=== PATIENT | male | born 1945 | race Caucasian/White ===

== ENCOUNTER 2017-04-05 09:00 | Day surgery (SDC) | payer MEDICARE ==
[2017-04-02 13:04] VITALS: BMI 36.2
[~2017-04-05 09:00] MED LIST: ALPRAZolam 0.25 MG TAB PO PRN; ALPRAZolam 0.5 MG TAB PO PRN; ASPIRIN 325 MG TAB PO STA; ATORVASTATIN 80 MG TAB PO STA; NITROGLYCERIN SL TABS 0.4 MG TAB SUBLINGUAL PRN; SODIUM CHLORIDE 0.9% 1,000 ML in EMPTY BAG 1 BAG IV ONE
[2017-04-05 09:38] VITALS: RESP 18; TEMP 98
[2017-04-05 09:54] LABS: Basophils % (A) 1 %; CH 31.2; CHCM 35.3; Eosinophils # (A) 0.2 k/uL (0-0.7); Eosinophils % (A) 3 %; HCT 36.7 % (39.0-53.0); HDW 2.87; HGB 12.9 gm/dL (13.0-17.5); Luc # (Auto) 0.16; Luc % (Auto) 2; Lymphocytes # (A) 1.6 k/uL (1.0-4.8); Lymphocytes % (A) 22 %; MCH 31.2 pg (25.0-35.0); MCHC 35.1 g/dL (31.0-37.0); MCV 88.7 fL (80.0-100.0); Mean Platelet Volume 7.5; Monocytes # (A) 0.4 k/uL (0-1.0); Monocytes % (A) 5 %; Neutrophils # (A) 4.8 k/uL (1.3-7.7); Neutrophils % (A) 66 %; RBC 4.13 m/uL (4.30-5.90); RDW 13.3 % (11.5-15.5); WBC 7.3 k/uL (3.8-10.6); WBC (Perox) 7.79
[2017-04-05 10:04] LABS: Anion Gap 10 mmol/L; Blood Urea Nitrogen 18 mg/dL (9-20); Calcium 8.8 mg/dL (8.4-10.2); Carbon Dioxide 23 mmol/L (22-30); Chloride 108 mmol/L (98-107); Glucose 89 mg/dL (74-99); Non-African American GFR(MDRD) 59 (>60 ml/min/1.73 sqM); Potassium 4.2 mmol/L (3.5-5.1); Sodium 141 mmol/L (137-145)
[2017-04-05] MEDS ORDERED: LIDOCAINE 2% INJ 20 MG/ML (20 ML MDV) ONE (12:32)
[2017-04-05] MEDS ORDERED: VERAPAMIL 2.5 MG/ML 2 ML AMP ONE (12:33)
[2017-04-05] MEDS ORDERED: MIDAZOLAM 2 MG/2 ML VIAL ONE (12:33)
[2017-04-05] MEDS ORDERED: MIDAZOLAM 2 MG/2 ML VIAL IV ONE (12:39)
[2017-04-05] MEDS ORDERED: LIDOCAINE 2% INJ 20 MG/ML SQ ONE (12:41)
[2017-04-05] MEDS ORDERED: HEPARIN SODIUM 1,000 UN/ML (10ML VL) ONE (12:41)
[2017-04-05] MEDS: VERAPAMIL SYRINGE (5 MG/10 ML) INTRAARTER ONE ×2 (12:43→12:53)
[2017-04-05] MEDS ORDERED: IOHEXOL 350 MG/ML 125ML BOTTLE INJ ONE (12:52)
[2017-04-05] MEDS ORDERED: RX INFO: IV CONTRAST WAS GIVEN 1 EACH MISC MISCELLANE PRN (12:58)
[2017-04-05] MEDS ORDERED: SODIUM CHLORIDE 0.9% 1,000 ML IV SCH (13:00)
--- NOTE | 2017-04-05 13:07 | P.PCN ---
Date of Procedure: 04/05/17 Preoperative Diagnosis: Postoperative Diagnosis: Procedure(s) Performed: Implants: Indications for Procedure: Operative Findings: CARDIAC CATHETERIZATION PERFORMING PHYSICIAN: Ramin Zhang MD, VI PREPROCEDURE DIAGNOSES: Intermittent episodes of chest discomfort Abnormal myocardial perfusion imaging with evidence of anterior ischemia POSTPROCEDURE DIAGNOSES: Mild nonobstructive CAD Normal left ventricular systolic function PROCEDURE PERFORMED: 1. Selective right and left coronary angiogram 2. Left heart catheterization 3. Left ventriculography APPROACH: Right radial artery PROCEDURE DESCRIPTION: After obtaining an informed consent and explaining the procedure benefits, risks , and complications, the patient was brought to cardiac cathead operator. Local anesthesia was performed using lidocaine subcutaneously. The right radial artery was cannulated using Seldinger technique, the guidewire passed easily, following that we advanced a 6[place] sheath dilator assembly, the wire and dilator were removed and sheath was flushed. Following that, 2 mg of verapamil along with 3000 unit heparin were given. Selective right and left coronary angiogram using a 6-[place] JR4 and JL 3.5 catheters. Following that we did left heart catheterization followed by left ventriculography using 6-[place] pigtail catheter. The procedure was completed there was no complication. SELECTIVE CORONARY ANGIOGRAM: The right coronary artery: Is a large caliber vessel and its a dominant vessel. Its angiographically normal. Left main: Is angiographically normal and bifurcates into left circumflex and left anterior descending artery The left circumflex: Is a large caliber vessel and nondominant vessel. Its angiographically normal. The left anterior descending artery: The proximal LAD appeared to have mild disease only and gives rises into a large diagonal branch which seems to be normal. The mid LAD and distal LAD are angiographically normal. HEMODYNAMICS: The left ventricular end-diastolic pressure was 16 mmHg and no gradient was identified across aortic valve VENTRICULOGRAPHY: Was performed in the [place] projection and using a power injection. The left ventricle systolic function is normal. POSTPROCEDURE MANAGEMENT: Medical treatment. Description of Procedure:
[2017-04-05 16:54] VITALS: BP 153/67
[2017-04-05 16:55] VITALS: PULSE 55
== END 2017-04-05 19:12 | disposition home or self-care (01) ==
LOC: CATHCVL 09:00 → 3OBS 12:54 → CATHCVL 19:12
PROVIDERS: ATTEND Internal Medicine Interventional Cardiology
DX: R94.39 Abnormal result of other cardiovascular function study (principal); R07.89 Other chest pain; I10 Essential (primary) hypertension; E78.5 Hyperlipidemia, unspecified; Z87.891 Personal history of nicotine dependence; Z79.82 Long term (current) use of aspirin; Z79.1 Long term (current) use of non-steroidal anti-inflammatories (NSAID); Z79.899 Other long term (current) drug therapy
CPT/HCPCS: 93458; 80048; 85025; C1894; J2001; J2250; J1644; Q9967

== ENCOUNTER → 2019-01-24 | Outpatient (CLI) | payer MEDICARE ==
--- NOTE | 2019-01-24 12:25 | XR ---
Bilateral hips HISTORY: Bilateral hip pain 2 views of each hip are submitted. No comparisons Bone mineralization, joint spaces and alignment are maintained. There are dense vascular calcificatio ns present. There is no fracture or dislocation. IMPRESSION: No significant arthropathy.
== END ==
LOC: RADXRMAIN 11:42
PROVIDERS: ATTEND Orthopaedic Surgery
DX: M25.551 Pain in right hip (principal); M25.552 Pain in left hip
CPT/HCPCS: 73521

== ENCOUNTER → 2019-02-02 | Outpatient (CLI) | payer MEDICARE ==
--- NOTE | 2019-02-02 12:43 | MR ---
EXAMINATION TYPE: MR lumbar spine wo con DATE OF EXAM: 02/02/2019 COMPARISON: NONE HISTORY: Low back pain TECHNIQUE: T1 and T2 axial and sagittal images of the lumbar spine are submitted. FINDINGS: There is no abnormal signal seen within the visualized spinal cord or paraspinal soft tissu es. At L1-2 there is degenerative disc disease but no disc herniation or canal stenosis. No foraminal enc roachment. At L2-3 there is severe degenerative disc disease with 2 mm retrolisthesis of L2 relative to L3. Vacu um disc noted. Ligamentum flavum hypertrophy and facet arthropathy noted. Broad-based disc protrusion seen with bilateral moderate to severe foraminal encroachment and moderate canal stenosis. At L3-4 there is severe degenerative disc disease with broad-based disc herniation and hypertrophy of the facet joints and ligamentum flavum. Moderate severe bilateral foraminal encroachment and moderat e central stenosis. At L4-5 there is severe degenerative disc disease with diffuse disc bulging, hypertrophic change of t he facets and ligamentum flavum result in moderate canal stenosis and moderate bilateral foraminal en croachment. At L5-S1 there is severe degenerative disc disease with central disc protrusion slightly greater para centrally to the right. There is moderate bilateral foraminal encroachment. Mild canal stenosis. There is increased signal involving the arachnoid nerve roots which appear thickened. 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 Postcontrast imaging recommended. Evidence of epidural lipomatosis inciden tally noted. IMPRESSION: 1. Severe degenerative disc disease with vacuum disc at levels L2-S1 with disc protrusions, hypertrop hic change of the facets and ligamentum flavum and diminutive spinal canal resulting in multilevel si gnificant canal stenosis and foraminal encroachment extending from level L2-S1. 2. There is increased intermediate signal involving the structures within the thecal sac which most l ikely related to thickened or clumped nerve roots within the cauda equina correlate for arachnoiditis . Postcontrast T1 sagittal and axial imaging is recommended to exclude other etiologies. 3. Epidural lipomatosis.
== END ==
LOC: RADMRIMAIN 11:45
PROVIDERS: ATTEND Orthopaedic Surgery
DX: M51.37 Other intervertebral disc degeneration, lumbosacral region (principal); M51.27 Other intervertebral disc displacement, lumbosacral region; M48.07 Spinal stenosis, lumbosacral region; E88.2 Lipomatosis, not elsewhere classified
CPT/HCPCS: 72148

== ENCOUNTER → 2019-02-16 | Outpatient (CLI) | payer MEDICARE ==
[2019-02-16 14:18] VITALS: BP 135/74; PULSE 80; RESP 16
--- NOTE | 2019-02-16 14:39 | P.PAINCN ---
History of Present Illness - Reason for Consult Consult date: 02/16/19 - History of Present Illness This is an initial consultation visit for this 73 years old male with a chronic history of severe low back pain started 3 years ago he denies any initiating event, the pain is constant throughout detorsed the hip area bilaterally, he denies any motor or sensory deficit he denies any initiating event, the pain is constant and increases with any activity especially walking or moving, he denies any fever or night sweats, he never tried interventional pain management. Past Medical History Past Medical History: Asthma, GERD/Reflux, Hyperlipidemia, Hypertension, Osteoarthritis (OA), Prostate Disorder, Thyroid Disorder Additional Past Medical History / Comment(s): HX STRESS TEST ABN. ASTHMA CHILD. BPH. PROB W/ BIAT HIPS R/T BACK PROBLEMS. OCC EDEMA ANKLES. History of Any Multi-Drug Resistant Organisms: None Reported Past Surgical History: Appendectomy, Heart Catheterization, Orthopedic Surgery Additional Past Surgical History / Comment(s): PARTIAL THYROIDECTOMY. LT ROTATOR CUFF., COLONOSCOPY Past Anesthesia/Blood Transfusion Reactions: No Reported Reaction Smoking Status: Former smoker - Past Family History Mother Brother(s) Family Medical History: Cancer Sister(s) Family Medical History: Cancer Medications and Allergies Home Medications Medication Instructions Recorded Confirmed Type Allopurinol [Zyloprim] 300 mg PO HS 04/02/17 02/14/19 History Atorvastatin [Lipitor] 20 mg PO HS 04/02/17 02/14/19 History Benazepril HCl [Lotensin] 20 mg PO HS 04/02/17 02/14/19 History Levothyroxine Sodium [Synthroid] 100 mcg PO HS 04/02/17 02/14/19 History Multivit-Min/FA/Lycopen/Lutein 1 each PO HS 04/02/17 02/14/19 History [Centrum Silver Tablet] Naproxen [Naprosyn] 500 mg PO Q12HR PRN 04/02/17 02/14/19 History Primidone [Mysoline] 150 mg PO HS 04/02/17 02/14/19 History Ranitidine HCl 300 mg PO HS 04/02/17 02/14/19 History Terazosin HCl 10 mg PO HS 04/02/17 02/14/19 History amLODIPine [Norvasc] 10 mg PO HS 04/02/17 02/14/19 History Allergies Allergy/AdvReac Type Severity Reaction Status Date / Time No Known Allergies Allergy Verified 02/14/19 15:07 Physical Exam Vitals: Vital Signs Pulse Resp BP Pulse Ox 02/16/19 14:14 80 16 135/74 94 L Social history : not smoker , NO ETOH , NO Illegal drugs use . Review of Systems : - Constitutional : no chills , no fever , no night sweats , - Ears : no ear discharge , no change in hearing -Nose, Mouth ,Throat ; no bleeding gums, no sore throat , no epistaxis , -Cardiovascular : Denies chest pain, , no orthopnea , no palpitation -Respiratory : Denies cough , no dyspnea , no hemoptysis -Gastrointestinal : no change in bowel habits , no coffee-ground emesis . -Genitourinary : No hematuria , no discharge , no incontinence, -Musculoskeletal : No gait dysfunction , report low back pain , - Neurological : no ataxia , no tremor , no sezure , -Psychatric : no suicidal ideation no hallucination - Endocrine : no cold intolerence , no polyuria , no polydypsia , -Hematologic : no easy bleeding , no easy brusing , -Allergic / immm : no angioedema , no wheezing ,no allergic rhinitis -Integumentary : no brttle nails , no change hair / nails , no foot/leg ulcers . Physical Examinations : -Constitutional : Cooperative , not in acute distress . -HEENT : nech ; supple , no Lymphadenopathy , no Thyromegaly , :eyes : no icterus, no photopho poncho . : ENT normal oropharynx , no Thrush - Respiratory : Chest clear to auscultations Bilaterally , no wheezing . - Cardiovascular : regular rate and rhythem , S1 , S2 , no S3 , no S4. - Gastrointestina l: abdomen soft no tenderness , no organomegally . - Genitourinary : Defferred . -Integumentary : No cellulitis , no ulcers , normal skin turgor , no cyanotic . - neurologic : Cranial nerve II to XII intact , no focal neurological deffecit -psychatric : alert , oriented X 3 , appropriate affect , intact judgment and insight . -Lymphatic : no Lymphadenopathy. - musculoskeltal: normal gait . Lumber spine moter stegnth lower extremities ,thigh and legs 5/5 Right side , 5/5 Left side deep tendon reflexes : normal Knee Jerk , normal ankle Jerk positive lumber facet Loading Test Range of motion of the lumbar spine Flexion 60 degrees, extension 30 degrees strait leg raising test negative bilaterally Fabere test negative bilaterally Severe tenderness over the sacroiliac joint on the right side, and on the left side [place] test= positive bilaterally Seated flexion test= positive bilaterally Results Comments: MRI of the lumbar spine done at [facility] in 02/02/2019= L3-4 severe degenerative disc disease and disc herniation at L3 4 and facet joint hypertrophy and L4 5 severe degenerative disc disease and facet joint hypertrophy L5-S1 severe degenerative disc disease and facet joint hypertrophy Assessment and Plan Plan: Assessment and plan=1- lumbar degenerative disc disease 2-epidural lipomatosis 3-lumbar spondylosis with lumbar facet arthropathy 4-bilateral sacroiliitis Epidural steroid injection is relatively contraindicated . Patient will be good candidate to have diagnostic medial branch block lumbar area at L3 4, L4 5, L5-S1 Time with Patient: Greater than 30 PQRS Measure Charge Sheet Measure #130: Documentation of Current Meds in Medical Chart: Patient's medications documented in chart Measure #226: Tobacco Use: Screen & Cessation Intervention: Pt not a tobacco user Measure #111: Pneumonia Vaccination: Pneumococcal vaccine administered or previously received Measure #47: Advance Care Plan: Advance care planning discussed & documented, pt chose/unable to give Measure #412: Opioid Treatment Agreement: No documentation of signed opioid treatment agreement Measure #408: Opioid Therapy Follow-up Evaluation: Patient had NO f/u eval minimum every 3 months during opioid therapy Measure #317: Preventitive Care & Scrn High Bld Press & F/U: Normal blood pressure, f/u not required Measure #128: Body Mass Index (BMI) Screening & Follow-up: BMI documented ABOVE normal parameters - f/u documented Measure #131: Pain Assessment & Follow-up: Pain positive & plan documented, Follow-up scheduled Measure #431: Unhealthy Alcohol Use Preventative Care & Scrn: Patient not identified as an unhealthy alcohol user PQRS Narrative: Smoking Status Former smoker Blood Pressure 135/74 Pain Intensity [Lower Back] 2 Hx Alcohol Use (MH) No Home Medications: Ambulatory Orders Allopurinol [Zyloprim] 300 mg PO HS 04/02/17 Atorvastatin [Lipitor] 20 mg PO HS 04/02/17 Benazepril HCl [Lotensin] 20 mg PO HS 04/02/17 Levothyroxine Sodium [Synthroid] 100 mcg PO HS 04/02/17 Multivit-Min/FA/Lycopen/Lutein [Centrum Silver Tablet] 1 each PO HS 04/02/17 Naproxen [Naprosyn] 500 mg PO Q12HR PRN 04/02/17 Primidone [Mysoline] 150 mg PO HS 04/02/17 Ranitidine HCl 300 mg PO HS 04/02/17 Terazosin HCl 10 mg PO HS 04/02/17 amLODIPine [Norvasc] 10 mg PO HS 04/02/17
== END | disposition home or self-care (01) ==
LOC: PNWHC3 13:43
PROVIDERS: ATTEND Specialist
DX: G89.29 Other chronic pain (principal); M51.36 Other intervertebral disc degeneration, lumbar region; E88.2 Lipomatosis, not elsewhere classified; M47.816 Spondylosis without myelopathy or radiculopathy, lumbar region; M46.96 Unspecified inflammatory spondylopathy, lumbar region; M46.1 Sacroiliitis, not elsewhere classified; K21.9 Gastro-esophageal reflux disease without esophagitis; E78.5 Hyperlipidemia, unspecified; I10 Essential (primary) hypertension; Z87.891 Personal history of nicotine dependence; Z79.899 Other long term (current) drug therapy
CPT/HCPCS: 99211

== ENCOUNTER 2019-03-01 06:10 | Day surgery (SDC) | payer MEDICARE ==
[2019-02-21 15:38] VITALS: BMI 37.3
[2019-03-01] MEDS ORDERED: LACTATED RINGERS 1,000 ML IV ONE (06:35)
[2019-03-01] MEDS ORDERED: LIDOCAINE 1% 20 ML VIAL (10MG/ML) FOR IV START INTRADERMA ONE (06:35)
[2019-03-01 06:43] VITALS: TEMP 97.2
[2019-03-01] MEDS ORDERED: LACTATED RINGERS 1,000 ML IV SCH (07:00)
[2019-03-01] MEDS ORDERED: IV FLUID CONTINUATION 1,000 ML IV ONE ×2 (07:28)
[2019-03-01 07:33] VITALS: RESP 18
--- NOTE | 2019-03-01 07:33 | P.PCN ---
Date of Procedure: 03/01/19 Procedure(s) Performed: PREOPERATIVE DIAGNOSIS : Lumbar spondylosis with Facet Arthropathy without myelopathy POSTOPERATIVE DIAGNOSIS: same PROCEDURE: Diagnostic lumbar medial branch block with fluoroscopy at L3-L4, L4- L5, L5-S1 bilateral ANESTHESIA: Local anesthetic; Versed 2 mg Surgeon: Milana Mcdonough MD PROCEDURE INDICATION: Lumbar spondylosis with Facet Arthropathy without myelopathy PROCEDURE DESCRIPTION: the patient was seen and identified in the preop holding area , risks and benefits and possible complications of the procedure and alternative were discussed with the patient, and the patient agreed to proceed with the procedure and signed the consent IV was started and vital signs monitored during the procedure and fluoroscopy was used to maximize the benefit and accuracy of the needle placement, and sedation was given to decrease patient anxiety, patient was taken to the procedure room and placed in prone position vital signs monitored in the back prepped. Under strict sterile technique using a AP and ipsilateral oblique fluoroscopy ,the junction of the transverse process and the superior articulating process of the L3- 4 , L4- 5, and L5-S1 vertebra which corresponding to the fluoroscopy image of the eye of the Neel dog on the block side for the medial branches as well as the sacral ala was identified and subsequently , after local infiltration of skin and subcutaneous tissues with lidocaine 1% 0.2 mL at each level ,then a 22-gauge 5 inch Quincke-type needles was placed at the junction of the base of the transverse process and the superior articular process at the appropriate level, and the needle was advanced until the periosteum contacted, needle placement confirmed with AP and oblique view and after negative aspiration, Isovue 200 0.2 mL was injected with no evidence of vascular uptake. Then, 0.5 mL of Marcaine 0.5% in divided doses was injected at each level and the needle subsequently removed. No steroid was used for this procedure. At the end of the procedure and the needles removed and a bandage applied after the skin was cleaned the cleaning solution patient taken to recovery room in stable condition and monitors in the recovery room for 20-30 minutes and discharged home in stable condition after discharge criteria met and patient will follow up for repeat procedure in 1-2 weeks. EBL: Minimal COMPLICATION: None.
[2019-03-01 07:49] VITALS: BP 136/77; PULSE 68
--- NOTE | 2019-03-01 08:05 | FL ---
EXAMINATION TYPE: FL guided pain mgmt statistic DATE OF EXAM: 03/01/2019 HISTORY: Flouroscopy time 13 seconds of fluoroscopy provided. IMPRESSION: 1. Fluoroscopy time.
== END 2019-03-01 07:28 | disposition home or self-care (01) ==
LOC: ORPAIN 06:10
PROVIDERS: ATTEND Anesthesiology
DX: M47.816 Spondylosis without myelopathy or radiculopathy, lumbar region (principal); M51.36 Other intervertebral disc degeneration, lumbar region; E88.2 Lipomatosis, not elsewhere classified; M46.1 Sacroiliitis, not elsewhere classified; J45.909 Unspecified asthma, uncomplicated; K21.9 Gastro-esophageal reflux disease without esophagitis; M19.90 Unspecified osteoarthritis, unspecified site; E89.0 Postprocedural hypothyroidism; Z87.891 Personal history of nicotine dependence; Z79.890 Hormone replacement therapy; Z79.899 Other long term (current) drug therapy
CPT/HCPCS: 64493; 64494; 64495; J2250; Q9966; 99152

== ENCOUNTER 2019-03-15 06:10 | Day surgery (SDC) | payer MEDICARE ==
[2019-03-13 09:36] VITALS: BMI 37.5
[~2019-03-15 06:10] MED LIST changes: -ALPRAZolam 0.25 MG TAB PO PRN; -ALPRAZolam 0.5 MG TAB PO PRN; -ASPIRIN 325 MG TAB PO STA; -ATORVASTATIN 80 MG TAB PO STA; +LACTATED RINGERS 1,000 ML IV SCH; -NITROGLYCERIN SL TABS 0.4 MG TAB SUBLINGUAL PRN; -SODIUM CHLORIDE 0.9% 1,000 ML in EMPTY BAG 1 BAG IV ONE
[2019-03-15 06:25] VITALS: TEMP 97.2
[2019-03-15] MEDS ORDERED: LIDOCAINE 1% 20 ML VIAL (10MG/ML) FOR IV START SQ ONE (06:37)
--- NOTE | 2019-03-15 07:39 | P.PCN ---
Date of Procedure: 03/15/19 Surgeon: Rocky Franklin Pathology: none sent Condition: stable Disposition: PACU Description of Procedure: PREOPERATIVE DIAGNOSIS : 1- Lumbar spondylosis with Facet Arthropathy wit hout myelopathy . 2- Lumber degenerative disc disease POSTOPERATIVE DIAGNOSIS: 1- Lumbar spondylosis with Facet Arthropathy without myelopathy . 2- Lumber degenerative disc disease PROCEDURE: Diagnostic bilateral L3 -4 , L4 -5 , and L5-S1 medial branch block under fluoroscopy ANESTHESIA: Local with 1% lidocaine; IV moderate conscious sedation with Versed 2 mg . EBL: Negligible COMPLICATION: None. PROCEDURE INDICATION: Chronic low back pain secondary to Facet arthropathy unresponsive to conservative treatment. PROCEDURE DESCRIPTION: the patient was seen and identified in the preop holding area , risks and benefits and possible complications of the procedure and a lternatives were discussed with the patient, and the patient agreed to proceed with the procedure and signed the consent. IV was started and vital signs monitored during the procedure and fluoroscopy was used to maximize the benefit and accuracy of the needle placement, sedation was given to decrease patient anxiety, patient was taken to the procedure room and placed in prone position vital signs monitored. The patient was brought into the procedure room and placed in prone position. Skin was prepped with Chloraprep and draped in a sterile manner. Lidocaine 1% was used to numb the skin up at the target points that were chosen as follows: at the L5-S1 level which corresponds to the dorsal ramus of L5 the target points were at the superior medial aspect of the sacral ala on each side of the spine on the AP view of fluoroscopy, and for the L3 and L4 medial branches the target points were the connection between the transverse process and the superior to go process of L4 and L5 respectively on the oblique views of fluoroscopy. I used 22-gauge 5 inch Quincke spinal needles for this procedure and after contacting bone at the target points mentioned above I injected 1 mL of a mixture of Kenalog 40 mg +5 MLS of Ropivacaine 0.5% PF . Patient tolerated procedure well. At the end of the procedure the needles removed and a bandage applied after the skin was cleaned the cleaning solution. patient was then taken to the recovery room in stable condition and monitored in the recovery room for 20-30 minutes and discharged home in stable condition after discharge criteria met .
[2019-03-15 07:44] VITALS: RESP 17
[2019-03-15] MEDS ORDERED: IV FLUID CONTINUATION 1,000 ML IV ONE ×2 (07:51)
[2019-03-15 07:58] VITALS: BP 133/65; PULSE 57
--- NOTE | 2019-03-15 10:08 | FL ---
Fluoroscopy HISTORY: Pain 8 seconds fluoroscopy time supplied to the referring clinician. 3 intraoperative C-arm images docume nt the procedure. See dictated report from anesthesia.
== END 2019-03-15 08:06 | disposition home or self-care (01) ==
LOC: ORPAIN 06:10
PROVIDERS: ATTEND Anesthesiology
DX: M47.816 Spondylosis without myelopathy or radiculopathy, lumbar region (principal); G89.29 Other chronic pain; M51.36 Other intervertebral disc degeneration, lumbar region; K21.9 Gastro-esophageal reflux disease without esophagitis; E78.5 Hyperlipidemia, unspecified; I10 Essential (primary) hypertension; Z79.890 Hormone replacement therapy; Z79.899 Other long term (current) drug therapy; E89.0 Postprocedural hypothyroidism
CPT/HCPCS: 99152

== ENCOUNTER → 2019-03-29 | Outpatient (CLI) | payer MEDICARE ==
--- NOTE | 2019-03-29 13:50 | P.PAINPG ---
Subjective Progress Note Date: 03/29/19 Patient is a 73-year-old male with lumbar spondylosis who presents for follow-up after 2 medial branch blocks. He reports great relief of pain although transiently with diagnostic block. He is interested in proceeding to radiofrequency ablation. He states that his pain is slightly worse on the right side than the left side. Otherwise he denies any new symptoms. He does state that his hip pain was improved with the lumbar diagnostic blocks Objective - Vital Signs Vital signs: Intake & Output 03/28/19 03/29/19 03/29/19 18:59 06:59 18:59 Weight 122.47 kg - Exam Gen: WDWN, AAOx3, NAD HEENT: NCAT, EOMI, hearing grossly normal Pulm: resp unlabored Abd: soft, NT, ND Neck: supple, trachea midline ROM in flexion lumbar spine: Appropriate ROM in extension lumbar spine: Appropriate but did cause some soreness Lumbar paravertebral tenderness: No immediate paravertebral tenderness however he did have some tenderness in the left latissimus dorsi Facet loading: Positive Neuro: muscle strength lower extremities 5 out of 5 Assessment and Plan Assessment: Assessment and plan: 1. Lumbar spondolysis without radiculopathy 2. DDD 1. Interventions right-sided lumbar RFA medial branch L3, l4, and dorsal ramus of L5. All of his questions were answered about the procedure. He will be seen in follow-up for the procedure. , PQRS Measure Charge Sheet Measure #47: Advance Care Plan: Advance care planning discussed & documented, pt chose/unable to give Measure #131: Pain Assessment & Follow-up: Pain positive & plan documented, Follow-up scheduled PQRS Narrative: Smoking Status Former smoker Hx Alcohol Use (MH) No Home Medications: Ambulatory Orders Allopurinol [Zyloprim] 300 mg PO HS 04/02/17 Atorvastatin [Lipitor] 20 mg PO HS 04/02/17 Benazepril HCl [Lotensin] 20 mg PO HS 04/02/17 Levothyroxine Sodium [Synthroid] 100 mcg PO HS 04/02/17 Multivit-Min/FA/Lycopen/Lutein [Centrum Silver Tablet] 1 each PO HS 04/02/17 Naproxen [Naprosyn] 500 mg PO Q12HR PRN 04/02/17 Primidone [Mysoline] 150 mg PO HS 04/02/17 Ranitidine HCl 300 mg PO HS 04/02/17 Terazosin HCl 10 mg PO HS 04/02/17 amLODIPine [Norvasc] 10 mg PO HS 04/02/17 Controlled Substance Measures - Controlled Substance Measures Is patient prescribed a controlled substance at discharge?: No
[2019-03-29 13:53] VITALS: BP 147/67; PULSE 68; RESP 16
== END | disposition home or self-care (01) ==
LOC: PNWHC3 12:17
PROVIDERS: ATTEND Student in an Organized Health Care Education/Training Program
DX: M51.36 Other intervertebral disc degeneration, lumbar region (principal); M47.816 Spondylosis without myelopathy or radiculopathy, lumbar region; Z87.891 Personal history of nicotine dependence; Z79.899 Other long term (current) drug therapy
CPT/HCPCS: 99211

== ENCOUNTER → 2019-04-12 | Day surgery (SDC) | payer MEDICARE ==
[2019-04-06 14:40] VITALS: BMI 37.7
[~2019-04-12] MED LIST changes: +IV FLUID CONTINUATION 1,000 ML IV ONE; +LIDOCAINE 1% 20 ML VIAL (10MG/ML) FOR IV START INTRADERMA ONE
[2019-04-12 07:41] VITALS: RESP 18; TEMP 96.4
[2019-04-12 09:31] VITALS: BP 98/57; PULSE 60
--- NOTE | 2019-04-12 09:55 | P.PCN ---
Date of Procedure: 04/12/19 Procedure(s) Performed: PREOPERATIVE DIAGNOSIS: Lumbar Spondylosis POSTOPERATIVE DIAGNOSIS: Same PROCEDURES: Radiofrequency ablation of the L2, L3, L4, L5 medial branches with fluoroscopic guidance on the right side (for facets L3-4, L4-5, L5-S1). 4 medial branches were blocked which covers 3 facet joints. SURGEON: Milana Mcdonough MD. ANESTHESIA: Lidocaine 1% 5 mL, Moderate sedation with intravenous Versed and fentanyl EBL: Minimal Fluoroscopy was used for the procedure and images were saved in the radiology portion of the chart. PROCEDURE INDICATION: The patient with low back pain secondary to lumbar facet arthropathy who had more than 50% relief of pain with previous diagnostic lumbar medial branch block X2. PROCEDURE DESCRIPTION / TECHNIQUE: The patient was seen and identified in the preoperative area. Risks, benefits, complications, including but not limited to risk of infection ,bleeding , allergic reactions to the medications and incomplete pain relief , and alternatives were discussed with the patient, the patient agreed to proceed with the procedure and signed the consent. IV was started. The operative site was marked. Patient was taken to the OR and time out was completed. The patient was placed in the prone position on the procedure table. The lumbar area was prepped and draped in the usual sterile fashion. . Vital signs were closely monitored during the procedure .IV sedation was used during the procedure to decrease patients anxiety. Using AP and then oblique fluoroscopy, the "eye of the Neel dog" corresponding to the connection between the superior and transverse articular processes of the L3, L4 and L5 as well as the sacral ala were identified, marked, and localized with 1% lidocaine. Subsequently, an 18 guage 150 mm radiofrequency cannula with a 10-mm active tip was advanced guided by fluoroscopy to the identified target at each site. Needle positioning was confirmed on AP, oblique and lateral fluoroscopy. Motor testing at 2.5 Hz was done with paraspinal muscle stimulation only, and no radicular symptoms down the legs. Then 1 mL of 4% lidocaine was injected in each site. Radiofrequency thermocoagulation at 80 degrees celsius for 90 seconds was then performed. [place] were removed. Sterile dressings were applied. COMPLICATIONS: No acute complications. DISPOSITION / PLANS: The patient was placed in a supine position and transferred to the recovery area in a stable condition for observation and was discharged from the recovery room after meeting discharge criteria. Home discharge instructions given to the patient by the staff. The patient will follow-up for left-sided lumbar radiofrequency ablation in 2-4 weeks.
--- NOTE | 2019-04-12 11:01 | FL ---
Fluoroscopy HISTORY: Pain 19 seconds fluoroscopy time supplied to the referring clinician. 8 intraoperative C-arm images docum ent the procedure. See dictated report from anesthesia.
== END ==
LOC: ORPAIN 07:27
PROVIDERS: ATTEND Anesthesiology
DX: M47.816 Spondylosis without myelopathy or radiculopathy, lumbar region (principal); M51.36 Other intervertebral disc degeneration, lumbar region; Z79.890 Hormone replacement therapy; Z79.899 Other long term (current) drug therapy; Z87.891 Personal history of nicotine dependence
CPT/HCPCS: 64635; 64636; J2250; J2001; J3010; 99152; 99153

== ENCOUNTER 2019-04-26 08:28 | Day surgery (SDC) | payer MEDICARE ==
[2019-04-19 11:48] VITALS: BMI 37.3
[~2019-04-26 08:28] MED LIST changes: -IV FLUID CONTINUATION 1,000 ML IV ONE; -LIDOCAINE 1% 20 ML VIAL (10MG/ML) FOR IV START INTRADERMA ONE
[2019-04-26] MEDS ORDERED: LIDOCAINE 1% 20 ML VIAL (10MG/ML) FOR IV START INTRADERMA ONE (09:00)
[2019-04-26 09:16] VITALS: TEMP 97
--- NOTE | 2019-04-26 10:00 | P.PCN ---
Date of Procedure: 04/26/19 Procedure(s) Performed: PREOPERATIVE DIAGNOSIS: Lumbar Spondylosis with lumbar facet arthropathy without myelopathy POSTOPERATIVE DIAGNOSIS: Same as preop diagnosis. PROCEDURES: Radiofrequency ablation of the L2, L3, L4, L5 medial branches with fluoroscopic guidance on the left side (for facets L3-4, L4-5, L5-S1). 4 medial branches were blocked which covers 3 facet joints. (Fluoroscopy images available at the radiology department ) ANESTHESIA: Lidocaine 1% 5 mL, Moderate sedation with intravenous Versed 2 mg and fentanyl 100 g EBL: Minimal Fluoroscopy was used for the procedure and images were saved in the radiology portion of the chart. PROCEDURE INDICATION: The patient with low back pain secondary to lumbar facet arthropathy who had more than 50% relief of pain with previous diagnostic lumbar medial branch block X2. PROCEDURE DESCRIPTION / TECHNIQUE: The patient was seen and identified in the preoperative area. Risks, benefits, complications, including but not limited to risk of infection ,bleeding , allergic reactions to the medications and incompl ete pain relief , and alternatives were discussed with the patient, the patient agreed to proceed with the procedure and signed the consent. IV was started. The operative site was marked. Patient was taken to the OR and time out was completed. The patient was placed in the prone position on the procedure table. The lumbar area was prepped and draped in the usual sterile fashion. . Vital signs were closely monitored during the procedure .IV sedation was used during the procedure to decrease patients anxiety. Using AP and then oblique fluoroscopy, the "eye of the Neel dog" corresponding to the connection between the superior and transverse articular processes of the L3, L4 and L5 as well as the sacral ala were identified, marked, and localized with 1% lidocaine. Subsequently, an 18 guage 100 mm radiofrequency cannula with a 10-mm active tip was advanced guided by fluoroscopy to the identified target at each site. Needle positioning was confirmed on AP, oblique and lateral fluoroscopy. Motor testing at 2.5 Hz was done with paraspinal muscle stimulation only, and no radicular symptoms down the legs. Then 1 mL of 4% lidocaine was injected in each site. Radiofrequency thermocoagulation at 80 degrees celsius for 90 seconds was then performed. Then after the mixture of ropivacaine 0.5% for a male mixed with 40 mg of Depo-Medrol mixed with 1 mL injected at each level after negative aspiration ,then Pompey were removed. Sterile dressings were applied. COMPLICATIONS: No acute complications. DISPOSITION / PLANS: The patient was placed in a supine position and transfe rred to the recovery area in a stable condition for observation and was discharged from the recovery room after meeting discharge criteria. Home discharge instructions given to the patient by the staff. The patient will follow-up for left-sided lumbar radiofrequency ablation in 2-4 weeks.
[2019-04-26] MEDS ORDERED: IV FLUID CONTINUATION 1,000 ML IV ONE ×2 (10:06)
[2019-04-26 10:10] VITALS: RESP 18
[2019-04-26 10:25] VITALS: BP 106/65; PULSE 67
--- NOTE | 2019-04-26 10:41 | FL ---
EXAMINATION TYPE: FL guided pain mgmt statistic DATE OF EXAM: 04/26/2019 HISTORY: Flouroscopy time 31 seconds of fluoroscopy provided. IMPRESSION: 1. Fluoroscopy time.
== END 2019-04-26 10:40 | disposition home or self-care (01) ==
LOC: ORPAIN 08:28
PROVIDERS: ATTEND Specialist
DX: M47.816 Spondylosis without myelopathy or radiculopathy, lumbar region (principal)
CPT/HCPCS: 64635; 64636; 99152; 99153

== ENCOUNTER → 2019-05-18 | Outpatient (CLI) | payer MEDICARE ==
[2019-05-18 12:59] VITALS: PULSE 75
[2019-05-18 13:06] VITALS: BP 126/79
--- NOTE | 2019-05-18 15:16 | P.PAINPG ---
Subjective Progress Note Date: 05/18/19 Mr. Mayer returns for follow-up after his bilateral lumbar RFA. He reports excellent relief of his pain after the lumbar RFA essentially completely resolved. However and he now has pain in his buttock area at the belt line. He has several medical consultations and visit scheduled in the near future., He does have some knee pain and he is seeing a vascular specialist for this. At this time he would like to get the pain at and below the belt line better taken care of, he has been very happy with her previous radiofrequency ablation. At rest she has no pain, however with mobility he has increased pain. Objective - Vital Signs Vital signs: Vital Signs Temp Pulse 75 05/18/19 12:45 Resp BP 126/79 05/18/19 12:45 Pulse Ox - Exam Vital Signs: Reviewed in EMR GENERAL: Well appearing, in no acute distress, PSYCH: Mood and affect is appropriate. Awake, alert, and oriented SKIN: Skin color, texture, turgor normal, no rashes or lesions HEENT: Normocephalic, atraumatic. EOM intact CV: No pedal edema RESP: Respirations are unlabored, no audible wheezing GI: Abdomen non-distended, obese MUSCULOSKELETAL: Bilateral upper and lower extremity strength is normal and symmetric. No atrophy or tone abnormalities are noted Buttocks: Positive to pain over the PSIS, Ernie's test was positive, however limited given his lack of flexibility, Nick is positive, SI joint compression did come cause some discomfort Extremities: Peripheral joint ROM is full and pain free without obvious instability or laxity in all four extremities. No edema or skin discolorations noted. Gait: Gait is anantalgic NEUR: No loss of sensation is noted. Cranial nerves are grossly intact. Assessment and Plan Assessment: Assessment: 1. Lumbar spondylosis, pain improved after lumbar RFA 2. SI joint dysfunction, bilateral 3. Obesity 4. Possible knee arthritis Plan: 1. Explanation: Spoke to him about the SI joint and pain and below the belt line 2. Opioid agreement: None 3. Counseling: The patient was counseled extensively on BODY MASS INDEX, EXERCISE. Specifically, the patient was instructed regarding the importance of weight control, and exercise in the context of both chronic pain and overall health. 4. Procedures: Lateral SI joint injections 5. Consultations: None 6. Investigations: Reviewed 7. Medications: Encouraged patient to have discussions with primary care physician 8. Disposition: Bilateral SI joint injections , PQRS Measure Charge Sheet Measure #226: Tobacco Use: Screen & Cessation Intervention: Pt not a tobacco user Measure #111: Pneumonia Vaccination: Pneumococcal vaccine administered or previously received Measure #47: Advance Care Plan: Advance care planning discussed & documented, pt chose/unable to give Measure #131: Pain Assessment & Follow-up: Pain positive & plan documented, Follow-up scheduled Measure #431: Unhealthy Alcohol Use Preventative Care & Scrn: Patient not identified as an unhealthy alcohol user PQRS Narrative: Smoking Status Former smoker Blood Pressure 126/79 Pain Intensity [Left Knee] 8 Pain Intensity [Back] 4 Scale Used Numeric (1 - 10) Hx Alcohol Use (MH) No Home Medications: Ambulatory Orders Allopurinol [Zyloprim] 300 mg PO HS 04/02/17 Atorvastatin [Lipitor] 20 mg PO HS 04/02/17 Benazepril HCl [Lotensin] 20 mg PO HS 04/02/17 Levothyroxine Sodium [Synthroid] 100 mcg PO HS 04/02/17 Multivit-Min/FA/Lycopen/Lutein [Centrum Silver Tablet] 1 each PO HS 04/02/17 Naproxen [Naprosyn] 500 mg PO Q12HR PRN 04/02/17 Primidone [Mysoline] 150 mg PO HS 04/02/17 Ranitidine HCl 300 mg PO BID 04/02/17 Terazosin HCl 10 mg PO HS 04/02/17 amLODIPine [Norvasc] 10 mg PO HS 04/02/17 rOPINIRole HCL [Requip] 0.5 mg PO HS 04/19/19 Controlled Substance Measures - Controlled Substance Measures Is patient prescribed a controlled substance at discharge?: No
== END | disposition home or self-care (01) ==
LOC: PNWHC3 12:10
PROVIDERS: ATTEND Student in an Organized Health Care Education/Training Program
DX: M47.816 Spondylosis without myelopathy or radiculopathy, lumbar region (principal); M53.3 Sacrococcygeal disorders, not elsewhere classified; E66.9 Obesity, unspecified; Z87.891 Personal history of nicotine dependence; Z98.890 Other specified postprocedural states; Z79.890 Hormone replacement therapy; Z79.899 Other long term (current) drug therapy; Z68.37 Body mass index [BMI] 37.0-37.9, adult
CPT/HCPCS: 99211

== ENCOUNTER 2019-05-25 06:09 | Day surgery (SDC) | payer MEDICARE ==
[2019-05-23 14:17] VITALS: BMI 37.3
[2019-05-25] MEDS ORDERED: LIDOCAINE 1% 20 ML VIAL (10MG/ML) FOR IV START INTRADERMA ONE (06:47)
[2019-05-25 06:51] VITALS: TEMP 97.3
[2019-05-25] MEDS ORDERED: IV FLUID CONTINUATION 1,000 ML IV ONE (07:30)
--- NOTE | 2019-05-25 07:35 | P.PCN ---
Date of Procedure: 05/25/19 Surgeon: Rocky Franklin Pathology: none sent Condition: stable Disposition: PACU Description of Procedure: Preoperative diagnoses= B/Lsacroiliac joint dysfunction and sacroiliitis Postoperative diagnoses= same as preoperative diagnosis. Procedure= sacroiliac joint steroid injection under fluoroscopic guidance. Anesthesia= local anesthesia with lidocaine 1% and IV moderate conscious sedation with Versed Estimated blood loss=minimal. Procedure indication= the patient had a history of severe chronic low back pain, diagnosed with sacroiliitis and lumbar sacral facet arthropathy unresponsive to conservative treatment. Procedure description= the patient was seen and identified in the preoperative holding area, risks and benefits and alternative of the procedure and possible complications discussed with the patient, patient signed the consent. an IV was started, and vital signs were monitored and were stable throughout the procedure, patient was placed in the prone position or table and the lumbosacral area was prepped and draped with a sterile fashion, vital signs were closely monitored during the procedure.The sacroiliac joint was identified on the AP view of fluoroscopy then the C-arm was tilted to the contralateral oblique position to superimpose the anterior and posterior joint lines on each other and to have a unified joint line with the target point at the inferior one third of this line. I used 22-gauge 3-1/2 inch Quincke spinal needle for this procedure I started by doing the right side first and after getting into the sacroiliac joint I injected 20 mg of Kenalog +2 MLS of Ropivacaine 0.5%. The same procedure was repeated on the left side. Patient tolerated the procedure well without any complication, a total dose of 40 mg of Kenalog was given for this procedure. The patient returned to supine position after the back was cleaned and a Band- Aid applied, the patient transported to recovery room in stable condition and he was monitored for 30 minutes before he was discharged home and then patient was reexamined before going home and patient was discharged in stable condition and patient will follow up with the pain clinic in a few weeks
[2019-05-25 07:37] VITALS: RESP 18
[2019-05-25 07:45] VITALS: BP 112/63; PULSE 79
--- NOTE | 2019-05-25 10:25 | FL ---
EXAMINATION TYPE: FL guided pain mgmt statistic DATE OF EXAM: 05/25/2019 HISTORY: Flouroscopy time 34 seconds of fluoroscopy provided. IMPRESSION: 1. Fluoroscopy time.
== END 2019-05-25 07:53 | disposition home or self-care (01) ==
LOC: ORPAIN 06:09
PROVIDERS: ATTEND Anesthesiology
DX: G89.29 Other chronic pain (principal); M46.1 Sacroiliitis, not elsewhere classified; M53.3 Sacrococcygeal disorders, not elsewhere classified; M47.817 Spondylosis without myelopathy or radiculopathy, lumbosacral region; E66.9 Obesity, unspecified; Z87.891 Personal history of nicotine dependence; Z79.890 Hormone replacement therapy; Z79.899 Other long term (current) drug therapy; Z68.37 Body mass index [BMI] 37.0-37.9, adult
CPT/HCPCS: J2250; J3301; J3010; G0260; 99152

== ENCOUNTER → 2019-06-14 | Outpatient (CLI) | payer MEDICARE ==
--- NOTE | 2019-06-14 15:49 | MR ---
EXAMINATION TYPE: MR knee LT wo con DATE OF EXAM: 06/14/2019 COMPARISON: Outside left knee x-ray May 31, 2019 HISTORY: left knee pain TECHNIQUE: Multiplanar, multisequence images of the knee is performed without IV contrast. FINDINGS: MEDIAL MENISCUS: Anterior horn is intact without tear. Some oblique signal posterior horn medial meni scus extends to the inferior articular surface sagittal image 27. LATERAL MENISCUS: Anterior and posterior horns are intact without tear. CRUCIATE LIGAMENTS: The anterior and posterior cruciate ligaments are intact and unremarkable. COLLATERAL LIGAMENTS: The medial collateral ligament and lateral collateral ligament complex are inta ct and unremarkable. EXTENSOR MECHANISM: Visualized quadriceps and patellar tendons are intact. 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 EFFUSION: No significant suprapatellar joint effusion. POPLITEAL CYST: No popliteal/hale cyst. TRICOMPARTMENT SPACES: Mild to moderate narrowing patellofemoral compartment. Mild to moderate narrow ing medial and lateral tibiofemoral compartments with mild tricompartment joint space spurring. CARTILAGE: Tricompartment articular cartilage is fairly well maintained. BONE MARROW SIGNAL: No focal abnormal marrow signal is appreciated. OTHER: No additional significant abnormality is appreciated. IMPRESSION: 1. 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 2. Mild to moderate tricompartment degenerative changes as detailed above. 3. Subtle oblique full-thickness tear posterior horn medial meniscus is thought present.
== END | disposition home or self-care (01) ==
LOC: RADMRIMAIN 13:54
PROVIDERS: ATTEND Orthopaedic Surgery
DX: M25.862 Other specified joint disorders, left knee (principal); M25.562 Pain in left knee

== ENCOUNTER → 2019-06-22 | Outpatient (CLI) | payer MEDICARE ==
[2019-06-22 13:32] VITALS: BP 131/68; PULSE 82; RESP 16
--- NOTE | 2019-06-22 14:53 | P.PAINPG ---
Subjective Progress Note Date: 06/22/19 This is a follow-up visit for this 73 years old male with a chronic history of severe low back pain he's diagnosed with lumbar spondylosis and bilateral sacroiliitis, previously we have done RFA of the medial branch lumbar area , and he gets excellent relief of his low back pain, recently we have done bilateral sacroiliac joint steroid injection he reported that his buttock pain improved significantly, but only for short term currently is complaining of buttock pain, he denies any motor or sensory deficit, denies any fever or night sweats Objective - Vital Signs Vital signs: Vital Signs Temp Pulse 82 06/22/19 13:27 Resp 16 06/22/19 13:27 BP 131/68 06/22/19 13:27 Pulse Ox 94 L 06/22/19 13:27 - Exam Physical Examinations : -Constitutiona : Cooperative , not in acute distress . -HEENT : nech : supple , no Lymphadenopathy , normal thyroid size . : eyes : no ptosis , no icterus, no photophobia . - neurologic : Cranial nerve II to XII intact , no focal neurological deffecit . -psychatric : alert , oriented X 3 , appropriate affect , intact judgment and insight . -Lymphatic : no Lymphadenopathy . - musculoskeltal : Lumber spine moter stegnth lower extremities ,thigh and legs 5/5 Right side , 5/5 Left side deep tendon reflexes : normal Knee Jerk , normal ankle Jerk lumber facet Loading Test = negative bilaterally Range of motion of the lumbar spine Flexion 60 degrees, extension 30 degrees strait leg raising test = negative bilaterally Fabere test= negative bilaterally Sever tenderness over the Sacroiliac joint on the Right , and Left sides Gaenslen test= positive right ,and positive left . Seated flexion test= positive right ,and positive Left . Assessment and Plan Plan: Assessment and plan=1 lumbar spondylosis and lumbar facet arthropathy status post RFA of the medial branch lumbar area Low back pain improved after RFA. 2-bilateral sacroiliitis pain improved in the buttock area after bilateral sacroiliac joint steroid injection, he will be good candidate for repeat bilateral sacroiliac joint steroid injection under fluoroscopy guidance Time with Patient: Less than 30 PQRS Measure Charge Sheet Measure #130: Documentation of Current Meds in Medical Chart: Patient's medications documented in chart Measure #226: Tobacco Use: Screen & Cessation Intervention: Pt not a tobacco user Measure #111: Pneumonia Vaccination: Pneumococcal vaccine administered or previously received Measure #47: Advance Care Plan: Advance care planning discussed & documented, pt chose/unable to give Measure #412: Opioid Treatment Agreement: No documentation of signed opioid treatment agreement Measure #408: Opioid Therapy Follow-up Evaluation: Patient had NO f/u eval minimum every 3 months during opioid therapy Measure #317: Preventitive Care & Scrn High Bld Press & F/U: Normal blood pressure, f/u not required Measure #128: Body Mass Index (BMI) Screening & Follow-up: BMI documented ABOVE normal parameters - f/u documented Measure #131: Pain Assessment & Follow-up: Pain positive & plan documented, Follow-up scheduled Measure #431: Unhealthy Alcohol Use Preventative Care & Scrn: Patient not identified as an unhealthy alcohol user PQRS Narrative: Smoking Status Former smoker Blood Pressure 131/68 Pain Intensity [Lower Back] 7 Scale Used Numeric (1 - 10) Hx Alcohol Use (MH) No Home Medications: Ambulatory Orders Allopurinol [Zyloprim] 300 mg PO HS 04/02/17 Atorvastatin [Lipitor] 20 mg PO HS 04/02/17 Benazepril HCl [Lotensin] 20 mg PO HS 04/02/17 Levothyroxine Sodium [Synthroid] 100 mcg PO HS 04/02/17 Multivit-Min/FA/Lycopen/Lutein [Centrum Silver Tablet] 1 each PO HS 04/02/17 Naproxen [Naprosyn] 500 mg PO Q12HR PRN 04/02/17 Primidone [Mysoline] 150 mg PO HS 04/02/17 Ranitidine HCl 300 mg PO BID 04/02/17 Terazosin HCl 10 mg PO HS 04/02/17 amLODIPine [Norvasc] 10 mg PO HS 04/02/17 rOPINIRole HCL [Requip] 0.5 mg PO HS 04/19/19 Amitriptyline HCl 10 mg PO HS 06/19/19 Controlled Substance Measures - Controlled Substance Measures Is patient prescribed a controlled substance at discharge?: No
== END | disposition home or self-care (01) ==
LOC: PNWHC3 12:57
PROVIDERS: ATTEND Specialist
DX: G89.29 Other chronic pain (principal); M47.816 Spondylosis without myelopathy or radiculopathy, lumbar region; M46.96 Unspecified inflammatory spondylopathy, lumbar region; Z98.890 Other specified postprocedural states; M46.1 Sacroiliitis, not elsewhere classified; Z87.891 Personal history of nicotine dependence; Z79.890 Hormone replacement therapy; Z79.1 Long term (current) use of non-steroidal anti-inflammatories (NSAID); Z79.899 Other long term (current) drug therapy
CPT/HCPCS: 99211

== ENCOUNTER 2019-07-05 07:54 | Day surgery (SDC) | payer MEDICARE ==
[2019-07-03 13:29] VITALS: BMI 38.0
[~2019-07-05 07:54] MED LIST changes: +ALPRAZolam 0.25 MG TAB PO PRN; +ASPIRIN 325 MG TAB PO ONE; -LACTATED RINGERS 1,000 ML IV SCH; +SODIUM CHLORIDE 0.9% 1,000 ML in EMPTY BAG 1 BAG IV ONE
[2019-07-05] MEDS ORDERED: SODIUM CHLORIDE 0.9% 1,000 ML IV ONE (08:31)
[2019-07-05 08:39] LABS: Basophils % (A) 1 %; Eosinophils # (A) 0.2 k/uL (0-0.7); Eosinophils % (A) 3 %; HCT 35.5 % (39.0-53.0); HGB 12.3 gm/dL (13.0-17.5); Lymphocytes # (A) 1.8 k/uL (1.0-4.8); Lymphocytes % (A) 27 %; MCH 31.7 pg (25.0-35.0); MCHC 34.8 g/dL (31.0-37.0); Mean Platelet Volume 6.7; Monocytes # (A) 0.3 k/uL (0-1.0); Monocytes % (A) 5 %; Neutrophils # (A) 4.1 k/uL (1.3-7.7); Neutrophils % (A) 62 %; Platelet Count 197 k/uL (150-450); RDW 13.3 % (11.5-15.5); WBC 6.7 k/uL (3.8-10.6)
[2019-07-05 08:56] LABS: Calcium 8.9 mg/dL (8.4-10.2); Potassium 3.9 mmol/L (3.5-5.1)
[2019-07-05] MEDS ORDERED: LIDOCAINE 1% INJ 10MG/ML (20 ML MDV) SQ ONE (10:45)
[2019-07-05] MEDS ORDERED: MIDAZOLAM 2 MG/2 ML VIAL IV ONE (10:48)
[2019-07-05] MEDS ORDERED: HYDROmorphone 1 MG/ML 1 ML SYRINGE IVP ONE (10:53)
[2019-07-05] MEDS ORDERED: HEPARIN SODIUM 1,000 UN/ML (10ML VL) IV ONE (10:57)
[2019-07-05] MEDS ORDERED: IOPAMIDOL-250 100ML BTL INTRAARTER ONE (11:58)
[2019-07-05] MEDS ORDERED: CLOPIDOGREL 75 MG TAB PO ONE (12:05)
[2019-07-05] MEDS ORDERED: SODIUM CHLORIDE 0.9% 1,000 ML IV SCH (12:15)
[2019-07-05] MEDS ORDERED: ASPIRIN 81 MG PO ONE (12:15)
--- NOTE | 2019-07-05 12:42 | IR ---
EXAMINATION TYPE: IR stent intravas non coronary DATE OF EXAM: 07/05/2019 COMPARISON: NONE HISTORY: Fluoroscopy time. Fluoroscopy was provided to the referring clinician.
--- NOTE | 2019-07-05 12:51 | AS ---
ARTERIAL STUDY PERIPHERAL PROCEDURE: DATE OF SERVICE: 07/05/2019 PERFORMING PHYSICIAN: Ramin Zhang MD. PROCEDURE PERFORMED: 1. Selective bilateral common iliac arteries and external iliac arteries angiogram. 2. Intravascular ultrasound IVUS of bilateral common iliac and external iliac arteries. 3. Successful stenting of the right common iliac artery using 8 x 39 mm Omnilink stent with an excellent angiographic results and reduction of stenosis from 90% to 0%. 4. Successful stenting of the left common iliac artery using 8 x 39 mm Omnilink stent with an excellent angiographic results and reduction of stenosis from 80% -90% to 0%. 5. Successful stenting of the left external iliac artery using Zilver PTX drug-coated stent which was 8 x 18 mm with an excellent angiographic result and reduction of stenosis from 70% to 0%. INDICATION: This is a pleasant 73-year-old gentleman with history of hypertension and dyslipidemia who was referred by Dr. Rey for further evaluation of peripheral arterial disease. He was experiencing bilateral lower extremities intermittent claudication. Subsequently, he was seen by Dr. Schreiber who ordered an arterial duplex study which came into be abnormal. Subsequently, the patient underwent a peripheral angiogram which revealed severe bilateral iliac disease. He is here for intervention. APPROACH: Left common femoral artery. COMPLICATION: None. LEVEL OF SEDATION: Moderate with sedation length of 77 minutes. PROCEDURE DESCRIPTION: After obtaining an informed consent, the patient was brought to the cardiac matlab developer. The left common femoral artery was cannulated using micropuncture technique under ultrasound guidance, the micropuncture wire passed easily. then I placed an 11 cm 6- Palestinian sheath in the left common femoral artery. Anticoagulation was initiated using heparin. The patient was given 10,000 units of heparin IV at the beginning of the procedure with continuous ACT monitoring throughout the procedure. Subsequently, I did selective left external and left common iliac artery angiogram which revealed tight lesion involving the left common iliac artery. I did balloon angioplasty using 7 mm balloon. Subsequently, I did go up and over using 0.035 [place] Advantage wire with the backup support of 5-Palestinian Rim catheter. The wire was advanced all the way to the right SFA. Subsequently, I did exchange my 11 cm sheath into 7 cm 6- Palestinian sheath, which was positioned in the proximal right common iliac artery. Subsequently, I did selective right common and right external iliac artery angiogram which showed severe disease involving the right common iliac artery and intermediate disease involving the right external iliac artery. Subsequently, I did balloon angioplasty of the right common iliac artery using 7 mm balloon before I deployed 8 x 39 mm Omnilink stent where the stent was positioned under fluoroscopy guidance and deployed under fluoroscopy guidance as well. After that, I did change my 0.035 wire into 0.014 wire which was hydro ST wire. I did not . After that, I did intravascular ultrasound, IVUS, of the external iliac artery, which revealed mild disease only. I did IVUS of the right common iliac artery before I deployed the stent which revealed diameter of 8 mm. After that., I did pull the sheath all the way up to the external left common iliac artery. I did that over 0.035 wire. After that, I did intravascular ultrasound, IVUS, of both common iliac and external iliac on the left side, which revealed the diameter of common iliac of 8 mm and severe disease involving the left external iliac artery, which was underestimated angiographically. I decided to at that point for the left common iliac artery, I deployed 8 x 29 mm Omnilink stent which was positioned under fluoroscopy guidance and deployed under fluoroscopy guidance. For the left external iliac artery. I did balloon angioplasty initially using 6 mm balloon before I deployed 8 x 80 mm Zilver PTX, where the stent was positioned under fluoroscopy guidance and deployed under fluoroscopy guidance. I postdilated using 7 mm balloon. The final angiogram showed excellent angiographic results and the procedure was completed without any complication. Subsequently, I did exchange my long sheath into short sheath using 0.035 [place] Advantage wire. The procedure was completed at that point without any complication. POSTPROCEDURE MANAGEMENT: 1. Dual anti-platelet therapy. 2. Risk factors modifications. 3. Follow up with the patient. MMODL / IJN: [id number] /
[2019-07-05] MEDS ORDERED: PRIMIDONE 50 MG TAB PO SCH (21:00)
[2019-07-05] MEDS ORDERED: DOXAZOSIN 4 MG TAB PO SCH (21:00)
[2019-07-05] MEDS ORDERED: LISINOPRIL 20 MG TAB PO SCH (21:00)
[2019-07-05] MEDS ORDERED: LEVOTHYROXINE 100 MCG TAB PO SCH (21:00)
[2019-07-05] MEDS ORDERED: ATORVASTATIN 20 MG TAB PO SCH (21:00)
[2019-07-05] MEDS ORDERED: MULTIVITAMINS, THERA 1 EACH TAB PO SCH (21:00)
[2019-07-05] MEDS ORDERED: AMITRIPTYLINE HCL 10 MG TAB PO SCH (21:00)
[2019-07-05] MEDS ORDERED: ALLOPURINOL 300 MG TAB PO SCH (21:00)
[2019-07-05] MEDS ORDERED: amLODIPine 10 MG TAB PO SCH (21:00)
[2019-07-05] MEDS: FAMOTIDINE 20 MG TAB PO SCH (21:33)
[2019-07-05] MEDS: NAPROXEN 250 MG TAB PO SCH (21:50)
[2019-07-05 23:32] VITALS: RESP 18
[2019-07-06 06:28] LABS: Basophils # (A) 0.1 k/uL (0-0.2); Basophils % (A) 1 %; Eosinophils # (A) 0.2 k/uL (0-0.7); Eosinophils % (A) 2 %; HCT 34.3 % (39.0-53.0); HGB 11.4 gm/dL (13.0-17.5); Lymphocytes # (A) 1.5 k/uL (1.0-4.8); Lymphocytes % (A) 22 %; MCHC 33.1 g/dL (31.0-37.0); MCV 93.7 fL (80.0-100.0); Monocytes # (A) 0.4 k/uL (0-1.0); Monocytes % (A) 6 %; Neutrophils # (A) 4.5 k/uL (1.3-7.7); Neutrophils % (A) 68 %; Platelet Count 187 k/uL (150-450); RBC 3.66 m/uL (4.30-5.90); RDW 13.2 % (11.5-15.5); WBC 6.6 k/uL (3.8-10.6)
[2019-07-06 06:40] LABS: Calcium 8.7 mg/dL (8.4-10.2); Potassium 4.5 mmol/L (3.5-5.1)
[2019-07-06 07:47] VITALS: BP 144/66; PULSE 83; TEMP 98.7
--- NOTE | 2019-07-06 08:59 | P.PN ---
Subjective Progress Note Date: 07/06/19 Discharge note This is a pleasant 73-year-old gentleman who has a history of hypertension, hyperlipidemia, he was referred for evaluation of peripheral arterial disease, patient was experiencing bilateral lower extremity intermittent claudication, subsequently the patient underwent a peripheral a ngiogram which revealed severe bilateral iliac disease, he was brought to the hospital on this occasion for intervention. Patient underwent selective bilateral common iliac and external iliac artery angiogram, intravascular ultrasound of bilateral common iliac and external iliac arteries. Successful stenting of the right common iliac artery and left common iliac artery as well as left external iliac artery. He was seen and examined this morning, doing well, no complaints. No pain or discomfort, breathing is stable. Blood pressure 144/60 with a heart rate of 80, 97% on room air. White blood cell count 6.6, hemoglobin 11.4, platelet count 187. Sodium 140, potassium 4.5, BUN 14 and creatinine 1.2. Objective - Vital Signs Vital signs: Vital Signs Temp 98.7 F 07/06/19 07:45 Pulse 83 07/06/19 07:45 Resp 18 07/06/19 07:45 BP 144/66 07/06/19 07:45 Pulse Ox 97 07/06/19 07:45 Intake & Output 07/05/19 07/06/19 07/06/19 18:59 06:59 18:59 Intake Total 340 100 360 Output Total 600 700 Balance -260 -600 360 Weight 127.3 kg 126.1 kg Intake: IV 100 Oral 240 100 360 Output: Urine 600 700 Other: Voiding Method Urinal Urinal # Voids 1 - Exam PHYSICAL EXAMINATION: GENERAL: 73-year-old gentleman in no acute distress at the time of my examination HEENT: Head is atraumatic, normocephalic. Pupils equal, round. Sclera anicteric. Conjunctiva are clear. Mucous membranes of the mouth are moist. Ne ck is supple. There is no elevated jugular venous pressure. No carotid bruit is heard. HEART EXAMINATION: Heart S1, S2 normal. No murmur or gallop heard. CHEST EXAMINATION: Lungs are clear to auscultation and precussion. No chest wall tenderness is noted on palpation or with deep breathing. ABDOMEN: Soft, nontender. Bowel sounds are heard. No organomegaly noted. EXTREMITIES: 2+ peripheral pulses with no evidence of peripheral edema and no calf tenderness noted. Left groin soft, no evidence of any hematoma. NEUROLOGIC patient is awake, alert and oriented 3 . . - Labs CBC & Chem 7: 07/06/19 05:34 07/06/19 05:34 Labs: Abnormal Lab Results - Last 24 Hours (Table) 07/05/19 07/06/19 07/06/19 Range/Units 08:30 05:34 05:34 RBC 3.66 L (4.30-5.90) m/uL Hgb 11.4 L (13.0-17.5) gm/dL Hct 34.3 L (39.0-53.0) % Chloride 108 H (98-107) mmol/L Creatinine 1.26 H 1.26 H (0.66-1.25) mg/dL Assessment and Plan Plan: Assessment and plan #1 status post successful stenting of the right and left common iliac artery and successful stenting of the left external iliac artery #2 hypertension #3 hyperlipidemia Plan Patient will be discharged home today. Follow-up appointment with Dr. Zhang in the office in one week post discharge. Discharge medications include allopurinol 300 mg daily, Elavil 10 mg daily, Norvasc 10 mg daily, aspirin 81 mg daily, Lipitor 20 mg daily, Plavix 75 mg daily, Cardura 8 mg daily, Pepcid 40 mg twice a day, Synthroid 100 g daily, lisinopril 20 mg daily, primidone 150 mg at at bedtime. DNP note has been reviewed, I agree with a documented findings and plan of care. Patient was seen and examined.
[2019-07-06] MEDS ORDERED: ASPIRIN 81 MG PO SCH (09:00)
[2019-07-06] MEDS ORDERED: CLOPIDOGREL 75 MG TAB PO SCH (09:00)
[2019-07-06] MEDS: FAMOTIDINE 20 MG TAB PO SCH (09:36)
[2019-07-06] MEDS: NAPROXEN 250 MG TAB PO SCH (09:38)
== END 2019-07-06 10:21 | disposition home or self-care (01) ==
LOC: CATHCVL 07:54 → 3SCARD 12:04 → CATHCVL 07-06 10:21
PROVIDERS: ATTEND Internal Medicine Interventional Cardiology
DX: I70.213 Atherosclerosis of native arteries of extremities with intermittent claudication, bilateral legs (principal); I10 Essential (primary) hypertension; E78.5 Hyperlipidemia, unspecified; Z72.0 Tobacco use; Z79.890 Hormone replacement therapy; Z79.899 Other long term (current) drug therapy
CPT/HCPCS: 37221; 37223; 85347; 37252; 37253; 80048 ×2; 85025 ×2; C1894 ×2; C1725; C1876; C1769 ×4; C1753; C1874; J2250; J2001; J1644; J1170; Q9966

== ENCOUNTER 2019-09-06 07:00 | Day surgery (SDC) | payer MEDICARE ==
[2019-09-04 09:21] VITALS: BMI 37.3
[~2019-09-06 07:00] MED LIST changes: -ALPRAZolam 0.25 MG TAB PO PRN; -ASPIRIN 325 MG TAB PO ONE; +BUPIVACAINE (PF) 0.5% 30 ML VIAL ONE; +IOPAMIDOL M200 10 ML VIAL ONE; +LACTATED RINGERS 1,000 ML IV SCH; +MIDAZOLAM 2 MG/2 ML VIAL ONE; -SODIUM CHLORIDE 0.9% 1,000 ML in EMPTY BAG 1 BAG IV ONE; +TRIAMCINOLONE ACETONIDE 40 MG/ML 1 ML VIAL ONE; +fentaNYL (PF) 50 MCG/ML 2 ML AMP ONE
[2019-09-06 07:07] VITALS: RESP 16; TEMP 96.4
[2019-09-06] MEDS ORDERED: LIDOCAINE 1% 20 ML VIAL (10MG/ML) FOR IV START INTRADERMA ONE (07:15)
[2019-09-06] MEDS ORDERED: IV FLUID CONTINUATION 550 ML IV ONE (08:33)
[2019-09-06 08:50] VITALS: BP 119/57; PULSE 67
--- NOTE | 2019-09-06 08:50 | FL ---
Fluoroscopy HISTORY: Pain 11 seconds fluoroscopy time supplied to the referring clinician. 2 intraoperative C-arm images docum ent the procedure. See dictated report from anesthesia.
--- NOTE | 2019-09-06 09:09 | P.PCN ---
Date of Procedure: 09/06/19 Description of Procedure: Description of Procedure: Preoperative diagnoses= B/Lsacroiliac joint dysfunction and sacroiliitis Postoperative diagnoses= same as preoperative diagnosis. Procedure= sacroiliac joint steroid injection under fluoroscopic guidance. Anesthesia= local anesthesia with lidocaine 1% and IV moderate conscious sedation with Versed Procedure indication= the patient had a history of severe chronic low back pain, diagnosed with sacroiliitis and lumbar sacral facet arthropathy unresponsive to conservative treatment. Procedure description= the patient was seen and identified in the preoperative holding area, risks and benefits and alternative of the procedure and possible complications discussed with the patient, patient signed the consent. an IV was started, and vital signs were monitored and were stable throughout the procedure, patient was placed in the prone position or table and the lumbosacral area was prepped and draped with a sterile fashion, vital signs were closely monitored during the procedure.The sacroiliac joint was identified on the AP view of fluoroscopy then the C-arm was tilted to the contralateral oblique position to superimpose the anterior and posterior joint lines on each other and to have a unified joint line with the target point at the inferior one third of this line. I used 22-gauge 3-1/2 inch Quincke spinal needle for this procedure I started by doing the right side first and after getting into the sacroiliac joint I injected 20 mg of Kenalog +2 MLS of Ropivacaine 0.5% into each joint. The same procedure was repeated on the left side. Patient tolerated the procedure well without any complication, a total dose of 40 mg of Kenalog was given for this procedure. The patient returned to supine position after the back was cleaned and a Band- Aid applied, the patient transported to recovery room in stable condition and he was monitored for 30 minutes before he was discharged home and then patient was reexamined before going home and patient was discharged in stable condition and patient will follow up with the pain clinic in a few weeks
== END 2019-09-06 09:12 | disposition home or self-care (01) ==
LOC: ORPAIN 07:00
PROVIDERS: ATTEND Anesthesiology
DX: G89.29 Other chronic pain (principal); M53.3 Sacrococcygeal disorders, not elsewhere classified; M46.1 Sacroiliitis, not elsewhere classified; Z79.02 Long term (current) use of antithrombotics/antiplatelets
CPT/HCPCS: J2250; J3301; J3010; Q9966; G0260; 99152

== ENCOUNTER → 2019-10-03 | Outpatient (CLI) | payer MEDICARE ==
[2019-10-03 12:56] VITALS: BP 138/72; PULSE 84; RESP 16
--- NOTE | 2019-10-03 13:24 | P.PN ---
Subjective Progress Note Date: 10/03/19 This is a 73-year-old gentleman with history of chronic lower back pain. The patient had bilateral sacroiliac joint steroid injection recently which gave him 100% of pain relief until now. The patient denies any bowel or bladder dysfunction or any weakness in the lower extremities. He did have stents placed and the L4 artery bilaterally and he is on Plavix at this point. Patient denies new-onset weakness, bowel/bladder incontinence, or any other signs or symptoms of cauda equina syndrome. There are no signs of acute intoxication, and no indications of medication diversion or overuse. In addition to above, 13-point review of systems is also negative for chest pain, shortness of breath, changes in vision, changes in hearing, new onset weakness, abdominal pain, diarrhea, extreme fatigue, malaise, fever, skin changes, homicidal or suicidal ideation, or bowel or bladder incontinence. Vital Signs: Reviewed in EMR Gen: AAOx3, NAD HEENT: PERRLA,hearing grossly normal Pulm: resp unlabored Heart: Regular Neck: supple, trachea midline Neuro exam of the lower extremities: No changes from baseline Neuro: CN II-XII grossly intact, Imaging: Reviewed in EMR/chart Assessment: Peripheral vascular disease with recent stent placement in the vertebral arteries and treatment with Plavix Bilateral sacroiliac joint dysfunction and sacroiliitis with good response to SI joint steroid injection Obesity Plan: 1. Explanation: Opioid and psychological risk scores were reviewed. Diagnoses, prognoses, and multiple treatment options including but not limited to physical therapy, interventional therapies, adjuvant medical therapies, narcotic medicat ion therapies, and surgery were discussed with the patient and all questions were answered to the patient's satisfaction. 2. Opioid agreement: Signed with the patient and the patient is warned not to use opioids while driving or before driving and not to combine opioids with benzodiazepines or alcohol. 3. Counseling: The patient was counseled extensively on SMOKING CESSATION, BODY MASS INDEX, EXERCISE. Specifically, the patient was instructed regarding the importance of smoking cessation, obesity, and exercise in the context of both chronic pain and overall health. 4. Procedures: The patient's pain is well controlled for a prolonged period of time we will plan on repeating the sacroiliac joint injection however with the pain comes back sooner than 6 months then we'll plan on doing radiofrequency frequency ablation of the sacroiliac joints bilaterally at the same time so we don't have to hold the Plavix for a long time. 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 5. Consultations: None 6. Investigations: None 7. Medications: None 8. Disposition: Return to clinic as needed 9. Maps were reviewed and were appropriate. Objective - Vital Signs Vital signs: Vital Signs Temp Pulse 84 10/03/19 12:51 Resp 16 10/03/19 12:51 BP 138/72 10/03/19 12:51 Pulse Ox 98 10/03/19 12:51
== END | disposition home or self-care (01) ==
LOC: PNWHC3 12:22
PROVIDERS: ATTEND Anesthesiology
DX: G89.29 Other chronic pain (principal); I73.9 Peripheral vascular disease, unspecified; M46.1 Sacroiliitis, not elsewhere classified; E66.9 Obesity, unspecified; Z68.38 Body mass index [BMI] 38.0-38.9, adult
CPT/HCPCS: 99211

== ENCOUNTER 2019-11-06 01:45 | Emergency (ER) | payer MEDICARE ==
--- NOTE | 2019-11-06 01:53 | ED ---
General Adult HPI - General Stated complaint: fever,SOB Time Seen by Provider: 11/06/19 01:49 - History of Present Illness Initial comments: Dictation was produced using [employer] dictation software. please excuse any grammatical, word or spelling errors. Chief Complaint: 73-year-old male with no significant comorbidities presents with cough, congestion and fever. History of Present Illness: Patient 73-year-old male who presents today with 1 day of cough, congestion and fever. 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 He has no known exposure to coronavirus. He is not sure if he is dealt with anybody who has tested positive for coronavirus. Denies any recent travel. 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 was at bedside is also asymptomatic. Patient did receive some Tylenol prior to coming to the emergency department. Patient had temperature 100.1 at home. was at bedside noted that patient has been showing signs of respiratory distress with labored breathing starting today. The ROS documented in this emergency department record has been reviewed and confirmed by me. Those systems with pertinent positive or negative responses have been documented in the HPI. All other systems are other negative and/or noncontributory. PHYSICAL EXAM: General Impression: Alert and oriented x3, not in acute distress HEENT: Normocephalic atraumatic, extra-ocular movements intact, pupils equal and reactive to light bilaterally, mucous membranes moist, no oropharyngeal erythema, no cervical lymphadenopathy Cardiovascular: Heart regular rate and rhythm, S1&S2 audible, no murmurs, rubs or gallops Chest: Clear breath sounds bilaterally Abdomen: Bowel sounds present, abdomen soft, non-tender, non-distended, no organomegaly Musculoskeletal: Pulses present and equal in all extremities, no peripheral edema Motor: no focal deficits noted Neurological: CN II-XII grossly intact, no focal motor or sensory deficits noted Skin: Intact with no visualized rashes Psych: Normal affect and mood ED course: 73-year-old male presents with cough, congestion and fever times one day. Patient was greeted at the ambulance bay. He was given a mask and transported to bed 4, one of our negative pressure isolation rooms. Laboratory evaluation obtained. CBC, venous blood gas unremarkable. No leukopenia or leukocytosis. No thrombocytopenia. Metabolic panel shows sodium of 135. Creatinine 1.53 which is likely secondary to mild dehydration. Rest of metabolic panel is unremarkable. Full to test negative. RSV is negative. Patient is tested for Covid 19. Repeat EKG does not show any prolonged QT. Patient reevaluated bedside stable medical condition. He is not tachypneic or febrile. He feels slightly short of breath however not showing any signs of respiratory distress. Patient is agreeable for discharge. Discussed with patient that he is to quarantine himself for 14 days or until further notice. Rapid strep test is negative. He is told to follow-up with his Covid 19 results. Return parameters discussed. Patient is told to return to the emergency Department with any worsening shortness of breath. All questions answered. EKG interpretation: Ventricular rate 116, sinus tachycardia, OR interval 210, QRS 80, QTc 525. No old EKG for comparison. - Related Data Home Medications Medication Instructions Recorded Confirmed Allopurinol [Zyloprim] 300 mg PO HS 04/02/17 10/03/19 Atorvastatin [Lipitor] 20 mg PO HS 04/02/17 10/03/19 Benazepril HCl [Lotensin] 20 mg PO HS 04/02/17 10/03/19 Levothyroxine Sodium [Synthroid] 100 mcg PO HS 04/02/17 10/03/19 Multivit-Min/FA/Lycopen/Lutein 1 each PO HS 04/02/17 10/03/19 [Centrum Silver Tablet] Primidone [Mysoline] 150 mg PO HS 04/02/17 10/03/19 Ranitidine HCl 300 mg PO BID 04/02/17 10/03/19 Terazosin HCl 10 mg PO HS 04/02/17 10/03/19 amLODIPine [Norvasc] 10 mg PO HS 04/02/17 10/03/19 rOPINIRole HCL [Requip] 0.5 mg PO HS 04/19/19 10/03/19 Amitriptyline HCl 10 mg PO HS 06/19/19 10/03/19 Furosemide [Lasix] 20 mg PO HS PRN 09/04/19 10/03/19 Previous Rx's Medication Instructions Recorded Aspirin 81 mg PO DAILY #30 chew 07/06/19 Clopidogrel [Plavix] 75 mg PO DAILY #30 tab 07/06/19 Allergies Allergy/AdvReac Type Severity Reaction Status Date / Time No Known Allergies Allergy Verified 11/06/19 02:05 Review of Systems ROS Statement: Those systems with pertinent positive or pertinent negative responses have been documented in the HPI. ROS Other: All systems not noted in ROS Statement are negative. Past Medical History Past Medical History: Asthma, GERD/Reflux, Hyperlipidemia, Hypertension, Osteoarthritis (OA), Prostate Disorder, Thyroid Disorder Additional Past Medical History / Comment(s): HX STRESS TEST ABN. ASTHMA CHILD. BPH. PROB W/ BILAT HIPS R/T BACK PROBLEMS. OCC EDEMA ANKLES. History of Any Multi-Drug Resistant Organisms: None Reported Past Surgical History: Appendectomy, Heart Catheterization, Orthopedic Surgery Additional Past Surgical History / Comment(s): PARTIAL THYROIDECTOMY. LT ROTATOR CUFF., COLONOSCOPY, PAIN CLINIC PROCEDURE, chrissy iliac stents (3) 07/05/19 Past Anesthesia/Blood Transfusion Reactions: No Reported Reaction Smoking Status: Former smoker - Past Family History Mother Brother(s) Family Medical History: Cancer Sister(s) Family Medical History: Cancer Mother Family Medical History: Cancer Course Vital Signs 11/06/19 01:45 Temperature 100.1 F H Pulse Rate 133 H Respiratory 28 H Rate Blood Pressure 144/73 O2 Sat by Pulse 96 Oximetry Medical Decision Making - Lab Data Result diagrams: 11/06/19 01:56 11/06/19 01:56 Lab Results 11/06/19 11/06/19 11/06/19 Range/Units 01:56 01:56 01:56 WBC 6.5 (3.8-10.6) k/uL RBC 4.29 L (4.30-5.90) m/uL Hgb 13.0 (13.0-17.5) gm/dL Hct 38.5 L (39.0-53.0) % MCV 89.6 (80.0-100.0) fL MCH 30.2 (25.0-35.0) pg MCHC 33.7 (31.0-37.0) g/dL RDW 13.6 (11.5-15.5) % Plt Count 165 (150-450) k/uL Neutrophils % 71 % Lymphocytes % 15 % Monocytes % 8 % Eosinophils % 2 % Basophils % 1 % Neutrophils # 4.6 (1.3-7.7) k/uL Lymphocytes # 1.0 (1.0-4.8) k/uL Monocytes # 0.5 (0-1.0) k/uL Eosinophils # 0.1 (0-0.7) k/uL Basophils # 0.1 (0-0.2) k/uL VBG pH (7.31-7.41) VBG pCO2 (37-51) mmHg VBG HCO3 (24-28) mmol/L Sodium 135 L (137-145) mmol/L Potassium 3.7 (3.5-5.1) mmol/L Chloride 100 (98-107) mmol/L Carbon Dioxide 25 (22-30) mmol/L Anion Gap 10 mmol/L BUN 17 (9-20) mg/dL Creatinine 1.53 H (0.66-1.25) mg/dL Est GFR (CKD-EPI)AfAm 52 (>60 ml/min/1.73 sqM) Est GFR (CKD-EPI)NonAf 45 (>60 ml/min/1.73 sqM) Glucose 113 H (74-99) mg/dL Plasma Lactic Acid Silvio (0.7-2.0) mmol/L Calcium 9.1 (8.4-10.2) mg/dL Magnesium 1.7 (1.6-2.3) mg/dL Influenza Type A RNA Not Detected (Not Detectd) Influenza Type B (PCR) Not Detected (Not Detectd) RSV (PCR) Negative (Negative) Group A Strep Rapid (Negative) 11/06/19 11/06/19 11/06/19 Range/Units 02:27 02:27 02:54 WBC (3.8-10.6) k/uL RBC (4.30-5.90) m/uL Hgb (13.0-17.5) gm/dL Hct (39.0-53.0) % MCV (80.0-100.0) fL MCH (25.0-35.0) pg MCHC (31.0-37.0) g/dL RDW (11.5-15.5) % Plt Count (150-450) k/uL Neutrophils % % Lymphocytes % % Monocytes % % Eosinophils % % Basophils % % Neutrophils # (1.3-7.7) k/uL Lymphocytes # (1.0-4.8) k/uL Monocytes # (0-1.0) k/uL Eosinophils # (0-0.7) k/uL Basophils # (0-0.2) k/uL VBG pH 7.38 (7.31-7.41) VBG pCO2 43 (37-51) mmHg VBG HCO3 25 (24-28) mmol/L Sodium (137-145) mmol/L Potassium (3.5-5.1) mmol/L Chloride (98-107) mmol/L Carbon Dioxide (22-30) mmol/L Anion Gap mmol/L BUN (9-20) mg/dL Creatinine (0.66-1.25) mg/dL Est GFR (CKD-EPI)AfAm (>60 ml/min/1.73 sqM) Est GFR (CKD-EPI)NonAf (>60 ml/min/1.73 sqM) Glucose (74-99) mg/dL Plasma Lactic Acid Silvio 1.5 (0.7-2.0) mmol/L Calcium (8.4-10.2) mg/dL Magnesium (1.6-2.3) mg/dL Influenza Type A RNA (Not Detectd) Influenza Type B (PCR) (Not Detectd) RSV (PCR) (Negative) Group A Strep Rapid Negative (Negative) Disposition Clinical Impression: Viral infection Disposition: HOME SELF-CARE Condition: Fair Instructions (If sedation given, give patient instructions): Upper Respiratory Infection (ED) Additional Instructions: Today you are evaluated for respiratory infection. His laboratory evaluation was generally unremarkable except for some mild dehydration. You are tested today for Covid 19. You are advised to quarantineyourself at home for approxima tely 2 weeks. The results will be available in 2-3 days. Please seek medical attention in the event you are experiencing worsening shortness of breath. You are encouraged to contact CDC or public health department for any further questions. Is patient prescribed a controlled substance at d/c from ED?: No Referrals: Roxana Schreiber DO [Primary Care Provider] - 1-2 days Time of Disposition: 03:24
[2019-11-06 02:05] VITALS: BP 144/73
[2019-11-06 02:18] LABS: Basophils # (A) 0.1 k/uL (0-0.2); Basophils % (A) 1 %; Eosinophils # (A) 0.1 k/uL (0-0.7); Eosinophils % (A) 2 %; HCT 38.5 % (39.0-53.0); Lymphocytes % (A) 15 %; MCH 30.2 pg (25.0-35.0); MCHC 33.7 g/dL (31.0-37.0); MCV 89.6 fL (80.0-100.0); Monocytes # (A) 0.5 k/uL (0-1.0); Monocytes % (A) 8 %; Neutrophils # (A) 4.6 k/uL (1.3-7.7); Neutrophils % (A) 71 %; Platelet Count 165 k/uL (150-450); RBC 4.29 m/uL (4.30-5.90); RDW 13.6 % (11.5-15.5); WBC 6.5 k/uL (3.8-10.6)
[2019-11-06] MEDS ORDERED: SODIUM CHLORIDE 0.9% 1,000 ML IV STA (02:20)
[2019-11-06 02:21] LABS: Calcium 9.1 mg/dL (8.4-10.2); Magnesium 1.7 mg/dL (1.6-2.3); Potassium 3.7 mmol/L (3.5-5.1)
--- NOTE | 2019-11-06 02:21 | XR ---
EXAMINATION TYPE: XR chest 1V portable DATE OF EXAM: 11/06/2019 COMPARISON: NONE HISTORY: Cough and congestion TECHNIQUE: FINDINGS: Heart is normal. Lungs are clear of consolidation. Costophrenic angles are clear. Thoracic aorta is atheromatous. Bony thorax is intact. IMPRESSION: No active cardiopulmonary disease.
[2019-11-06] MEDS ORDERED: IBUPROFEN 600 MG TAB PO STA (02:24)
[2019-11-06 02:40] LABS: VBG PH 7.38 (7.31-7.41)
[2019-11-06 03:23] VITALS: PULSE 92; RESP 23
[2019-11-06 03:44] VITALS: TEMP 98.3
== END 2019-11-06 03:52 | disposition home or self-care (01) ==
LOC: EC 01:45
DX: B34.9 Viral infection, unspecified (principal); E86.0 Dehydration; M19.90 Unspecified osteoarthritis, unspecified site; E78.5 Hyperlipidemia, unspecified; E07.9 Disorder of thyroid, unspecified; N40.0 Benign prostatic hyperplasia without lower urinary tract symptoms; I10 Essential (primary) hypertension; Z79.890 Hormone replacement therapy; Z79.899 Other long term (current) drug therapy; Z90.89 Acquired absence of other organs; Z87.891 Personal history of nicotine dependence; Z95.5 Presence of coronary angioplasty implant and graft
CPT/HCPCS: 36415; 71045; 80048; 82803; 83605; 83735; 85025; 87040; 87081; 87430; 87502; 87634; 93005; 96360; 99285

== ENCOUNTER 2020-02-20 06:21 | Day surgery (SDC) | payer MEDICARE ==
[2020-02-19 10:58] VITALS: BMI 37.7
[~2020-02-20 06:21] MED LIST changes: -BUPIVACAINE (PF) 0.5% 30 ML VIAL ONE; -IOPAMIDOL M200 10 ML VIAL ONE; -MIDAZOLAM 2 MG/2 ML VIAL ONE; -TRIAMCINOLONE ACETONIDE 40 MG/ML 1 ML VIAL ONE; -fentaNYL (PF) 50 MCG/ML 2 ML AMP ONE
[2020-02-20 06:42] VITALS: RESP 16; TEMP 97.2
[2020-02-20] MEDS ORDERED: LIDOCAINE 1% (10MG/ML) FOR IV START INTRADERMA ONE (06:47)
[2020-02-20] MEDS ORDERED: LIDOCAINE 4% (PF) 5 ML AMP ONE (07:14)
[2020-02-20] MEDS ORDERED: MIDAZOLAM 2 MG/2 ML VIAL ONE (07:14)
[2020-02-20] MEDS ORDERED: fentaNYL (PF) 50 MCG/ML 2 ML AMP ONE (07:14)
[2020-02-20] MEDS ORDERED: IV FLUID CONTINUATION 300 ML IV ONE (08:04)
[2020-02-20 08:20] VITALS: BP 109/62; PULSE 80
--- NOTE | 2020-02-20 08:27 | P.PCN ---
Date of Procedure: 02/20/20 Postoperative Diagnosis: Bipolar Radiofrequency Ablation of Dorasal Ramus of L5, Lateral Branches of S1 and S2 and S3 ATTENDING PHYSICIAN: Milana Mcdonough MD PREOPERATIVE DIAGNOSIS: Bilateral Sacroiliac Joint Pain/ sacroilitis POSTOPERATIVE DIAGNOSIS: same PROCEDURE PERFORMED: Bipolar Radiofrequency Ablation of Dorasal Ramus of L5, Lateral Branches of S1, S2 and S3 SIDE: Bilateral IV SEDATION moderate sedation with Versed and fentanyl , sedation time 39 minutes ESTIMATED BLOOD LOSS: None FLUOROSCOPY WAS USED. Images were saved in the radiology portion of the chart. INDICATIONS FOR PROCEDURE: Patient has a clinical picture consistent with bilateral sacroiliac joint dysfunction and has responded well to bilateral SI joint injections in the past. PROCEDURE AND FINDINGS: The patient was greeted in the pre procedure holding area. The risk, benefits and alternatives to the procedure were again reviewed with the patient and written informed consent was placed in the chart. Prior to the procedure a time out was completed, verifying correct patient, procedure, site, positioning, and implants and/or special equipment. An IV line was placed. The patient was taken to the procedure room and positioned prone on the fluoroscopy table. Routine monitors were applied including EKG leads, blood pressure cuff, and pulse oximetry. The skin was prepped with chlorhexidine and draped in the usual sterile fashion. A fluoroscopic AP view was used to identify the sacral ala and the bilateral SI joint with the associated S1-S3 foramens medial to the SI joint line. Then overlying skin and subcutaneous tissues were anesthetized using a 25-gauge 1-1/2-inch needle with 1% preservative free lidocaine for a total volume of 10 mls. Under AP and lateral fluorscopic views, 18 gauge 100 mm RF needles with a 10 mm active tip were inserted at the L5 dorsal ramus and the lateral aspects of the S1, S2 and S3 foramens and advanced until it touched os. Confirmation of position was then made with a lateral fluoroscopic view to ensure that the tips were posterior to the posterior plate of the sacrum. Motor stimulation at 2 Hz and up to 2V was conducted between sequential probes. There was no observable motor movement in the lower extremities and the patient confirmed this by self-report. After satisfactory motor testing was completed at each level, approximately 0.5 mL of 4% Lidocaine was injected to anesthetize the radiofrequency ablation target. Subsequently, radiofrequency ablation was carried out at each of the aforementioned locations with a probe temperature set to 85C for 90 seconds. Following lesioning the needles were removed. The needle insertion site was dr anahi appropriately. The patient was taken to the recovery room where they were monitored for a brief period of time. They tolerated the procedure well and were discharged home in stable condition with post procedural instructions. Follow-up will be in clinic in 4 weeks. COMPLICATIONS: None Comments: Patient can resume Coumadin tomorrow
--- NOTE | 2020-02-20 10:51 | FL ---
Fluoroscopy HISTORY: Pain 25 seconds fluoroscopy time supplied to the referring clinician. 13 intraoperative C-arm images docu ment the procedure. See dictated report from anesthesia.
== END 2020-02-20 08:40 | disposition home or self-care (01) ==
LOC: ORPAIN 06:21
PROVIDERS: ATTEND Anesthesiology
DX: M46.1 Sacroiliitis, not elsewhere classified (principal); Z79.02 Long term (current) use of antithrombotics/antiplatelets
CPT/HCPCS: 64625; J2001; J2250; J3010; 99152; 99153

== ENCOUNTER 2020-05-24 09:04 | Day surgery (SDC) | payer MEDICARE ==
[2020-05-21 11:53] VITALS: BMI 38.0
[~2020-05-24 09:04] MED LIST changes: +LIDOCAINE 1% (10MG/ML) FOR IV START INTRADERMA PRN
[2020-05-24 10:02] VITALS: TEMP 97
--- NOTE | 2020-05-24 10:29 | P.GSHP ---
History of Present Illness H&P Date: 05/24/20 Chief Complaint: DiarrheaConstipation Asst.-year-old male who's had issues with her diarrhea and succuss patient. Patient presents today for screening colonoscopy Past Medical History Past Medical History: Asthma, Coronary Artery Disease (CAD), GERD/Reflux, Hyperlipidemia, Hypertension, Osteoarthritis (OA), Thyroid Disorder, Vascular Disorder Additional Past Medical History / Comment(s): ASTHMA CHILD, hiatal hernia, gout, degenerative disks, one episode chest pain 3 yrs ago. occ diarrhea, History of Any Multi-Drug Resistant Organisms: None Reported Past Surgical History: Appendectomy, Heart Catheterization, Orthopedic Surgery Additional Past Surgical History / Comment(s): PARTIAL THYROIDECTOMY, LT ROTATOR CUFF, COLONOSCOPY, PAIN CLINIC PROCEDURE, chrissy iliac stents (3) 07/05/19. Past Anesthesia/Blood Transfusion Reactions: No Reported Reaction Smoking Status: Former smoker - Past Family History Mother Brother(s) Family Medical History: Cancer Sister(s) Family Medical History: Cancer Mother Family Medical History: Cancer Medications and Allergies Home Medications Medication Instructions Recorded Confirmed Type Atorvastatin [Lipitor] 20 mg PO HS 04/02/17 05/21/20 History Benazepril HCl [Lotensin] 20 mg PO HS 04/02/17 05/21/20 History Levothyroxine Sodium [Synthroid] 100 mcg PO HS 04/02/17 05/21/20 History Multivit-Min/FA/Lycopen/Lutein 1 each PO HS 04/02/17 05/21/20 History [Centrum Silver Tablet] Primidone [Mysoline] 150 mg PO HS 04/02/17 05/21/20 History Terazosin HCl 10 mg PO HS 04/02/17 05/21/20 History allopurinoL [Zyloprim] 300 mg PO HS 04/02/17 05/21/20 History amLODIPine [Norvasc] 10 mg PO HS 04/02/17 05/21/20 History rOPINIRole HCL [Requip] 0.5 mg PO HS 04/19/19 05/21/20 History Amitriptyline HCl 10 mg PO HS 06/19/19 05/21/20 History Clopidogrel [Plavix] 75 mg PO DAILY #30 tab 07/06/19 05/21/20 Rx Furosemide [Lasix] 20 mg PO BID 09/04/19 05/21/20 History Fiber Supplement 1 applicate PO DAILY 05/21/20 05/21/20 History Fluticasone Nasal [place] [Flonase 1 spray EA NOSTRIL HS PRN 05/21/20 05/21/20 History Nasal [place]] Gabapentin 300 mg PO HS 05/21/20 05/21/20 History Nitroglycerin Sl Tabs [Nitrostat] 0.4 mg SUBLINGUAL Q5M PRN 05/21/20 05/21/20 History Potassium Chloride 10 meq PO 05/21/20 05/21/20 History Allergies Allergy/AdvReac Type Severity Reaction Status Date / Time No Known Allergies Allergy Verified 05/24/20 09:44 Surgical - Exam Vital Signs Temp Pulse Resp BP Pulse Ox 97.0 F L 76 16 129/59 96 05/24/20 10:00 05/24/20 10:00 05/24/20 10:00 05/24/20 10:05/24/20 10:00 - General well developed, well nourished, no distress - Eyes PERRL - ENT normal pinna - Neck no masses - Respiratory normal expansion - Cardiovascular Rhythm: regular - Abdomen Abdomen: soft, non tender Assessment and Plan Assessment: Diarrhea, constipation patient. We'll perform screening colonoscopy
[2020-05-24] MEDS ORDERED: PROPOFOL 10 MG/ML 20 ML VIAL IV ONE (10:35)
--- NOTE | 2020-05-24 10:49 | P.OP ---
Date of Procedure: 05/24/20 Preoperative Diagnosis: Diarrhea Constipation Screening colonoscopy Postoperative Diagnosis: Mild diverticulosis Random rectal biopsy pathology pending Procedure(s) Performed: Colonoscopy Anesthesia: MAC Surgeon: Dwight Montez Pathology: other (Rectum) Condition: stable Disposition: PACU Description of Procedure: Patient's placed on the endoscopy table lateral position. He received IV sedation. Digital rectal exam was performed which revealed no abnormalities. Flexible colonoscope was then placed patient anus passed throughout the entire colon. The ileocecal valve sutures. The cecum, ascending and transverse colon appeared normal. In the descending; was a few scattered diverticula. Scope was then brought back the rectum and a small sessile polyp was seen this removed the cold forcep. The scope was withdrawn for patient.
[2020-05-24] MEDS ORDERED: IV FLUID CONTINUATION 800 ML IV ONE (10:55)
[2020-05-24 11:33] VITALS: BP 118/71; PULSE 79; RESP 20
== END 2020-05-24 11:32 | disposition home or self-care (01) ==
LOC: ORWHC2ENDO 09:04
PROVIDERS: ATTEND Surgery
DX: K57.30 Diverticulosis of large intestine without perforation or abscess without bleeding (principal); D12.8 Benign neoplasm of rectum; K62.89 Other specified diseases of anus and rectum; I25.10 Atherosclerotic heart disease of native coronary artery without angina pectoris; K21.9 Gastro-esophageal reflux disease without esophagitis; E78.5 Hyperlipidemia, unspecified; I10 Essential (primary) hypertension; M19.90 Unspecified osteoarthritis, unspecified site; K44.9 Diaphragmatic hernia without obstruction or gangrene; M10.9 Gout, unspecified; M51.9 Unspecified thoracic, thoracolumbar and lumbosacral intervertebral disc disorder; E89.0 Postprocedural hypothyroidism; Z87.09 Personal history of other diseases of the respiratory system; Z90.49 Acquired absence of other specified parts of digestive tract; Z98.890 Other specified postprocedural states; Z87.39 Personal history of other diseases of the musculoskeletal system and connective tissue; Z95.820 Peripheral vascular angioplasty status with implants and grafts; Z87.891 Personal history of nicotine dependence; Z79.899 Other long term (current) drug therapy; Z79.890 Hormone replacement therapy; Z79.02 Long term (current) use of antithrombotics/antiplatelets; Z97.2 Presence of dental prosthetic device (complete) (partial); Z80.9 Family history of malignant neoplasm, unspecified
CPT/HCPCS: 88305; 45380; J2704

== ENCOUNTER → 2020-08-20 | Outpatient (CLI) | payer MEDICARE ==
--- NOTE | 2020-08-20 14:32 | MR ---
EXAMINATION TYPE: MR knee RT wo con DATE OF EXAM: 08/20/2020 COMPARISON: Bilateral knee x-rays July 26, 2020. HISTORY: Rt knee outer pain and swelling for 18 months TECHNIQUE: Multiplanar, multisequence imaging of the right knee is performed without IV contrast. FINDINGS: MEDIAL MENISCUS: Oblique signal posterior horn appears to extend to the inferior articular surface to wards the central body sagittal image 7. LATERAL MENISCUS: Anterior and posterior horns are intact without tear. CRUCIATE LIGAMENTS: The anterior and posterior cruciate ligaments are intact and unremarkable. COLLATERAL LIGAMENTS: The medial collateral ligament and lateral collateral ligament complex are inta ct and unremarkable. EXTENSOR MECHANISM: Visualized quadriceps and patellar tendons are intact. EFFUSION: [id number] size suprapatellar joint effusion. POPLITEAL CYST: No popliteal/hale cyst. TRICOMPARTMENT SPACES: Mild to moderate tricompartment joint space loss and spurring. CARTILAGE: Cartilaginous loss greatest medial tibiofemoral compartment.: Some chondromalacia patella with mild fissuring along the posterior patellar pole. BONE MARROW SIGNAL: No focal abnormal marrow signal is appreciated. OTHER: Subcutaneous edema prepatellar and anterior infrapatellar space. IMPRESSION: 1. Oblique full-thickness tear posterior horn medial meniscus extending toward central body. 2. [id number] tricompartmental degenerative changes as detailed above. 3. Small to moderate-sized suprapatellar joint effusion.
== END | disposition home or self-care (01) ==
LOC: RADMRIMAIN 13:30
PROVIDERS: ATTEND Orthopaedic Surgery
DX: S83.241A Other tear of medial meniscus, current injury, right knee, initial encounter (principal); M17.11 Unilateral primary osteoarthritis, right knee

== ENCOUNTER 2020-08-29 11:33 | Day surgery (SDC) | payer MEDICARE ==
[2020-08-26 17:18] VITALS: BMI 33.6
--- NOTE | 2020-08-28 14:05 | HP ---
HISTORY AND PHYSICAL Surgery is scheduled for 08/29/2020. Justice Mayer is a 74-year-old gentleman seen with progressive left knee pain. We discussed options for treatment. He elected to proceed with arthroscopy. Consent was obtained. PAST MEDICAL HISTORY: Hypertension, hyperlipidemia, hypothyroidism. PAST SURGICAL HISTORY: Rotator cuff repair, tonsillectomy, appendectomy. DAILY MEDICATIONS: 1. Allopurinol. 2. Atorvastatin. 3. Benazepril. 4. Levothyroxine. 5. Amitriptyline. 6. Amlodipine. ALLERGIES: None. SOCIAL HISTORY: Denies current tobacco use. PHYSICAL EXAMINATION: Physical evaluation of the left knee: Range of motion 0-130. Tenderness medial joint line. Positive medial Piotr's. Ligaments stable. Hip rotation without pain. Distal neurovascular exam intact Left knee radiographs revealed mild to moderate osteoarthritic changes. Left knee MRI: Medial meniscal tear. IMPRESSION: 1. Internal derangement left knee with medial meniscal tear. 2. Hypertension. 3. Hyperlipidemia. 4. Hypothyroidism. PLAN: Left knee arthroscopy with partial meniscectomy, partial synovectomy and debridement. MMODL / IJN: [id number] /
[~2020-08-29 11:33] MED LIST changes: +HYDROmorphone 0.5 MG/0.5 ML SYRINGE IVP PRN; -LIDOCAINE 1% (10MG/ML) FOR IV START INTRADERMA PRN; +ONDANSETRON 4 MG/2 ML VIAL IVP ONE; +fentaNYL (PF) 50 MCG/ML 2 ML AMP IV PRN
[2020-08-29 12:15] VITALS: RESP 16
[2020-08-29] MEDS ORDERED: LIDOCAINE 1% (10MG/ML) FOR IV START INTRADERMA ONE (12:26)
[2020-08-29] MEDS ORDERED: fentaNYL (PF) 50 MCG/ML 2 ML AMP ONE (13:19)
[2020-08-29] MEDS ORDERED: MIDAZOLAM 2 MG/2 ML VIAL ONE (13:19)
[2020-08-29] MEDS ORDERED: LIDOCAINE 1% INJ 10MG/ML (20 ML MDV) ONE (13:19)
[2020-08-29] MEDS ORDERED: SUCCINYLCHOLINE CHLORIDE 100 MG/5 ML SYR IV ONE (13:19)
[2020-08-29] MEDS ORDERED: PROPOFOL 10 MG/ML 20 ML VIAL IV ONE (13:19)
[2020-08-29] MEDS ORDERED: BUPIVACAINE (PF) 0.25% 30 ML VIAL INTRAARTIC ONE (13:19)
--- NOTE | 2020-08-29 14:08 | P.OP ---
Date of Procedure: 08/29/20 Preoperative Diagnosis: Internal derangement left knee Postoperative Diagnosis: 1. Tear medial meniscus left knee 2. Reactive synovitis medial, lateral and suprapatellar compartments left knee Procedure(s) Performed: 1. Arthroscopic partial medial meniscectomy left knee 2. Arthroscopic partial synovectomy medial, lateral and suprapatellar compartments left knee Anesthesia: ALLA, local Surgeon: Mateo Torres Estimated Blood Loss (ml): 7 Pathology: none sent Condition: stable Disposition: PACU Indications for Procedure: 74-year-old patient seen with progressive left knee pain. After having treatment options discussed, he elected to proceed with arthroscopy. Operative Findings: See description of procedure Description of Procedure: Patient was taken to the operative suite. Patient underwent a general anesthet ic by the department of anesthesia. Patient was given preoperative antibiotics. The left lower extremity was placed in a well-padded arthroscopic leg taylor. The left leg was prepped and draped in the normal sterile orthopedic fashion. A lateral parapatellar and suprapatellar incision was made. Trochars were inserted. Arthroscopy was initiated. Suprapatellar pouch revealed diffuse thick reactive synovitis. The patellofemoral joint appeared to articulate congruently. There as grade 1 chondromalacia of the patellofemoral joint with no osteochondral tears present. The scope was guided into the medial gutter. No loose bodies or plica were identified. The scope was then guided into the medial compartment. A medial parapatellar incision was made. Trocar inserted followed by probe. There was a complex tear involving the posterior horn of the medial meniscus. There were mild grade 1 chondromalacia changes of the medial compartment with no osteochondral tears present. There was thick reactive synovitis anteriorly. I performed a partial medial meniscectomy getting down to stable meniscal tissue. I performed a partial synovectomy decompressing the thick reactive synovitis. The residual meniscus was stable. There was good decompression of the synovitis. Scope and probe were then guided into the intercondylar notch. Cruciates were identified, probed and found to be stable. The scope and probe were then guided into lateral compartment. Lateral meniscus was probed and it was found to be stable. There was some thick reactive synovitis anteriorly. There was no significant chondromalacia. I performed a partial synovectomy decompressing the reactive synovitis. The shaver was removed. There was good decompression of the synovitis. The scope was in guided back into the suprapatellar compartment. I introduced a motorized shaver into the super patellar compartment. I debrided some piecemeal fragments of meniscus I encountered. I performed a partial synovectomy. The shaver was removed. There appeared be good decompression of the synovitis. I took one more look around the entire knee, no residual debris. Instruments were now removed from the joint. The joint was infiltrated with .25% Marcaine. Steri-Strips were applied to the portal sites. Sterile dressings were applied. The patient was placed into a NIDIA hose. No tourniquet was utilized. The patient was awakened, transferred to a bed and taken to recovery stable satisfactory condition.
[2020-08-29 14:18] VITALS: TEMP 97.9
[2020-08-29] MEDS ORDERED: HYDROcodone/APAP 5-325MG 1 EACH TAB ONE (15:08)
[2020-08-29] MEDS ORDERED: HYDROcodone/APAP 5-325MG 1 EACH TAB PO ONE (15:10)
[2020-08-29 15:16] VITALS: BP 124/73; PULSE 79
== END 2020-08-29 16:28 | disposition home or self-care (01) ==
LOC: OR 11:33
PROVIDERS: ATTEND Orthopaedic Surgery
DX: M23.222 Derangement of posterior horn of medial meniscus due to old tear or injury, left knee (principal); M22.42 Chondromalacia patellae, left knee; M65.862 Other synovitis and tenosynovitis, left lower leg; I10 Essential (primary) hypertension; I25.10 Atherosclerotic heart disease of native coronary artery without angina pectoris; I73.9 Peripheral vascular disease, unspecified; E89.0 Postprocedural hypothyroidism; J45.909 Unspecified asthma, uncomplicated; E78.5 Hyperlipidemia, unspecified; Z98.890 Other specified postprocedural states; Z79.02 Long term (current) use of antithrombotics/antiplatelets; Z79.890 Hormone replacement therapy; Z79.82 Long term (current) use of aspirin; Z79.899 Other long term (current) drug therapy
CPT/HCPCS: 29881; J2250; J0690; J2405; J2001; J3010; J0330; J2704; J1170

== ENCOUNTER 2020-10-21 09:33 | Day surgery (SDC) | payer MEDICARE ==
[2020-10-16 12:07] VITALS: BMI 38.0
--- NOTE | 2020-10-20 11:17 | HP ---
HISTORY AND PHYSICAL DATE OF SURGERY: 10/21/2020 HISTORY OF PRESENT ILLNESS: Justice Mayer is a 74-year-old gentleman seen with progressive right knee pain. After treatment options were discussed, he elected to proceed with arthroscopy. Consent was obtained. PAST MEDICAL HISTORY: Hypertension, hyperlipidemia, hypothyroidism. PAST SURGICAL HISTORY: Tonsillectomy/adenoidectomy, left shoulder arthroscopy, left knee arthroscopy. DAILY MEDICATIONS: Atorvastatin, benazepril, levothyroxine, trazodone, Terazosin, amlodipine, Lasix. ALLERGIES: None. SOCIAL HISTORY: Denies current tobacco use. PHYSICAL EXAMINATION: Evaluation of the right knee is range of motion is -2 to 120. Tenderness along the medial joint line. Positive medial Piotr's. Ligaments stable. Hip rotation without pain. Distal neurovascular exam intact. RADIOGRAPHS: Right knee radiographs revealed mild to moderate osteoarthritic changes. MRI right knee revealed medial meniscal tear and intra-articular effusion. IMPRESSION: 1. Internal derangement, right knee with medial meniscal tear. 2. Hypertension. 3. Hyperlipidemia. 4. Hypothyroidism. PLAN: Right knee arthroscopy with partial meniscectomy, partial synovectomy and debridement. MMODL / IJN: [id number] /
[~2020-10-21 09:33] MED LIST changes: +DEXAMETHASONE SOD PHOSPHATE 4 MG/ML 1 ML VIAL IV ONE; +LIDOCAINE 1% (10MG/ML) FOR IV START INTRADERMA PRN; +MIDAZOLAM 2 MG/2 ML VIAL IV PRN; +ceFAZolin 3 GM in SODIUM CHLORIDE 0.9% 100 ML IVPB PRN; -fentaNYL (PF) 50 MCG/ML 2 ML AMP IV PRN
[2020-10-21] MEDS ORDERED: LIDOCAINE 1% INJ 10MG/ML (20 ML MDV) ONE (12:01)
[2020-10-21] MEDS ORDERED: SUCCINYLCHOLINE CHLORIDE 100 MG/5 ML SYR IV ONE (12:01)
[2020-10-21] MEDS ORDERED: fentaNYL (PF) 50 MCG/ML 2 ML AMP ONE (12:01)
[2020-10-21] MEDS ORDERED: MIDAZOLAM 2 MG/2 ML VIAL ONE (12:01)
[2020-10-21] MEDS ORDERED: ROCURONIUM 10 MG/ML (5 ML VIAL) IV ONE (12:01)
[2020-10-21] MEDS ORDERED: PROPOFOL 10 MG/ML 20 ML VIAL IV ONE (12:01)
[2020-10-21] MEDS ORDERED: BUPIVACAINE (PF) 0.25% 30 ML VIAL INTRAARTIC ONE (12:27)
--- NOTE | 2020-10-21 12:54 | P.OP ---
Date of Procedure: 10/21/20 Preoperative Diagnosis: Internal derangement right knee Postoperative Diagnosis: 1. Tear medial meniscus right knee 2. Grade 2 chondromalacia lateral femoral condyle right knee 3. 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 Medial plica right knee 5. Reactive synovitis medial, lateral and suprapatellar compartments right knee Procedure(s) Performed: 1. Arthroscopic partial medial meniscectomy right knee 2. Arthroscopic chondroplasty lateral femoral condyle 3. Arthroscopic chondroplasty patella right knee 4. Arthroscopic resection medial plica right knee 5. Arthroscopic partial synovectomy medial, lateral and suprapatellar co mpartments right knee Anesthesia: MICHAELA, local Surgeon: Mateo Torres Estimated Blood Loss (ml): 7 Pathology: none sent Condition: stable Indications for Procedure: 74-year-old patient seen with progressive right knee pain. After having treatment options discussed, he elected to proceed with arthroscopy. Operative Findings: See description of procedure Description of Procedure: Patient was taken to the operative suite. Patient underwent a general anesthetic by the department of anesthesia. Patient was given preoperative antibiotics. The right lower extremity was placed in a well-padded arthroscopic leg taylor. The right leg was prepped and draped in the normal sterile orthopedic fashion. A lateral parapatellar and suprapatellar incision was made. Trochars were inserted. Arthroscopy was initiated. Suprapatellar pouch revealed diffuse thick reactive synovitis. The patellofemoral joint appeared to articulate congruently. There grade 3 chondral malacia of the patellofemoral joint with some diffuse osteochondral tears present. The scope was guided into the medial gutter. There was a medial plica. It did impinge along the medial femoral condyle range of motion. The scope was then guided into the medial compartment. A medial parapatellar incision was made. Trocar inserted followed by probe. There was a tear involving the posterior horn of the medial meniscus. There were grade 1 chondromalacia changes of the medial compartment. There was some thick reactive synovitis anteriorly. I performed a partial medial meniscectomy getting down to stable meniscal tissue. I performed a partial synovectomy decompressing the thick reactive synovitis. The shaver was removed. The meniscus was probed and was found to be stable. There was good decompression of synovitis. Scope and probe were then guided into the intercondylar notch. Cruciates were identified, probed and found to be stable. The scope and probe were then guided into lateral compartment. Lateral meniscus revealed some mild superficial fraying. There was an area of grade 2 chondromalacia central weightbearing surface lateral femoral condyle with osteochondral tear present. There was some thick reactive synovitis anteriorly. I debrided that superficial fraying of the lateral meniscus. I performed a chondroplasty of the lateral femoral condyle. I performed a partial synovectomy. The shaver was removed. There was good decompression of synovitis. The residual osteochondral surface lateral femoral condyle was stable. The scope was in guided back into the suprapatellar compartment. Diffusely motorize shaver into the super patellar compartment. I resected that medial plica. I debrided some piecemeal fragments of meniscus I encountered. I performed a chondroplasty of the patella. I performed a partial synovectomy. Shaver was removed. The residual osteochondral surface patella was stable. I took the knee through range of motion noted complete resection medial plica. There was good decompression of synovitis. I took one more look around the entire knee, no residual debris. Instruments were now removed from the joint. The joint was infiltrated with .25% Marcaine. Steri-Strips were applied to the portal sites. Sterile dressings were applied. The patient was placed into a NIDIA hose. No tourniquet was utilized. The patient was awakened, transferred to a bed and taken to recovery stable satisfactory condition.
[2020-10-21 13:00] VITALS: TEMP 97.4
[2020-10-21 13:03] VITALS: RESP 18
[2020-10-21] MEDS ORDERED: LACTATED RINGERS 1,000 ML IV ONE (14:02)
[2020-10-21 14:15] VITALS: BP 122/73; PULSE 76
== END 2020-10-21 14:43 | disposition home or self-care (01) ==
LOC: OR 09:33
PROVIDERS: ATTEND Orthopaedic Surgery
DX: M23.203 Derangement of unspecified medial meniscus due to old tear or injury, right knee (principal); I73.9 Peripheral vascular disease, unspecified; K21.9 Gastro-esophageal reflux disease without esophagitis; M67.51 Plica syndrome, right knee; M22.41 Chondromalacia patellae, right knee; M65.861 Other synovitis and tenosynovitis, right lower leg; I10 Essential (primary) hypertension; E66.01 Morbid (severe) obesity due to excess calories; Z68.38 Body mass index [BMI] 38.0-38.9, adult; E78.5 Hyperlipidemia, unspecified; E03.9 Hypothyroidism, unspecified; Z97.2 Presence of dental prosthetic device (complete) (partial); Z98.890 Other specified postprocedural states; Z90.89 Acquired absence of other organs; Z79.890 Hormone replacement therapy; Z79.899 Other long term (current) drug therapy
CPT/HCPCS: 29881; J2250; J1100; J0690; J2405; J2001; J3010; J0330; J2704

== ENCOUNTER → 2020-11-06 | Outpatient (CLI) | payer MEDICARE ==
[2020-11-06 13:00] VITALS: BP 122/65; PULSE 82; RESP 18; TEMP 97.9
--- NOTE | 2020-11-06 13:16 | P.PN ---
Subjective Progress Note Date: 11/06/20 This is a follow-up visit for this 74 years old male with a chronic history of severe low back pain, he is diagnosed with lumbar spondylosis, and bilateral sacroiliitis, previously we have done RFA of the medial branch lumbar area , and he gets excellent relief of his low back , and the pain relief lasted more than a year, currently is complaining of severe low back pain, the pain is constant and increases with any activity, interfere with the quality of life, he denies any motor or sensory deficit, denies any fever or night sweats Objective - Vital Signs Vital signs: Vital Signs Temp 97.9 F 11/06/20 12:56 Pulse 82 11/06/20 12:56 Resp 18 11/06/20 12:56 BP 122/65 11/06/20 12:56 Pulse Ox 96 11/06/20 12:56 - Exam Physical Examinations : -Constitutiona : Cooperative , not in acute distress . -HEENT : nech : supple , no Lymphadenopathy , normal thyroid size . : eyes : no ptosis , no icterus, no photophobia . - neurologic : Cranial nerve II to XII intact , no focal neurological deffecit . -psychatric : alert , oriented X 3 , appropriate affect , intact judgment and insight . -Lymphatic : no Lymphadenopathy . - musculoskeltal : Lumber spine moter stegnth lower extremities ,thigh and legs 4/5 Right side , 4/5 Left side deep tendon reflexes : normal Knee Jerk , normal ankle Jerk lumber facet Loading Test =positive Right , posiutive Left Range of motion of the lumbar spine Flexion 30 degrees, extension 10 degrees strait leg raising test = positive at 45 degree Fabere test= positive Right , and positive LT . tenderness over the Sacroiliac joint on the Right , and Left sides Assessment and Plan Plan: Assessment and plan=1-lumbar spondylosis with lumbar facet arthropathy without myelopathy 2-lumbar degenerative disc disease. 3-Bilateral sacroiliitis. he had excellent pain relief after RFA of the medial branch lumbar area the pain relief lasted more than a year he could benefit from repeat RFA of the medial branch lumbar area at L2 , L3, L4,L5(To denervate facet joints at L3-4,L4-5,L5-S1 ) - PQRS measures = - Patient's medications are documented in the chart. -Tobacco use is negative and counseling.Given. -Patient's has received pneumococcal vaccine. -Advanced care planning discussed, patient not eligible. -Opiate contract not signed. -Pain positive and follow-up visit/procedure is scheduled. -Patient's blood pressure measured [ 122/64 ] , and documented in the record ,and patient will follow up with the primary care. -Patient's weight was measured and body mass index [ ] above the normal limits and counseling was done. and patient instructed to follow-up with the primary care physician. -Patient was not identified as an unhealthy alcohol user Time with Patient: Less than 30
== END ==
LOC: PNWHC3 12:36
PROVIDERS: ATTEND Specialist
DX: M47.816 Spondylosis without myelopathy or radiculopathy, lumbar region (principal); M51.36 Other intervertebral disc degeneration, lumbar region; M46.1 Sacroiliitis, not elsewhere classified
CPT/HCPCS: 99211

== ENCOUNTER 2020-12-20 13:01 | Day surgery (SDC) | payer MEDICARE ==
[2020-12-18 13:26] VITALS: BMI 38.0
[~2020-12-20 13:01] MED LIST changes: -DEXAMETHASONE SOD PHOSPHATE 4 MG/ML 1 ML VIAL IV ONE; -HYDROmorphone 0.5 MG/0.5 ML SYRINGE IVP PRN; -LIDOCAINE 1% (10MG/ML) FOR IV START INTRADERMA PRN; -MIDAZOLAM 2 MG/2 ML VIAL IV PRN; -ONDANSETRON 4 MG/2 ML VIAL IVP ONE; -ceFAZolin 3 GM in SODIUM CHLORIDE 0.9% 100 ML IVPB PRN
[2020-12-20 13:22] VITALS: TEMP 97.4
[2020-12-20] MEDS ORDERED: MIDAZOLAM 2 MG/2 ML VIAL ONE (13:33)
[2020-12-20] MEDS ORDERED: ROPIVACAINE 5MG/ML 20ML VIAL ONE (13:33)
[2020-12-20] MEDS ORDERED: TRIAMCINOLONE ACETONIDE 40 MG/ML 1 ML VIAL ONE (13:33)
[2020-12-20] MEDS ORDERED: fentaNYL (PF) 50 MCG/ML 2 ML AMP ONE (13:33)
[2020-12-20] MEDS ORDERED: IV FLUID CONTINUATION 500 ML IV ONE (14:08)
--- NOTE | 2020-12-20 14:08 | P.PCN ---
Date of Procedure: 12/20/20 Procedure(s) Performed: PREOPERATIVE DIAGNOSIS: 1-Lumbar Spondylosis with Facet Arthropathy without myelopathy. 2- Lumber degenerative disc disease. POSTOPERATIVE DIAGNOSIS: 1- Lumbar Spondylosis with Facet Arthropathy without myelopathy. 2- Lumber degenerative disc disease. PROCEDURES : Left Radiofrequency thermocoagulation, L2 , L3 , L4 , and L5 medial branch, with fluoroscopic guidance (fluoroscopy images available in the radiology department) ( to denervate the facet joint at left L3-4 , L4-5 ,and L5-S1 levels ). ANESTHESIA: Monitored anesthesia care as per anesthesia department. EBL: Minimal PROCEDURE INDICATION: The patient with low back pain secondary to lumbar facet arthropathy who had significant relief of his pain with previous diagnostic lumbar medial branch block with bupivacaine. PROCEDURE DESCRIPTION / TECHNIQUE: The patient was seen and identified in the preoperative area. Risks, benefits, complications, including but not limited to risk of infection ,bleeding , allergic reactions to the medications and no complete pain releife , and alternatives were discussed with the patient, the patient agreed to proceed with the procedure and signed the consent. IV was started. Vital signs remained stable throughout the procedure. Patient was taken to the OR and time out was completed. The patient was placed in the prone position on the procedure table. The lumber area was prepped and draped in the usual sterile fashion. . Vital signs were closely monitored during the procedure .IV sedation was used during the procedure to decrease patients anxiety. Using AP and then oblique fluoroscopy, the ``eye of the Neel prince co rresponding to the connection between the superior and transverse articular processes of Left L2 L3, L4, and L5 were identified, marked, and localized with 1% lidocaine. Subsequently, a 18 [id number] radiofrequency cannula with a 10- mm active tip was advanced guided by fluoroscopy to each of the``eyes of the Neel dog at leftt L2 , L3, L4, and L5. Each site then underwent sensory testing at 50 Hz and 0 to 1 volt and motor testing at 2.5 Hz and 0 to 3 volt with local stimulation, but no radicular symptoms down the legs. Thereafter each sites underwent radiofrequency thermocoagulation at 80 degrees celsius for 90 seconds after injecting 0.5 ml of PF Ropivacaine 1ml, then after the thermocoagulation done , 1 ml of the block solution containing Kenalog 40 mg and 3 ml of Ropivacaine 0.5% was injected at the Left L2 , L3 , L4 , and L5 , levels after negative aspiration of CSF and blood and with no paresthesias. Cannulas were retracted while injecting lidocaine 1% until the needle is out. At the end of the procedure, the skin was cleansed and bandages were applied. COMPLICATIONS: No acute complications. DISPOSITION / PLANS: The patient was placed in a supine position and transferred to the recovery area in a stable condition for observation and was discharged from the recovery room after meeting discharge criteria. Home discharge instructions given to the patient by the staff. The patient was reexamined prior to discharge. The patient will schedule a follow up in the clinic in 2-4 weeks. Patient will scheduled to have the RFA on the right side in the next few weeks
--- NOTE | 2020-12-20 14:16 | FL ---
Fluoroscopy HISTORY: Pain 12 seconds fluoroscopy time supplied to the referring clinician. 5 intraoperative C-arm images docum ent the procedure. See dictated report from anesthesia.
[2020-12-20 14:35] VITALS: RESP 16
[2020-12-20 15:04] VITALS: BP 106/69; PULSE 73
== END 2020-12-20 15:12 | disposition home or self-care (01) ==
LOC: ORPAIN 13:01
PROVIDERS: ATTEND Specialist
DX: M47.816 Spondylosis without myelopathy or radiculopathy, lumbar region (principal); M51.36 Other intervertebral disc degeneration, lumbar region; E78.5 Hyperlipidemia, unspecified; I10 Essential (primary) hypertension; Z79.01 Long term (current) use of anticoagulants
CPT/HCPCS: 64635; 64636; J2250; J3301; J3010; J2795; 64634

== ENCOUNTER 2021-01-10 11:06 | Day surgery (SDC) | payer MEDICARE ==
[2021-01-08 14:33] VITALS: BMI 37.1
[2021-01-10 11:27] VITALS: RESP 16; TEMP 97.4
[2021-01-10] MEDS ORDERED: LIDOCAINE 1% (10MG/ML) FOR IV START INTRADERMA ONE (11:41)
[2021-01-10] MEDS ORDERED: MIDAZOLAM 2 MG/2 ML VIAL ONE (12:20)
[2021-01-10] MEDS ORDERED: PROPOFOL 10 MG/ML 20 ML VIAL IV ONE (12:20)
[2021-01-10] MEDS ORDERED: ROPIVACAINE 5MG/ML 20ML VIAL ONE (12:20)
[2021-01-10] MEDS ORDERED: methylPREDNISolone ACETATE 40 MG/ML 1 ML VIAL ONE (12:20)
[2021-01-10] MEDS ORDERED: fentaNYL (PF) 50 MCG/ML 2 ML AMP ONE (12:20)
--- NOTE | 2021-01-10 12:47 | P.PCN ---
Date of Procedure: 01/10/21 Procedure(s) Performed: PREOPERATIVE DIAGNOSIS: 1-Lumbar Spondylosis with Facet Arthropathy without myelopathy. 2- Lumber degenerative disc disease. POSTOPERATIVE DIAGNOSIS: 1- Lumbar Spondylosis with Facet Arthropathy without myelopathy. 2- Lumber degenerative disc disease. PROCEDURES : Right Radiofrequency thermocoagulation, L2 , L3 , L4 , and L5 medial branch, with fluoroscopic guidance (fluoroscopy images available in the radiology department) ( to denervate the facet joint at Right L3-4 , L4-5 ,and L5-S1 levels ). ANESTHESIA: Monitored anesthesia care as per anesthesia department. EBL: Minimal PROCEDURE INDICATION: The patient with low back pain secondary to lumbar facet arthropathy who had significant relief of his pain with previous diagnostic lumbar medial branch block with bupivacaine. PROCEDURE DESCRIPTION / TECHNIQUE: The patient was seen and identified in the preoperative area. Risks, benefits, complications, including but not limited to risk of infection ,bleeding , allergic reactions to the medications and no complete pain releife , and alternatives were discussed with the patient, the patient agreed to proceed with the procedure and signed the consent. IV was started. Vital signs remained stable throughout the procedure. Patient was taken to the OR and time out was completed. The patient was placed in the prone position on the procedure table. The lumber area was prepped and draped in the usual sterile fashion. . Vital signs were closely monitored during the procedure .IV sedation was used during the procedure to decrease patients anxiety. Using AP and then oblique fluoroscopy, the ``eye of the Neel dog corresponding to the connection between the superior and transverse articular processes of Right L2 L3, L4, and L5 were identified, marked, and localized with 1% lidocaine. Subsequently, a 18 [id number] ( VENUM ) radiofrequency cannula with a 10-mm active tip was advanced guided by fluoroscopy to each of the``eyes of the Neel dog at Right L2 , L3, L4, and L5. Each site then underwent sensory testing at 50 Hz and 0 to 1 volt and motor testing at 2.5 Hz and 0 to 3 volt with local stimulation, but no radicular symptoms down the legs. Thereafter each sites underwent radiofrequency thermocoagulation at 80 degrees celsius for 90 seconds after injecting 0.5 ml of PF Ropivacaine 1ml, then after the thermocoagulation done , 1 ml of the block solution containing Depo-Medrol 40 mg and 3 ml of Ropivacaine 0.5% was injected at the Right L2 , L3 , L4 , and L5 , levels after negative aspiration of CSF and blood and with no paresthesias. Cannulas were retracted while injecting lidocaine 1% until the needle is out. At the end of the procedure, the skin was cleansed and bandages were applied. COMPLICATIONS: No acute complications. DISPOSITION / PLANS: The patient was placed in a supine position and transferred to the recovery area in a stable condition for observation and was discharged from the recovery room after meeting discharge criteria. Home discharge instructions given to the patient by the staff. The patient was reexamined prior to discharge. The patient will schedule a follow up in the clinic in 2-4 weeks.
[2021-01-10 13:11] VITALS: BP 122/67; PULSE 67
--- NOTE | 2021-01-10 15:20 | FL ---
Fluoroscopy HISTORY: Pain 9 seconds fluoroscopy time supplied to the referring clinician. 3 intraoperative C-arm images docume nt the procedure. See dictated report from anesthesia.
== END 2021-01-10 13:23 | disposition home or self-care (01) ==
LOC: ORPAIN 11:06
PROVIDERS: ATTEND Specialist
DX: M47.816 Spondylosis without myelopathy or radiculopathy, lumbar region (principal); M51.36 Other intervertebral disc degeneration, lumbar region; I10 Essential (primary) hypertension; E78.5 Hyperlipidemia, unspecified; J45.909 Unspecified asthma, uncomplicated; E07.9 Disorder of thyroid, unspecified; K21.9 Gastro-esophageal reflux disease without esophagitis; Z79.899 Other long term (current) drug therapy; Z79.02 Long term (current) use of antithrombotics/antiplatelets
CPT/HCPCS: 64635; 64636; J2250; J1030; J3010; J2704; J2795

== ENCOUNTER → 2021-02-03 | Outpatient (CLI) | payer MEDICARE ==
[2021-02-03 13:05] VITALS: BP 143/72; PULSE 89; RESP 16; TEMP 97.7
--- NOTE | 2021-02-03 13:30 | P.PN ---
Subjective Progress Note Date: 02/03/21 This is a follow-up visit for this 75 years old male with a chronic history of severe low back pain, he is diagnosed with lumbar spondylosis, and bilateral sacroiliitis, recently we have done RFA of the medial branch lumbar area , and he gets excellent relief of his low back , and the pain relief lasted more than a year, currently is complaining of mild localized pain on the left side low back pain, the pain is constant and increases with any activity, interfere with the quality of life, he denies any motor or sensory deficit, denies any fever or night sweats Physical Examinations : -Constitutiona : Cooperative , not in acute distress . -HEENT : nech : supple , no Lymphadenopathy , normal thyroid size . : eyes : no ptosis , no icterus, no photophobia . - neurologic : Cranial nerve II to XII intact , no focal neurological deffecit . -psychatric : alert , oriented X 3 , appropriate affect , intact judgment and insight . -Lymphatic : no Lymphadenopathy . - musculoskeltal : Lumber spine moter stegnth lower extremities ,thigh and legs 4/5 Right side , 4/5 Left side Fabere test= positive Right , and positive LT . Tenderness over the left iliolumbar ligament Assessment and Plan Plan: Assessment and plan= 1-lumbar spondylosis with lumbar facet arthropathy without myelopathy 2-lumbar degenerative disc disease. 3-left iliolumbar ligament neuralgia Pain improved significantly after RFA medial branch lumbar area Impression currently having some low back pain in the left side mostly secondary to left iliolumbar ligament neuralgia Advised patient to use NSAID [id number](ibuprofen 600 mg 3 times a day when necessary), If patient continues to have pain and we will co nsider doing left iliolumbar ligament injection - PQRS measures = - Patient's medications are documented in the chart. -Tobacco use is negative and counseling.Given. -Patient's has received pneumococcal vaccine. -Advanced care planning discussed, patient not eligible. -Opiate contract not signed. -Pain positive and follow-up visit/procedure is scheduled. -Patient's blood pressure measured [ 143/72 ] , and documented in the record ,and patient will follow up with the primary care. -Patient's weight was measured and body mass index [ 37 ] above the normal limits and counseling was done. and patient instructed to follow-up with the primary care physician. -Patient was not identified as an unhealthy alcohol user Objective - Vital Signs Vital signs: Vital Signs Temp 97.7 F 02/03/21 13:03 Pulse 89 02/03/21 13:03 Resp 16 02/03/21 13:03 BP 143/72 02/03/21 13:03 Pulse Ox 96 02/03/21 13:03
== END ==
LOC: PNWHC3 12:51
PROVIDERS: ATTEND Specialist
DX: M47.816 Spondylosis without myelopathy or radiculopathy, lumbar region (principal); M51.36 Other intervertebral disc degeneration, lumbar region; G58.8 Other specified mononeuropathies; Z87.891 Personal history of nicotine dependence
CPT/HCPCS: 99211

== ENCOUNTER → 2021-06-05 | Outpatient (CLI) | payer MEDICARE ==
[2021-06-05 12:21] VITALS: BP 140/59; PULSE 77; RESP 18; TEMP 97.8
--- NOTE | 2021-06-05 12:31 | P.PN ---
Subjective Progress Note Date: 06/05/21 This is a 75-year-old gentleman with history of axial lower back pain with no radiation to the lower extremities and no paresthesia. The patient had lumbar medial branch RFA in November and December of this year and his pain has been well tolerated and to now. The patient's pain is still okay as he states in his lower back. The patient takes Plavix for history of peripheral vascular disease. Patient denies new-onset weakness, bowel/bladder incontinence, or any other signs or symptoms of cauda equina syndrome. There are no signs of acute intoxication, and no indications of medication diversion or overuse. In addition to above, 13-point review of systems is also negative for chest pain, shortness of breath, changes in vision, changes in hearing, new onset weakness, abdominal pain, diarrhea, extreme fatigue, malaise, fever, skin changes, homicidal or suicidal ideation, or bowel or bladder incontinence. Vital Signs: Reviewed in EMR Gen: AAOx3, NAD HEENT: PERRLA,hearing grossly normal Pulm: resp unlabored Neck: supple, trachea midline Neuro exam of the lower extremities: Normal strength bilaterally Straight leg raising test: Price's test: Range of motion of the lumbar spine: Facet loading test: Tenderness in the paravertebral musculature: Positive in the lumbar area bilaterally Neuro: CN II-XII grossly intact, Imaging: Reviewed in EMR/chart Assessment: Lumbar spondylosis without myelopathy Lumbar DDD Morbid obesity Peripheral vascular disease Treatment with Plavix Plan: 1. Explanation: When patients on opioids, opioid and psychological risk scores were reviewed. Diagnoses, prognoses, and multiple treatment options including but not limited to physical therapy, interventional therapies, adjuvant medical therapies, narcotic medication therapies, and surgery were discussed with the patient and all questions were answered to the patient's satisfaction. 2. Opioid agreement:When patients are prescribed opoids through our clinic, opioid agreement is signed with the patient and the patient is warned not to use opioids while driving or before driving and not to combine opioids with benzodiazepines or alcohol. 3. Counseling: When patient is smoking or obese, the patient was counseled extensively on SMOKING CESSATION, BODY MASS INDEX, EXERCISE. Specifically, the patient was instructed regarding the importance of smoking cessation, obesity, and exercise in the context of both chronic pain and overall health. 4. Procedures: Scheduled for lumbar medial branch RFA for L4 5 and L5-S1 joints bilaterally under fluoroscopic guidance. The patient will hold his Plavix for 5-7 days . 5. Consultations: None 6. Investigations: None 7. Medications: none 8. Disposition: Return to the above-mentioned procedure to be done next month 9. Maps were reviewed and were appropriate. Objective - Vital Signs Vital signs: Vital Signs Temp 97.8 F 06/05/21 12:16 Pulse 77 06/05/21 12:16 Resp 18 06/05/21 12:16 BP 140/59 06/05/21 12:16 Pulse Ox 95 06/05/21 12:16 Intake & Output 06/04/21 06/05/21 06/05/21 18:59 06:59 18:59 Weight 128.82 kg
== END ==
LOC: PNWHC3 12:05
PROVIDERS: ATTEND Anesthesiology
DX: M47.816 Spondylosis without myelopathy or radiculopathy, lumbar region (principal); M51.36 Other intervertebral disc degeneration, lumbar region; E66.01 Morbid (severe) obesity due to excess calories; I73.9 Peripheral vascular disease, unspecified; Z79.02 Long term (current) use of antithrombotics/antiplatelets; Z68.38 Body mass index [BMI] 38.0-38.9, adult; Z87.891 Personal history of nicotine dependence
CPT/HCPCS: 99211

== ENCOUNTER 2021-08-01 12:12 | Day surgery (SDC) | payer MEDICARE ==
[2021-07-31 12:23] VITALS: BMI 37.7
[2021-08-01 12:31] VITALS: TEMP 97.1
[2021-08-01] MEDS ORDERED: LACTATED RINGERS 1,000 ML IV ONE ×3 (12:39→13:40)
[2021-08-01] MEDS ORDERED: MIDAZOLAM 2 MG/2 ML VIAL ONE (12:58)
[2021-08-01] MEDS ORDERED: TRIAMCINOLONE ACETONIDE 40 MG/ML 1 ML VIAL ONE (12:58)
[2021-08-01] MEDS ORDERED: .fentaNYL (PF) 50 MCG/ML 2 ML AMP ONE (12:58)
[2021-08-01] MEDS ORDERED: ROPIVACAINE 5MG/ML 20ML VIAL ONE (12:58)
--- NOTE | 2021-08-01 13:37 | P.PCN ---
Date of Procedure: 08/01/21 Procedure(s) Performed: PREOPERATIVE DIAGNOSIS: 1-Lumbar Spondylosis with Facet Arthropathy without myelopathy. 2- Lumber degenerative disc disease. POSTOPERATIVE DIAGNOSIS: 1- Lumbar Spondylosis with Facet Arthropathy without myelopathy. 2- Lumber degenerative disc disease. PROCEDURES : Bilateral Radiofrequency thermocoagulation, L3 , L4 , and L5 medial branch, with fluoroscopic guidance (fluoroscopy images available in the radiology department) ( to denervate the facet joint at bilateral L4-5 ,and L5-S1 levels ). ANESTHESIA: Monitored anesthesia care as per anesthesia department . EBL: Minimal PROCEDURE INDICATION: The patient with low back pain secondary to lumbar facet arthropathy who had more than 50% relief of her pain with previous diagnostic lumbar medial branch block with bupivacaine. PROCEDURE DESCRIPTION / TECHNIQUE: The patient was seen and identified in the preoperative area. Risks, benefits, complications, including but not limited to risk of infection ,bleeding , allergic reactions to the medications and no complete pain releife , and alternatives were discussed with the patient, the patient agreed to proceed with the procedure and signed the consent. IV was started. Vital signs remained stable throughout the procedure. Patient was taken to the OR and time out was completed. The patient was placed in the prone position on the procedure table. The lumber area was prepped and draped in the usual sterile fashion. . Vital signs were closely monitored during the procedure .IV sedation was used during the procedure to decrease patients anxiety. Using AP and then oblique fluoroscopy, the ``eye of the Neel dog cor responding to the connection between the superior and transverse articular processes of right L3, L4, and L5 were identified, marked, and localized with 1% lidocaine. Subsequently, a 18 -to radiofrequency cannula with a 10- mm active tip was advanced guided by fluoroscopy to each of the``eyes of the Neel dog at right L3, L4, and L5. Each site then underwent sensory testing at 50 Hz and 0 to 1 volt and motor testing at 2.5 Hz and 0 to 3 volt with local stimulation, but no radicular symptoms down the legs. Thereafter each sites underwent radiofrequency thermocoagulation at 80 degrees celsius for 90 seconds after injecting 0.5 ml of PF Ropivacaine 1ml, then after the thermocoagulation done , 1 ml of the block solution containing Kenalog 20 mg and 3 ml of Ropivacaine 0.5% was injected at the right L3 , L4 , and L5 , levels after negative aspiration of CSF and blood and with no paresthesias. Cannulas were retracted while injecting lidocaine 1% until the needle is out. The same procedure was repeated at the level of Left L3, L4, and L5 levels. At the end of the procedure, the skin was cleansed and bandages were applied. COMPLICATIONS: No acute complications. DISPOSITION / PLANS: The patient was placed in a supine position and transferred to the recovery area in a stable condition for observation and was discharged from the recovery room after meeting discharge criteria. Home discharge instructions given to the patient by the staff. The patient was reexamined prior to discharge. The patient will schedule a follow up in the clinic in 2-4 weeks.
[2021-08-01 14:12] VITALS: BP 101/61; PULSE 58; RESP 20
[2021-08-01] MEDS ORDERED: IV FLUID CONTINUATION 700 ML IV ONE (14:13)
--- NOTE | 2021-08-01 15:54 | FL ---
Fluoroscopy HISTORY: Pain 17 seconds fluoroscopy time supplied to the referring clinician. 6 intraoperative C-arm images docum ent the procedure. See dictated report from anesthesia.
== END 2021-08-01 14:17 | disposition home or self-care (01) ==
LOC: ORPAIN 12:12
PROVIDERS: ATTEND Specialist
DX: M47.816 Spondylosis without myelopathy or radiculopathy, lumbar region (principal); M51.36 Other intervertebral disc degeneration, lumbar region; I10 Essential (primary) hypertension; E78.5 Hyperlipidemia, unspecified; Z87.891 Personal history of nicotine dependence; I73.9 Peripheral vascular disease, unspecified; E07.9 Disorder of thyroid, unspecified; Z98.890 Other specified postprocedural states; Z97.2 Presence of dental prosthetic device (complete) (partial); Z79.890 Hormone replacement therapy; Z79.02 Long term (current) use of antithrombotics/antiplatelets; Z79.899 Other long term (current) drug therapy
CPT/HCPCS: 64635; 64636; J2250; J3301; J3010; J2795

== ENCOUNTER → 2022-06-11 | Outpatient (CLI) | payer MEDICARE ==
--- NOTE | 2022-06-13 09:40 | CT ---
EXAMINATION TYPE: CT urogram wo/w con CT DLP: 3169 mGycm, Automated exposure control for dose reduction was used. DATE OF EXAM: 06/11/2022 5:41 PM COMPARISON: none CLINICAL INDICATION:Male, 76 years old with history of R31.0 GROSS HEMATURIA; TECHNIQUE: Urogram with imaging of the abdomen and pelvis with and without contrast. Coronal and sagittal reform ats were performed. 2D and 3D reconstructions are performed to assist visualization of the urinary tr act on a separate workstation. Contrast used: 80 cc of Isovue-300. Oral contrast used: None. FINDINGS: GENITOURINARY: RIGHT KIDNEY AND URETER: No calculi. No hydronephrosis or hydroureter. No renal mass or other lesions . No urothelial lesions: no filling defect, dilation, stricture or wall thickening. Simple renal cyst s measuring up to 3.1 cm. Vascular calcifications are noted within the renal sinus. LEFT KIDNEY AND URETER: No calculi. No hydronephrosis or hydroureter. No renal mass or other lesions. No urothelial lesions: no filling defect, dilation, stricture or wall thickening. URINARY BLADDER: Well distended. no calculi, no gross evidence for mass or other lesions. REPRODUCTIVE: Unremarkable. ABDOMEN LIVER: Unremarkable. GALLBLADDER AND BILE DUCTS: Unremarkable PANCREAS: Unremarkable. SPLEEN: Unremarkable. ADRENAL GLANDS: Unremarkable. STOMACH AND BOWEL: . No evidence of bowel obstruction. Surgical changes to the cecum noted. PERITONEUM: No evidence of pneumoperitoneum, free fluid, or adenopathy. VASCULATURE: No aortic aneurysm. Atherosclerosis of the arterial vasculature. MUSCULOSKELETAL: No acute osseous abnormalities. Multilevel disc degeneration changes worse in the lo wer lumbar spine with retrolisthesis at L4-L5 and L3-L4. SOFT TISSUE/ABDOMINAL WALL: Unremarkable. LOWER CHEST: No significant findings. IMPRESSION: 1. No evidence of urolithiasis or renal/urothelial neoplasm. 2. Severe atherosclerosis of the arterial vasculature.
== END | disposition home or self-care (01) ==
LOC: RADCTMAIN 14:02
PROVIDERS: ATTEND Urology
DX: R31.0 Gross hematuria (principal); I70.8 Atherosclerosis of other arteries
CPT/HCPCS: 82565; 84520; 74178; 36415; 74400; Q9967

== ENCOUNTER 2023-03-05 06:15 | Day surgery (SDC) | payer MEDICARE ==
[~2023-03-05 06:15] MED LIST changes: +ALPRAZolam 0.25 MG TAB PO PRN; +ASPIRIN 325 MG TAB PO PRN; -LACTATED RINGERS 1,000 ML IV SCH; +SODIUM CHLORIDE 0.9% 1,000 ML in EMPTY BAG 1 BAG IV ONE
[2023-03-05 06:50] VITALS: RESP 18; TEMP 98
[2023-03-05] MEDS ORDERED: LIDOCAINE 1% INJ 10MG/ML (20 ML MDV) ONE (07:14)
[2023-03-05] MEDS ORDERED: VERAPAMIL 2.5 MG/ML 2 ML AMP ONE (07:39)
[2023-03-05] MEDS ORDERED: MIDAZOLAM 2 MG/2 ML VIAL IVP ONE (07:54)
[2023-03-05] MEDS ORDERED: LIDOCAINE 1% INJ 10MG/ML (5 ML VIAL-PF) SQ ONE (07:55)
[2023-03-05] MEDS ORDERED: VERAPAMIL SYRINGE (5 MG/10 ML) INTRAARTER ONE (07:56)
[2023-03-05] MEDS ORDERED: HEPARIN SODIUM 1,000 UN/ML (10ML VL) ONE (07:59)
[2023-03-05] MEDS ORDERED: HEPARIN SODIUM 1,000 UN/ML (10ML VL) IV ONE (08:00)
[2023-03-05] MEDS ORDERED: IOPAMIDOL-370 100ML BTL INJ ONE (08:05)
[2023-03-05] MEDS ORDERED: NALOXONE 0.4 MG/ML 1 ML VIAL IVP PRN (08:09)
[2023-03-05] MEDS ORDERED: SODIUM CHLORIDE 0.9% 1,000 ML in EMPTY BAG 1 BAG IV SCH (08:15)
--- NOTE | 2023-03-05 08:15 | P.PCN ---
Date of Procedure: 03/05/23 Operative Findings: AN ABDOMINAL AORTOGRAM AND BILATERAL LOWER EXTREMITIES RUNOFF PERFORMING PHYSICIAN: Ramin Zhang MD PROCEDURE PERFORMED: 1. An abdominal aortogram 2. Bilateral lower extremities runoff 3. Ultrasound-guided access of the right common femoral artery INDICATION: Right lower extremities intermittent claudication and abnormal duplex study indicating severe disease involving the right common femoral artery COMPLICATION: None LEVEL OF SEDATION: Moderate was sedation length of 12 minutes APPROACH: Right common femoral artery PROCEDURE DESCRIPTION: After obtaining informed consent and explaining the procedure benefits, risks, and complications, the patient was brought to the cardiac laborer beam house. The right radial artery was cannulated using micropuncture technique under ultrasound guidance, the micropuncture wire passed easily then I placed a 6-Polish sheath in the right radial artery. After that I did advanced long pigtail catheter over 035 wire into the descending aorta. I did an aortogram with runoff after the catheter was initially placed at the level of the renal arteries and it was pushed down into above the bifurcation of the aorta into right and left common iliac arteries. Please note that before the pigtail catheter was placed I did give the patient 5000 units of heparin intravenous and 2 mg of verapamil intra- arterial. An aortogram with runoff was performed using digital subselection and the procedure was completed was no complication SELECTIVE PERIPHERAL ANGIOGRAM: The abdominal aorta: Calcified was mild disease only The common iliac arteries: The right common iliac artery appeared to have mild disease only. The left common iliac artery is a stented and the stent is patent. The external iliac arteries: The right external iliac arteries stented and the stent is patent. The left external iliac artery appeared to have mild disease only The internal iliac arteries: Both internal iliac arteries are patent The common femoral arteries: The right common femoral artery has eccentric lesion appeared to be in the range of 80-90%. The left common femoral artery has mild disease only. Superficial femoral arteries: Both SFA appeared to have mild disease only. Popliteal arteries: Both popliteal appeared to have mild disease only. Below the knees: There are 3 vessels run off below the knee bilaterally CONCLUSION: Severe disease involving the right common femoral are POSTPROCEDURE MANAGEMENT: Right common femoral artery revascularization
--- NOTE | 2023-03-05 08:31 | IR ---
EXAMINATION TYPE: IR angio abdominal w runoff DATE OF EXAM: 03/05/2023 COMPARISON: NONE HISTORY: Fluoroscopy time. Fluoroscopy was provided to the referring clinician.
[2023-03-05 11:27] VITALS: BP 109/57; PULSE 65
== END 2023-03-05 11:58 | disposition home or self-care (01) ==
LOC: CATHCVL 06:15
PROVIDERS: ATTEND Internal Medicine Interventional Cardiology
DX: I70.213 Atherosclerosis of native arteries of extremities with intermittent claudication, bilateral legs (principal); I70.0 Atherosclerosis of aorta; I10 Essential (primary) hypertension; E78.5 Hyperlipidemia, unspecified; I71.20 Thoracic aortic aneurysm, without rupture, unspecified; Z86.73 Personal history of transient ischemic attack (TIA), and cerebral infarction without residual deficits; F17.210 Nicotine dependence, cigarettes, uncomplicated; Z79.02 Long term (current) use of antithrombotics/antiplatelets; Z79.890 Hormone replacement therapy; Z79.899 Other long term (current) drug therapy
CPT/HCPCS: 36200; 75625; 75716; 76937; 99152; C1769 ×2; J2250; J2001; J1644; Q9967

== ENCOUNTER → 2023-04-23 | Outpatient (CLI) | payer MEDICARE ==
--- NOTE | 2023-05-01 08:39 | MR ---
EXAMINATION TYPE: MR knee RT wo con DATE OF EXAM: 04/23/2023 COMPARISON: 08/20/2020 HISTORY: Rt knee pain TECHNIQUE: Multiplanar, multisequence imaging of the right knee is performed without IV contrast. FINDINGS: The osseous structures are intact and there is no bone contusion or fracture. There has been no change in the tear of the posterior horn and body of the medial meniscus which exte nds to the inferior surface. The lateral meniscus is intact. The cruciate and collateral ligaments are intact. The patellar tendon and quadriceps tendon are normal. There is mild cartilaginous thinning in all 3 compartments of the knee indicating mild osteoarthritis . There is a small joint effusion. IMPRESSION: 1. No change in the small joint effusion and tear of the posterior horn and body of the medial menisc us. 2. Mild tricompartment osteoarthritis unchanged compared to previous.
== END | disposition home or self-care (01) ==
LOC: RADMRIMAIN 06:56
PROVIDERS: ATTEND Orthopaedic Surgery
DX: M17.11 Unilateral primary osteoarthritis, right knee (principal); M25.461 Effusion, right knee; X58.XXXA Exposure to other specified factors, initial encounter

== ENCOUNTER 2023-05-27 08:02 | Day surgery (SDC) | payer MEDICARE ==
[2023-05-20 12:53] VITALS: BMI 36.3
--- NOTE | 2023-05-26 13:59 | HP ---
HISTORY AND PHYSICAL DATE OF ANTICIPATED SURGERY: 05/27/2023. HISTORY OF PRESENT ILLNESS: Justice Mayer is a 77-year-old patient seen with progressive right knee pain. We discussed options. He elected to proceed with right knee arthroscopy. Consent obtained. PAST MEDICAL HISTORY: Hyperlipidemia, hypothyroidism, hypertension. PAST SURGICAL HISTORY: Appendectomy, tonsillectomy, and rotator cuff repair. DAILY MEDICATIONS: 1. Atorvastatin. 2. Benazepril. 3. Levothyroxine. 4. Amitriptyline. 5. Amlodipine. 6. Tylenol. ALLERGIES: None. SOCIAL HISTORY: Denies tobacco use. PHYSICAL EVALUATION OF THE RIGHT KNEE: His range of motion is 0 to 130 degrees. Tenderness along the medial joint line. Positive medial Piotr's. Some tenderness along the lateral joint line. Mild effusion. Ligaments stable. Hip rotation without pain. Distal neurovascular exam intact. RADIOGRAPHS: Radiographs of the right knee revealed moderate medial compartment osteoarthritis. An MRI of the right knee revealed a medial meniscal tear. IMPRESSION: 1. Internal derangement of right knee with medial meniscal tear. 2. Hypertension. 3. Hyperlipidemia. 4. Hypothyroidism. PLAN: Right knee arthroscopy with partial medial meniscectomy and debridement. MMODL / IJN: [id number] /
[~2023-05-27 08:02] MED LIST changes: -ALPRAZolam 0.25 MG TAB PO PRN; -ASPIRIN 325 MG TAB PO PRN; -SODIUM CHLORIDE 0.9% 1,000 ML in EMPTY BAG 1 BAG IV ONE; +ceFAZolin 3 GM in SODIUM CHLORIDE 0.9% 100 ML IVPB PRN
[2023-05-27] MEDS ORDERED: LACTATED RINGERS 1,000 ML IV SCH (08:15)
[2023-05-27] MEDS ORDERED: ONDANSETRON 4 MG/2 ML VIAL IVP ONE (08:15)
[2023-05-27] MEDS ORDERED: DEXAMETHASONE SOD PHOSPHATE 4 MG/ML 1 ML VIAL IV ONE (08:15)
[2023-05-27] MEDS ORDERED: LIDOCAINE 1% (10MG/ML) FOR IV START INTRADERMA PRN (08:15)
[2023-05-27] MEDS ORDERED: fentaNYL (PF) 50 MCG/ML 2 ML AMP ONE (09:27)
[2023-05-27] MEDS ORDERED: LIDOCAINE 1% INJ 10MG/ML (20 ML MDV) ONE (09:27)
[2023-05-27] MEDS ORDERED: ePHEDrine 50 MG/ML 1 ML VIAL ONE (09:27)
[2023-05-27] MEDS ORDERED: PROPOFOL 10 MG/ML 20 ML VIAL IV ONE (09:27)
[2023-05-27] MEDS ORDERED: KETOROLAC 15 MG/ML 1 ML VIAL ONE (09:27)
[2023-05-27] MEDS ORDERED: BUPIVACAINE (PF) 0.25% 30 ML VIAL SQ ONE ×2 (09:49→10:01)
--- NOTE | 2023-05-27 10:15 | P.OP ---
Date of Procedure: 05/27/23 Preoperative Diagnosis: Internal derangement right knee Postoperative Diagnosis: 1. Tear medial and lateral meniscus right knee 2. Grade 4 chondromalacia medial femoral condyle right knee 3. Reactive synovitis medial, lateral and suprapatellar compartments right knee Procedure(s) Performed: 1. Arthroscopic partial medial and lateral meniscectomy right knee 2. Arthroscopic microfracture medial femoral condyle right knee 3. Arthroscopic partial synovectomy medial, lateral and suprapatellar compartments right knee 4. Arthroscopic chondroplasty medial femoral condyle right knee Anesthesia: MICHAELA, local Surgeon: Mateo Torres Estimated Blood Loss (ml): 7 Pathology: none sent Condition: stable Disposition: PACU Indications for Procedure: 77-year-old patient was seen with progressive right knee pain. After having treatment options discussed, he elected to proceed with arthroscopy. Operative Findings: See description of procedure Description of Procedure: Patient was taken to the operative suite. Patient underwent a general anesthetic by the department of anesthesia. Patient was given preoperative antibiotics. The right lower extremity was placed in a well-padded arthroscopic leg taylor. The right leg was prepped and draped in the normal sterile orthopedic fashion. A lateral parapatellar and suprapatellar incision was made. Trochars were inserted. Arthroscopy was initiated. Suprapatellar pouch revealed diffuse thick reactive synovitis. The patellofemoral joint appeared to articulate congruently. There was grade 1/2 chondromalacia of the patellofemoral joint without osteochondral tears. The scope was guided into the medial gutter. No loose bodies or plica were identified. The scope was then guided into the medial compartment. A medial parapatellar incision was made. Trocar inserted followed by probe. There was a radial tear posterior horn medial meniscus. There were grade 2 chondromalacia changes of the medial femoral condyle without tears. There was thick reactive synovitis anteriorly. I performed a partial medial meniscectomy getting down to stable meniscal tissue. I performed a partial synovectomy decompressing the reactive synovitis. The residual meniscus was probed and was found to be stable. There was good decompression of the synovitis. Scope and probe were then guided into the intercondylar notch. Cruciates were identified, probed and found to be stable. The scope and probe were then guided into lateral compartment. There were radial tears involving the mid body and posterior horn of the lateral meniscus. There was no area of what appeared be grade 2/3 chondromalacia lateral femoral condyle with a large osteochondral flap tear. There was thick reactive synovitis anteriorly. I performed a partial lateral meniscectomy getting down to stable meniscal tissue. I performed a chondroplasty of the lateral femoral condyle getting down to stable osteochondral tissue. I performed a partial synovectomy decompressing the reactive synovitis anteriorly. I did note an area of grade 4 chondromalacia/exposed bone along the lateral femoral condyle measuring about a centimeter. I introduced a microfracture awl and I performed a microfracture to the area of exposed bone lateral femoral condyle penetrating the bone with resultant bleeding at the microfracture site. The residual meniscus was probed and was found to be stable. The residual osteochondral surface of the lateral femoral condyle was stable. There was good decompression of the synovitis. The scope was in guided back into the suprapatellar compartment. I introduced a motorized shaver into the suprapatellar compartment. I debrided some piecemeal fragments of meniscus that I encountered. I performed a partial synovectomy. The shaver was removed. There was good decompression of the synovitis. I took one more look around the entire knee, no residual debris. Instruments were now removed from the joint. The joint was infiltrated with .25% Marcaine. Steri-Strips were applied to the portal sites. Sterile dressings were applied. The patient was placed into a NIDIA hose. No tourniquet was utilized. The patient was awakened, transferred to a bed and taken to recovery stable satisfactory condition.
[2023-05-27] MEDS: HYDROmorphone 0.5 MG/0.5 ML SYRINGE IVP PRN ×2 (10:25→10:36)
[2023-05-27 10:30] VITALS: TEMP 97.6
[2023-05-27 11:44] VITALS: BP 148/71; PULSE 69; RESP 16
== END 2023-05-27 12:01 | disposition home or self-care (01) ==
LOC: OR 08:02
PROVIDERS: ATTEND Orthopaedic Surgery
DX: S83.281A Other tear of lateral meniscus, current injury, right knee, initial encounter (principal); S83.241A Other tear of medial meniscus, current injury, right knee, initial encounter; M94.261 Chondromalacia, right knee; M65.861 Other synovitis and tenosynovitis, right lower leg; I10 Essential (primary) hypertension; E78.5 Hyperlipidemia, unspecified; E03.9 Hypothyroidism, unspecified; Z90.49 Acquired absence of other specified parts of digestive tract; Z90.89 Acquired absence of other organs; Z79.899 Other long term (current) drug therapy
CPT/HCPCS: 29880; 29879; J1100; J0690; J2405; J2001; J3010; J1885; J2704; J1170; J0665

== ENCOUNTER → 2023-06-15 | Outpatient (CLI) | payer MEDICARE ==
[2023-06-15 19:00] LABS: HCT 36.1 % (39.6-50.0); MCH 31.6 pg (27.0-32.0); MCHC 33.2 d/dL (32.0-37.0); NRBC Per 100 WBC 0 X 10*3/uL (0.00-0.01); Platelet Count 219 X 10*3/uL (140-440); WBC 7.28 X 10*3/uL (4.50-10.00)
== END | disposition home or self-care (01) ==
LOC: LABPAT 15:21
PROVIDERS: ATTEND Surgery
DX: Z01.812 Encounter for preprocedural laboratory examination (principal)
CPT/HCPCS: 36415; 85027; 86850; 86900; 86901

== ENCOUNTER 2023-06-17 07:15 | Inpatient (IN) | payer MEDICARE ==
[2023-06-14 14:21] VITALS: BMI 37.1
[2023-06-17] MEDS ORDERED: ONDANSETRON 4 MG/2 ML VIAL IVP ONE (07:30)
[2023-06-17] MEDS ORDERED: DEXAMETHASONE SOD PHOSPHATE 4 MG/ML 1 ML VIAL IV ONE (07:30)
[2023-06-17] MEDS ORDERED: HYDROmorphone 0.5 MG/0.5 ML SYRINGE IVP PRN (07:30)
[2023-06-17] MEDS: LACTATED RINGERS 1,000 ML IV SCH ×2 (08:00→23:47)
[2023-06-17 08:13] LABS: Glucose,Whole Blood 101 mg/dL (70-110)
[2023-06-17] MEDS ORDERED: ceFAZolin 2 GM in SODIUM CHLORIDE 0.9% 500 ML 500 ML IRRIGATION ONE (09:09)
[2023-06-17] MEDS ORDERED: LACTATED RINGERS 1,000 ML IV ONE ×2 (09:09→11:34)
[2023-06-17] MEDS ORDERED: HEPARIN SODIUM (1,000 UNIT/ML) 2,000 UNIT in SODIUM CHLORIDE 0.9% 1,000 ML IRRIGATION ONE (09:09)
[2023-06-17] MEDS ORDERED: THROMBIN (BOVINE) 5,000 UNIT VIAL MISCELLANE ONE (09:09)
[2023-06-17] MEDS ORDERED: GELATIN SPONGE,ABSORB (LARGE) 1 EACH SPONGE TOPICAL ONE (09:09)
[2023-06-17] MEDS ORDERED: SODIUM CHLORIDE 0.9% 50 ML with ceFAZolin 3 GM IV ONE ×2 (09:22)
--- NOTE | 2023-06-17 12:33 | P.OP ---
Description of Procedure: Preoperative diagnosis: Right femoral artery occlusive disease Postoperative diagnosis: Same Procedure: Right femoral endarterectomy with patch angioplasty Surgeon: Laura Sandhu D.O. EBL: 100 mL IV fluids: See records Urine output: See records Drains: None Complications: None immediately apparent Condition: Stable to recovery Operative indication and findings: Patient is a 77 old male who has multiple issues including obesity, back pain, and peripheral vascular disease. He has lived cellulitic location is right lower extremity angiogram was found to have common femoral artery occlusive disease not amenable to endovascular intervention therefore he presents today for femoral endarterectomy and patch angioplasty. Risks and benefits were discussed included but not limited to bleeding, infection and injury to the vessels. Procedure in detail: The patient was taken to the operative suite and placed in supine position. Bilateral groins prepped and draped in usual sterile fashion. A preprocedure timeout was performed and all parties are in agreement. A vertical incision was made in the right groin with the scalpel. It was deepened through subcutaneous tissues with electrocautery. The encountered lymphatics were ligated and divided. An abnormal appearing lymph node was sent for pathology. The femoral sheath was opened sharply. The common femoral artery was dissected free circumferentially. The dissection was extended proximally to the level of the inguinal ligament, and distally to include the superficial femoral and profunda femoris arteries, they were encircled with Vesseloops. There are multiple collateral branches that were encircled with Vesseloops.ACTs were monitored and the patient was heparinized. Once heparinization was adequate, flow was occluded through the vessel. An 11 blade was utilized and arteriotomy is made the Michele-David scissors was utilized to enlarge the arteriotomy. An endarterectomy was performed with an eversion endarterectomy at the profunda femoris. The endarterectomized surface was cleared of all debris. A bovine pericardial patch was utilized and anastomosis was created utilizing 5-0 Prolene. The anastomosis was flushed and flow was reinstituted. Hemostasis was achieved with interrupted sutures of 6-0 Prolene and thrombin and Gelfoam. A Doppler was used and revealed multiphasic flow distal to the anastomosis. At that point, the wound was copiously irrigated with antibiotic solution. The femoral sheath was reapproximated with interrupted sutures of 2-0 Vicryl. The subcuticular tissue was reapproximated with 3-0 Vicryl. The skin was reapproximated with running sutures of 4-0 Monocryl. Dressing was placed. The patient was awakened from surgery, extubated and transferred to PACU in stable condition and tolerated the procedure well.
[2023-06-17] MEDS ORDERED: MORPHINE SULFATE 4 MG/ML SYRINGE IVP PRN (12:34)
[2023-06-17] MEDS: PANTOPRAZOLE 40 MG/10 ML VIAL IVP SCH (15:33)
[2023-06-17] MEDS: ceFAZolin 3 GM in SODIUM CHLORIDE 0.9% 100 ML IVPB SCH ×2 (16:33→23:50)
[2023-06-17] MEDS ORDERED: ACETAMINOPHEN TAB 325 MG TAB PO PRN (20:17)
[2023-06-17] MEDS ORDERED: LEVOTHYROXINE 100 MCG TAB PO SCH (21:00)
[2023-06-18 08:08] LABS: Basophils % (A) 0 %; Eosinophils # (A) 0.1 k/uL (0-0.7); Eosinophils % (A) 1 %; HCT 32.6 % (39.0-53.0); HGB 11.2 gm/dL (13.0-17.5); Lymphocytes # (A) 1.6 k/uL (1.0-4.8); Lymphocytes % (A) 14 %; MCH 32.7 pg (25.0-35.0); MCHC 34.4 g/dL (31.0-37.0); Mean Platelet Volume 7.9; Monocytes # (A) 0.7 k/uL (0-1.0); Monocytes % (A) 6 %; Neutrophils # (A) 9.2 k/uL (1.3-7.7); Neutrophils % (A) 79 %; Platelet Count 216 k/uL (150-450); RBC 3.43 m/uL (4.30-5.90); RDW 13.1 % (11.5-15.5); WBC 11.7 k/uL (3.8-10.6)
[2023-06-18 08:30] LABS: African American GFR (CKD) 53 (>60 ml/min/1.73 sqM); Anion Gap 12 mmol/L; Blood Urea Nitrogen 21 mg/dL (9-20); Calcium 8.6 mg/dL (8.4-10.2); Carbon Dioxide 22 mmol/L (22-30); Chloride 101 mmol/L (98-107); Glucose 120 mg/dL (74-99); Non-African American GFR(CKD) 46 (>60 ml/min/1.73 sqM); Potassium 4.1 mmol/L (3.5-5.1); Sodium 135 mmol/L (137-145)
[2023-06-18] MEDS ORDERED: VENLAFAXINE HCL 37.5 MG TAB PO SCH (09:00)
[2023-06-18] MEDS ORDERED: PRIMIDONE 50 MG TAB PO SCH (09:00)
[2023-06-18] MEDS: PANTOPRAZOLE 40 MG/10 ML VIAL IVP SCH (09:14)
[2023-06-18] MEDS ORDERED: HYDROcodone/APAP 5-325MG 1 EACH TAB PO PRN (09:40)
--- NOTE | 2023-06-18 10:07 | P.DS ---
Providers Date of admission: 06/17/23 07:15 Expected date of discharge: 06/18/23 Attending physician: Laura Sandhu DO Consults: 06/17/23 12:34 Consult Physician Urgent Consulting Provider: Ye Schreiber Consult Reason/Comments: med mgmnt, post op endarterectomy Do you want consulting provider notified?: Yes Primary care physician: Ye Schreiber MD Hospital Course: Justice a 77-year-old male who was scheduled for right femoral endarterectomy with patch angioplasty her right femoral artery occlusive disease. Patient had been experiencing claudication and underwent a right lower extremity angiogram found to have common femoral artery occlusive disease. He has a past medical history including obesity, back pain, former smoker, and peripheral arterial disease. He is postop day #1. Sandhu catheter has been discontinued. He does state that he has pain in his right groin. Pain improved with pain medication. Pain down the right lower extremity improved. He has palpable DP pulse. Good capillary refill. Right groin with Prevena dressing in place with good suction. Sandhu catheter discontinued this morning. Patient has voided twice since then. He is afebrile. He is tolerating his diet. He denies any shortness of breath, chest pain, abdominal pain, nausea or vomiting. He was maintained on 2 L nasal cannula through the night. He denies home oxygen use. He is a former smoker. Blood pressure 157/67, heart rate 75 respiratory rate 16 oxygen level 95% on room air temperature 97.9F. Patient ambulated in the hallway without any difficulty. Encouraged ambulation. Discharge instructions reviewed with patient. General appearance: The patient is alert, oriented, appears in no acute distress. HET: Head is normocephalic and atraumatic. Pupils are equal and reactive. Neck: Supple. Heart: Regular. Lungs: Equal expansion, normal respiratory effort. Abdomen: Soft, nontender, nondistended. Extremities: Normal skin color and turgor. Bilateral lower extremities warm to the touch. Right groin with Prevena dressing in place with good suction. Right palpable DP pulse. Neurological: No focal deficits. Strength and sensation are grossly intact. Assessment 1. Postop day #1 for right femoral endarterectomy with patch angioplasty 2. 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 Peripheral arterial disease 4. History of tobacco use Plan Ambulate in hallway. Pain medication as needed. Keep Prevena dressing in place for 6 more days. Discharge instructions provided on discharge summary as well as reviewed with patient. Resume home meds. Follow-up with Dr. Sandhu in 2 weeks. The impression and plan of care has been dictated as directed. Dr. Sandhu I performed a history and examination of this patient, discussed the same with the dictator. I agree with the dictator's note ,documented as a scribe. Any additional findings or plans will be noted. Procedures: Right femoral endarterectomy with patch angioplasty Patient Condition at Discharge: Stable Plan - Discharge Summary Discharge Rx Participant: No New Discharge Prescriptions: Continue Levothyroxine Sodium [Synthroid] 100 mcg PO HS Atorvastatin [Lipitor] 40 mg PO HS Primidone [Mysoline] 50 mg PO DAILY Multivit-Min/FA/Lycopen/Lutein [Centrum Silver Tablet] 1 each PO DAILY rOPINIRole HCL [Requip] 0.5 mg PO HS Amitriptyline HCl 25 mg PO HS Furosemide [Lasix] 20 mg PO QAM Potassium Chloride [Klor-Con M10] 10 meq PO BID allopurinoL 300 mg PO QAM Clopidogrel [Plavix] 75 mg PO QAM HYDROcodone/APAP 5-325MG [[place] 5-325] 1 tab PO Q6HR PRN #12 tab PRN Reason: Pain Venlafaxine HCl [Effexor] 37.5 mg PO QAM lisinopriL [Prinivil] 20 mg PO HS Discharge Medication List Atorvastatin [Lipitor] 40 mg PO HS 04/02/17 [History] Levothyroxine Sodium [Synthroid] 100 mcg PO HS 04/02/17 [History] Multivit-Min/FA/Lycopen/Lutein [Centrum Silver Tablet] 1 each PO DAILY 04/02/17 [History] Primidone [Mysoline] 50 mg PO DAILY 04/02/17 [History] rOPINIRole HCL [Requip] 0.5 mg PO HS 04/19/19 [History] Amitriptyline HCl 25 mg PO HS 06/19/19 [History] Furosemide [Lasix] 20 mg PO QAM 09/04/19 [History] Potassium Chloride [Klor-Con M10] 10 meq PO BID 05/21/20 [History] Clopidogrel [Plavix] 75 mg PO QAM 03/03/23 [History] Venlafaxine HCl [Effexor] 37.5 mg PO QAM 03/03/23 [History] allopurinoL 300 mg PO QAM 03/03/23 [History] lisinopriL [Prinivil] 20 mg PO HS 05/20/23 [History] HYDROcodone/APAP 5-325MG [[place] 5-325] 1 tab PO Q6HR PRN #12 tab 05/27/23 [Rx] Follow up Appointment(s)/Referral(s): Ye Schreiber MD [Primary Care Provider] - 1 Week Laura Sandhu DO [STAFF PHYSICIAN] - 2 Weeks Activity/Diet/Wound Care/Special Instructions: No driving for one week Avoid heavy lifting greater than 10 lbs , pushing, pulling, straining, flights of stairs for 10 days ok to shower tomorrow but no baths, pools, soaking in tubs for three days to avoid risk of infection. signs of infection ie: fever, rash, drainage from puncture site, swelling contact doctor or return to ER immediately. Heavy bleeding from puncture site apply firm direct pressure and return to ER. Do not attempt to drive self. low sodium/low fat diet Keep PREVENA DRESSING in place to right groin until 06/24/23. Return machine off and remove dressing and may discard in garbage. Discharge Disposition: HOME SELF-CARE
--- NOTE | 2023-06-18 10:08 | P.CONS ---
History of Present Illness - Reason for Consult Consult date: 06/18/23 Medical management hypertension Requesting physician: Laura Sandhu - Chief Complaint Status post right femoral endarterectomy with patch angioplasty - History of Present Illness This is a 77-year-old gentleman with a medical history significant for asthma, hypertension, hyperlipidemia, gastroesophageal reflux disease, hypothyroidism, pulmonary nicotine dependence, PVD-PTBA,bilateral iliac stents, bilateral lower extremity neuropathy, CKD stage III and multiple other medical issues status post right femoral endarterectomy and patch angioplasty secondary to right fe moral artery occlusive disease. Tolerated procedure well. Reports right groin pain throughout the night, did not receive any pain medication and states he was unaware that he needed to ask for pain medication. Patient also shared that he was unable to sleep as half the lights were left on in his room. Denies chills or sweats. Denies feet pain, but reports his chronic "numbness" on the bottom of his feet unchanged.Denies chest pain, palpitations or shortness of breath. Denies lightheadedness dizziness or focal deficits. Recently weaned off of his oxygen, maintaining O2 sats in the mid 90s on room air. Afebrile, WBC 11.7. Hemoglobin 11.2, platelets 216, Creatinine 1.46, appears to be at baseline. Review of Systems Constitutional: Denied any fatigue denied any fever. Cardio vascular: denied any chest pain, palpitations Gastrointestinal denied any nausea vomiting Pulmonary: Denied any shortness of breath cough Neurologic denied any new focal deficits ROS Statement: Those systems with pertinent positive or pertinent negative responses have been documented in the HPI. ROS Other: All systems not noted in ROS Statement are negative. Past Medical History Past Medical History: Asthma, Chest Pain / Angina, GERD/Reflux, Hyperlipidemia, Hypertension, Musculoskeletal Disorder, Thyroid Disorder, Vascular Disorder Additional Past Medical History / Comment(s): Peripheral vascular disease, asthma as child, hiatal hernia, gout, degenerative discs, one episode of chest pain yrs ago. History of Any Multi-Drug Resistant Organisms: None Reported Past Surgical History: Appendectomy, Heart Catheterization, Orthopedic Surgery Additional Past Surgical History / Comment(s): PTBA with bilateral iliac stents X3, PARTIAL THYROIDECTOMY, left shoulder rotator cuff repair, COLONOSCOPY, PAIN CLINIC PROCEDURE, bilateral knee arthroscopy. Past Anesthesia/Blood Transfusion Reactions: No Reported Reaction Additional Past Anesthesia/Blood Transfusion Reaction / Comm: Pt has never had blood. Past Psychological History: No Psychological Hx Reported Smoking Status: Former smoker Past Alcohol Use History: None Reported Additional Past Alcohol Use History / Comment(s): Smoked from age 19 to 55, approx 2 to 2 1/2ppd, quit in 2000. Past Drug Use History: None Reported - Past Family History Mother Brother(s) Family Medical History: Cancer Sister(s) Family Medical History: Cancer Mother Family Medical History: Cancer Medications and Allergies Home Medications Medication Instructions Recorded Confirmed Type Atorvastatin [Lipitor] 40 mg PO HS 04/02/17 06/14/23 History Levothyroxine Sodium [Synthroid] 100 mcg PO HS 04/02/17 06/14/23 History Multivit-Min/FA/Lycopen/Lutein 1 each PO DAILY 04/02/17 06/14/23 History [Centrum Silver Tablet] Primidone [Mysoline] 50 mg PO DAILY 04/02/17 06/14/23 History rOPINIRole HCL [Requip] 0.5 mg PO HS 04/19/19 06/14/23 History Amitriptyline HCl 25 mg PO HS 06/19/19 06/14/23 History Furosemide [Lasix] 20 mg PO QAM 09/04/19 06/14/23 History Potassium Chloride [Klor-Con M10] 10 meq PO BID 05/21/20 06/14/23 History Clopidogrel [Plavix] 75 mg PO QAM 03/03/23 06/14/23 History Venlafaxine HCl [Effexor] 37.5 mg PO QAM 03/03/23 06/14/23 History allopurinoL 300 mg PO QAM 03/03/23 06/14/23 History lisinopriL [Prinivil] 20 mg PO HS 05/20/23 06/14/23 History HYDROcodone/APAP 5-325MG [[place] 1 tab PO Q6HR PRN #12 tab 05/27/23 06/14/23 Rx 5-325] Allergies Allergy/AdvReac Type Severity Reaction Status Date / Time No Known Allergies Allergy Verified 06/17/23 07:41 Physical Exam Vitals: Vital Signs Temp Pulse Pulse Resp BP BP BP 06/17/23 12:43 69 16 118/60 06/17/23 12:28 73 16 138/61 06/17/23 12:13 97.6 F 80 14 141/63 10/26/23 08:40 71 16 06/17/23 07:47 97.6 F 89 16 158/70 146/61 Pulse Ox 06/17/23 12:43 95 06/17/23 12:28 96 06/17/23 12:13 96 06/17/23 08:40 94 L 06/17/23 07:47 97 Intake and Output 06/16/23 06/17/23 06/17/23 22:59 06:59 14:59 Intake Total 2102 Output Total 1350 Balance 752 Intake: IV 2101 Output: Urine 1250 Estimated Blood Loss 100 Other: Weight 127.5 kg PHYSICAL EXAM: VITAL SIGNS: As above GENERAL: ALert and oriented X 3,well-nourished, Sitting uo in bed,NAD HEENT: Normocephalic, Conjunctivae normal. eyes normal. NECK: Supple, No JVD. No thyroid enlargement. No LNs CARDIOVASCULAR: S1, S2 regular.. No murmur RESPIRATION: Unlabored, equal air entry, Breath sounds diminished in the bases. No rhonchi or crackles. No bronchial breathing. ABDOMEN: Soft, nontender . No guarding. no masses palpable. No ascites, No hepatosplenomegaly.Bowel sounds heard. LEGS: Right groin prevena drsg C,D,I. No edema. no swelling, positive DP pulse NERVOUS SYSTEM: Cranial N 2-12 grossly normal. Moves all 4 limbs. No focal de ficits. Strength and sensation grossly intact.. Skin: warm and dry, no rash Results CBC & Chem 7: 06/18/23 07:21 06/18/23 07:21 Assessment and Plan Assessment: Right femoral artery occlusive disease, status post right femoral endarterectomy and patch angioplasty Acute hypoxic respiratory failure secondary to postoperative atelectasis, expected outcome, NC oxygen weaned off. Bilateral lower extremity neuropathy secondary to PVD Chronic asthma,stable CKD,Stage III Hypertension Hyperlipidemia Hypothyroidism Morbid obesity, BMI 38 Former nicotine dependence, 2-2-1/2 pack per day X 36 yrs,quit in 2000 Plan: Continue on current medication regime ,monitoring and symptomatic treatment. Aggressive pulmonary toileting with incentive spirometer ordered. Increase ambulation. O2 sat on room air after ambulation ordered/pending. Pain medication as per primary.Discharge planning in progress as per primary. Meds have been reviewed and resumed for discharge accordingly. Follow-up with PCP Dr. Schreiber in [address] Sandhu for the consult. The impression and plan of care has been dictated as directed. : I performed a history and examination of this patient, discussed the same with the dictator. I agree with the dictator's note ,documented as a scribe. Any additional findings or plans will be noted.
[2023-06-18 12:14] VITALS: PULSE 84; RESP 18; TEMP 97.5
[2023-06-18] MEDS ORDERED: lisinopriL 20 MG TAB PO STA (12:18)
[2023-06-18 13:17] VITALS: BP 158/68
[2023-06-18] MEDS ORDERED: lisinopriL 20 MG TAB PO SCH (21:00)
[2023-06-18] MEDS ORDERED: AMITRIPTYLINE HCL 25 MG TAB PO SCH (21:00)
[2023-06-18] MEDS ORDERED: ATORVASTATIN 40 MG TAB PO SCH (21:00)
== END 2023-06-18 14:42 | disposition home or self-care (01) | DRG 254 ==
LOC: 2ORMAIN 07:15 → 3SCARD 12:41
PROVIDERS: ADMIT Surgery; ATTEND Surgery
PROC: 04UK0KZ Supplement Right Femoral Artery with Nonautologous Tissue Substitute, Open Approach (ICD-10-PCS; 2023-06-17)
PROC: 04CK0ZZ Extirpation of Matter from Right Femoral Artery, Open Approach (ICD-10-PCS; principal; 2023-06-17 09:00)
DX: I77.89 Other specified disorders of arteries and arterioles (principal); E66.01 Morbid (severe) obesity due to excess calories; E78.5 Hyperlipidemia, unspecified; G57.93 Unspecified mononeuropathy of bilateral lower limbs; I12.9 Hypertensive chronic kidney disease with stage 1 through stage 4 chronic kidney disease, or unspecified chronic kidney disease; I73.9 Peripheral vascular disease, unspecified; J45.909 Unspecified asthma, uncomplicated; N18.30 Chronic kidney disease, stage 3 unspecified; E03.9 Hypothyroidism, unspecified; Z68.38 Body mass index [BMI] 38.0-38.9, adult; Z79.02 Long term (current) use of antithrombotics/antiplatelets; Z79.890 Hormone replacement therapy; Z79.899 Other long term (current) drug therapy; Z87.891 Personal history of nicotine dependence
CPT/HCPCS: 80048; 85025

== ENCOUNTER → 2023-06-28 | Outpatient (CLI) | payer MEDICARE ==
--- NOTE | 2023-06-28 15:24 | MR ---
EXAMINATION TYPE: MR lumbar spine wo con DATE OF EXAM: 06/28/2023 2:02 PM CLINICAL INDICATION:Male, 77 years old with history of M54.50 low back pain; COMPARISON: None TECHNIQUE: Multi planar, multi sequence imaging was performed utilizing: T1-weighted, T2-weighted, a nd turbo inversion recovery imaging of the lumbar spine. IV Contrast: cc . (None if empty) FINDINGS: Alignment: Straightening of the lumbar spine. Cord: The conus medullaris and the distal spinal cord appear unremarkable with regards to their signa l intensity and morphology. Bones/Discs: Degeneration changes throughout the spine worse at L3-L4 with adjoining endplate Modic e ndplate changes disc height loss osteophytes and reactive bony edema. Multilevel disc desiccation is present. T12-L1: No evidence of significant spinal canal stenosis or neural foraminal stenosis. L1-L2: Disc bulge and facet joint arthropathy result in mild spinal canal and mild bilateral neural f oraminal stenosis. L2-L3: Disc bulge and facet joint arthropathy result in severe spinal canal and moderate to severe ri ght and severe left bilateral neural foraminal stenosis. L3-L4: Disc bulge and facet joint arthropathy result in severe spinal canal and severe bilateral neur al foraminal stenosis. L4-L5: Disc bulge and facet joint arthropathy result in severe spinal canal and moderate to severe bi lateral neural foraminal stenosis. L5-S1: The disc is rounded posterior morphology without significant spinal canal stenosis. Facet join t arthropathy with severe bilateral neural foraminal stenosis. Trace bilateral facet joint effusions. No significant spinal canal or neural foraminal stenosis in the remainder of the visualized levels. Other findings: None. IMPRESSION: Severe degeneration changes throughout the spine with severe L2-L3, L3-L4 and L4-L5 spinal canal sten osis secondary to osteophytes and disc bulging with facet joint arthropathy. Neural foraminal stenosi s worse at these levels extending from L2-L3 to L5-S1.
== END | disposition home or self-care (01) ==
LOC: RADMRIMAIN 13:05
PROVIDERS: ATTEND Orthopaedic Surgery
DX: M48.061 Spinal stenosis, lumbar region without neurogenic claudication (principal); M99.73 Connective tissue and disc stenosis of intervertebral foramina of lumbar region; M25.78 Osteophyte, vertebrae; M51.36 Other intervertebral disc degeneration, lumbar region; M47.816 Spondylosis without myelopathy or radiculopathy, lumbar region
CPT/HCPCS: 72148

== ENCOUNTER → 2023-07-28 | Outpatient (CLI) | payer MEDICARE ==
--- NOTE | 2023-07-28 13:21 | CT ---
EXAMINATION TYPE: CT lumbar spine wo con DATE OF EXAM: 07/28/2023 12:40 PM COMPARISON: MRI lumbar spine June 28, 2023 HISTORY: low back pain CT DLP: [id number] mGycm Automated exposure control for dose reduction was used. Unenhanced CT of the lumbar spine was performed. Bone and soft tissue window settings are submitted as well as coronal and sagittal reconstructions. There are 5 lumbar-type vertebra. There is persistent grade 1 retrolisthesis of L2 on L3 and L3 on L4 . Vertebral body heights are maintained. Moderate to advanced disc space narrowing at L2-L3 and L3-L4 levels is redemonstrated. Moderate disc space narrowing at L4-L5 level again seen. Mild/moderate dis c space narrowing at L5-S1 level redemonstrated. Multilevel vacuum disc phenomenon is again seen. The re is mild to moderate multilevel anterior and lateral spurring greatest in the mid lumbar spine. End plate sclerosis at L3-L4 level is noted. Axial images at T12-L1 and L1-L2 levels appear within normal limits. Axial images at L2-L3 level show spondylolisthesis with broad-based posterior disc protrusion effacin g the anterior thecal sac along with mild facet arthropathy bilaterally. Bilateral neural foramina re main patent. Axial images at L3-L4 level show spondylolisthesis with broad-based posterior disc protrusion effacin g the anterior thecal sac and mild to moderate facet arthropathy and ligamentum flavum hypertrophy. T here is mild bilateral neural foraminal narrowing seen. Increased epidural fat begins at the mid L3 l evel. Axial images at L4-L5 level mild broad-based posterior disc protrusion along with moderate facet arth ropathy and ligamentum flavum hypertrophy bilaterally. Mild/moderate bilateral neural foraminal narro wing is present. Axial images at L5-S1 level show mild to moderate facet arthropathy bilaterally. Spinal canal is pres erved. Moderate bilateral neural foraminal narrowing is seen. Cortical thinning of both kidneys is seen. Moderate to severe calcified plaque of the aorta extends i nto iliac branch vessels. IMPRESSION: Multilevel spondylolisthesis and degenerative change in the lumbar spine as detailed abov e
== END | disposition home or self-care (01) ==
LOC: RADCTMAIN 12:19
PROVIDERS: ATTEND Orthopaedic Surgery
DX: M47.817 Spondylosis without myelopathy or radiculopathy, lumbosacral region (principal); M43.16 Spondylolisthesis, lumbar region; M51.26 Other intervertebral disc displacement, lumbar region
CPT/HCPCS: 72131

== ENCOUNTER → 2023-11-03 | Outpatient (CLI) | payer MEDICARE | END | disposition home or self-care (01) | LOC: LABPAT 16:21 | PROVIDERS: ATTEND Orthopaedic Surgery | DX: Z01.812 Encounter for preprocedural laboratory examination (principal); M47.817 Spondylosis without myelopathy or radiculopathy, lumbosacral region; M48.062 Spinal stenosis, lumbar region with neurogenic claudication; Z22.322 Carrier or suspected carrier of Methicillin resistant Staphylococcus aureus | CPT/HCPCS: 36415; 86850; 86900; 86901; 87070 ==

== ENCOUNTER 2023-11-09 06:46 | Inpatient (IN) | payer MEDICARE ==
--- NOTE | 2023-11-09 06:32 | P.HPOR ---
History of Present Illness H&P Date: 11/03/23 .D:Date: 11/03/23 : 02:32pm .T:Title: *[facility] [place] HISTORY AND PHYSICAL Age: 77 year Height: 6' Weight: 277 lbs BP:126/78 BMI: 37.57 kg/m2 Occupation: [employer] VAS: 1 Hand:Right IMPRESSION: It was my pleasure to have seen and examined Justice. I reviewed the patient's clinical syndrome, physical findings, and imaging studies during the appointment today. It is my impression that the patient has a diagnosis of. 1. L2-S1 spondylosis wit stenosis, severe 2. Bilateral lower extremity weakness 3. Neurogenic claudication I outlined the natural course history without intervention and various interventional options. Spine Surgery Risk Review Mr. Mayer is presenting for evaluation of low back and bilateral lower extremity pain, bilateral lower extremity numbness, tingling, and weakness. It was my pleasure to have seen and examined Mr. Mayer. In our visit today we have had a chance to go over subjective complaints, physical examination findings and treatments including the natural course history without intervention and various interventional options. The patients imaging demonstrates: [facility]: images reviewed This demonstrates severe spondylosis L2 through S1 with this collapse and disc height loss facet arthrosis osteophytic formation causing central and bilateral foraminal stenosis at each level. There is flattening of the normal lumbar lordosis secondary to these changes. No acute fractures noted. Vacuum disc phenomenon noted from L2 through S1. This constituted severe findings of spinal stenosis spondylosis and degenerative disc disease. MRI [facility]: - Re-reviewed with the patient today. IMPRESSION: Severe degeneration changes throughout the spine with severe L2-L3, L3-L4 and L4-L5 spinal canal stenosis secondary to osteophytes and disc bulging with facet joint arthropathy. Neural foraminal stenosis worse at these levels extending from L2-L3 to L5-S1. XRay Lumbar Multiview (AP, Lateral, Flexion, Extension) with AP pelvis; 5 views taken at [facility] on 04/30/23: - Re-reviewed with the patient today. Severe multilevel spondylitic and degenerative changes throughout the lumbar spine with preserved alignment. Multilevel diminished disc height, most pronounced between L2-S1. grade 1 retrolisthesis L2 and L3, L3 onto L4.Multilevel bilateral foraminal stenosis. No acute osseous abnormalities. AP Pelvis: The visualized sacrum and iliac wings are within normal limits. Bilateral hip osteoarthritis present. On physical exam, Mr. Mayer demonstrates: A continued ache-like pain throughout the low back that radiates down into the buttocks and bilateral lower extremities. He notes the left leg pain is much more severe than the right at this time. He states his lower extremity pain is associated with numbness and tingling bilaterally. He states his symptoms are exacerbated by prolonged walking ot standing. He states he is able to walk approximately half of a block outside before experiencing severe pain and needing to sit down. The patient reports experiencing severe sleep disturbances related to his ongoing pain and associated symptoms. I have explained to the patient that as their condition progresses it will cause further neurological deficits and eventual paralysis. Based on the patients imaging, physical exam, and the rapid progression and disabling nature of their symptoms, at this time I recommend surgery in the form of a: L2-pelvis decompression and fusion. I discussed the risk and benefits of this procedure at length with Mr. Mayer. The patient agreed to considered pursuing the procedure abovementioned. Prior to surgery, she should follow up with her PCP (Cardio, ID, IM etc) for clearance. Questions were invited and answered, and the patient wishes to proceed as outlined below. Currently, I am recommendin.L2-pelvis decompression and fusion 2.Review of surgical risks and benefits as well as an educational packet on the proposed surgical procedure. Risks: All surgical procedures come with inherent risks, including those related to positioning, anesthesia, intraoperative findings, and postoperative complications. It is important to understand that surgery does not come with any guarantee of a successful outcome as complications and adverse events are always possible. The patient was given a handout in office today discussing the surgical procedure and risks associated with the intervention, both of which were discussed with the patient. These risks include but are not limited to the following: Experiencing same, different or even worse symptoms in back, neck, arms, or legs compared to before surgery. * Requiring further surgery or other forms of treatment presently or at some time in the future at same or other levels of the intended spine surgery. On an extreme but fortunately relatively rare basis severe complication such as blindness, stroke, heart attack, temporary and/or permanent nerve injury, paralysis, coma, or may occur, sometimes without known explanation. Surgical complications may include but are not limited to risk of infection, fluid accumulation in the surgical dissection site, including a seroma or hematoma, that requires additional surgery, wound drainage, bleeding, new numbness or weakness, vision changes/loss, spinal fluid leakage, non-healing and/or infected incision, headaches, difficulty or inability to swallow, hoarseness, hemopneumothorax, pneumothorax, impotence, retrograde ejaculation, vaginal dryness; injury to nerves, spinal cord, blood vessels, lymphatics or other vital organs (i.e., bowel injury, injury to the great vessels); heterotopic bone formation; complications related to the hardware such as screws, rods, cages including misplaced hardware, device failure, instrumentation at the wrong spine level, hardware fracture/breakage, or hardware loosening; vertebral failure of the spinal column above or below the newly placed hardware; retained surgical instrumentations or devices and the need for further surgery. * Medical risks of the planned spine surgery include but are not limited to generalized Infections to the whole body or local areas outside of the surgical site (sepsis), heart attack, bleeding, anaphylaxis, meningitis, seizure, epilepsy, hearing loss, burn barry, laceration of the head or other areas of the body, bruising, hypersensitivity of the skin, bladder over distension; allergic reaction; shoulder injury related to positioning; fat, blood and air clots to other areas of the body like heart, lungs, brain; failure of internal organs such as lungs, kidneys, liver and excessive bleeding. If blood transfusions are necessary, note that transfusions may cause intolerance reactions such as anaphylaxis or other complex reactions. Despite best efforts, the results of spine surgery might not heal in terms of bone, soft tissues such as skin, fascia, ligaments, and joints. Additionally, in order to achieve best possible results, spine surgery may be carried out beyond the initially planned levels and involve decompression, fusion including insertion of hardware at levels other than the original intended area of surgical interest change some portions of the procedure in order to ensure the best possible outcomes. With spine surgery and spinal fusion, there are different off label uses of instrumentation (devices, implants and hardware) as well as biological substanc es (bone morphogenic proteins, demineralized bone matrix) as well as using extra bone from allograft sources (i.e. cadaver bone) or autograft (iliac crest bone, ribs, or the spine itself). The patient has been given information about these practices and their inherent risks and benefits. [facility] is an educational center that serves as a training facility for neurosurgical and orthopedic BRAZE OPERATOR and Nursing students. Physician assistants are medically trained surgical providers who function in the outpatient, inpatient, and operating room setting under the direct supervision of the a sasha surgeon. [facility] has multiple operating rooms with single and overlapping rooms running daily. They currently function under the required guidelines as produced by the [facility] Finance Committee with regards to the overlapping rooms and will continue to comply with changes to this policy as they occur. The requirements include and are complied with as follows: (1) the critical portions of the overlapping rooms will not occur at the same time, (2) the attending physician will be physically present during the critical portions of the procedure and immediately available during the entire case, and (3) a back-up attending is designated should the primary attending not be immediately available. The patient has had a chance to review all the listed information, has been g iven print outs detailing this information, and has had all his/her questions answered to their satisfaction. It was my pleasure to have seen and examined Mr. Mayer. In our visit today we have had a chance to go over my understanding of our patient's current condition, the natural course history without intervention and various interventional options. Questions were invited and answered, and the patient wishes to proceed as outlined above. I have seen and examined the patient for 25 minutes and we have spent more than 50% of the time in repeat and detailed counseling about the patient's condition, its natural course history with out and as much as can be predicted with surgery and re-review of various surgical treatment options. In conclusion, Mr. Mayer requested we proceed with the above suggested surgery and are willing to accept risks and limitations of the suggested surgery as nature of the disease process and our best attempts at treatment for the condition. Thank you again for allowing us to be part of your patient's care. Please don't hesitate to contact me if you have any further questions. FOLLOW UP: Post Procedure PATIENT EDUCATION: Medications Reviewed: YES In our visit today Mr. Mayer and I have had a chance to go over my understanding of the patient's current condition, the natural course history without intervention and various interventional options. Questions were invited and answered, and the patient wishes to proceed as outlined above. I will be sure to keep you updated after Mr. Mayer returns here for further follow-up. Thank you again for your referral. Please do not hesitate to contact me if you have any further questions. Signed and authenticated by: [facility] [address], [address] [place] [address] This message is confidential, intended only for the named recipient(s) and may contain information that is privileged or exempt from disclosure under applicable law. If you are not the intended recipient(s), you are notified that the dissemination, distribution or copying of this information is strictly prohibited. If you received this message in error, please notify the sender then delete this message. Past Medical History Past Medical History: Asthma, Chest Pain / Angina, GERD/Reflux, Hyperlipidemia, Hypertension, Musculoskeletal Disorder, Osteoarthritis (OA), Thyroid Disorder, Vascular Disorder Additional Past Medical History / Comment(s): Peripheral vascular disease, neuropathy, asthma as child, hiatal hernia, gout, degenerative discs, one episode of chest pain yrs ago.(nuclear stress test ok) recent URI tx with Abx and steroids. hx of blockage to femoral artery rt leg. History of Any Multi-Drug Resistant Organisms: None Reported Past Surgical History: Appendectomy, Heart Catheterization, Orthopedic Surgery Additional Past Surgical History / Comment(s): PTBA with bilateral iliac stents X3( 2 left, 1 right), PARTIAL THYROIDECTOMY, left shoulder rotator cuff repair, COLONOSCOPY, PAIN CLINIC PROCEDURE, bilateral knee arthroscopy. rt femoral endartectomy. Past Anesthesia/Blood Transfusion Reactions: No Reported Reaction Additional Past Anesthesia/Blood Transfusion Reaction / Comment(s): Pt has never had blood. Smoking Status: Former smoker - Past Family History Mother Brother(s) Family Medical History: Cancer Sister(s) Family Medical History: Cancer Additional Family Medical History / Comment(s): brain cancer Mother Family Medical History: Cancer Brother(s) Family Medical History: CVA/TIA Medications and Allergies Home Medications Medication Instructions Recorded Confirmed Type Atorvastatin [Lipitor] 40 mg PO HS 04/02/17 11/03/23 History Multivit-Min/FA/Lycopen/Lutein 1 each PO DAILY 04/02/17 11/03/23 History [Centrum Silver Tablet] Primidone [Mysoline] 150 mg PO DAILY 04/02/17 11/03/23 History rOPINIRole HCL [Requip] 0.5 mg PO HS 04/19/19 11/03/23 History Amitriptyline HCl 25 mg PO HS 06/19/19 11/03/23 History Furosemide [Lasix] 20 mg PO QAM 09/04/19 11/03/23 History Potassium Chloride [Klor-Con M10] 10 meq PO BID 05/21/20 11/03/23 History Clopidogrel [Plavix] 75 mg PO QAM 03/03/23 11/03/23 History Venlafaxine HCl [Effexor] 37.5 mg PO QAM 03/03/23 11/03/23 History allopurinoL 300 mg PO QAM 03/03/23 11/03/23 History Aspirin 81 mg PO DAILY 11/03/23 11/03/23 History Benazepril HCl 20 mg PO DAILY 11/03/23 11/03/23 History Famotidine 40 mg PO HS 11/03/23 11/03/23 History Levothyroxine Sodium 88 mcg PO HS 11/03/23 11/03/23 History Meloxicam 7.5 mg PO DAILY 11/03/23 11/03/23 History Pregabalin 150 mg PO BID 11/03/23 11/03/23 History Terazosin [Hytrin] 2 mg PO HS 11/03/23 11/03/23 History Unk Prevagen 1 tab PO DAILY 11/03/23 11/03/23 History Allergies Allergy/AdvReac Type Severity Reaction Status Date / Time No Known Allergies Allergy Verified 11/03/23 11:32 Physical Examination Osteopathic Statement: *. No significant issues noted on an osteopathic structural exam other than those noted in the History and Physical/Consult.
[~2023-11-09 06:46] MED LIST changes: +TRANEXAMIC 1,000 MG/100ML-NACL 1,000 MG in SALINE 1 100ML.BAG IVPB PRN; -ceFAZolin 3 GM in SODIUM CHLORIDE 0.9% 100 ML IVPB PRN
[2023-11-09] MEDS ORDERED: MIDAZOLAM 2 MG/2 ML VIAL IV PRN (07:00)
[2023-11-09] MEDS: GABAPENTIN 300 MG CAP PO PRN (07:32)
[2023-11-09] MEDS: ACETAMINOPHEN TAB 500 MG TAB PO PRN (07:32)
[2023-11-09] MEDS: LACTATED RINGERS 1,000 ML IV SCH (07:52)
[2023-11-09] MEDS: ONDANSETRON 4 MG/2 ML VIAL IVP PRN (07:54)
[2023-11-09] MEDS: MIDAZOLAM 2 MG/2 ML VIAL IVP ONE (07:58)
[2023-11-09 08:56] LABS: Glucose,Whole Blood 100 mg/dL (70-110)
--- NOTE | 2023-11-09 09:04 | XR ---
EXAMINATION TYPE: XR chest 1V confirm line [facility] DATE OF EXAM: 11/09/2023 COMPARISON: 11/06/2019 HISTORY: Central line placement TECHNIQUE: Single frontal view of the chest is obtained. FINDINGS: Right-sided central line seen with sizable pneumothorax. Underlying COPD and chronic inter stitial lung disease. Mild cardiomegaly with atherosclerotic changes aorta. No overt failure. Osseous structures are stable. IMPRESSION: 1. No postprocedural complication. Central line seen with the tip overlying the SVC.
[2023-11-09] MEDS ORDERED: SUCCINYLCHOLINE CHLORIDE 200 MG/10 ML VIAL IV ONE (09:07)
[2023-11-09] MEDS ORDERED: PROPOFOL 10 MG/ML 20 ML VIAL IV ONE (09:07)
[2023-11-09] MEDS ORDERED: HYDROmorphone (PF) 1 MG/ML ONE (09:07)
[2023-11-09] MEDS ORDERED: GLYCOPYRROLATE 0.2 MG/ML 2 ML VIAL ONE (09:07)
[2023-11-09] MEDS ORDERED: ePHEDrine 50 MG/ML 1 ML VIAL ONE (09:07)
[2023-11-09] MEDS ORDERED: ALBUMIN HUMAN 5% (25gm) 500 ML VIAL IVPB ONE (09:07)
[2023-11-09] MEDS ORDERED: PHENYLEPHRINE 10 MG/ML VIAL ONE (09:07)
[2023-11-09] MEDS ORDERED: PHENYLEPHRINE-0.9% NACL SYG 1,000 MCG/10 ML SYRINGE ONE (09:07)
[2023-11-09] MEDS ORDERED: NEOSTIGMINE 1 MG/ML 10 ML VIAL ONE (09:07)
[2023-11-09] MEDS ORDERED: LIDOCAINE 1% INJ 10MG/ML (20 ML MDV) ONE (09:07)
[2023-11-09] MEDS ORDERED: ROCURONIUM 10 MG/ML (5 ML VIAL) IV ONE (09:07)
[2023-11-09] MEDS ORDERED: ONDANSETRON 4 MG/2 ML VIAL ONE (09:07)
[2023-11-09] MEDS ORDERED: KETAMINE HCL IN 0.9 % NACL 50 MG/5 ML SYRINGE ONE (09:07)
[2023-11-09] MEDS ORDERED: TRANEXAMIC 1,000 MG/100ML-NACL PREMIX BAG ONE (09:07)
[2023-11-09] MEDS ORDERED: fentaNYL (PF) 50 MCG/ML 2 ML AMP ONE (09:07)
[2023-11-09] MEDS: ceFAZolin 3 GM in SODIUM CHLORIDE 0.9% 100 ML IVPB PRN (09:12)
--- NOTE | 2023-11-09 09:14 | P.ANPRN ---
Procedure Note - Anesthesia - Invasive Line Right Central Line Time Out Performed: Yes Date of Procedure: 11/09/23 Time of Procedure: 07:58 Location of Patient: PreOp Preparation: Sterile Prep Central Line Location: Internal Jugular Ultrasound Used: Yes Purpose - Visualization and Identification of Vasculature: Yes Image Stored and Saved: Yes Narrative: Invasive line placement per sterile protocol utilized. AttemptX1
--- NOTE | 2023-11-09 09:15 | P.ANPRN ---
Procedure Note - Anesthesia - Invasive Line Right Arterial Line Time Out Performed: Yes Date of Procedure: 11/09/23 Time of Procedure: 07:49 Location of Patient: PreOp Preparation: Sterile Prep Arterial Line Location: Radial Ultrasound Used: Yes Purpose - Visualization and Identification of Vasculature: Yes Image Stored and Saved: Yes Narrative: Invasive line placement per sterile protocol utilized.AttemptX1
[2023-11-09] MEDS: THROMBIN (BOVINE) 5,000 UNIT VIAL MISCELLANE ONE (10:10)
[2023-11-09] MEDS: GENTAMICIN 80 MG in SODIUM CHLORIDE 0.9% IRRIGATIO 3,000 ML IRRIGATION ONE (10:11)
[2023-11-09] MEDS: ceFAZolin 3,000 MG in SODIUM CHLORIDE 0.9% IRRIGATIO 3,000 ML IRRIGATION ONE (10:12)
[2023-11-09] MEDS: LACTATED RINGERS 1,000 ML IV ONE ×2 (11:13→14:09)
[2023-11-09 14:28] LABS: ABG Base Excess -1.8 mmol/L; ABG Glucose Whole Blood 117 mg/dL (75-99); ABG HCO3 24 mmol/L (21-25); ABG Hematocrit 29 % (34.0-46.0); ABG Ionized Calcium 4.6 mg/dL (4.5-5.3); ABG Lactic Acid Whole Blood 1.5 mmol/L (0.5-1.6); ABG Oxygen Saturation 98.5 % (94-97); ABG PCO2 48 mmHg (35-45); ABG PH 7.32 (7.35-7.45); ABG PO2 198 mmHg (83-108); ABG Potassium Whole Blood 4.8 mmol/L (3.4-4.5); ABG Sodium Whole Blood 135 mmol/L (135-146); Allen Test Performed? Yes
[2023-11-09] MEDS: VANCOMYCIN 1,000 MG VIAL MISCELLANE ONE (14:42)
[2023-11-09] MEDS ORDERED: SENNOSIDES-DOCUSATE SODIUM 1 EACH TAB PO PRN (15:43)
--- NOTE | 2023-11-09 16:12 | XR ---
EXAM TYPE: LUMBAR SPINE X RAY SERIES COMPARISON: NONE HISTORY: Intraoperative images TECHNIQUE: 15 views are submitted. FINDINGS: Limited intraoperative left resolution images are submitted demonstrating extensive surgical changes. IMPRESSION: 1. See above.
[2023-11-09] MEDS: HYDROmorphone 0.5 MG/0.5 ML SYRINGE IVP PRN (16:31)
[2023-11-09 16:33] LABS: Basophils # (A) 0.1 k/uL (0-0.2); Basophils % (A) 0 %; Eosinophils # (A) 0.1 k/uL (0-0.7); Eosinophils % (A) 1 %; HCT 29.1 % (39.0-53.0); HGB 9.6 gm/dL (13.0-17.5); Lymphocytes # (A) 1.4 k/uL (1.0-4.8); Lymphocytes % (A) 12 %; MCH 31.2 pg (25.0-35.0); MCHC 32.9 g/dL (31.0-37.0); MCV 94.8 fL (80.0-100.0); Monocytes # (A) 0.5 k/uL (0-1.0); Monocytes % (A) 4 %; Neutrophils # (A) 9.9 k/uL (1.3-7.7); Neutrophils % (A) 82 %; Platelet Count 170 k/uL (150-450); RBC 3.07 m/uL (4.30-5.90); RDW 13.3 % (11.5-15.5)
[2023-11-09 16:34] LABS: INR 1.2 (<1.2); Prothrombin Time 12.3 sec (10.0-12.5)
--- NOTE | 2023-11-09 16:40 | FL ---
EXAMINATION TYPE: FL guidance operating room Intraoperative/procedural fluoroscopic services were pro vided. Total fluoroscopy time is 1 minute 31 seconds with images to PACS. Please see the operative/pr ocedural note for further details. DAP: [id number]
[2023-11-09 16:43] LABS: African American GFR (CKD) 59 (>60 ml/min/1.73 sqM); Anion Gap 7 mmol/L; Blood Urea Nitrogen 18 mg/dL (9-20); Calcium 7.7 mg/dL (8.4-10.2); Carbon Dioxide 21 mmol/L (22-30); Chloride 107 mmol/L (98-107); Glucose 107 mg/dL (74-99); Non-African American GFR(CKD) 51 (>60 ml/min/1.73 sqM); Potassium 4.9 mmol/L (3.5-5.1); Sodium 135 mmol/L (137-145)
[2023-11-09 17:59] LABS: Glucose,Whole Blood 111 mg/dL (70-110)
[2023-11-09] MEDS: ceFAZolin 3 GM in SODIUM CHLORIDE 0.9% 100 ML IVPB SCH (19:00)
[2023-11-09] MEDS: SODIUM CHLORIDE 0.9% 1,000 ML IV SCH (19:01)
[2023-11-09] MEDS: ACETAMINOPHEN TAB 325 MG TAB PO SCH (20:20)
[2023-11-09] MEDS: LEVOTHYROXINE 88 MCG TAB PO SCH (21:04)
[2023-11-09] MEDS: FAMOTIDINE 20 MG TAB PO SCH (21:05)
[2023-11-09] MEDS: HYDROcodone/APAP 10-325MG 1 EACH TAB PO PRN (21:05)
[2023-11-09] MEDS: PREGABALIN 75 MG CAP PO SCH (21:05)
[2023-11-09] MEDS: ATORVASTATIN 40 MG TAB PO SCH (21:05)
[2023-11-09] MEDS: DOXAZOSIN 2 MG TAB PO SCH (21:05)
--- NOTE | 2023-11-09 21:20 | P.CNPUL ---
History of Present Illness Consult date: 11/09/23 Chief complaint: critical care managment, post lumbar spine surgery History of present illness: This is a 75-year-old male patient was transferred to the intensive care unit for monitoring following his spine surgery. The patient underwent a lengthy surgery on his lumbar spine as the patient was experiencing low back pain and bilateral lower extremity numbness and tingling and weakness. CAT scan of the lumbar spine showed spondylosis L2-S1 along with collapse and disc height loss and facet arthrosis/osteophyte formation causing central canal and bilateral foraminal stenosis at each level. MRI of the lumbar spine done on 06/28/2023 showed similar findings with neuroma on stenosis worst at the level of L2-L3 and L5-S1. Based on that, the patient was taken to the operating room and underwent an L2 to pelvis decompression and fusion. The patient. Was difficult to arouse. He was ultimately weaned off the mechanical ventilator and the patient was extubated and brought into the intensive care unit for further monitoring. He has a radial arterial line and also has a triple-lumen catheter in his right IJ. He is awake and alert and communicating. White cell count is at 12 with a hemoglobin 9.6 and a platelet count of 170. The BUN is at 18 with a creatinine of 1.36 and a sodium level is at 135 with a potassium level of 4.9. He is awake and alert and communicating. He is on Dilaudid for pain control. He is also on Flexeril. He was given IV cefazolin for antibiotic prophylaxis. The patient has other comorbidities including peripheral vascular disease and the patient has undergone previous right femoral endarterectomy with patch angioplasty. Has hypertension, hyperlipidemia, bronchial asthma, hiatal hernia, gout, degenerative disc disease as mentioned above. He is currently hemodynamically stable. There is a Hemovac in his back with bloody output. Pulse ox 96% on 4 L of oxygen by nasal cannula. Cardiac rhythm is sinus. Able to move his lower extremities. Pain is under adequate control for now. Review of Systems Constitutional: Denies chills, Denies fever Eyes: denies as per HPI, denies blurred vision, denies bulging eye, denies decreased vision, denies diplopia, denies discharge, denies dry eye, denies irritation, denies itching, denies pain, denies photophobia, denies loss of peripheral vision, denies loss of vision, denies tunnel vision/blind spots Ears: deny: decreased hearing, ear discharge, earache, tinnitus Ears, nose, mouth and throat: Reports as per HPI Breasts: absent: as per HPI, gynecomastia Cardiovascular: Reports claudication Respiratory: Reports as per HPI Gastrointestinal: Reports as per HPI Genitourinary: Reports as per HPI Musculoskeletal: Reports low back pain Musculoskeletal: absent: ankle pain, ankle stiffness, ankle swelling, as per HPI, elbow pain, elbow stiffness, elbow swelling, foot pain, foot stiffness, foot swelling, hand pain, hand stiffness, hand swelling, hip pain, hip stiffness, hip swelling, knee pain, knee stiffness, knee swelling, shoulder pain, shoulder stiffness, shoulder swelling, wrist pain, wrist stiffness, wrist swelling Integumentary: Reports as per HPI Neurological: Reports as per HPI Psychiatric: Reports as per HPI Endocrine: Reports as per HPI Hematologic/Lymphatic: Reports as per HPI Allergic/Immunologic: Reports as per HPI Past Medical History Past Medical History: Asthma, Chest Pain / Angina, GERD/Reflux, Hyperlipidemia, Hypertension, Musculoskeletal Disorder, Osteoarthritis (OA), Thyroid Disorder, Vascular Disorder Additional Past Medical History / Comment(s): Peripheral vascular disease, neuropathy, asthma as child, hiatal hernia, gout, degenerative discs, one episode of chest pain yrs ago.(nuclear stress test ok) recent URI tx with Abx and steroids. hx of blockage to femoral artery rt leg. History of Any Multi-Drug Resistant Organisms: None Reported Past Surgical History: Appendectomy, Heart Catheterization, Orthopedic Surgery Additional Past Surgical History / Comment(s): PTBA with bilateral iliac stents X3( 2 left, 1 right), PARTIAL THYROIDECTOMY, left shoulder rotator cuff repair, COLONOSCOPY, PAIN CLINIC PROCEDURE, bilateral knee arthroscopy. rt femoral endartectomy. Past Anesthesia/Blood Transfusion Reactions: No Reported Reaction Additional Past Anesthesia/Blood Transfusion Reaction / Comment(s): Pt has never had blood. Smoking Status: Former smoker - Past Family History Mother Brother(s) Family Medical History: Cancer Sister(s) Family Medical History: Cancer Additional Family Medical History / Comment(s): brain cancer Mother Family Medical History: Cancer Brother(s) Family Medical History: CVA/TIA Medications and Allergies Home Medications Medication Instructions Recorded Confirmed Type Atorvastatin [Lipitor] 40 mg PO HS 04/02/17 11/09/23 History Multivit-Min/FA/Lycopen/Lutein 1 each PO DAILY 04/02/17 11/09/23 History [Centrum Silver Tablet] Primidone [Mysoline] 150 mg PO DAILY 04/02/17 11/09/23 History rOPINIRole HCL [Requip] 0.5 mg PO HS 04/19/19 11/09/23 History Amitriptyline HCl 25 mg PO HS 06/19/19 11/09/23 History Furosemide [Lasix] 20 mg PO QAM 09/04/19 11/09/23 History Potassium Chloride [Klor-Con M10] 10 meq PO BID 05/21/20 11/09/23 History Clopidogrel [Plavix] 75 mg PO QAM 03/03/23 11/09/23 History Venlafaxine HCl [Effexor] 37.5 mg PO QAM 03/03/23 11/09/23 History allopurinoL 300 mg PO QAM 03/03/23 11/09/23 History Aspirin 81 mg PO DAILY 11/03/23 11/09/23 History Benazepril HCl 20 mg PO DAILY 11/03/23 11/09/23 History Famotidine 40 mg PO HS 11/03/23 11/09/23 History Levothyroxine Sodium 88 mcg PO HS 11/03/23 11/09/23 History Meloxicam 7.5 mg PO DAILY 11/03/23 11/09/23 History Pregabalin 150 mg PO BID 11/03/23 11/09/23 History Terazosin [Hytrin] 2 mg PO HS 11/03/23 11/09/23 History Unk Prevagen 1 tab PO DAILY 11/03/23 11/09/23 History Allergies Allergy/AdvReac Type Severity Reaction Status Date / Time No Known Allergies Allergy Verified 11/09/23 07:15 Physical Exam Vitals: Vital Signs Temp Pulse Pulse Pulse Resp BP BP 11/09/23 19:00 94.5 F L 69 10 L 111/55 11/09/23 18:30 71 12 110/72 11/09/23 18:15 11/09/23 18:00 78 12 120/51 11/09/23 17:35 66 16 115/58 11/09/23 17:20 66 16 123/54 03/19/24 17:05 64 16 129/62 11/09/23 16:50 68 18 125/59 11/09/23 16:35 70 18 118/58 11/09/23 16:20 68 16 126/58 11/09/23 16:11 97.6 F 72 12 118/61 11/09/23 08:40 63 14 11/09/23 07:24 97.4 F L 83 16 BP Pulse Ox 11/09/23 19:00 96 11/09/23 18:30 95 11/09/23 18:15 95 11/09/23 18:00 94 L 11/09/23 17:35 92 L 11/09/23 17:20 93 L 11/09/23 17:05 94 L 11/09/23 16:50 94 L 11/09/23 16:35 94 L 11/09/23 16:20 97 11/09/23 16:11 98 11/09/23 08:40 134/61 97 11/09/23 07:24 152/67 99 Intake and Output 11/09/23 11/09/23 11/09/23 06:59 14:59 22:59 Intake Total 2752 726 Output Total 1370 250 Balance 1382 476 Intake: IV 2752 350 Sodium Chloride 0.9% 1, 0 000 ml @ 75 mls/hr IV . [id number] HIRAM Rx#:[id number] Intake, IV Titration 100 Amount ceFAZolin 3 gm In Sodium 100 Chloride 0.9% 100 ml @ 200 mls/hr IVPB Q8H HIRAM Rx#:[id number] Blood Product 276 Rc Pheresis 2 As3 Unit 276 [id number] Output: Drainage 100 Back 100 Urine 370 150 Estimated Blood Loss 1000 Other: Voiding Method Indwelling Catheter Weight 129 kg ABP, PAP, CO, CI - Last 8 Hours Arterial Blood Pressure 141/42 Arterial Blood Pressure 138/42 Arterial Blood Pressure 122/48 Arterial Blood Pressure 140/36 General appearance the patient calm comfortable no acute distress currently on 4 L of oxygen by nasal cannula. Head exam was generally normal. There was no scleral icterus or corneal arcus. Mucous membranes were moist. Neck was supple and without jugular venous distension, thyromegaly, or carotid bruits. Carotids were easily palpable bilaterally. There was no adenopathy. The patient has a right IJ triple-lumen catheter in place Lungs were clear to auscultation and percussion, and with normal diaphragmatic excursion. No wheezes or rales were noted. Cardiac exam revealed the PMI to be normally situated and sized. The rhythm was regular and no extrasystoles were noted during several minutes of auscultation. The first and second heart sounds were normal and physiologic splitting of the second heart sound was noted. There were no murmurs, rubs, clicks, or gallops. Abdominal exam revealed normal bowel sounds. The abdomen was soft, non-tender, and without masses, organomegaly, or appreciable enlargement of the abdominal aorta. Extremities reveal diminished pulses bilaterally. No cyanosis or clubbing. Neurologically, the patient is awake and alert and moving all 4 extremities. Skin, surgical wound site is dry clean and intact and the patient is a Hemovac in place. Results - Laboratory Findings CBC and BMP: 11/09/23 16:17 11/09/23 16:17 ABG WBC 12.0 k/uL (3.8-10.6) H 11/09/23 16:17 RBC 3.07 m/uL (4.30-5.90) L 11/09/23 16:17 Hgb 9.6 gm/dL (13.0-17.5) L 11/09/23 16:17 Hct 29.1 % (39.0-53.0) L 11/09/23 16:17 MCV 94.8 fL (80.0-100.0) 11/09/23 16:17 MCH 31.2 pg (25.0-35.0) 11/09/23 16:17 MCHC 32.9 g/dL (31.0-37.0) 11/09/23 16:17 RDW 13.3 % (11.5-15.5) 11/09/23 16:17 Plt Count 170 k/uL (150-450) 11/09/23 16:17 MPV 9.0 11/09/23 16:17 Neutrophils % 82 % 11/09/23 16:17 Lymphocytes % 12 % 11/09/23 16:17 Monocytes % 4 % 11/09/23 16:17 Eosinophils % 1 % 11/09/23 16:17 Basophils % 0 % 11/09/23 16:17 Neutrophils # 9.9 k/uL (1.3-7.7) H 11/09/23 16:17 Lymphocytes # 1.4 k/uL (1.0-4.8) 11/09/23 16:17 Monocytes # 0.5 k/uL (0-1.0) 11/09/23 16:17 Eosinophils # 0.1 k/uL (0-0.7) 11/09/23 16:17 Basophils # 0.1 k/uL (0-0.2) 11/09/23 16:17 PT 12.3 sec (10.0-12.5) 11/09/23 16:17 INR 1.2 (<1.2) H 11/09/23 16:17 Sample Site Radial 11/09/23 14:30 ABG pH 7.32 (7.35-7.45) L 11/09/23 14:30 ABG pCO2 48 mmHg (35-45) H 11/09/23 14:30 ABG pO2 198 mmHg (83-108) H 11/09/23 14:30 ABG HCO3 24 mmol/L (21-25) 11/09/23 14:30 ABG O2 Saturation 98.5 % (94-97) H 11/09/23 14:30 ABG Base Excess -1.8 mmol/L 11/09/23 14:30 ABG Hematocrit 29 % (34.0-46.0) L 11/09/23 14:30 Austen Test Yes 11/09/23 14:30 ABG Sodium 135 mmol/L (135-146) 11/09/23 14:30 ABG Potassium 4.8 mmol/L (3.4-4.5) H 11/09/23 14:30 ABG Ionized Calcium 4.6 mg/dL (4.5-5.3) 11/09/23 14:30 ABG Glucose 117 mg/dL (75-99) H 11/09/23 14:30 ABG Lactic Acid 1.5 mmol/L (0.5-1.6) 11/09/23 14:30 Hemoglobin 9.3 gm/dL (13.0-17.5) L 11/09/23 14:30 FiO2 80 % 11/09/23 14:30 Sodium 135 mmol/L (137-145) L 11/09/23 16:17 Potassium 4.9 mmol/L (3.5-5.1) 11/09/23 16:17 Chloride 107 mmol/L (98-107) 11/09/23 16:17 Carbon Dioxide 21 mmol/L (22-30) L 11/09/23 16:17 Anion Gap 7 mmol/L 11/09/23 16:17 BUN 18 mg/dL (9-20) 11/09/23 16:17 Creatinine 1.35 mg/dL (0.66-1.25) H 11/09/23 16:17 Est GFR (CKD-EPI)AfAm 59 (>60 ml/min/1.73 sqM) 11/09/23 16:17 Est GFR (CKD-EPI)NonAf 51 (>60 ml/min/1.73 sqM) 11/09/23 16:17 Glucose 107 mg/dL (74-99) H 11/09/23 16:17 POC Glucose (mg/dL) 111 mg/dL (70-110) H 11/09/23 17:59 POC Glu Cabinet Finisher ID Radha Morgan 11/09/23 17:59 Calcium 7.7 mg/dL (8.4-10.2) L 11/09/23 16:17 Arterial Blood Potassium 4.8 mmol/L (3.4-4.5) H 11/09/23 14:30 Arterial Blood Glucose 117 mg/dL (75-99) H 11/09/23 14:30 PT/INR, D-dimer PT 12.3 sec (10.0-12.5) 11/09/23 16:17 INR 1.2 (<1.2) H 11/09/23 16:17 Abnormal lab findings: Abnormal Labs 11/03/23 11/09/23 11/09/23 14:37 14:30 16:17 WBC 12.0 H RBC 3.07 L Hgb 9.6 L Hct 29.1 L Neutrophils # 9.9 H INR ABG pH 7.32 L ABG pCO2 48 H ABG pO2 198 H ABG O2 Saturation 98.5 H ABG Hematocrit 29 L ABG Potassium 4.8 H ABG Glucose 117 H Hemoglobin 9.3 L Sodium Carbon Dioxide Creatinine Glucose POC Glucose (mg/dL) Calcium Arterial Blood Potassium 4.8 H Arterial Blood Glucose 117 H Crossmatch See Detail 0311/09/23 11/09/23 16:17 16:17 17:59 WBC RBC Hgb Hct Neutrophils # INR 1.2 H ABG pH ABG pCO2 ABG pO2 ABG O2 Saturation ABG Hematocrit ABG Potassium ABG Glucose Hemoglobin Sodium 135 L Carbon Dioxide 21 L Creatinine 1.35 H Glucose 107 H POC Glucose (mg/dL) 111 H Calcium 7.7 L Arterial Blood Potassium Arterial Blood Glucose Crossmatch Assessment and Plan Plan: L2 to pelvis decompression and fusion. The patient is currently postop day #0. Surgery was done for pain and weakness involving the lower extremities and the patient had evidence of severe spinal canal stenosis secondary to osteophyte and disc bulge with facet joint arthropathy. Patient also had neuroforaminal foraminal stenosis worse at the level of L2-L3 and L5-S1. The patient is hemodynamically stable. Awake and alert. Extubated under adequate pain control. Acute hypoxic respiratory failure currently on 4 L of oxygen by nasal cannula. The patient had a prolonged surgery and the patient was able to wean off the mechanical ventilator and the patient is currently extubated Postop anemia, expected outcome of surgery and the hemoglobin is dropped down to 9.6 Back pain, currently on Dilaudid for pain control Peripheral vascular disease with previous right femoral endarterectomy and patch angioplasty and the patient also has had bilateral iliac stents placement Hypertension Hyperlipidemia Bronchial asthma, mild intermittent Hypothyroidism Chronic back pain as mentioned above Osteoarthritis Chronic stage III kidney disease Plan The patient was extubated and currently on 4 L. Provide incentive spirometer. Dilaudid for pain control continue 0.71 mg every 3 hours IV fluids Continue Flexeril 5 mg p.o. 3 times daily on a as needed basis Resume home medication including levothyroxine and Lipitor and aspirin Monitor hemoglobin Monitor renal function CAT scan of the lumbar spine in a.m. Monitor output from the Hemovac Will continue to follow.
[2023-11-10] MEDS: SODIUM CHLORIDE 0.9% 500 ML 500 ML IV ONE ×3 (00:24→04:36)
[2023-11-10] MEDS: HYDROmorphone 1 MG/ML 1 ML SYRINGE IVP PRN (02:38)
[2023-11-10 04:12] LABS: Basophils % (A) 0 %; Eosinophils % (A) 1 %; HCT 26.3 % (39.0-53.0); HGB 8.6 gm/dL (13.0-17.5); Lymphocytes # (A) 0.9 k/uL (1.0-4.8); Lymphocytes % (A) 14 %; MCH 31.3 pg (25.0-35.0); MCHC 32.8 g/dL (31.0-37.0); MCV 95.3 fL (80.0-100.0); Mean Platelet Volume 9.5; Monocytes # (A) 0.5 k/uL (0-1.0); Monocytes % (A) 7 %; Neutrophils # (A) 5.4 k/uL (1.3-7.7); Neutrophils % (A) 77 %; Platelet Count 153 k/uL (150-450); RBC 2.76 m/uL (4.30-5.90); RDW 13.4 % (11.5-15.5); WBC 6.9 k/uL (3.8-10.6)
[2023-11-10 04:25] LABS: African American GFR (CKD) 34 (>60 ml/min/1.73 sqM); Anion Gap 6 mmol/L; Blood Urea Nitrogen 24 mg/dL (9-20); Carbon Dioxide 20 mmol/L (22-30); Chloride 108 mmol/L (98-107); Glucose 100 mg/dL (74-99); Non-African American GFR(CKD) 29 (>60 ml/min/1.73 sqM); Potassium 5.5 mmol/L (3.5-5.1); Sodium 134 mmol/L (137-145)
--- NOTE | 2023-11-10 08:14 | CT ---
EXAMINATION TYPE: CT lumbar spine wo con DATE OF EXAM: 11/09/2023 COMPARISON: 07/28/2023 HISTORY: 77-year-old male s/p L2-Pelvis decompression and fusion TECHNIQUE: Contiguous axial scanning of the lumbar spine without IV contrast. Coronal and sagittal re constructions performed. CT DLP: 1887.1 mGycm Automated exposure control for dose reduction was used. FINDINGS: The patient is status post L2-S1 posterior lumbar interbody fusion. Fusion extends down to include th e pelvis with a fixation screw on either side. Wide laminectomies are present. Recent postoperative changes with a surgical drain present as well as scattered foci of soft tissue a nd epidural air. Overlying midline skin ximena. The presence of metal hardware artifact limits detailed assessment. Fixed grade 1 retrolisthesis L2-L3. Remaining alignment is maintained. Above the fusion at L1-L2, there is mild disc bulge impressing on the ventral thecal sac without sign ificant spinal canal stenosis. On the left, there are foraminotomy changes at multiple levels. Lesser degree of bony resection avalos es on the right. There may be residual moderate neuroforaminal stenoses at multiple levels on the rig ht. No evidence of hardware complication. Vertebral body heights are preserved. Atherosclerotic calcifications throughout the aorta and iliac arteries. Punctate calcifications right kidney may be vascular. Sandhu catheter is in place decompressing the bl adder. IMPRESSION: STATUS POST L2-PELVIC POSTERIOR AND INTERBODY LUMBAR FUSION ABOVE. WIDE LAMINECTOMIES. RECENT POST OPERATIVE CHANGES.
[2023-11-10] MEDS: ceFAZolin 3 GM in SODIUM CHLORIDE 0.9% 100 ML IVPB SCH (08:45)
[2023-11-10] MEDS: ASPIRIN 81 MG PO SCH (08:47)
[2023-11-10] MEDS: VENLAFAXINE HCL 37.5 MG TAB PO SCH (08:48)
[2023-11-10] MEDS: SENNOSIDES-DOCUSATE SODIUM 1 EACH TAB PO SCH (08:48)
--- NOTE | 2023-11-10 08:54 | P.PN ---
Subjective Progress Note Date: 11/10/23 Principal diagnosis: 1. L2-S1 spondylosis wit stenosis, severe 2. Bilateral lower extremity weakness 3. Neurogenic claudication Patient seen and examined this morning. Patient is sitting up in bed eating breakfast. Patient does have complaint of moderate low back pain, medications will be reviewed. Patient states that he normally takes medications for tremors in which he is demonstrating at this time in the bilateral upper extremities. Patient is unsure of the name of medication. Instructed patient to discuss with Dr. Schreiber. Patient verbalized understanding. Surgical incision to the lumbar spine, dressing is clean dry and intact. Hemovac drain is present with significant output of 980 mL overnight. Drain needs to be placed at half compression at this time. Patient denies any numbness or tingling to the bilateral lower extremities. Patient is looking forward to working with physical therapy today. No acute concerns at this time. Objective - Vital Signs Vital signs: Vital Signs Temp 100.9 F H 11/10/23 04:00 Pulse 95 11/10/23 07:00 Resp 16 11/10/23 07:00 BP 107/82 11/10/23 07:00 Pulse Ox 91 L 11/10/23 07:00 FiO2 Intake & Output 11/09/23 11/10/23 11/10/23 18:59 06:59 18:59 Intake Total 3378 2578 98 Output Total 1620 895 205 Balance 1758 1683 -107 Weight 129 kg 137 kg Intake: IV 3102 2478 98 Lactated Ringers 1,000 ml 20 20 @ 20 mls/hr IV .Q24H HIRAM Rx#:[id number] Pressure Bag 33 3 Sodium Chloride 0.9% 1, 825 75 000 ml @ 75 mls/hr IV . [id number] HIRAM Rx#:[id number] Sodium Chloride 0.9% 500 1500 ml 500 ml @ 999 mls/hr IV .Q31M ONE Rx#:[id number] ceFAZolin 3 gm In Sodium 100 Chloride 0.9% 100 ml @ 200 mls/hr IVPB ONCE PRN Rx#:[id number] Intake, IV Titration 100 Amount ceFAZolin 3 gm In Sodium 100 Chloride 0.9% 100 ml @ 200 mls/hr IVPB Q8H HIRAM Rx#:[id number] Blood Product 276 Rc Pheresis 2 As3 Unit 276 [id number] Output: Drainage 100 700 180 Back 100 700 180 Urine 520 195 25 Estimated Blood Loss 1000 Other: Voiding Method Indwelling Catheter Indwelling Catheter ABP, PAP, CO, CI - Last Documented Arterial Blood Pressure 114/34 - Exam Physical Examination General: The patient is awake and alert, in no acute distress Skin: Skin is warm and dry with no obvious rashes or lesions. Surgical incision to the lumbar spine, dressing is clean dry and intact. Hemovac drain is present and patent. Eye: Pupils are equal, round and reactive to light, extra-ocular movements are intact; there is normal conjunctiva bilaterally. Neck: The neck is supple, there is no tenderness and ROM intact. Cardiovascular: There is a regular rate and rhythm. No murmur, rub or gallop is appreciated. Respiratory: Lungs are clear to auscultation, respirations are non-labored, breath sounds are equal. Gastrointestinal: Soft, non-distended, non-tender abdomen. Back: There is no tenderness to palpation in the midline, paralumbar, parathoracic or buttocks region. There is no obvious deformity . Musculoskeletal: ROM limited secondary to pain and stiffness from surgical procedure. Muscle strength in all major muscle groups of bilateral upper extremities 5/5, bilateral lower extremities 4/5. Neurological: CN 2-12 intact. There are no obvious motor or sensory deficits. Movement and coordination equal and intact. Sensory exam to light touch intact C5-T1 and intact from L2-S1. Reflexes 2/4 in bilateral upper and lower extremities. Negative Hoffmans, babinski, and clonus signs. Psychiatric: Cooperative, appropriate mood & affect, normal judgment. - Labs CBC & Chem 7: 11/10/23 03:58 11/10/23 03:58 Labs: Abnormal Lab Results - Last 24 Hours (Table) 11/03/23 11/09/23 11/09/23 Range/Units 14:37 14:30 16:17 WBC 12.0 H (3.8-10.6) k/uL RBC 3.07 L (4.30-5.90) m/uL Hgb 9.6 L (13.0-17.5) gm/dL Hct 29.1 L (39.0-53.0) % Neutrophils # 9.9 H (1.3-7.7) k/uL Lymphocytes # (1.0-4.8) k/uL INR (<1.2) ABG pH 7.32 L (7.35-7.45) ABG pCO2 48 H (35-45) mmHg ABG pO2 198 H (83-108) mmHg ABG O2 Saturation 98.5 H (94-97) % ABG Hematocrit 29 L (34.0-46.0) % ABG Potassium 4.8 H (3.4-4.5) mmol/L ABG Glucose 117 H (75-99) mg/dL Hemoglobin 9.3 L (13.0-17.5) gm/dL Sodium (137-145) mmol/L Potassium (3.5-5.1) mmol/L Chloride (98-107) mmol/L Carbon Dioxide (22-30) mmol/L BUN (9-20) mg/dL Creatinine (0.66-1.25) mg/dL Glucose (74-99) mg/dL POC Glucose (mg/dL) (70-110) mg/dL Calcium (8.4-10.2) mg/dL Arterial Blood Potassium 4.8 H (3.4-4.5) mmol/L Arterial Blood Glucose 117 H (75-99) mg/dL Crossmatch See Detail 11/09/23 11/09/23 11/09/23 Range/Units 16:17 16:17 17:59 WBC (3.8-10.6) k/uL RBC (4.30-5.90) m/uL Hgb (13.0-17.5) gm/dL Hct (39.0-53.0) % Neutrophils # (1.3-7.7) k/uL Lymphocytes # (1.0-4.8) k/uL INR 1.2 H (<1.2) ABG pH (7.35-7.45) ABG pCO2 (35-45) mmHg ABG pO2 (83-108) mmHg ABG O2 Saturation (94-97) % ABG Hematocrit (34.0-46.0) % ABG Potassium (3.4-4.5) mmol/L ABG Glucose (75-99) mg/dL Hemoglobin (13.0-17.5) gm/dL Sodium 135 L (137-145) mmol/L Potassium (3.5-5.1) mmol/L Chloride (98-107) mmol/L Carbon Dioxide 21 L (22-30) mmol/L BUN (9-20) mg/dL Creatinine 1.35 H (0.66-1.25) mg/dL Glucose 107 H (74-99) mg/dL POC Glucose (mg/dL) 111 H (70-110) mg/dL Calcium 7.7 L (8.4-10.2) mg/dL Arterial Blood Potassium (3.4-4.5) mmol/L Arterial Blood Glucose (75-99) mg/dL Crossmatch 11/10/23 11/10/23 Range/Units 03:58 03:58 WBC (3.8-10.6) k/uL RBC 2.76 L (4.30-5.90) m/uL Hgb 8.6 L (13.0-17.5) gm/dL Hct 26.3 L (39.0-53.0) % Neutrophils # (1.3-7.7) k/uL Lymphocytes # 0.9 L (1.0-4.8) k/uL INR (<1.2) ABG pH (7.35-7.45) ABG pCO2 (35-45) mmHg ABG pO2 (83-108) mmHg ABG O2 Saturation (94-97) % ABG Hematocrit (34.0-46.0) % ABG Potassium (3.4-4.5) mmol/L ABG Glucose (75-99) mg/dL Hemoglobin (13.0-17.5) gm/dL Sodium 134 L (137-145) mmol/L Potassium 5.5 H (3.5-5.1) mmol/L Chloride 108 H (98-107) mmol/L Carbon Dioxide 20 L (22-30) mmol/L BUN 24 H (9-20) mg/dL Creatinine 2.12 H (0.66-1.25) mg/dL Glucose 100 H (74-99) mg/dL POC Glucose (mg/dL) (70-110) mg/dL Calcium 7.0 L (8.4-10.2) mg/dL Arterial Blood Potassium (3.4-4.5) mmol/L Arterial Blood Glucose (75-99) mg/dL Crossmatch Assessment and Plan Assessment: Postop day 1: L2 to pelvis decompression and fusion 1. L2-S1 spondylosis wit stenosis, severe 2. Bilateral lower extremity weakness 3. Neurogenic claudication Plan: -Appreciate excellence consultant and team management. -Activity: Ambulate QID, OOB all meals, up and about, limit lifting bending twisting to less than 5 lbs. Use walker or cane if needed for stability. -Daily PT/OT, increase ambulation strength and balance. -Brace when up and about, not needed in bed or chair -LSO brace will be delivered tomorrow from our office. -Pain control: Adequate at this time -Meds: reviewed -GI ppx: senna, Miralax -DC virk when up and about, bedside commode if needed -DVT PPX: Heparin -Hygiene: Shower today. Maintain dressing clean and dry. Meticulous cleaning after BMs away from the incision site -Drains: Maintain for now at half compression. Continue to monitor and record output q shift. If output is >500ml please notify physician. -Encourage IS 10x/hr -Dispo: Clincally pending *I reviewed and discussed this case with my attending Dr. Gonzalez, whom has reviewed this chart and films and is in agreement with assessment and plan of care as outlined above. I have personally seen and examined the patient, performed the documentation and the assessment and plan as written. Number of minutes spent on the visit: 20m.
--- NOTE | 2023-11-10 10:01 | P.OP ---
Date of Procedure: 11/09/23 Preoperative Diagnosis: 1. L2-S1 SEVERE SPONDYLOSIS WITH STENOSIS 2. NEUROGENIC CLAUDICATION 3. B/L LE WEAKNESS 4. B/LE PARESTHESIAS 5. LOW BACK PAIN 6. COMPLEX MEDICAL PATIENT Postoperative Diagnosis: 1. L2-S1 SEVERE SPONDYLOSIS WITH STENOSIS 2. NEUROGENIC CLAUDICATION 3. B/L LE WEAKNESS 4. B/LE PARESTHESIAS 5. LOW BACK PAIN 6. COMPLEX MEDICAL PATIENT Procedure(s) Performed: 1. L2-3 INTRADISCAL OSTEOTOMY, 3 COLUMN, FOR DEFORMITY CORRECTION 2. L3-4 INTRADISCAL OSTEOTOMY, 3 COLUM, FOR DEFORMITY CORRECTION 3. L2-3 POSTERIOLATERAL AND INTERBODY FUSION 4. L3-4 POSTERIOLATERAL AND INTERBODY FUSION 5. L4-5 POSTERIOLATERAL AND INTERBODY FUSION 6. L5-S1 POSTERIOLATERAL AND INTERBODY FUSION 7. SEGMENTAL INSTRUMENTATION L2-PELVIS 8. L2-3, L3-4, L4-5, L5-S1 BILATERAL LAMINECTOMY, COMPLETE FACETECTOMY AND FORAMINOTOMY FOR DECOMPRESSION, CAGE PLACEMENT AND DEFORMITY CORRECTION 9. ATTACHMENT OF THE CAUDAL END OF THE CONSTRUCT TO THE BONY PELVIS, NOT SACRUM 10. L2-3, L3-4, L4-5, L5-S1 INSERTION OF BIOMECHANICAL DEVICE, CAGES. 11. USE OF [employer] NAVIGATION FOR SCREW PLACEMENT USE OF [facility] CPTMOD 22 THIS CASE TOOK 75% LONGER THAN EXPECTED DUE TO CORMORBID CONDITIONS, HIGH BMI >35, EXTENT OF LUMBAR DISEASE AND HIGH TECHNICALITY OF THE CASE. EXPECTED CODES: 56313, 60613, 30537, 48494, 18343, 33423, 17282, 31974, 99416, 71915, 68159, 46263, 57795, 32208, 21183, 54998, 71359 Implants: SARA EVEREST RODS AND SCREWS GLOBUS SABLE CAGES -12MM 10-17 20 DEG -12MM 10-17 15 DEG -10MM 9-16 8 DEG -10MM 9-16 8 DEG AUTOGRAFT ALLOGRAFT MAGNATOS IFACTOR CONTOUR Anesthesia: GETA Surgeon: You Gonzalez B2B Account Executive #1: Leonel Villanueva (WAS PRESENT AND ASSISTED FROM THE END OF SCREW PLACEMENT TO THE DRESSING PLACEMENT) Estimated Blood Loss (ml): 1,000 IV fluids (ml): 3,500 Urine output (ml): 550 Pathology: none sent Condition: stable Disposition: PACU Indications for Procedure: Mr. Mayer is presenting for evaluation of low back and bilateral lower extremity pain, bilateral lower extremity numbness, tingling, and weakness. It was my pleasure to have seen and examined Mr. Mayer. In our visit today we have had a chance to go over subjective complaints, physical examination findings and treatments including the natural course history without intervention and various interventional options. The patients imaging demonstrates: [facility] from07/28/2023 of LumbarSpine: images reviewed This demonstrates severe spondylosis L2 through S1 with this collapse and disc height loss facet arthrosis osteophytic formation causing central and bilateral foraminal stenosis at each level. There is flattening of the normal lumbar lordosis secondary to these changes. No acute fractures noted. Vacuum disc phenomenon noted from L2 through S1. This constituted severe findings of spinal stenosis spondylosis and degenerative disc disease. [facility]23 of LumbarSpine: - Re-reviewed with the patient today. IMPRESSION: Severe degeneration changes throughout the spine with severe L2-L3, L3-L4 and L4-L5 spinal canal stenosis secondary to osteophytes and disc bulging with facet joint arthropathy. Neural foraminal stenosis worse at these levels extending from L2-L3 to L5-S1. XRay Lumbar Multiview (AP, Lateral, Flexion, Extension) with AP pelvis; 5 views taken at [facility] on 04/30/23: - Re-reviewed with the patient today. Severe multilevel spondylitic and degenerative changes throughout the lumbar spine with preserved alignment. Multilevel diminished disc height, most pronounced between L2-S1. grade 1 retrolisthesis L2 and L3, L3 onto L4.Multilevel bilateral foraminal stenosis. No acute osseous abnormalities. AP Pelvis: The visualized sacrum and iliac wings are within normal limits. Bilateral hip osteoarthritis present. On physical exam, Mr. Mayer demonstrates: A continued ache-like pain throughout the low back that radiates down into the buttocks and bilateral lower extremities. He notes the left leg pain is much more severe than the right at this time. He states his lower extremity pain is associated with numbness and tingling bilaterally. He states his symptoms are exacerbated by prolonged walking ot standing. He states he is able to walk approximately half of a block outside before experiencing severe pain and needing to sit down. The patient reports experiencing severe sleep disturbances related to his ongoing pain and associated symptoms. I have explained to the patient that as their condition progresses it will cause further neurological deficits and eventual paralysis. Based on the patients imaging, physical exam, and the rapid progression and disabling nature of their symptoms, at this time I recommend surgery in the form of a: L2-pelvis decompression and fusion. I discussed the risk and benefits of this procedure at length with Mr. Mayer. The patient agreed to considered pursuing the procedure abovementioned. Prior to surgery, she should follow up with her PCP (Cardio, ID, IM etc) for clearance. Questions were invited and answered, and the patient wishes to proceed as outlined below. Currently, I am recommendin.L2-pelvis decompression and fusion Description of Procedure: L2-PELVIS DECOMPRESSION AND FUSION (KIARRA) The patient was seen and examined in the preoperative area. All preoperative protocols were followed. Informed consent was obtained, risks and benefits of the procedure were discussed at length. Risks including bleeding infection damage to the surrounding tissue and risk of reoperation were discussed with the patient. Risk of anesthesia up to and including was discussed with the patient. These are outlined in the risk review. They were willing to accept these risks and all the risks of surgery. The patient was given a weight-based dose of antibiotics in the form of 3 g Ancef. The patient was seen and evaluated by the anesthesia team who deemed them fit for surgery. The site was marked, the patient was willing to proceed with the procedure. The patient was transferred to the operative suite by the Department of anesthesia. They were then drifted off to sleep by the department anesthesia and GETA was performed. The patient tolerated this well. Sandhu catheter was placed by nursing staff, a-traumatically. Once confirmation of lines and ventilation the patient was transferred to a prone Trios spine table very carefully. The head was secured and stable. X Ray confirmed alignment. All bony prominences including wrists, elbows, axilla, chest, hips, and thighs, and feet were padded very well. Special attention was paid to the genitalia, and these were padded accordingly. SCDs were placed on bilateral lower extremities and were connected. Arms were well padded and placed at 90/90 up and out and well padded. Safety strap and tape placed on the patient. Once in position, again we confirmed good ventilation capabilities and that lines were running appropriately. The patients lumbosacral pelvic was then exposed. Hair was removed for incision. 1010s were placed outlining the incision site. Standard alcohol was used to clean the incision site and allowed to dry. C-arm was used to bio-caio the patient and confirm level for incision which was marked with a skin marker. Operative briefing was performed with all teams and everyone in agreement to proceed. The patient was then prepped and draped in a normal sterile fashion. Timeout was then performed, and all parties agreed with the procedure to be performed. Midline skin incision was then made over the previously bookmarked area and dissection taken down to the lumbosacral fascia which was identified and cleaned with a lo. There was excessive sub-q adipose that was obtrusive and needed to be retracted. Once midline was identified, fasciotomy was made over the SP of L1-S1 and pelvis. Subperiosteal dissection was then taken down over the lamina and facet joints and TPs were exposed and trough made posterolateral. TPs were then decorticated with a high speed josué for lateral fusion. Dissection was taken out over the sacrum to the pelvis. SI joint identified and modified Tanner starting point for pelvic screws identified as well. Retractors placed. Wound was irrigated and lateral image with penfield 4 placed at the pars of L4 confirmed levels for operation. SP clamp was then placed for the Vapother[employer] navigation tracker and secured. The wound was then filled with NSS and Z-drape. A 3D Ziehm spin was then obtained and registered. Once confirmation of accuracy screws were then placed from L2-Pelvis using navigation. Navigated high speed josué was used to make a pilot plant operator helper hole followed by a navigated awl-tap passed through the pedicle into the body. A ball tip probe then confirmed within the pedicle. Screw was then measured and placed using a navigated screwdriver. After screws were placed from L2-S1, AP image confirmed safe placement of screws. Lateral images as well as navigation were then used to place bilateral pelvic screws. Starting point selected just lateral to the SI joint and S2 pseudo facet. Lateral image taken and josué used to make the pilot plant operator helper hole. Gearshift then used to pass into the pelvis under lateral imaging just above the sciatic notch. 30 deg/30deg iliac oblique then taken to confirm within the teardrop and ball tip probe used to probe good bone. Screw was then measured and selected and placed under lateral imaging. This was repeated on the contralateral side. Screws were then visualized and appeared safe. Screws were then tested, and reliably tested screws tested above 20 mA. We then proceeded to decompression and interbody placement. Starting at L5-S1, bilateral laminectomy, complete facetectomy and foraminotomy was performed with a high speed josué making "Texas T cuts" in the lamina after removing SPs with rongure which allowed for complete removal of IAP followed by J cuts in the SAP of S1 for removal here and access to the triangle and disc. Again, exuberant scar tissue and bone formation was encountered and at this level. Once encountered, the disc space was then accessed in a similar fashion and neural elements protected. Complete discectomy performed with osteotome, Raptor shaver and sequential shaving until desired height and lordosis hoahaoism. There was good mobility at this level. Cage was then sized and selected. Autograft and allograft was then placed anterior in the disc space and the cage was then inserted and impacted into place under lateral. AP image, as before, was taken to ensure midline placement. The cage was then expanded into position. During expansion, the cage seemed to fail to expand completely on the RHS. The LHS expanded very well and recreated height and lordosis. The cage was tested and was very stable and since it was in safe position without any other issues it was elected to keep the cage in position. The wound was irrigated. Cage was backfilled with DBM and the area irrigated. We then proceeded to L4-5. At L4-5, bilateral laminectomy, complete facetectomy and foraminotomy was performed as described above. Again, exuberant scar tissue and bone formation was encountered and at this level. Once encountered, the disc space was then accessed in a similar fashion and neural elements protected. Complete discectomy performed with osteotome, Raptor shaver and sequential shaving until desired height and lordosis hoahaoism. There was good mobility at this level. Cage was then sized and selected. Autograft and allograft was then placed anterior in the disc space and the cage was then inserted and impacted into place under lateral. AP image, as before, was taken to ensure midline placement. The cage was then expanded into position. During expansion, the cage seemed to fail to expand completely on the RHS. The LHS expanded very well and recreated height and lordosis. The cage was tested and was very stable and since it was in safe position without any other issues it was elected to keep the cage in position. The wound was irrigated. Meticulous hemostasis then performed, and attention turned to L3-4. At L3-4 again bilateral laminectomy, complete facetectomy and foraminotomy were performed and an intradiscal osteotomy, 3 column, was performed for deformity correction at L3-4. Osteotome was used to make osteotomy in L5 and S1 and for complete disc removal. A box osteotome was then used to widen this bilaterally. This was passed into the anterior 1/3 of L5. This allowed for loosening of this level and correction. A cage was then selected based on shaving and trials. Bleeding endplates were encountered and cartilage removed. Autograft, allograft were then placed anterior to the cage. The cage was then impacted into place under lateral imaging while protecting neural elements. The cage was then expanded into position and showed good lift and correction. Rastafarian of lordosis and height achieved. Meticulous hemostasis then performed. Cage was backfilled with DBM and the area irrigated. We then proceeded to L2-3 level. At L2-3 again bilateral laminectomy complete facetectomy and foraminotomy were performed and an intradiscal osteotomy, 3 column, was performed for deformity correction at L2-3. Osteotome was used to make osteotomy in L5 and S1 and for complete disc removal. A box osteotome was then used to widen this bilaterally. This was passed into the anterior 1/3 of L5. This allowed for loosening of this level and correction. A cage was then selected based on shaving and trials. Bleeding endplates were encountered and cartilage removed. Autograft, allograft were then placed anterior to the cage. The cage was then impacted into place under lateral imaging while protecting neural elements. The cage was then expanded into position and showed good lift and correction. Rastafarian of lordosis and height achieved. Meticulous hemostasis then performed. Cage was backfilled with DBM and the area irrigated. Attention was then drawn to gaston placement. Rods were selected, measured, cut and bent to appropriate lordosis. They were then secured into pelvic screws b/l. Sequential reduction then done into each screw and set screw placed. Set screws were then final tightened and lateral image showed good lordosis reduction with increase around 10 deg from starting. Once rods were secured, cross links were selected and placed and final tightened. The wound was then irrigated with 2L betadine solution followed by 3L Ancef irrigation, 3L gentamicin irrigation and 3L NSS. Surgicel was then placed on the dura, which was inspected and had no injury. Then, in the posterolateral gutter was placed, MagnatOs, Autograft and allograft. This was impacted into position and surgical placed over it. 2g Vanco powder was then placed deep in the wound. A deep, subfascial drain was placed and a superficial facial drain placed. We then proceeded with layered closure. #1 PDS placed in the deep fascia. 0 Vicryl placed in the deep subq, 2-0 placed in the superficial subq and ximena placed in the skin. The wound edges approximated very well. The wound was then cleaned with ETOH and dressed with optifoam dressing, drain sponges and tegaderms. Drains sewed into position. IONM confirmed no changes. The patient was then transferred off the [facility] spine table to their hospital bed a-traumatically. Drains continued to hold suction. The patient was then extubated and transferred to the ICU in stable condition having tolerated the procedure with no complications.
[2023-11-10 11:19] LABS: Glucose,Whole Blood 120 mg/dL (70-110)
--- NOTE | 2023-11-10 11:32 | P.PN ---
Subjective Progress Note Date: 11/10/23 This is a 75-year-old male patient was transferred to the intensive care unit for monitoring following his spine surgery. The patient underwent a lengthy surgery on his lumbar spine as the patient was experiencing low back pain and bilateral lower extremity numbness and tingling and weakness. CAT scan of the lumbar spine showed spondylosis L2-S1 along with collapse and disc height loss and facet arthrosis/osteophyte formation causing central canal and bilateral foraminal stenosis at each level. MRI of the lumbar spine done on 06/28/2023 showed similar findings with neuroma on stenosis worst at the level of L2-L3 and L5-S1. Based on that, the patient was taken to the operating room and underwent an L2 to pelvis decompression and fusion. The patient. Was difficult to arouse. He was ultimately weaned off the mechanical ventilator and the patient was extubated and brought into the intensive care unit for further monitoring. He has a radial arterial line and also has a triple-lumen catheter in his right IJ. He is awake and alert and communicating. White cell count is at 12 with a hemoglobin 9.6 and a platelet count of 170. The BUN is at 18 with a creatinine of 1.36 and a sodium level is at 135 with a potassium level of 4.9. He is awake and alert and communicating. He is on Dilaudid for pain control. He is also on Flexeril. He was given IV cefazolin for antibiotic prophylaxis. The patient has other comorbidities including peripheral vascular disease and the patient has undergone previous right femoral endarterectomy with patch angioplasty. Has hypertension, hyperlipidemia, bronchial asthma, hiatal hernia, gout, degenerative disc disease as mentioned above. He is currently hemodynamically stable. There is a Hemovac in his back with bloody output. Pulse ox 96% on 4 L of oxygen by nasal cannula. Cardiac rhythm is sinus. Able to move his lower extremities. Pain is under adequate control for now. On today's evaluation of 11/10/2023, the patient is being seen for a follow-up. Awake and alert and communicating. Denies having any specific complaints. He was on 4 L and he was weaned down to 2 L of O2 nasal cannula. He is complaining of back pain and the Hemovac is putting approximately 600 cc of bloody output and hemoglobin is being monitored at this point in time. Spine surgery is on the case. His hemoglobin has dropped down to 8.6 from 9.6 yesterday. Rest of the blood work shows also a component of acute kidney injury. BUN is up to 24 with a creatinine of 2.1 and a sodium levels at 134 with a potassium level of 5.5. The patient remains on normal saline at rate of 75 cc an hour. He is not taking any form of nephrotoxic agents at this point in time. Meanwhile, CT scan of the lumbar spine was done yesterday and it showed essentially postsurgical changes consistent with lumbar fusion. No other acute abnormalities was noted. The patient is taking Dilaudid for pain control is also on Flexeril and Lyrica. The rest of the outpatient medications have been all resumed. Renal function is being monitored. He denies having any numbness or tingling in his lower extremities. Motor function is adequate in lower extremities. The drain has been placed at half compression based on surgical recommendation. Using incentive spirometer. Objective - Vital Signs Vital signs: Vital Signs Temp 100.9 F H 11/10/23 04:00 Pulse 95 11/10/23 07:00 Resp 16 11/10/23 07:00 BP 107/82 11/10/23 07:00 Pulse Ox 91 L 11/10/23 07:00 FiO2 Intake & Output 11/09/23 11/10/23 11/10/23 18:59 06:59 18:59 Intake Total 3378 2578 98 Output Total 1620 895 205 Balance 1758 1683 -107 Weight 129 kg 137 kg Intake: IV 3102 2478 98 Lactated Ringers 1,000 ml 20 20 @ 20 mls/hr IV .Q24H [facility] Rx#:[id number] Pressure Bag 33 3 Sodium Chloride 0.9% 1, 825 75 000 ml @ 75 mls/hr IV . [id number] [facility] Rx#:[id number] Sodium Chloride 0.9% 500 1500 ml 500 ml @ 999 mls/hr IV .Q31M [facility] Rx#:[id number] ceFAZolin 3 gm In Sodium 100 Chloride 0.9% 100 ml @ 200 mls/hr IVPB ONCE PRN Rx#:[id number] Intake, IV Titration 100 Amount ceFAZolin 3 gm In Sodium 100 Chloride 0.9% 100 ml @ 200 mls/hr IVPB Q8H [facility] Rx#:[id number] Blood Product 276 Rc Pheresis 2 As3 Unit 276 [id number] Output: Drainage 100 700 180 Back 100 700 180 Urine 520 195 25 Estimated Blood Loss 1000 Other: Voiding Method Indwelling Catheter Indwelling Catheter ABP, PAP, CO, CI - Last Documented Arterial Blood Pressure 114/34 - Exam General appearance the patient calm comfortable no acute distress currently on 2 L of oxygen by nasal cannula. Head exam was generally normal. There was no scleral icterus or corneal arcus. Mucous membranes were moist. Neck was supple and without jugular venous distension, thyromegaly, or carotid bruits. Carotids were easily palpable bilaterally. There was no adenopathy. The patient has a right IJ triple-lumen catheter in place Lungs were clear to auscultation and percussion, and with normal diaphragmatic excursion. No wheezes or rales were noted. Cardiac exam revealed the PMI to be normally situated and sized. The rhythm was regular and no extrasystoles were noted during several minutes of auscultation. The first and second heart sounds were normal and physiologic splitting of the second heart sound was noted. There were no murmurs, rubs, clicks, or gallops. Abdominal exam revealed normal bowel sounds. The abdomen was soft, non-tender, and without masses, organomegaly, or appreciable enlargement of the abdominal aorta. Extremities reveal diminished pulses bilaterally. No cyanosis or clubbing. Neurologically, the patient is awake and alert and moving all 4 extremities. Skin, surgical wound site is dry clean and intact and the patient is a Hemovac in place. - Labs CBC & Chem 7: 11/10/23 03:58 11/10/23 03:58 Labs: Abnormal Lab Results - Last 24 Hours (Table) 11/03/23 11/09/23 11/09/23 Range/Units 14:37 14:30 16:17 WBC 12.0 H (3.8-10.6) k/uL RBC 3.07 L (4.30-5.90) m/uL Hgb 9.6 L (13.0-17.5) gm/dL Hct 29.1 L (39.0-53.0) % Neutrophils # 9.9 H (1.3-7.7) k/uL Lymphocytes # (1.0-4.8) k/uL INR (<1.2) ABG pH 7.32 L (7.35-7.45) ABG pCO2 48 H (35-45) mmHg ABG pO2 198 H (83-108) mmHg ABG O2 Saturation 98.5 H (94-97) % ABG Hematocrit 29 L (34.0-46.0) % ABG Potassium 4.8 H (3.4-4.5) mmol/L ABG Glucose 117 H (75-99) mg/dL Hemoglobin 9.3 L (13.0-17.5) gm/dL Sodium (137-145) mmol/L Potassium (3.5-5.1) mmol/L Chloride (98-107) mmol/L Carbon Dioxide (22-30) mmol/L BUN (9-20) mg/dL Creatinine (0.66-1.25) mg/dL Glucose (74-99) mg/dL POC Glucose (mg/dL) (70-110) mg/dL Calcium (8.4-10.2) mg/dL Arterial Blood Potassium 4.8 H (3.4-4.5) mmol/L Arterial Blood Glucose 117 H (75-99) mg/dL Crossmatch See Detail 11/09/23 11/09/23 11/09/23 Range/Units 16:17 16:17 17:59 WBC (3.8-10.6) k/uL RBC (4.30-5.90) m/uL Hgb (13.0-17.5) gm/dL Hct (39.0-53.0) % Neutrophils # (1.3-7.7) k/uL Lymphocytes # (1.0-4.8) k/uL INR 1.2 H (<1.2) ABG pH (7.35-7.45) ABG pCO2 (35-45) mmHg ABG pO2 (83-108) mmHg ABG O2 Saturation (94-97) % ABG Hematocrit (34.0-46.0) % ABG Potassium (3.4-4.5) mmol/L ABG Glucose (75-99) mg/dL Hemoglobin (13.0-17.5) gm/dL Sodium 135 L (137-145) mmol/L Potassium (3.5-5.1) mmol/L Chloride (98-107) mmol/L Carbon Dioxide 21 L (22-30) mmol/L BUN (9-20) mg/dL Creatinine 1.35 H (0.66-1.25) mg/dL Glucose 107 H (74-99) mg/dL POC Glucose (mg/dL) 111 H (70-110) mg/dL Calcium 7.7 L (8.4-10.2) mg/dL Arterial Blood Potassium (3.4-4.5) mmol/L Arterial Blood Glucose (75-99) mg/dL Crossmatch 11/10/23 11/10/23 Range/Units 03:58 03:58 WBC (3.8-10.6) k/uL RBC 2.76 L (4.30-5.90) m/uL Hgb 8.6 L (13.0-17.5) gm/dL Hct 26.3 L (39.0-53.0) % Neutrophils # (1.3-7.7) k/uL Lymphocytes # 0.9 L (1.0-4.8) k/uL INR (<1.2) ABG pH (7.35-7.45) ABG pCO2 (35-45) mmHg ABG pO2 (83-108) mmHg ABG O2 Saturation (94-97) % ABG Hematocrit (34.0-46.0) % ABG Potassium (3.4-4.5) mmol/L ABG Glucose (75-99) mg/dL Hemoglobin (13.0-17.5) gm/dL Sodium 134 L (137-145) mmol/L Potassium 5.5 H (3.5-5.1) mmol/L Chloride 108 H (98-107) mmol/L Carbon Dioxide 20 L (22-30) mmol/L BUN 24 H (9-20) mg/dL Creatinine 2.12 H (0.66-1.25) mg/dL Glucose 100 H (74-99) mg/dL POC Glucose (mg/dL) (70-110) mg/dL Calcium 7.0 L (8.4-10.2) mg/dL Arterial Blood Potassium (3.4-4.5) mmol/L Arterial Blood Glucose (75-99) mg/dL Crossmatch Assessment and Plan Plan: L2 to pelvis decompression and fusion. The patient is currently postop day #1. Surgery was done for pain and weakness involving the lower extremities and the patient had evidence of severe spinal canal stenosis secondary to osteophyte and disc bulge with facet joint arthropathy. Patient also had neuroforaminal foraminal stenosis worse at the level of L2-L3 and L5-S1. The CAT scan of the lumbar spine showed postsurgical changes Acute hypoxic respiratory failure currently on 2 L of oxygen by nasal cannula. The patient had a prolonged surgery and the patient was able to wean off the mechanical ventilator and the patient is currently extubated and the patient is awake and alert and using the incentive spirometer Postop anemia, expected outcome of surgery and the hemoglobin is dropped down to 8.6. The Hemovac output is being monitored. Acute kidney injury, rule out for surgical ATN and the creatinine is being monitored. Currently up to 2.12. Back pain, currently on Dilaudid for pain control Peripheral vascular disease with previous right femoral endarterectomy and patch angioplasty and the patient also has had bilateral iliac stents placement Hypertension Hyperlipidemia Bronchial asthma, mild intermittent Hypothyroidism Chronic back pain as mentioned above Osteoarthritis Chronic stage III kidney disease Plan The patient will have the FiO2 titrated and the patient is currently on 2 L. Provide incentive spirometer. Dilaudid for pain control IV fluids with normal saline at rate of 75 cc an hour. Monitor hemoglobin. Monitor creatinine. Continue Flexeril 5 mg p.o. 3 times daily on a as needed basis Monitor hemoglobin Monitor renal function CAT scan of the lumbar spine was noted Monitor output from the Hemovac Will continue to follow.
--- NOTE | 2023-11-10 11:51 | CT ---
EXAMINATION TYPE: CODE STROKE: CT brain wo contr DATE OF EXAM: 11/10/2023 COMPARISON: None HISTORY: 77-year-old male right-sided Weakness, post op lumbar surgery TECHNIQUE: Examination was done in axial plane without intravenous contrast. Coronal and sagittal r econstructions performed. CT DLP: 1212.4 mGycm Automated exposure control for dose reduction was used. FINDINGS: There is no evidence of acute intracranial hemorrhage, acute ischemic changes, mass, mass-effect, or extra-axial fluid collection. There is no effacement of cerebral sulci or basal subarachnoid cister ns. There is no hydrocephalus. There is no midline shift. Waller-white matter distinction is preserv ed. Some nonspecific calcifications right occipital lobe probably chronic. These may be dystrophic relati ng to prior injury or infection. See CTA to assess for any obvious abnormal vasculature. [id number] mucosal thickening right maxillary sinus and ethmoid air cells. Mastoid air cells ar e well pneumatized. Orbits and globes appear intact. IMPRESSION: 1. No acute intracranial abnormality seen. 2. Some nonspecific, probably dystrophic calcifications right occipital lobe. Attention on CTA for an y beronica abnormal vasculature in this location. 3. Mild to moderate chronic ethmoid and right maxillary sinus disease.
--- NOTE | 2023-11-10 12:25 | CT ---
EXAMINATION TYPE: CODE STROKE: CTA head neck CT DLP: 890 mGycm, Automated exposure control for dose reduction was used. DATE OF EXAM: 11/10/2023 12:10 PM COMPARISON: CT brain same day. CLINICAL INDICATION:Male, 77 years old with history of r/o CVA; PHH, Rt sided weakness TECHNIQUE: Axially acquired helical CT angiogram of the head and neck was obtained with contrast. Axi al images are supplemented with 3D reconstructions which [facility] NASCET criteria used. Contrast used:65 mL of Isovue 370 with IV Contrast, Oral contrast used: None. FINDINGS: CTA HEAD: The visualized portions of the internal carotid arteries, middle cerebral arteries, anterior cerebral arteries, and posterior cerebral arteries are patent. Atherosclerotic disease of the bilateral perry nous and supraclinoid ICAs create mild stenosis. Mild multifocal stenosis of the bilateral distal M2/ M3 segments. The basilar and vertebral arteries are patent. Codominant vertebrobasilar system. Partial circu lation involving the right posterior cerebral artery. Mild multifocal stenosis of the P2/P3 segment o f the right posterior cerebral artery. CTA NECK: Right Carotid System: The common carotid artery and external carotid artery are patent. The carotid bifurcation demonstrate s no evidence of hemodynamically significant stenosis. The remaining portions of the internal carotid artery demonstrate normal size without significant narrowing. Left Carotid System: The common carotid artery and external carotid artery are patent. Calcified atherosclerotic plaque is identified involving the carotid bulbs and proximal internal carotid arteries bilaterally. The right proximal internal carotid artery demonstrates approximately 70% stenosis. The left proximal internal carotid artery interest peripheral calcified plaque with less than 50% stenosis. Calcified plaque is moderate stenosis of the origin of the right vertebral artery. Moderate to severe stenosis of the left vertebral artery origin secondary to chronic plaque. There is a three-vessel aortic arch. The origins of the great vessels are patent. Atherosclerotic dis ease of the bilateral subclavian arteries is appreciated. Upper thorax: Emphysematous changes are present in the lung apices. IMPRESSION: 1. No evidence of proximal large vessel occlusion in the intracranial arterial system. 2. Scattered atherosclerotic disease intracranially creating up to mild multifocal stenosis. 3. Scattered atherosclerotic disease in the bilateral cervical carotid arteries, creating up to 70% s tenosis of the proximal right internal carotid artery. 4. Moderate stenosis of the right vertebral artery origin with moderate to severe stenosis of the lef t vertebral artery origin. 5. Emphysematous changes of the lungs.
[2023-11-10] MEDS: PRIMIDONE 50 MG TAB PO SCH (13:16)
[2023-11-10] MEDS: CLOPIDOGREL 75 MG TAB PO SCH (17:55)
--- NOTE | 2023-11-10 18:18 | P.CONS ---
History of Present Illness - Reason for Consult Consult date: 11/10/23 Medical management Requesting physician: You Gonzalez - Chief Complaint Status post L2 to pelvis decompression and fusion - History of Present Illness This is a pleasant 77-year-old gentleman admitted with severe L2-S1 spondylosis with stenosis, bilateral lower extremity weakness and neurogenic claudication,status post L2 to pelvis decompression and fusion, postop day #1.Tmax 100.9, normal WBC. Telemetry sinus rhythm. Maintained on IV fluid hydration. Continues on aspirin with Plavix on hold. Hemovac with approximately 800 mL output per 24-hour I&O, hemoglobin 8.6, platelets 153 .renal function worsening with creatinine up to 2.12. Potassium 5.5 .denies chest pain, palpitations or shortness of breath. Maintaining O2 sats in the 90s on 2 L nasal cannula. Lumbar spine CT reported postsurgical changes consistent with lumbar fusion. Positive pain, denies numbness or tingling of bilateral lower extremities. Review of Systems ROS Statement: Those systems with pertinent positive or pertinent negative responses have been documented in the HPI. ROS Other: All systems not noted in ROS Statement are negative. Past Medical History Past Medical History: Asthma, Chest Pain / Angina, GERD/Reflux, Hyperlipidemia, Hypertension, Musculoskeletal Disorder, Osteoarthritis (OA), Thyroid Disorder, Vascular Disorder Additional Past Medical History / Comment(s): Peripheral vascular disease, neuropathy, asthma as child, hiatal hernia, gout, degenerative discs, one e pisode of chest pain yrs ago.(nuclear stress test ok) recent URI tx with Abx and steroids. hx of blockage to femoral artery rt leg. History of Any Multi-Drug Resistant Organisms: None Reported Past Surgical History: Appendectomy, Heart Catheterization, Orthopedic Surgery Additional Past Surgical History / Comment(s): PTBA with bilateral iliac stents X3( 2 left, 1 right), PARTIAL THYROIDECTOMY, left shoulder rotator cuff repair, COLONOSCOPY, PAIN CLINIC PROCEDURE, bilateral knee arthroscopy. rt femoral endartectomy. Past Anesthesia/Blood Transfusion Reactions: No Reported Reaction Additional Past Anesthesia/Blood Transfusion Reaction / Comm: Pt has never had blood. Smoking Status: Former smoker - Past Family History Mother Brother(s) Family Medical History: Cancer Sister(s) Family Medical History: Cancer Additional Family Medical History / Comment(s): brain cancer Mother Family Medical History: Cancer Brother(s) Family Medical History: CVA/TIA Medications and Allergies Home Medications Medication Instructions Recorded Confirmed Type Atorvastatin [Lipitor] 40 mg PO HS 04/02/17 11/09/23 History Multivit-Min/FA/Lycopen/Lutein 1 each PO DAILY 04/02/17 11/09/23 History [Centrum Silver Tablet] Primidone [Mysoline] 150 mg PO DAILY 04/02/17 11/09/23 History rOPINIRole HCL [Requip] 0.5 mg PO HS 04/19/19 11/09/23 History Amitriptyline HCl 25 mg PO HS 06/19/19 11/09/23 History Furosemide [Lasix] 20 mg PO QAM 09/04/19 11/09/23 History Potassium Chloride [Klor-Con M10] 10 meq PO BID 05/21/20 11/09/23 History Clopidogrel [Plavix] 75 mg PO QAM 03/03/23 11/09/23 History Venlafaxine HCl [Effexor] 37.5 mg PO QAM 03/03/23 11/09/23 History allopurinoL 300 mg PO QAM 03/03/23 11/09/23 History Aspirin 81 mg PO DAILY 11/03/23 11/09/23 History Benazepril HCl 20 mg PO DAILY 11/03/23 11/09/23 History Famotidine 40 mg PO HS 11/03/23 11/09/23 History Levothyroxine Sodium 88 mcg PO HS 11/03/23 11/09/23 History Meloxicam 7.5 mg PO DAILY 11/03/23 11/09/23 History Pregabalin 150 mg PO BID 11/03/23 11/09/23 History Terazosin [Hytrin] 2 mg PO HS 11/03/23 11/09/23 History Unk Prevagen 1 tab PO DAILY 11/03/23 11/09/23 History Allergies Allergy/AdvReac Type Severity Reaction Status Date / Time No Known Allergies Allergy Verified 11/09/23 07:15 Physical Exam Vitals: Vital Signs Temp Pulse Resp BP Pulse Ox 11/10/23 15:00 87 10 L 120/63 91 L 11/10/23 14:30 86 11 L 121/64 90 L 11/10/23 14:00 86 10 L 150/51 91 L 11/10/23 13:30 95 17 94/55 92 L 11/10/23 13:00 85 10 L 103/58 91 L 11/10/23 12:30 88 13 100/38 92 L 11/10/23 12:00 91 14 104/54 90 L 11/10/23 11:30 94 13 114/64 91 L 11/10/23 11:00 94 12 106/42 95 11/10/23 10:30 98 7 L 118/54 94 L 11/10/23 10:00 88 13 109/59 92 L 11/10/23 09:30 93 13 116/44 95 11/10/23 09:00 92 13 112/53 94 L 11/10/23 08:30 97 12 113/55 94 L 11/10/23 08:00 99.3 F 96 11 L 121/78 92 L 11/10/23 07:00 95 16 107/82 91 L 11/10/23 06:30 100 20 111/40 92 L 11/10/23 06:00 94 12 95/42 93 L 11/10/23 05:30 96 12 94/59 93 L 11/10/23 05:00 101 H 24 94/66 92 L 11/10/23 04:30 103 H 17 82/58 92 L 11/10/23 04:00 100.9 F H 104 H 16 101/49 96 11/10/23 03:30 103 H 7 L 81/49 95 11/10/23 03:00 105 H 14 97/45 90 L 11/10/23 02:30 104 H 13 98/58 91 L 11/10/23 02:00 99 13 102/53 92 L 11/10/23 01:30 93 14 99/55 94 L 11/10/23 01:00 92 12 107/41 94 L 11/10/23 00:30 101 H 16 119/57 93 L 11/10/23 00:00 98.3 F 88 18 113/53 96 11/09/23 22:30 80 14 160/66 98 11/09/23 22:00 86 14 135/53 97 11/09/23 21:30 82 14 104/52 95 11/09/23 21:00 86 24 120/65 95 11/09/23 20:30 73 14 100/64 97 11/09/23 20:00 97.8 F 82 27 H 121/55 93 L 11/09/23 19:00 94.5 F L 69 10 L 111/55 96 11/09/23 18:30 71 12 110/72 95 Intake and Output 11/10/23 11/10/23 11/10/23 06:59 14:59 22:59 Intake Total 2244 1429 75 Output Total 750 685 80 Balance 1494 744 -5 Intake: IV 2244 629 75 Lactated Ringers 1,000 ml 20 20 @ 20 mls/hr IV .Q24H [facility] Rx#:[id number] Pressure Bag 24 9 Sodium Chloride 0.9% 1, 600 600 75 000 ml @ 75 mls/hr IV . [id number] [facility] Rx#:[id number] Sodium Chloride 0.9% 500 1500 ml 500 ml @ 999 mls/hr IV .Q31M [facility] Rx#:[id number] ceFAZolin 3 gm In Sodium 100 Chloride 0.9% 100 ml @ 200 mls/hr IVPB ONCE [facility] Rx#:[id number] Oral 800 Output: Drainage 600 300 Back 600 300 Urine 150 385 80 Other: Voiding Method Indwelling Catheter Indwelling Catheter Weight 137 kg PHYSICAL EXAM: VITAL SIGNS: [As above] GENERAL: Pleasant, alert and oriented x 3, sitting up in bed, raspy voice HEENT: Normocephalic, conjunctivae normal. eyes normal. NECK: Supple, no JVD. No thyroid enlargement. No LNs CARDIOVASCULAR: S1, S2 regular. No murmur RESPIRATION: Unlabored, equal air entry ,breath sounds diminished in the bases. No rhonchi or crackles. No bronchial breathing. ABDOMEN: Soft, nontender . No guarding. no masses palpable. No ascites, No hepatosplenomegaly.Bowel sounds heard. LEGS: No edema. no swelling PSYCHIATRY: Alert and oriented X3, mood and affect normal. NERVOUS SYSTEM: Cranial N 2-12 grossly normal. Moves all 4 limbs.No focal deficits. Strength and sensation grossly intact.. Skin: Warm and dry, no rash Results CBC & Chem 7: 11/10/23 03:58 11/10/23 03:58 Labs: Abnormal Lab Results - Last 24 Hours (Table) 11/10/23 11/10/23 11/10/23 Range/Units 03:58 03:58 11:18 RBC 2.76 L (4.30-5.90) m/uL Hgb 8.6 L (13.0-17.5) gm/dL Hct 26.3 L (39.0-53.0) % Lymphocytes # 0.9 L (1.0-4.8) k/uL Sodium 134 L (137-145) mmol/L Potassium 5.5 H (3.5-5.1) mmol/L Chloride 108 H (98-107) mmol/L Carbon Dioxide 20 L (22-30) mmol/L BUN 24 H (9-20) mg/dL Creatinine 2.12 H (0.66-1.25) mg/dL Glucose 100 H (74-99) mg/dL POC Glucose (mg/dL) 120 H (70-110) mg/dL Calcium 7.0 L (8.4-10.2) mg/dL Assessment and Plan Assessment: Severe L2-S1 spondylosis with stenosis, bilateral lower extremity weakness and neurogenic claudication, status post L2 to pelvis decompression and fusion Acute hypoxic respiratory failure secondary to the above, status post mechanical ventilation Postop anemia, expected outcome Acute renal failure secondary to #1 Chronic renal failure, stage III Chronic mild intermittent asthma Osteoarthritis Chronic back pain Hypertension Hyperlipidemia Hypothyroidism PVD with history of right femoral endarterectomy and patch angioplasty, bilateral iliac stents Plan: Continue on current medication regime, monitoring and symptomatic treatment. Aggressive pulmonary toileting with incentive spirometer reinforced. Heparin subcu for DVT prophylaxis. close monitoring of Hemovac output, hemoglobin, renal function. Pain management. Patient reports his is bring in his dentures in. PT. The impression and plan of care has been dictated as directed. : I performed a history and examination of this patient, discussed the same with the dictator. I agree with the dictator's note ,documented as a scribe. Any additional findings or plans will be noted.
[2023-11-10] MEDS: FAMOTIDINE 20 MG TAB PO SCH (20:00)
[2023-11-10] MEDS: HYDROcodone/APAP 5-325MG 1 EACH TAB PO PRN (20:01)
[2023-11-10] MEDS: HEPARIN SODIUM,PORCINE 5,000 UNIT/ML 1 ML VIAL SQ SCH (20:01)
[2023-11-10 22:08] LABS: HCT 27.6 % (39.0-53.0); HGB 8.8 gm/dL (13.0-17.5); MCH 31.1 pg (25.0-35.0); MCV 97.3 fL (80.0-100.0); Mean Platelet Volume 8.9; Platelet Count 136 k/uL (150-450); RBC 2.84 m/uL (4.30-5.90); RDW 13.6 % (11.5-15.5); WBC 8.2 k/uL (3.8-10.6)
[2023-11-11 04:30] LABS: Basophils % (A) 0 %; Eosinophils # (A) 0.1 k/uL (0-0.7); Eosinophils % (A) 2 %; HCT 24.8 % (39.0-53.0); HGB 8.1 gm/dL (13.0-17.5); Lymphocytes # (A) 1.2 k/uL (1.0-4.8); Lymphocytes % (A) 15 %; MCH 31.4 pg (25.0-35.0); MCHC 32.5 g/dL (31.0-37.0); MCV 96.7 fL (80.0-100.0); Monocytes # (A) 0.5 k/uL (0-1.0); Monocytes % (A) 7 %; Neutrophils # (A) 5.9 k/uL (1.3-7.7); Neutrophils % (A) 75 %; Platelet Count 135 k/uL (150-450); RBC 2.56 m/uL (4.30-5.90); RDW 13.4 % (11.5-15.5); WBC 7.8 k/uL (3.8-10.6)
[2023-11-11 04:58] LABS: African American GFR (CKD) 37 (>60 ml/min/1.73 sqM); Anion Gap 6 mmol/L; Blood Urea Nitrogen 23 mg/dL (9-20); Carbon Dioxide 21 mmol/L (22-30); Chloride 104 mmol/L (98-107); Glucose 100 mg/dL (74-99); Non-African American GFR(CKD) 32 (>60 ml/min/1.73 sqM); Potassium 4.7 mmol/L (3.5-5.1); Sodium 131 mmol/L (137-145)
[2023-11-11] MEDS ORDERED: DEXAMETHASONE SOD PHOSPHATE 10 MG/ML 1 ML VIAL IV PRN (07:22)
--- NOTE | 2023-11-11 07:22 | P.PN ---
Subjective Progress Note Date: 11/11/23 Pt s/e this AM. He was very sedated this AM on exam and his O2 had fallen off. He was around 80% sats. O2 replaced and turned to 4L he came back up then to 97 and was more lucid. He was able to tell me where he was but did not know who I was. He states pain in his back. He states he is hungry. He denies any fevers or chills currently. He is very sedated however this morning and is not at baseline. He has not had any pain meds since 9 PM. Objective - Vital Signs Vital signs: Vital Signs Temp 99.6 F 11/11/23 04:00 Pulse 93 11/11/23 06:00 Resp 12 11/11/23 06:00 BP 145/51 11/11/23 06:00 Pulse Ox 95 11/11/23 06:00 FiO2 Intake & Output 11/10/23 11/10/23 11/11/23 06:59 18:59 06:59 Intake Total 2578 2604 925 Output Total 895 1415 2225 Balance 1683 1189 -1300 Weight 137 kg 137.5 kg Intake: IV 2478 1004 925 Lactated Ringers 1,000 ml 20 20 @ 20 mls/hr IV .Q24H [facility] Rx#:[id number] Pressure Bag 33 9 Sodium Chloride 0.9% 1, 825 975 825 000 ml @ 75 mls/hr IV . [id number] [facility] Rx#:[id number] Sodium Chloride 0.9% 500 1500 ml 500 ml @ 999 mls/hr IV .Q31M ONE Rx#:[id number] ceFAZolin 3 gm In Sodium 100 100 Chloride 0.9% 100 ml @ 200 mls/hr IVPB ONCE PRN Rx#:[id number] Intake, IV Titration 100 Amount ceFAZolin 3 gm In Sodium 100 Chloride 0.9% 100 ml @ 200 mls/hr IVPB Q8H [facility] Rx#:[id number] Oral 1600 Output: Drainage 700 500 150 Back 700 500 150 Urine 327 504 6870 Other: Voiding Method Indwelling Catheter Indwelling Catheter Indwelling Catheter ABP, PAP, CO, CI - Last Documented Arterial Blood Pressure 114/34 - Exam AOX1-2 this AM. DId not recognize me. Knew his nurse and where he was and the year. Somnolent/lethargic. Able to answer questions but have to wake up and redirect TTP around the incision site Dressing CDI Drain in place 100 cc 150 cc since overnight 4+/5 UE BL all majro muscle groups, good coordination RLE 4+/5, normal deconditioning LLE 4+/5 except for TA at this time which is 2-3/5. EHL is 4-/5 on the LLE. SILT L2-S2 2/4 DP/PT pulses b/l Neg Hoffmans Neg Clonus Neg Babinski Raudel homans b/l Respirations are non labored. Current sats 96 on 4L. HR 95 Sinus 144/64 - EENT Eyes: Present: EOMI, PERRLA ENT: Present: hard of hearing - Gastrointestinal General gastrointestinal: Present: distended, soft - Neurologic Neurologic: Present: CNII-XII intact - Allied health notes Allied health notes reviewed: nursing - Labs CBC & Chem 7: 11/11/23 04:04 11/11/23 04:04 Labs: Abnormal Lab Results - Last 24 Hours (Table) 11/10/23 11/10/23 11/11/23 Range/Units 11:18 21:33 04:04 RBC 2.84 L 2.56 L (4.30-5.90) m/uL Hgb 8.8 L 8.1 L (13.0-17.5) gm/dL Hct 27.6 L 24.8 L (39.0-53.0) % Plt Count 136 L 135 L (150-450) k/uL Sodium (137-145) mmol/L Carbon Dioxide (22-30) mmol/L BUN (9-20) mg/dL Creatinine (0.66-1.25) mg/dL Glucose (74-99) mg/dL POC Glucose (mg/dL) 120 H (70-110) mg/dL Calcium (8.4-10.2) mg/dL 11/11/23 Range/Units 04:04 RBC (4.30-5.90) m/uL Hgb (13.0-17.5) gm/dL Hct (39.0-53.0) % Plt Count (150-450) k/uL Sodium 131 L (137-145) mmol/L Carbon Dioxide 21 L (22-30) mmol/L BUN 23 H (9-20) mg/dL Creatinine 1.97 H (0.66-1.25) mg/dL Glucose 100 H (74-99) mg/dL POC Glucose (mg/dL) (70-110) mg/dL Calcium 7.0 L (8.4-10.2) mg/dL - Imaging and Cardiology Chest x-ray: pending Assessment and Plan Assessment: 77 yo male POD2 L2-Pelvis decompression and fusion LLE weakness Neurogenic claudication hx of CAD, TIA, Tremors MS changes Plan: Appreciate ICU mgt and Team mgt -CXR ordered -IS 10x/hr -Daily labs reviewed -Cont VSpp -GI ppx, senna, duco, miralax -on Plavix per neurology, Cont Neuro recs regarding CVA/TIA -MRI pending of brain -Pain control as able. Hold for lethargy, somnolence, hypotension etc. -Start Methylpred 20 loading followed by 6q6hr -Consider caffiene -Will follow
--- NOTE | 2023-11-11 07:34 | XR ---
EXAMINATION TYPE: XR chest 1V portable DATE OF EXAM: 11/11/2023 7:29 AM CLINICAL INDICATION:Male, 77 years old with history of Baseline; COMPARISON: Chest radiographs from 11/09/2023 TECHNIQUE: XR chest 1V portable Frontal view of the chest. FINDINGS: Lungs/Pleura: There is no evidence of pleural effusion, focal consolidation, or pneumothorax. Pulmonary vascularity: Unremarkable. Heart/mediastinum: Cardiomediastinal silhouette is enlarged and stable. Atherosclerotic calcificatio ns are seen in the aorta. Musculoskeletal: No acute osseous pathology. Other findings: None Lines/Tubes: Right internal jugular central venous catheter with distal tip at the cavoatrial junction. IMPRESSION: No acute cardiopulmonary disease/process.
[2023-11-11] MEDS: CAFFEINE-SODIUM BENZOATE 500 MG in SODIUM CHLORIDE 0.9% 100 ML IVPB ONE (08:21)
[2023-11-11] MEDS: DEXAMETHASONE SOD PHOSPHATE 20 MG in DEXTROSE 5% IN WATER 50 ML IV STA (08:21)
[2023-11-11] MEDS: HEPARIN SODIUM,PORCINE 5,000 UNIT/ML 1 ML VIAL SQ SCH (08:24)
[2023-11-11 09:03] LABS: Chol/HDL Ratio 3.28 Ratio; LDL Cholesterol,Calculated 33.8 mg/dL (0.0-131.0)
--- NOTE | 2023-11-11 09:18 | P.CNNES ---
History of Present Illness Consult date: 11/10/23 Requesting physician: You Gonzalez Reason for Consult: Left-sided weakness and numbness History of Present Illness: Patient is a 77-year-old right-handed male, with history of lumbar spinal stenosis, who came for elective L2 to pelvis decompression and fusion yesterday. Patient has history of L2-S1 spondylosis with stenosis, severe degree. Bilateral lower extremity weakness, neurogenic claudication. Patient states that he had bad back pain and hard time walking. He had to sit down to rest because of walking any length of time produces pain in the legs. He did not use any assistive device like a cane or a walker prior to the surgery. Only when he used to go to the groceries, he used to hang onto the cart. He denies any history of bowel or bladder control issues. Patient underwent successful L2 to pelvis decompression and fusion yesterday. This morning patient was undergoing physical therapy this morning, when they tried to get him up on the side of the bed and he noticed that there was no fee ling in the whole left leg, could not move the left leg. 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 Patient was not very clear if his left arm is more numb than usual. Patient's NIH stroke scale was recorded 8. Stroke code was activated at 11:25 AM. Last known well was 11 AM. There was no report of slurred speech, facial droop or any problem w ith the vision. Patient was recommended CTA by Dr. Law. CT head revealed no acute intracranial process. Some nonspecific, probably dystrophic calcification right occipital lobe. Mild to moderate chronic ethmoid and right maxillary sinus disease. I personally reviewed CT head, agree with the findings. EKG shows sinus tachycardia with first-degree AV block. CTA revealed no evidence of proximal large vessel occlusion in the intracranial arterial system. Scattered atherosclerotic disease intracranially creating up to mild multifocal stenosis. Scattered atherosclerotic disease in the bilateral cervical carotid arteries, creating up to 70% stenosis of the proximal right ICA. Moderate stenosis of the right vertebral artery origin with moderate to severe stenosis of the left vertebral artery origin. Patient's MRI of the lumbar spine on 06/28/2023 revealed severe degeneration changes throughout the spine with severe L2-L3, L3-L4 and L4-L5 spinal canal stenosis secondary to osteophytes and disc bulging with facet joint arthropathy. Neural foraminal stenosis worse at these levels extending from L2-L3 to L5-S1. I personally reviewed MRI, agree with the findings. Patient's blood test today showed normal WBC 6.9, hemoglobin 8.6, platelets 153. INR is 1.2. Patient's BUN 18, creatinine 1.35 yesterday, but this morning was BUN 24, creatinine 2.12. Patient's ABG with pH of 7.32, pCO2 48, saturation 98%. Patient denies hypertension, diabetes, hyperlipidemia. He has history of peripheral neuropathy, uncertain if related to back issues. He has it for long time, for about 10 years. He has smoked about 2 packs/day for 30 to 35 years, quit in 2000. He denies any alcohol use. He used to be a heavy alcohol drinker, but quit in 2000. Patient's home medications include Lipitor 40 mg, primidone 150 mg daily, Requip 0.5 mg at bedtime, amitriptyline 25 mg at bedtime, Lasix, potassium, allopurinol, Effexor 37.5 mg every morning, Plavix 75 mg, terazosin 2 mg, benazepril 20 mg, aspirin 81 mg, meloxicam, pregabalin, Pepcid and levothyroxine. Patient currently only on aspirin. Patient mentions that his aspirin and Plavix were held for about 5 to 7 days prior to surgery, does not remember how many days exactly. 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 Review of Systems All systems: negative (As mentioned in HPI. All other systems not noted in the ROS are negative.) Past Medical History Past Medical History: Asthma, Chest Pain / Angina, GERD/Reflux, Hyperlipidemia, Hypertension, Musculoskeletal Disorder, Osteoarthritis (OA), Thyroid Disorder, Vascular Disorder Additional Past Medical History / Comment(s): Peripheral vascular disease, neuropathy, asthma as child, hiatal hernia, gout, degenerative discs, one episode of chest pain yrs ago.(nuclear stress test ok) recent URI tx with Abx and steroids. hx of blockage to femoral artery rt leg. History of Any Multi-Drug Resistant Organisms: None Reported Past Surgical History: Appendectomy, Heart Catheterization, Orthopedic Surgery Additional Past Surgical History / Comment(s): PTBA with bilateral iliac stents X3( 2 left, 1 right), PARTIAL THYROIDECTOMY, left shoulder rotator cuff repair, COLONOSCOPY, PAIN CLINIC PROCEDURE, bilateral knee arthroscopy. rt femoral endartectomy. Past Anesthesia/Blood Transfusion Reactions: No Reported Reaction Additional Past Anesthesia/Blood Transfusion Reaction / Comment(s): Pt has never had blood. Smoking Status: Former smoker - Past Family History Mother Brother(s) Family Medical History: Cancer Sister(s) Family Medical History: Cancer Additional Family Medical History / Comment(s): brain cancer Mother Family Medical History: Cancer Brother(s) Family Medical History: CVA/TIA Medications and Allergies Home Medications Medication Instructions Recorded Confirmed Type Atorvastatin [Lipitor] 40 mg PO HS 04/02/17 11/09/23 History Multivit-Min/FA/Lycopen/Lutein 1 each PO DAILY 04/02/17 11/09/23 History [Centrum Silver Tablet] Primidone [Mysoline] 150 mg PO DAILY 04/02/17 11/09/23 History rOPINIRole HCL [Requip] 0.5 mg PO HS 04/19/19 11/09/23 History Amitriptyline HCl 25 mg PO HS 06/19/19 11/09/23 History Furosemide [Lasix] 20 mg PO QAM 09/04/19 11/09/23 History Potassium Chloride [Klor-Con M10] 10 meq PO BID 05/21/20 11/09/23 History Clopidogrel [Plavix] 75 mg PO QAM 03/03/23 11/09/23 History Venlafaxine HCl [Effexor] 37.5 mg PO QAM 03/03/23 11/09/23 History allopurinoL 300 mg PO QAM 03/03/23 11/09/23 History Aspirin 81 mg PO DAILY 11/03/23 11/09/23 History Benazepril HCl 20 mg PO DAILY 11/03/23 11/09/23 History Famotidine 40 mg PO HS 11/03/23 11/09/23 History Levothyroxine Sodium 88 mcg PO HS 11/03/23 11/09/23 History Meloxicam 7.5 mg PO DAILY 11/03/23 11/09/23 History Pregabalin 150 mg PO BID 11/03/23 11/09/23 History Terazosin [Hytrin] 2 mg PO HS 11/03/23 11/09/23 History Unk Prevagen 1 tab PO DAILY 11/03/23 11/09/23 History Allergies Allergy/AdvReac Type Severity Reaction Status Date / Time No Known Allergies Allergy Verified 11/09/23 07:15 Physical Examination - Vital Signs Vital Signs: Vital Signs Temp Pulse Pulse Resp BP BP Pulse Ox 11/10/23 15:00 87 10 L 120/63 91 L 11/10/23 14:30 86 11 L 121/64 90 L 11/10/23 14:00 86 10 L 150/51 91 L 11/10/23 13:30 95 17 94/55 92 L 11/10/23 13:00 85 10 L 103/58 91 L 11/10/23 12:30 88 13 100/38 92 L 11/10/23 12:00 91 14 104/54 90 L 11/10/23 11:30 94 13 114/64 91 L 11/10/23 11:00 94 12 106/42 95 11/10/23 10:30 98 7 L 118/54 94 L 11/10/23 10:00 88 13 109/59 92 L 11/10/23 09:30 93 13 116/44 95 11/10/23 09:00 92 13 112/53 94 L 11/10/23 08:30 97 12 113/55 94 L 11/10/23 08:00 99.3 F 96 11 L 121/78 92 L 11/10/23 07:00 95 16 107/82 91 L 11/10/23 06:30 100 20 111/40 92 L 11/10/23 06:00 94 12 95/42 93 L 11/10/23 05:30 96 12 94/59 93 L 11/10/23 05:00 101 H 24 94/66 92 L 11/10/23 04:30 103 H 17 82/58 92 L 11/10/23 04:00 100.9 F H 104 H 16 101/49 96 11/10/23 03:30 103 H 7 L 81/49 95 11/10/23 03:00 105 H 14 97/45 90 L 11/10/23 02:30 104 H 13 98/58 91 L 11/10/23 02:00 99 13 102/53 92 L 11/10/23 01:30 93 14 99/55 94 L 11/10/23 01:00 92 12 107/41 94 L 11/10/23 00:30 101 H 16 119/57 93 L 11/10/23 00:00 98.3 F 88 18 113/53 96 11/09/23 22:30 80 14 160/66 98 11/09/23 22:00 86 14 135/53 97 11/09/23 21:30 82 14 104/52 95 11/09/23 21:00 86 24 120/65 95 11/09/23 20:30 73 14 100/64 97 11/09/23 20:00 97.8 F 82 27 H 121/55 93 L 11/09/23 19:00 94.5 F L 69 10 L 111/55 96 11/09/23 18:30 71 12 110/72 95 11/09/23 18:15 95 11/09/23 18:00 78 12 120/51 94 L 11/09/23 17:35 66 16 115/58 92 L 11/09/23 17:20 66 16 123/54 93 L 11/09/23 17:05 64 16 129/62 94 L 11/09/23 16:50 68 18 125/59 94 L 11/09/23 16:35 70 18 118/58 94 L 11/09/23 16:20 68 16 126/58 97 11/09/23 16:11 97.6 F 72 12 118/61 98 Intake and Output 11/10/23 11/10/23 11/10/23 06:59 14:59 22:59 Intake Total 2244 1429 75 Output Total 750 685 80 Balance 1494 744 -5 Intake: IV 2244 629 75 Lactated Ringers 1,000 ml 20 20 @ 20 mls/hr IV .Q24H [facility] Rx#:[id number] Pressure Bag 24 9 Sodium Chloride 0.9% 1, 600 600 75 000 ml @ 75 mls/hr IV . [id number] [facility] Rx#:[id number] Sodium Chloride 0.9% 500 1500 ml 500 ml @ 999 mls/hr IV .Q31M [facility] Rx#:[id number] ceFAZolin 3 gm In Sodium 100 Chloride 0.9% 100 ml @ 200 mls/hr IVPB ONCE PRN Rx#:[id number] Oral 800 Output: Drainage 600 300 Back 600 300 Urine 150 385 80 Other: Voiding Method Indwelling Catheter Indwelling Catheter Weight 137 kg Patient is an elderly male, who is in no acute distress. At present somewhat encephalopathic, groggy, somnolent. Patient is somewhat encephalopathic, groggy, somnolent, slow mentation and decreased concentration. He is exhibiting intermittent myoclonic jerks. He is fully oriented to time place and person. He knows it is October 2023 and that he is in [facility] in [facility] and name of the current president. Speech and language functions are normal. Patient can name and repeat very well. No aphasia or dysarthria. Attention, concentration are significantly i mpaired and fund of knowledge is adequate. On cranial nerve examination, pupils are equal, round and reacting to light, visual sweeney are full on confrontation, with no neglect on double simultaneous stimulation. Extraocular muscles are intact with no nystagmus. Face is symmetric, tongue protrudes to the midline. Palatal elevation and sensation normal, hearing and shoulder shrug normal, facial sensation normal. On muscle strength testing, there is no pronator drift. Patient has significant myoclonic jerks noticed of outstretched hands, in the left arm somewhat dips down more than the right. The muscle strength is normal in both arms distally and proximally. In the lower limbs (right/left) hip flexion 4-/4-3+, knee extension 5/4, ankle dorsiflexion 5/2. Deep tendon reflexes are symmetric and trace all over. Plantars are flat. Sensory to touch is equal in the arms with no neglect on double simultaneous stimulation. In the lower limb, patient does neglect left leg as compared to the right with double simultaneous stimulation. Cerebellar function showed no ataxia for [id number] testing. Cannot check for ataxia for [id number] testing on either side. Tone and bulk of muscles normal. Gait deferred.. On general examination, there is no carotid bruit or murmur, S1-S2 audible. Chest is clear on consultation. Abdomen is soft nontender. No organomegaly, bowel sounds present. Peripheral pulses are present. No peripheral edema. Results - Laboratory Findings CBC and BMP: 11/11/23 04:04 11/11/23 04:04 Abnormal Lab Findings: Abnormal Labs 11/03/23 11/09/23 11/09/23 14:37 14:30 16:17 WBC 12.0 H RBC 3.07 L Hgb 9.6 L Hct 29.1 L Neutrophils # 9.9 H Lymphocytes # INR ABG pH 7.32 L ABG pCO2 48 H ABG pO2 198 H ABG O2 Saturation 98.5 H ABG Hematocrit 29 L ABG Potassium 4.8 H ABG Glucose 117 H Hemoglobin 9.3 L Sodium Potassium Chloride Carbon Dioxide BUN Creatinine Glucose POC Glucose (mg/dL) Calcium Arterial Blood Potassium 4.8 H Arterial Blood Glucose 117 H Crossmatch See Detail 11/09/23 11/09/23 11/09/23 16:17 16:17 17:59 WBC RBC Hgb Hct Neutrophils # Lymphocytes # INR 1.2 H ABG pH ABG pCO2 ABG pO2 ABG O2 Saturation ABG Hematocrit ABG Potassium ABG Glucose Hemoglobin Sodium 135 L Potassium Chloride Carbon Dioxide 21 L BUN Creatinine 1.35 H Glucose 107 H POC Glucose (mg/dL) 111 H Calcium 7.7 L Arterial Blood Potassium Arterial Blood Glucose Crossmatch 11/10/23 11/10/23 11/10/23 03:58 03:58 11:18 WBC RBC 2.76 L Hgb 8.6 L Hct 26.3 L Neutrophils # Lymphocytes # 0.9 L INR ABG pH ABG pCO2 ABG pO2 ABG O2 Saturation ABG Hematocrit ABG Potassium ABG Glucose Hemoglobin Sodium 134 L Potassium 5.5 H Chloride 108 H Carbon Dioxide 20 L BUN 24 H Creatinine 2.12 H Glucose 100 H POC Glucose (mg/dL) 120 H Calcium 7.0 L Arterial Blood Potassium Arterial Blood Glucose Crossmatch Assessment and Plan Assessment: * Acute onset of left sided weakness, leg more than the arm with reported ini tial NIH stroke scale of 6. At present patient only has deficits in the left lower extremity, with predominant left foot drop, and numbness of the left leg. No deficits noted in the upper extremities or cranial nerves region. Differential diagnosis is between CVA versus peripheral/radicular process from recent back surgery. * Right ICA stenosis 70% per CTA. Intracranial multivessel atherosclerotic disease. * Status post elective L2 to pelvis decompression and fusion 11/09/2023 * History of L2-S1 spondylosis with stenosis, bilateral lower extremity weakness and neurogenic claudication. * Metabolic encephalopathy * Acute kidney injury * Anemia * Obesity * Hypertension * Hyperlipidemia * Osteoarthritis * Peripheral vascular disease * Peripheral neuropathy Plan: * Patient has acute onset of left leg weakness. CVA is most likely cause. However differential also includes peripheral/radicular process. * Discussed with Dr. Gonzalez. At present we will rule out CVA. * MRI of the brain evaluate for CVA * 2D echo with bubble study, rule out PFO. * CTA revealed no evidence of proximal large vessel occlusion in the intracranial arterial system. Scattered atherosclerotic disease intracranially creating up to mild multifocal stenosis. Scattered atherosclerotic disease in the bilateral cervical carotid arteries, creating up to 70% stenosis of the proximal right ICA. Moderate stenosis of the right vertebral artery origin with moderate to severe stenosis of the left vertebral artery origin. * Vascular surgical consultation for right ICA stenosis, probably symptomatic * Resume Plavix, which has been held from prior to surgery. Continue aspirin 81 mg daily. Orthopedic surgery cleared for DAPT. * Fasting lipid panel, hemoglobin A1c, B12, folate * PT OT, speech therapy * Other medical management as per IM and other specialties. * DVT prophylaxis: Patient on heparin 5000 units subcu every 12 hour. Time with Patient: Greater than 30
[2023-11-11] MEDS: PRIMIDONE 50 MG TAB PO SCH (09:30)
--- NOTE | 2023-11-11 12:43 | CA ---
Transthoracic Echo Report Name: Justice Mayer Age: 77 Gender: M : 1945 Exam Date: 11/11/2023 07:36 Exam Location: [facility] Ht (in): 72 Wt (lb): 302 Ordering Physician: Lacy Marvin MD Attending/Referring Phys: Enamel Dipper Debby Bailey RCS Procedure CPT: Indications: possible CVA Cardiac Hx: Technical Quality: Technically difficult study Contrast 1: Definity Total Dose (mL): 2 Contrast 2: Total Dose (mL): MEASUREMENTS (Male / Female) Normal Values 2D ECHO LVOT Diameter 2.6 cm LV Diastolic Volume MOD BP 118.8 cm??? 67 - 155 / 56 - 104 cm??? LV Systolic Volume MOD BP 35.0 cm??? 22 - 58 / 19 - 49 cm??? LV Ejection Fraction MOD BP 70.6 % >= 55 % LV Cardiac Index MOD BP 2799.1 cm???/min???m??? LV Diastolic Volume MOD 4C 127.3 cm??? LV Systolic Volume MOD 4C 41.5 cm??? LV Ejection Fraction MOD 4C 67.4 % LV Cardiac Index MOD 4C 2863.8 cm???/min???m??? LV Diastolic Length 4C 8.0 cm LV Systolic Length 4C 6.9 cm LV Diastolic Volume MOD 2C 104.0 cm??? LV Systolic Volume MOD 2C 28.2 cm??? LV Ejection Fraction MOD 2C 72.9 % LV Cardiac Index MOD 2C 2531.0 cm???/min???m??? LV Diastolic Length 2C 7.5 cm LV Systolic Length 2C 6.3 cm Ascending Aorta Diameter 3.6 cm DOPPLER AV Peak Velocity 132.5 cm/s AV Peak Gradient 7.0 mmHg AV Mean Velocity 92.1 cm/s AV Mean Gradient 3.8 mmHg AV Velocity Time Integral 28.5 cm LVOT Peak Velocity 106.2 cm/s LVOT Peak Gradient 4.5 mmHg LVOT Velocity Time Integral 21.6 cm LVOT Stroke Volume 116.0 cm??? LVOT Stroke Volume Index 45.7 ml/m??? LVOT Cardiac Index 3872.2 cm???/min???m??? AV Area Cont Eq vti 4.1 cm??? AV Area Cont Eq pk 4.3 cm??? Mitral E Point Velocity 73.0 cm/s Mitral A Point Velocity 120.1 cm/s Mitral E to A Ratio 0.6 MV Deceleration Time 117.0 ms MV E' Velocity 6.7 cm/s Mitral E to MV E' Ratio 10.9 FINDINGS Left Ventricle Left ventricular ejection fraction is estimated at 60-65 %. Left ventricular cavity size normal. No obvious regional wall motion abnormalities. Right Ventricle Normal right ventricular size and function. Unable to estimate right ventricular systolic function. Right Atrium Right atrium not well visualized. Left Atrium Left atrium not well visualized. Mitral Valve Mitral valve not well visualized. No mitral stenosis. No mitral regurgitation. Aortic Valve Aortic valve not well visualized. No aortic stenosis. No aortic regurgitation. Tricuspid Valve Structurally normal tricuspid valve. No tricuspid stenosis. No tricuspid regurgitation. Pulmonic Valve Pulmonic valve not well visualized. No pulmonic stenosis. No pulmonic regurgitation. Pericardium No pericardial effusion. Aorta Normal size aortic root and proximal ascending aorta. CONCLUSIONS Left ventricular ejection fraction is estimated at 60-65 %. No obvious regional wall motion abnormalities. Normal right ventricular size and function. No significant valvular dysfunction No pericardial effusion. . Previewed by: Dr Gibran Burks (Electronically Signed) Final Date: 11 November 2023 12:43
--- NOTE | 2023-11-11 13:42 | P.GSCN ---
History of Present Illness Consult date: 11/11/23 Reason for Consult: Carotid stenosis Requesting physician: Lacy Marvin History of present illness: Patient is a 77-year-old male with a history of lumbar spinal stenosis who came to the hospital for elective L2 pelvis decompression and fusion. He is postop day #2. Apparently yesterday physical therapy had come in to see the patient to get him up and he had a left lower extremity flaccidity. He has a history of d iabetes mellitus, hypertension, hyperlipidemia and peripheral neuropathy. He is a former smoker. Quit in 2000. 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 Due to the lower extremity weakness a code stroke was called. Patient was not a candidate for tPA because of recent back surgery and unknown well time. He had a CT of the brain that showed no acute findings and also underwent CT angiogram head and neck that reported 70% stenosis of the right ICA and less than 50% on the left. Vascular surgery was consulted for carotid stenosis. Patient went down for MRI. Results are pending. Patient. Review of Systems A 14 point review systems was completed all pertinent positives and negatives as stated in the HPI. Past Medical History Past Medical History: Asthma, Chest Pain / Angina, GERD/Reflux, Hyperlipidemia, Hypertension, Musculoskeletal Disorder, Osteoarthritis (OA), Thyroid Disorder, Vascular Disorder Additional Past Medical History / Comment(s): Peripheral vascular disease, neuropathy, asthma as child, hiatal hernia, gout, degenerative discs, one episode of chest pain yrs ago.(nuclear stress test ok) recent URI tx with Abx and steroids. hx of blockage to femoral artery rt leg. History of Any Multi-Drug Resistant Organisms: None Reported Past Surgical History: Appendectomy, Heart Catheterization, Orthopedic Surgery Additional Past Surgical History / Comment(s): PTBA with bilateral iliac stents X3( 2 left, 1 right), PARTIAL THYROIDECTOMY, left shoulder rotator cuff repair, COLONOSCOPY, PAIN CLINIC PROCEDURE, bilateral knee arthroscopy. rt femoral endartectomy. Past Anesthesia/Blood Transfusion Reactions: No Reported Reaction Additional Past Anesthesia/Blood Transfusion Reaction / Comm: Pt has never had blood. Smoking Status: Former smoker - Past Family History Mother Brother(s) Family Medical History: Cancer Sister(s) Family Medical History: Cancer Additional Family Medical History / Comment(s): brain cancer Mother Family Medical History: Cancer Brother(s) Family Medical History: CVA/TIA Medications and Allergies Home Medications Medication Instructions Recorded Confirmed Type Atorvastatin [Lipitor] 40 mg PO HS 04/02/17 11/09/23 History Multivit-Min/FA/Lycopen/Lutein 1 each PO DAILY 04/02/17 11/09/23 History [Centrum Silver Tablet] Primidone [Mysoline] 150 mg PO DAILY 04/02/17 11/09/23 History rOPINIRole HCL [Requip] 0.5 mg PO HS 04/19/19 11/09/23 History Amitriptyline HCl 25 mg PO HS 06/19/19 11/09/23 History Furosemide [Lasix] 20 mg PO QAM 09/04/19 11/09/23 History Potassium Chloride [Klor-Con M10] 10 meq PO BID 05/21/20 11/09/23 History Clopidogrel [Plavix] 75 mg PO QAM 03/03/23 11/09/23 History Venlafaxine HCl [Effexor] 37.5 mg PO QAM 03/03/23 11/09/23 History allopurinoL 300 mg PO QAM 03/03/23 11/09/23 History Aspirin 81 mg PO DAILY 11/03/23 11/09/23 History Benazepril HCl 20 mg PO DAILY 11/03/23 11/09/23 History Famotidine 40 mg PO HS 11/03/23 11/09/23 History Levothyroxine Sodium 88 mcg PO HS 11/03/23 11/09/23 History Meloxicam 7.5 mg PO DAILY 11/03/23 11/09/23 History Pregabalin 150 mg PO BID 11/03/23 11/09/23 History Terazosin [Hytrin] 2 mg PO HS 11/03/23 11/09/23 History Unk Prevagen 1 tab PO DAILY 11/03/23 11/09/23 History Allergies Allergy/AdvReac Type Severity Reaction Status Date / Time No Known Allergies Allergy Verified 11/09/23 07:15 Surgical - Exam Vital Signs Temp Pulse Resp BP Pulse Ox 97.4 F L 83 16 152/67 99 11/09/23 07:24 11/09/23 07:24 11/09/23 07:24 11/09/23 07:24 11/09/23 07:24 General appearance: The patient is alert, oriented, appears in no acute distress. HET: Head is normocephalic and atraumatic. Pupils are equal and reactive. Neck: Supple. Heart: Regular. Lungs: Equal expansion, normal respiratory effort. Abdomen: Soft, nontender, nondistended. Extremities: Normal skin color and turgor. Neurological: Patient is alert and oriented x 3. Left lower extremity weakness. Results - Labs 11/11/23 04:04 11/11/23 04:04 Abnormal Lab Results - Last 24 Hours (Table) 11/10/23 11/10/23 11/11/23 Range/Units 11:18 21:33 04:04 RBC 2.84 L 2.56 L (4.30-5.90) m/uL Hgb 8.8 L 8.1 L (13.0-17.5) gm/dL Hct 27.6 L 24.8 L (39.0-53.0) % Plt Count 136 L 135 L (150-450) k/uL Sodium (137-145) mmol/L Carbon Dioxide (22-30) mmol/L BUN (9-20) mg/dL Creatinine (0.66-1.25) mg/dL Glucose (74-99) mg/dL POC Glucose (mg/dL) 120 H (70-110) mg/dL Calcium (8.4-10.2) mg/dL HDL Cholesterol (40.00-60.00) mg/dL 11/11/23 Range/Units 04:04 RBC (4.30-5.90) m/uL Hgb (13.0-17.5) gm/dL Hct (39.0-53.0) % Plt Count (150-450) k/uL Sodium 131 L (137-145) mmol/L Carbon Dioxide 21 L (22-30) mmol/L BUN 23 H (9-20) mg/dL Creatinine 1.97 H (0.66-1.25) mg/dL Glucose 100 H (74-99) mg/dL POC Glucose (mg/dL) (70-110) mg/dL Calcium 7.0 L (8.4-10.2) mg/dL HDL Cholesterol 23.80 L (40.00-60.00) mg/dL Diabetes panel 11/11/23 11/11/23 Range/Units 04:04 04:04 Sodium 131 L (137-145) mmol/L Potassium 4.7 (3.5-5.1) mmol/L Chloride 104 (98-107) mmol/L Carbon Dioxide 21 L (22-30) mmol/L BUN 23 H (9-20) mg/dL Creatinine 1.97 H (0.66-1.25) mg/dL Glucose 100 H (74-99) mg/dL Hemoglobin A1c 5.6 (<=6.0) % Calcium 7.0 L (8.4-10.2) mg/dL Triglycerides 102.00 (0.00-149.00) mg/dL HDL Cholesterol 23.80 L (40.00-60.00) mg/dL Calcium panel 11/11/23 Range/Units 04:04 Calcium 7.0 L (8.4-10.2) mg/dL Pituitary panel 11/11/23 Range/Units 04:04 Sodium 131 L (137-145) mmol/L Potassium 4.7 (3.5-5.1) mmol/L Chloride 104 (98-107) mmol/L Carbon Dioxide 21 L (22-30) mmol/L BUN 23 H (9-20) mg/dL Creatinine 1.97 H (0.66-1.25) mg/dL Glucose 100 H (74-99) mg/dL Calcium 7.0 L (8.4-10.2) mg/dL Adrenal panel 11/11/23 Range/Units 04:04 Sodium 131 L (137-145) mmol/L Potassium 4.7 (3.5-5.1) mmol/L Chloride 104 (98-107) mmol/L Carbon Dioxide 21 L (22-30) mmol/L BUN 23 H (9-20) mg/dL Creatinine 1.97 H (0.66-1.25) mg/dL Glucose 100 H (74-99) mg/dL Calcium 7.0 L (8.4-10.2) mg/dL - Imaging Comments: CT head revealed no acute intracranial process. Some nonspecific, probably dystrophic calcification right occipital lobe. Mild to moderate chronic ethmoid and right maxillary sinus disease. I personally reviewed CT head, agree with the findings. EKG shows sinus tachycardia with first-degree AV block. CTA head and neck revealed no evidence of proximal large vessel occlusion in the intracranial arterial system. Scattered atherosclerotic disease intracranially creating up to mild multifocal stenosis. Scattered atherosclerotic disease in the bilateral cervical carotid arteries, creating up to 70% stenosis of the proximal right ICA. Moderate stenosis of the right vertebral artery origin with moderate to severe stenosis of the left vertebral artery origin. MRI of the lumbar spine on 06/28/2023 revealed severe degeneration changes throu ghout the spine with severe L2-L3, L3-L4 and L4-L5 spinal canal stenosis secondary to osteophytes and disc bulging with facet joint arthropathy. Neural foraminal stenosis worse at these levels extending from L2-L3 to L5-S1. Assessment and Plan Assessment: 1. Right internal carotid artery stenosis approximately 70% 2. Left lower extremity weakness 3. Postop day #2 for elective L2 to pelvis decompression and fusion 4. History of lumbar spinal stenosis 5. Peripheral neuropathy 6. Diabetes mellitus Plan: 1. Await MRI brain results 2. Agree with Plavix, aspirin and statin 3. Carotid duplex ordered however patient has dressing on neck unable to perform 4. Continue with PT and OT 5. Further recommendations forthcoming based on clinical course 6. Continue with recommendations from neurology Thank you for this consultation, we will continue to follow. The impression and plan of care has been dictated as directed. I performed a history and examination of this patient, discussed the same with the dictator. I agree with the dictator's note ,documented as a scribe. Any additional findings or plans will be noted.
--- NOTE | 2023-11-11 14:32 | US ---
EXAMINATION TYPE: US carotid duplex LT DATE OF EXAM: 11/11/2023 COMPARISON: CTa 11/10/2023 CLINICAL INDICATION: Male, 77 years old with history of Left lower extremity weakness; Prior smoker, hypertension, hyperlipidemia. TECHNIQUE: Carotid duplex ultrasound examination. Indirect Doppler criteria was utilized. 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 Limited exam. Unable to follow left ICA distally. Prox and mid ICA imaged. Elevated velocity within left ECA. Plaque seen within left bulb. IMPRESSION: 1. No diagnostic evidence of hemodynamic significant stenosis of the left carotid system. Note is mad e that the distal margin of the left ICA could not be identified due to above limitations. Criteria for Assigning % of Stenosis / Diameter reduction (Estimation based on the indirect measurements of the internal carotid artery velocities (ICA PSV). 1. Normal (no stenosis)=ICA PSV < 125 cm/s: ratio < 2.0: ICA EDV<40 cm/s. 2. Less than 50% stenosis=ICA PSV < 125 cm/s: ratio < 2.0: ICA EDV<40 cm/s. 3. 50 to 69% stenosis=ICA PSV of 125 to 230 cm/s: ration 2.0 ? 4.0: ICA EDV 40-100 cm/s. 4. Greater than 70% stenosis to near occlusion= ICA PSV > 230 cm/s: ratio > 4.0: ICA EDV > 100 cm/s. 5. Near occlusion= ICA PSV velocities may be low or undetectable: variable ratio and ICA EDV. 6. Total occlusion=unable to detect flow.
--- NOTE | 2023-11-11 15:53 | MR ---
EXAMINATION TYPE: MR brain wo con DATE OF EXAM: 11/11/2023 2:57 PM CLINICAL INDICATION:Male, 77 years old with history of CVA; COMPARISON: 11/10/2023. TECHNIQUE: Multi planar, multi sequence imaging was performed through the brain including: T1, T2, In version recovery, Diffusion weighted imaging, and gradient echo imaging. No gadolinium was given. FINDINGS: The henry-white junctions, ventricular system, basal cisterns appear unremarkable. Scattered foci of high T2 signal intensity are seen within the periventricular white matter. Midline structures show n o abnormality. Diffusion-weighted imaging shows no evidence of restricted diffusion. The susceptibili ty weighted images do not reveal any evidence for micro-hemorrhage. The bone marrow signal is within normal limits. Paranasal sinuses and mastoid air cells: Paranasal sinus disease involving the maxillary sinuses. Visualized orbits: Orbital contents are intact. IMPRESSION: 1. No evidence of intracranial mass or acute/subacute infarct. 2. Nonspecific white matter changes, likely secondary to small vessel ischemic disease.
--- NOTE | 2023-11-11 16:15 | P.PN ---
Subjective Progress Note Date: 11/11/23 Status post L2 to pelvis decompression and fusion 11/10/2023 this is a pleasant 77-year-old gentleman admitted with severe L2-S1 spondylosis with stenosis, bilateral lower extremity weakness and neurogenic claudication,status post L2 to pelvis decompression and fusion, postop day #1.Tmax 100.9, normal WBC. Telemetry sinus rhythm. Maintained on IV fluid hydration. Continues on aspirin with Plavix on hold. Hemovac with approximately 800 mL output per 24-hour I&O, hemoglobin 8.6, platelets 153 .renal function worsening with creatinine up to 2.12. Potassium 5.5 .denies chest pain, palpitations or shortness of breath. Maintaining O2 sats in the 90s on 2 L nasal cannula. Lumbar spine CT reported postsurgical changes consistent with lumbar fusion. Positive pain, denies numbness or tingling of bilateral lower extremities. 11/11/2023 yesterday, patient discovered to have flaccid left lower extremity, upon PTs initial visit postop. Code stroke was called. Patient was determined not to be a candidate for tPA related to recent back surgery and unknown well time. Evaluated by neurology with neurowork-up initiated .CTA recommended by Dr. Dwyer. Brain CT reported no acute findings. CTA of head and neck reported no evidence of proximal large vessel occlusion in the intracranial arterial system. Scattered atherosclerotic disease intracranially creating up to mild multifocal stenosis. Scattered atherosclerotic disease in the bilateral cervical carotid arteries, creating up to 70% stenosis of the proximal right ICA. Moderate stenosis of the right vertebral artery origin with moderate to severe stenosis of the left vertebral artery origin. Hemovac drainage lessening, 650ml over 24 hours. Hemoglobin 8.1, platelets 135. BUN 23, creatinine 1.97. Drowsy this morning, received Tylenol earlier this morning and [place] last night around 9 PM. Positive pain. Tmax 101.5, normal WBC. Chest x-ray reported no acute cardiopulmonary disease/process. Complains of headache. MRI pending. Objective - Vital Signs Vital signs: Vital Signs Temp 99 F 11/11/23 12:00 Pulse 85 11/11/23 14:00 Resp 18 11/11/23 14:00 BP 137/55 11/11/23 14:00 Pulse Ox 98 11/11/23 14:00 FiO2 Intake & Output 11/10/23 11/11/23 11/11/23 18:59 06:59 18:59 Intake Total 2604 925 940 Output Total 1415 2225 2775 Balance 1189 1300 -1835 Weight 137.5 kg Intake: IV 1004 925 450 Lactated Ringers 1,000 ml 20 @ 20 mls/hr IV .Q24H [facility] Rx#:[id number] Pressure Bag 9 Sodium Chloride 0.9% 1, 975 825 450 000 ml @ 75 mls/hr IV . [id number] [facility] Rx#:[id number] ceFAZolin 3 gm In Sodium 100 Chloride 0.9% 100 ml @ 200 mls/hr IVPB ONCE PRN Rx#:[id number] Intake, IV Titration 250 Amount Caffeine-Sodium Benzoate 100 500 mg In Sodium Chloride 0.9% 100 ml @ 204 mls/hr IVPB ONCE ONE Rx#: [id number] Dexamethasone Sod 50 Phosphate 20 mg In Dextrose 5% in Water 50 ml @ 100 mls/hr IV ONCE STA Rx#:[id number] ceFAZolin 3 gm In Sodium 100 Chloride 0.9% 100 ml @ 200 mls/hr IVPB Q8H [facility] Rx#:[id number] Oral 1600 240 Output: Drainage 500 150 270 Back 500 150 270 Urine 915 2075 2505 Other: Voiding Method Indwelling Catheter Indwelling Catheter Indwelling Catheter ABP, PAP, CO, CI - Last Documented Arterial Blood Pressure 114/34 - Exam PHYSICAL EXAM: VITAL SIGNS: [As above] GENERAL: Pleasant, alert and oriented x 2-3, sitting up in bed, drowsy HEENT: Normocephalic, conjunctivae normal. eyes normal. NECK: Supple, no JVD. No thyroid enlargement. No LNs CARDIOVASCULAR: S1, S2 regular. No murmur RESPIRATION: Unlabored, equal air entry ,breath sounds diminished in the bases. No rhonchi or crackles. No bronchial breathing. ABDOMEN: Soft, nontender . No guarding. no masses palpable. No ascites, No hepatosplenomegaly.Bowel sounds heard. LEGS: No edema. no swelling NERVOUS SYSTEM: Alert and oriented x 2-3, left lower extremity weakness, essential tremors . Skin: Warm and dry, no rash - Labs CBC & Chem 7: 11/11/23 04:04 11/11/23 04:04 Labs: Abnormal Lab Results - Last 24 Hours (Table) 11/10/23 11/11/23 11/11/23 Range/Units 21:33 04:04 04:04 RBC 2.84 L 2.56 L (4.30-5.90) m/uL Hgb 8.8 L 8.1 L (13.0-17.5) gm/dL Hct 27.6 L 24.8 L (39.0-53.0) % Plt Count 136 L 135 L (150-450) k/uL Sodium 131 L (137-145) mmol/L Carbon Dioxide 21 L (22-30) mmol/L BUN 23 H (9-20) mg/dL Creatinine 1.97 H (0.66-1.25) mg/dL Glucose 100 H (74-99) mg/dL Calcium 7.0 L (8.4-10.2) mg/dL HDL Cholesterol 23.80 L (40.00-60.00) mg/dL Assessment and Plan Assessment: Severe L2-S1 spondylosis with stenosis, bilateral lower extremity weakness and neurogenic claudication, status post L2 to pelvis decompression and fusion Acute hypoxic respiratory failure secondary to the above, status post mechanical ventilation Acute onset left-sided lower extremity weakness, possible CVA, possible peripheral Right ICA stenosis 70% per CTA Postop anemia, expected outcome Acute renal failure secondary to #1 Chronic renal failure, stage III Chronic mild intermittent asthma Osteoarthritis Chronic back pain Hypertension Hyperlipidemia Hypothyroidism PVD with history of right femoral endarterectomy and patch angioplasty, bilateral iliac stents Plan: Continue on current medication regime, monitoring and symptomatic treatment. Procalcitonin, blood cultures ordered .IV piggyback of caffeine, Decadron as per orthopedic spine. neurology workup in progress, MRI pending. Hold primidone secondary to drowsiness .vascular surgery consulted in regards to carotid stenosis, recommendations pending aggressive pulmonary toileting with incentive spirometer reinforced. Orthopedic spine cleared patient to resume his dual antiplatelet therapy of Plavix and aspirin. PT. The impression and plan of care has been dictated as directed. : I performed a history and examination of this patient, discussed the same with the dictator. I agree with the dictator's note ,documented as a scribe. Any additional findings or plans will be noted.
--- NOTE | 2023-11-11 16:40 | P.PN ---
Subjective Progress Note Date: 11/11/23 This is a 75-year-old male patient was transferred to the intensive care unit for monitoring following his spine surgery. The patient underwent a lengthy surgery on his lumbar spine as the patient was experiencing low back pain and bilateral lower extremity numbness and tingling and weakness. CAT scan of the lumbar spine showed spondylosis L2-S1 along with collapse and disc height loss and facet arthrosis/osteophyte formation causing central canal and bilateral foraminal stenosis at each level. MRI of the lumbar spine done on 06/28/2023 showed similar findings with neuroma on stenosis worst at the level of L2-L3 and L5-S1. Based on that, the patient was taken to the operating room and underwent an L2 to pelvis decompression and fusion. The patient. Was difficult to arouse. He was ultimately weaned off the mechanical ventilator and the patient was extubated and brought into the intensive care unit for further monitoring. He has a radial arterial line and also has a triple-lumen catheter in his right IJ. He is awake and alert and communicating. White cell count is at 12 with a hemoglobin 9.6 and a platelet count of 170. The BUN is at 18 with a creatinine of 1.36 and a sodium level is at 135 with a potassium level of 4.9. He is awake and alert and communicating. He is on Dilaudid for pain control. He is also on Flexeril. He was given IV cefazolin for antibiotic prophylaxis. The patient has other comorbidities including peripheral vascular disease and the patient has undergone previous right femoral endarterectomy with patch angioplasty. Has hypertension, hyperlipidemia, bronchial asthma, hiatal hernia, gout, degenerative disc disease as mentioned above. He is currently hemodynamically stable. There is a Hemovac in his back with bloody output. Pulse ox 96% on 4 L of oxygen by nasal cannula. Cardiac rhythm is sinus. Able to move his lower extremities. Pain is under adequate control for now. On today's evaluation of 11/10/2023, the patient is being seen for a follow-up. Awake and alert and communicating. Denies having any specific complaints. He was on 4 L and he was weaned down to 2 L of O2 nasal cannula. He is complaining of back pain and the Hemovac is putting approximately 600 cc of bloody output and hemoglobin is being monitored at this point in time. Spine surgery is on the case. His hemoglobin has dropped down to 8.6 from 9.6 yesterday. Rest of the blood work shows also a component of acute kidney injury. BUN is up to 24 with a creatinine of 2.1 and a sodium levels at 134 with a potassium level of 5.5. The patient remains on normal saline at rate of 75 cc an hour. He is not taking any form of nephrotoxic agents at this point in time. Meanwhile, CT scan of the lumbar spine was done yesterday and it showed essentially postsurgical changes consistent with lumbar fusion. No other acute abnormalities was noted. The patient is taking Dilaudid for pain control is also on Flexeril and Lyrica. The rest of the outpatient medications have been all resumed. Renal function is being monitored. He denies having any numbness or tingling in his lower extremities. Motor function is adequate in lower extremities. The drain has been placed at half compression based on surgical recommendation. Using incentive spirometer. On today's evaluation of 11/11/2023, the patient continues to have some weakness in the left lower extremity. Note that yesterday, a code stroke was called as the patient noted weakness in his left upper and left lower extremity and he also complained of some numbness. His NIH score was 8. He was noted to have some slurred speech and facial droop and based on that, a CT angiogram of the brain was done and showed no evidence of any proximal large vessel occlusion in the intracranial arterial system. There was some scattered atherosclerotic disease intracranially with mild multifocal stenosis. There was 70% stenosis of the right proximal internal carotid artery. Moderate stenosis of the right vertebral artery origin and moderate to severe stenosis of the left vertebral artery origin. Patient was not given any thrombolytics. He was monitored neurologically. 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 No facial asymmetry. Awake and alert and communicating and answering questions appropriately. Based on that, he scheduled to undergo an MRI of the brain. Meanwhile, his respiratory status is stable. Patient is currently on 3 L of oxygen by nasal cannula with a pulse ox of 98%. I checked the chest x-ray from today and shows no acute abnormalities. The patient has a right IJ thrombus on normal catheter in place. MRI of the bra in was completed and the patient has no evidence of any intracranial mass or any acute or subacute infarct. There are some nonspecific white matter changes along with chronic small vessel ischemic changes seen bilaterally. The carotid Doppler was also completed and the patient has no evidence of any hemodynamic stenosis in the left carotid system. The blood work from today shows improvement in creatinine the creatinine is down to 1.97 with a BUN of 23. Sodium is at 131. Potassium is 4.7. WBC count at 7.8 with a hemoglobin of 8.1 and a platelet count of 135. The patient is currently on aspirin 81 mg p.o. daily. He is also on Plavix 75 mg p.o. daily. Gray for pain control. He is also on Flexeril. He was started on Decadron by the surgical team at 6 mg IV every 6 hours. 2D echocardiogram was also ordered and completed and echocardiogram showed normal left ventricular ejection fraction of 6065%. No other significant abnormalities noted. Objective - Vital Signs Vital signs: Vital Signs Temp 99.6 F 11/11/23 08:00 Pulse 86 11/11/23 09:00 Resp 18 11/11/23 09:00 BP 131/54 11/11/23 09:00 Pulse Ox 95 11/11/23 09:00 FiO2 Intake & Output 11/10/23 11/11/23 11/11/23 18:59 06:59 18:59 Intake Total 2604 925 445 Output Total 1415 2225 775 Balance 1189 -1300 -330 Weight 137.5 kg Intake: IV 1004 925 75 Lactated Ringers 1,000 ml 20 @ 20 mls/hr IV .Q24H [facility] Rx#:[id number] Pressure Bag 9 Sodium Chloride 0.9% 1, 975 825 75 000 ml @ 75 mls/hr IV . [id number] [facility] Rx#:[id number] ceFAZolin 3 gm In Sodium 100 Chloride 0.9% 100 ml @ 200 mls/hr IVPB ONCE PRN Rx#:[id number] Intake, IV Titration 250 Amount Caffeine-Sodium Benzoate 100 500 mg In Sodium Chloride 0.9% 100 ml @ 204 mls/hr IVPB ONCE ONE Rx#: [id number] Dexamethasone Sod 50 Phosphate 20 mg In Dextrose 5% in Water 50 ml @ 100 mls/hr IV ONCE STA Rx#:[id number] ceFAZolin 3 gm In Sodium 100 Chloride 0.9% 100 ml @ 200 mls/hr IVPB Q8H [facility] [place] Rx#:[id number] Oral 1600 120 Output: Drainage 500 150 170 Back 500 150 170 Urine 915 0611 605 Other: Voiding Method Indwelling Catheter Indwelling Catheter Indwelling Catheter ABP, PAP, CO, CI - Last Documented Arterial Blood Pressure 114/34 - Exam General appearance the patient calm comfortable no acute distress currently on 2 L of oxygen by nasal cannula. Head exam was generally normal. There was no scleral icterus or corneal arcus. Mucous membranes were moist. Neck was supple and without jugular venous distension, thyromegaly, or carotid bruits. Carotids were easily palpable bilaterally. There was no adenopathy. The patient has a right IJ triple-lumen catheter in place Lungs were clear to auscultation and percussion, and with normal diaphragmatic excursion. No wheezes or rales were noted. Cardiac exam revealed the PMI to be normally situated and sized. The rhythm was regular and no extrasystoles were noted during several minutes of auscultation. The first and second heart sounds were normal and physiologic splitting of the second heart sound was noted. There were no murmurs, rubs, clicks, or gallops. Abdominal exam revealed normal bowel sounds. The abdomen was soft, non-tender, and without masses, organomegaly, or appreciable enlargement of the abdominal aorta. Extremities reveal diminished pulses bilaterally. No cyanosis or clubbing. Neurologically, the patient is awake and alert and moving all 4 extremities. There is no facial asymmetry. Awake and alert and communicating. No dys arthria. No no facial asymmetry. Possibly some weakness in his left upper and left lower extremity more so on the left lower extremity Skin, surgical wound site is dry clean and intact and the patient is a Hemovac in place. - Labs CBC & Chem 7: 11/11/23 04:04 11/11/23 04:04 Labs: Abnormal Lab Results - Last 24 Hours (Table) 11/10/23 11/10/23 11/11/23 Range/Units 11:18 21:33 04:04 RBC 2.84 L 2.56 L (4.30-5.90) m/uL Hgb 8.8 L 8.1 L (13.0-17.5) gm/dL Hct 27.6 L 24.8 L (39.0-53.0) % Plt Count 136 L 135 L (150-450) k/uL Sodium (137-145) mmol/L Carbon Dioxide (22-30) mmol/L BUN (9-20) mg/dL Creatinine (0.66-1.25) mg/dL Glucose (74-99) mg/dL POC Glucose (mg/dL) 120 H (70-110) mg/dL Calcium (8.4-10.2) mg/dL HDL Cholesterol (40.00-60.00) mg/dL 11/11/23 Range/Units 04:04 RBC (4.30-5.90) m/uL Hgb (13.0-17.5) gm/dL Hct (39.0-53.0) % Plt Count (150-450) k/uL Sodium 131 L (137-145) mmol/L Carbon Dioxide 21 L (22-30) mmol/L BUN 23 H (9-20) mg/dL Creatinine 1.97 H (0.66-1.25) mg/dL Glucose 100 H (74-99) mg/dL POC Glucose (mg/dL) (70-110) mg/dL Calcium 7.0 L (8.4-10.2) mg/dL HDL Cholesterol 23.80 L (40.00-60.00) mg/dL Assessment and Plan Plan: L2 to pelvis decompression and fusion. The patient is currently postop day #2. Surgery was done for pain and weakness involving the lower extremities and the patient had evidence of severe spinal canal stenosis secondary to osteophyte and disc bulge with facet joint arthropathy. Patient also had neuroforaminal foraminal stenosis worse at the level of L2-L3 and L5-S1. The CAT scan of the lumbar spine showed postsurgical changes Acute hypoxic respiratory failure currently on 2 L of oxygen by nasal cannula. The patient had a prolonged surgery and the patient was able to wean off the mechanical ventilator and the patient is currently extubated and the patient is awake and alert and using the incentive spirometer. The chest x-ray remains clear of any pulmonary infiltrates and the patient has no signs of any respiratory distress. Acute onset of left sided weakness, leg more than the arm with reported initial NIH stroke scale of 6. At present patient only has deficits in the left lower extremity, with predominant left foot drop, and numbness of the left leg. No deficits noted in the upper extremities or cranial nerves region. Differential diagnosis is between CVA versus peripheral/radicular process from recent back surgery. CT of the brain was done CTA revealed no evidence of proximal large vessel occlusion in the intracranial arterial system. Scattered atherosclerotic disease intracranially creating up to mild multifocal stenosis. Scattered atherosclerotic disease in the bilateral cervical carotid arteries, creating up to 70% stenosis of the proximal right ICA. Moderate stenosis of the right vertebral artery origin with moderate to severe stenosis of the left vertebral artery origin. Vascular surgical consultation for right ICA stenosis, probably symptomatic. MRI of the brain shows no evidence of an acute or subacute stroke and was a negative study for acute CVA. Right ICA stenosis 70% per CTA. Intracranial multivessel atherosclerotic disease Postop anemia, expected outcome of surgery and the hemoglobin is dropped down to 8.1. The Hemovac output is being monitored. Acute kidney injury, rule out for surgical ATN and the creatinine is being monitored. Creatinine gradually improved and the patient remains on IV fluids Back pain, currently on Dilaudid for pain control Peripheral vascular disease with previous right femoral endarterectomy and patch angioplasty and the patient also has had bilateral iliac stents placement Hypertension Hyperlipidemia Bronchial asthma, mild intermittent Hypothyroidism Chronic back pain as mentioned above Osteoarthritis Chronic stage III kidney disease Plan The patient will have the FiO2 titrated and the patient is currently on 2 L. Provide incentive spirometer. Dilaudid for pain control Continue aspirin and restart Plavix 75 mg p.o. daily creatinine is improving on today's evaluation IV fluids with normal saline at rate of 75 cc an hour. Monitor hemoglobin. Monitor creatinine. Continue Flexeril 5 mg p.o. 3 times daily on a as needed basis Monitor hemoglobin Monitor renal function Vascular surgery consultation Echocardiogram was within normal limits MRI of the brain was noted and there is no evidence of any stroke Decadron was started at 6 mg IV every 6 hours for postsurgical edema and swelling Monitor output from the Hemovac Will continue to follow.
[2023-11-11] MEDS: DEXAMETHASONE SOD PHOSPHATE 10 MG/ML 1 ML VIAL IV SCH (18:38)
[2023-11-12 05:05] LABS: Basophils % (A) 0 %; Eosinophils % (A) 0 %; HCT 25.2 % (39.0-53.0); HGB 8.2 gm/dL (13.0-17.5); Lymphocytes # (A) 0.6 k/uL (1.0-4.8); Lymphocytes % (A) 5 %; MCH 31.4 pg (25.0-35.0); MCHC 32.6 g/dL (31.0-37.0); MCV 96.2 fL (80.0-100.0); Mean Platelet Volume 8.7; Monocytes # (A) 0.4 k/uL (0-1.0); Monocytes % (A) 3 %; Neutrophils # (A) 12.3 k/uL (1.3-7.7); Neutrophils % (A) 92 %; Platelet Count 150 k/uL (150-450); RBC 2.62 m/uL (4.30-5.90); RDW 13.3 % (11.5-15.5); WBC 13.4 k/uL (3.8-10.6)
[2023-11-12 05:21] LABS: African American GFR (CKD) 53 (>60 ml/min/1.73 sqM); Anion Gap 7 mmol/L; Blood Urea Nitrogen 22 mg/dL (9-20); Calcium 7.9 mg/dL (8.4-10.2); Carbon Dioxide 20 mmol/L (22-30); Chloride 109 mmol/L (98-107); Glucose 139 mg/dL (74-99); Non-African American GFR(CKD) 46 (>60 ml/min/1.73 sqM); Potassium 4.2 mmol/L (3.5-5.1); Sodium 136 mmol/L (137-145)
--- NOTE | 2023-11-12 08:39 | P.PN ---
Subjective Progress Note Date: 11/12/23 Principal diagnosis: Carotid stenosis Patient was seen and examined sitting up in bed in the ICU today. He states that he is starting to get increase movement and strength in his left lower extremity and left upper extremity seems to be back to baseline. He denies any other focal deficits. Yesterday he underwent MRI of the brain as part of stroke workup which was negative for any acute or subacute infarct and no evidence of intracranial mass. Nonspecific white matter changes, likely secondary to small vessel ischemic disease. Objective - Vital Signs Vital signs: Vital Signs Temp 98.3 F 11/12/23 04:00 Pulse 79 11/12/23 07:00 Resp 12 11/12/23 07:00 BP 154/65 11/12/23 07:00 Pulse Ox 96 11/12/23 07:00 FiO2 Intake & Output 11/11/23 11/12/23 11/12/23 18:59 06:59 18:59 Intake Total 1345 975 Output Total 3600 1950 Balance -2255 -975 Weight 141.8 kg Intake: IV 635 975 Sodium Chloride 0.9% 1, 635 975 000 ml @ 75 mls/hr IV . [id number] [facility] Rx#:[id number] Intake, IV Titration 350 Amount Caffeine-Sodium Benzoate 100 500 mg In Sodium Chloride 0.9% 100 ml @ 204 mls/hr IVPB ONCE ONE Rx#: [id number] Dexamethasone Sod 50 Phosphate 20 mg In Dextrose 5% in Water 50 ml @ 100 mls/hr IV ONCE STA Rx#:[id number] ceFAZolin 3 gm In Sodium 200 Chloride 0.9% 100 ml @ 200 mls/hr IVPB Q8H [facility] Rx#:[id number] Oral 360 Output: Drainage 270 250 Back 270 250 Urine 3330 1700 Other: Voiding Method Indwelling Catheter Indwelling Catheter ABP, PAP, CO, CI - Last Documented Arterial Blood Pressure 114/34 - Exam General appearance: The patient is alert, oriented, appears in no acute distress. HET: Head is normocephalic and atraumatic. Pupils are equal and reactive. Neck: Supple. Right neck with triple-lumen in place with dressing. Unable to evaluate carotid. No left carotid bruit. Heart: Regular. Lungs: Equal expansion, normal respiratory effort. Abdomen: Soft, nondistended. Extremities: Normal skin color and turgor. Palpable bilateral radial and celia salis pedis pulses. Neurological: Patient is alert and oriented x 3. Speech is fluent, answers ques tions appropriately and follows commands. Good strength and tone in right upper and lower extremity. Left upper extremity weaker grasp 4/5. Left lower extremity weakness although sensorimotor intact, and patient is able to wiggle his toes flex his ankle and bend at his knee. - Labs CBC & Chem 7: 11/12/23 04:24 11/12/23 04:20 Labs: Abnormal Lab Results - Last 24 Hours (Table) 11/11/23 11/11/23 11/12/23 Range/Units 04:04 16:19 04:20 WBC (3.8-10.6) k/uL RBC (4.30-5.90) m/uL Hgb (13.0-17.5) gm/dL Hct (39.0-53.0) % Neutrophils # (1.3-7.7) k/uL Lymphocytes # (1.0-4.8) k/uL Sodium 136 L (137-145) mmol/L Chloride 109 H (98-107) mmol/L Carbon Dioxide 20 L (22-30) mmol/L BUN 22 H (9-20) mg/dL Creatinine 1.47 H (0.66-1.25) mg/dL Glucose 139 H (74-99) mg/dL Calcium 7.9 L (8.4-10.2) mg/dL HDL Cholesterol 23.80 L (40.00-60.00) mg/dL Procalcitonin 0.21 H (0.02-0.09) ng/mL 11/12/23 Range/Units 04:24 WBC 13.4 H (3.8-10.6) k/uL RBC 2.62 L (4.30-5.90) m/uL Hgb 8.2 L (13.0-17.5) gm/dL Hct 25.2 L (39.0-53.0) % Neutrophils # 12.3 H (1.3-7.7) k/uL Lymphocytes # 0.6 L (1.0-4.8) k/uL Sodium (137-145) mmol/L Chloride (98-107) mmol/L Carbon Dioxide (22-30) mmol/L BUN (9-20) mg/dL Creatinine (0.66-1.25) mg/dL Glucose (74-99) mg/dL Calcium (8.4-10.2) mg/dL HDL Cholesterol (40.00-60.00) mg/dL Procalcitonin (0.02-0.09) ng/mL Assessment and Plan Assessment: 1. Asymptomatic right internal carotid artery stenosis approximately 70% 2. Left lower extremity weakness, improving. Possibly secondary to surgery 3. Postop day #3 for elective L2 to pelvis decompression and fusion 4. History of lumbar spinal stenosis 5. Peripheral neuropathy 6. Diabetes mellitus Plan: 1. MRI reviewed 2. Agree with Plavix, aspirin and statin 3. Carotid duplex canceled due to and triple-lumen in right side of neck. Will recommend outpatient at vascular office. 4. Continue with PT and OT 5. Continue with recommendations from neurology 6. CTA findings discussed with patient. Recommend outpatient follow-up to discuss further management of carotid stenosis and possible surgical intervention in the future. Thank you for this consultation, we we will sign off at this time. The impression and plan of care has been dictated as directed. I performed a history and examination of this patient, discussed the same with the dictator. I agree with the dictator's note ,documented as a scribe. Any additional findings or plans will be noted.
[2023-11-12] MEDS: MAGNESIUM HYDROXIDE 2,400 MG/30 ML CUP PO PRN (09:23)
--- NOTE | 2023-11-12 09:45 | P.PN ---
Subjective Progress Note Date: 11/11/23 Patient was seen for a follow-up. Patient is doing much better. Offers no new complaints. Still having back pain. Patient is laying comfortably in the bed. Objective - Vital Signs Vital signs: Vital Signs Temp 99 F 11/11/23 12:00 Pulse 87 11/11/23 13:00 Resp 18 11/11/23 13:00 BP 138/54 11/11/23 13:00 Pulse Ox 98 11/11/23 13:00 FiO2 Intake & Output 11/10/23 11/11/23 11/11/23 18:59 06:59 18:59 Intake Total 2604 925 790 Output Total 1415 2225 2100 Balance 1189 -1300 -1310 Weight 137.5 kg Intake: IV 1004 925 300 Lactated Ringers 1,000 ml 20 @ 20 mls/hr IV .Q24H [facility] Rx#:[id number] Pressure Bag 9 Sodium Chloride 0.9% 1, 975 825 300 000 ml @ 75 mls/hr IV . [id number] [facility] Rx#:[id number] ceFAZolin 3 gm In Sodium 100 Chloride 0.9% 100 ml @ 200 mls/hr IVPB ONCE PRN Rx#:[id number] Intake, IV Titration 250 Amount Caffeine-Sodium Benzoate 100 500 mg In Sodium Chloride 0.9% 100 ml @ 204 mls/hr IVPB ONCE ONE Rx#: [id number] Dexamethasone Sod 50 Phosphate 20 mg In Dextrose 5% in Water 50 ml @ 100 mls/hr IV ONCE STA Rx#:[id number] ceFAZolin 3 gm In Sodium 100 Chloride 0.9% 100 ml @ 200 mls/hr IVPB Q8H [facility] Rx#:[id number] Oral 1600 240 Output: Drainage 500 150 170 Back 500 150 170 Urine 915 2075 1930 Other: Voiding Method Indwelling Catheter Indwelling Catheter Indwelling Catheter ABP, PAP, CO, CI - Last Documented Arterial Blood Pressure 114/34 - Exam Patient is alert and awake. Mental status is normal. Cranial nerves II through XII are normal. Visual sweeney are full. Face is symmetric. Tongue protrudes to the midline. On muscle strength testing, there is no pronator drift and the strength is normal in the arms distally and proximally. Patient has questionable left pronation but not consistent. Patient has myoclonic jerks of outstretched hands, slightly more prominent on the left. In the lower limbs (right/left) hip flexion 5/2, ankle dorsiflexion 5/1. Sensations decreased in the left leg as compared to the right. Equal in the upper limbs. No ataxia for [id number] testing bilaterally. - Labs CBC & Chem 7: 11/12/23 04:24 11/12/23 04:20 Labs: Abnormal Lab Results - Last 24 Hours (Table) 11/10/23 11/11/23 11/11/23 Range/Units 21:33 04:04 04:04 RBC 2.84 L 2.56 L (4.30-5.90) m/uL Hgb 8.8 L 8.1 L (13.0-17.5) gm/dL Hct 27.6 L 24.8 L (39.0-53.0) % Plt Count 136 L 135 L (150-450) k/uL Sodium 131 L (137-145) mmol/L Carbon Dioxide 21 L (22-30) mmol/L BUN 23 H (9-20) mg/dL Creatinine 1.97 H (0.66-1.25) mg/dL Glucose 100 H (74-99) mg/dL Calcium 7.0 L (8.4-10.2) mg/dL HDL Cholesterol 23.80 L (40.00-60.00) mg/dL Assessment and Plan Assessment: * Acute onset of left sided weakness, leg more than the arm with reported initial NIH stroke scale of 6. At present patient only has deficits in the le ft lower extremity, with predominant left foot drop, and numbness of the left leg. No deficits noted in the upper extremities or cranial nerves region. Differential diagnosis is between CVA versus peripheral/radicular process from recent back surgery. * Right ICA stenosis 70% per CTA. Intracranial multivessel atherosclerotic disease. * Status post elective L2 to pelvis decompression and fusion 11/09/2023 * History of L2-S1 spondylosis with stenosis, bilateral lower extremity weakness and neurogenic claudication. * Metabolic encephalopathy, much improved * Acute kidney injury, much improved * Anemia * Obesity * Hypertension * Hyperlipidemia * Osteoarthritis * Peripheral vascular disease * Peripheral neuropathy Plan: * MRI of the brain without contrast revealed no evidence of intracranial mass or acute/subacute infarct. Nonspecific white matter changes, likely secondary to small vessel ischemic disease. I personally reviewed MRI agree with the findings. * Patient's left leg weakness/foot drop is likely radicular from recent back surgery. Discussed results with Dr. Gonzalez. * 2D echo revealed left ventricular EF 60 to 65%. No obvious regional wall motion abnormalities. Normal right ventricular size and function. No significant valvular dysfunction. Left atrium not well-visualized. * CTA revealed no evidence of proximal large vessel occlusion in the intracranial arterial system. Scattered atherosclerotic disease intracrania lly creating up to mild multifocal stenosis. Scattered atherosclerotic disease in the bilateral cervical carotid arteries, creating up to 70% stenosis of the proximal right ICA. Moderate stenosis of the right vertebral artery origin with moderate to severe stenosis of the left vertebral artery origin. * Carotid Doppler revealed no diagnostic evidence of hemodynamic significant stenosis of the left carotid system. Note is made that the distal margin of the left ICA could not be identified due to limitation. Antegrade flow in the left vertebral artery. Right side could not be scanned because of IJ. * Vascular surgical input appreciated. Recommending continue aspirin, Plavix and statin. * Right ICA stenosis at this time is asymptomatic, as there is no acute stroke noted on the MRI, and the left leg weakness is likely radicular in nature. * Resume Plavix, which has been held from prior to surgery. Continue aspirin 81 mg daily. * Fasting lipid panel with cholesterol 78, LDL 33, HDL 23 and triglycerides 102, continue Lipitor 40 mg. * Hemoglobin A1c 5.6, B12, folate * PT OT, speech therapy * Other medical management as per IM and other specialties. * DVT prophylaxis: Patient on heparin 5000 units subcu every 12 hour.
--- NOTE | 2023-11-12 14:39 | P.PN ---
Subjective Progress Note Date: 11/12/23 Status post L2 to pelvis decompression and fusion 11/10/2023 this is a pleasant 77-year-old gentleman admitted with severe L2-S1 spondylosis with stenosis, bilateral lower extremity weakness and neurogenic claudication,status post L2 to pelvis decompression and fusion, postop day #1.Tmax 100.9, normal WBC. Telemetry sinus rhythm. Maintained on IV fluid hydration. Continues on aspirin with Plavix on hold. Hemovac with approximately 800 mL output per 24-hour I&O, hemoglobin 8.6, platelets 153 .renal function worsening with creatinine up to 2.12. Potassium 5.5 .denies chest pain, palpitations or shortness of breath. Maintaining O2 sats in the 90s on 2 L nasal cannula. Lumbar spine CT reported postsurgical changes consistent with lumbar fusion. Positive pain, denies numbness or tingling of bilateral lower extremities. 11/11/2023 yesterday, patient discovered to have flaccid left lower extremity, upon PTs initial visit postop. Code stroke was called. Patient was determined not to be a candidate for tPA related to recent back surgery and unknown well time. Evaluated by neurology with neurowork-up initiated .CTA recommended by Dr. Dwyer. Brain CT reported no acute findings. CTA of head and neck reported no evidence of proximal large vessel occlusion in the intracranial arterial system. Scattered atherosclerotic disease intracranially creating up to mild multifocal stenosis. Scattered atherosclerotic disease in the bilateral cervical carotid arteries, creating up to 70% stenosis of the proximal right ICA. Moderate stenosis of the right vertebral artery origin with moderate to severe stenosis of the left vertebral artery origin. Hemovac drainage lessening, 650ml over 24 hours. Hemoglobin 8.1, platelets 135. BUN 23, creatinine 1.97. Drowsy this morning, received Tylenol earlier this morning and [place] last night around 9 PM. Positive pain. Tmax 101.5, normal WBC. Chest x-ray reported no acute cardiopulmonary disease/process. Complains of headache. MRI pending. 11/12/2023 earlier this morning, around 0600 patient mistakenly pulled out Hemovac cord, thinking it was the call light. Hemovac drainage had been slowing down. Brain MRI yesterday reported negative. Left lower extremity strength improving, currently reporting numb left ivey with positive sensation in his toes and feet. Maintained on aspirin, Plavix and statin. Vascular workup in progress, carotid duplex canceled related to triple-lumen in right side of neck with further workup outpatient with vascular surgery. neurology following. Creatinine improving. Afebrile, WBC 13.4, procalcitonin 0.21. Currently maintained on IV dexamethasone ,cefazolin.Dual antiplatelet therapy of Plavix a nd aspirin. Objective - Vital Signs Vital signs: Vital Signs Temp 98.0 F 11/12/23 12:00 Pulse 87 11/12/23 12:00 Resp 15 11/12/23 12:00 BP 135/72 11/12/23 12:00 Pulse Ox 97 11/12/23 12:00 FiO2 Intake & Output 11/11/23 11/12/23 11/12/23 18:59 06:59 18:59 Intake Total 1345 975 500 Output Total 3600 1950 500 Balance -2255 -975 0 Weight 141.8 kg Intake: IV 635 975 500 Sodium Chloride 0.9% 1, 635 975 450 000 ml @ 75 mls/hr IV . [id number] [facility] Rx#:[id number] ceFAZolin 3 gm In Sodium 50 Chloride 0.9% 100 ml @ 200 mls/hr IVPB Q8H [facility] Rx#:[id number] Intake, IV Titration 350 Amount Caffeine-Sodium Benzoate 100 500 mg In Sodium Chloride 0.9% 100 ml @ 204 mls/hr IVPB ONCE ONE Rx#: [id number] Dexamethasone Sod 50 Phosphate 20 mg In Dextrose 5% in Water 50 ml @ 100 mls/hr IV ONCE STA Rx#:[id number] ceFAZolin 3 gm In Sodium 200 Chloride 0.9% 100 ml @ 200 mls/hr IVPB Q8H [facility] Rx#:[id number] Oral 360 Output: Drainage 270 250 Back 270 250 Urine 3330 1700 500 Other: Voiding Method Indwelling Catheter Indwelling Catheter Indwelling Catheter ABP, PAP, CO, CI - Last Documented Arterial Blood Pressure 114/34 - Exam PHYSICAL EXAM: VITAL SIGNS: [As above] GENERAL: Pleasant, alert and oriented x 3, sitting up in bed, no acute distress HEENT: Normocephalic, conjunctivae normal. eyes normal. NECK: Supple, no JVD. CARDIOVASCULAR: S1, S2 regular. No murmur RESPIRATION: Unlabored, equal air entry ,breath sounds diminished in the bases. ABDOMEN: Soft, nontender . No guarding. no masses palpable. Positive bowel sounds LEGS: No edema. no swelling NERVOUS SYSTEM: Cranial nerves II through XII grossly intact, no focal deficits. [place], strength and sensation grossly intact with left sided weakness 4/5. Skin: Warm and dry, no rash - Labs CBC & Chem 7: 11/12/23 04:24 11/12/23 04:20 Labs: Abnormal Lab Results - Last 24 Hours (Table) 11/11/23 11/12/23 11/12/23 Range/Units 16:19 04:20 04:24 WBC 13.4 H (3.8-10.6) k/uL RBC 2.62 L (4.30-5.90) m/uL Hgb 8.2 L (13.0-17.5) gm/dL Hct 25.2 L (39.0-53.0) % Neutrophils # 12.3 H (1.3-7.7) k/uL Lymphocytes # 0.6 L (1.0-4.8) k/uL Sodium 136 L (137-145) mmol/L Chloride 109 H (98-107) mmol/L Carbon Dioxide 20 L (22-30) mmol/L BUN 22 H (9-20) mg/dL Creatinine 1.47 H (0.66-1.25) mg/dL Glucose 139 H (74-99) mg/dL Calcium 7.9 L (8.4-10.2) mg/dL Procalcitonin 0.21 H (0.02-0.09) ng/mL Assessment and Plan Assessment: Severe L2-S1 spondylosis with stenosis, bilateral lower extremity weakness and neurogenic claudication, status post L2 to pelvis decompression and fusion Acute hypoxic respiratory failure secondary to the above, status post mechanical ventilation Acute onset left-sided lower extremity weakness, suspect related to compression secondary to surgery Right ICA stenosis 70% per CTA Postop anemia, expected outcome Acute renal failure secondary to #1 Chronic renal failure, stage III Chronic mild intermittent asthma Osteoarthritis Peripheral neuropathy Chronic back pain Hypertension Hyperlipidemia Hypothyroidism PVD with history of right femoral endarterectomy and patch angioplasty, bilateral iliac stents Plan: Continue on current medication regime, monitoring and symptomatic treatment. Dual antiplatelet therapy. pain management , DVT prophylaxis. N eurology following. Aggressive pulmonary toileting with incentive spirometer reinforced. PT. The impression and plan of care has been dictated as directed. : I performed a history and examination of this patient, discussed the same with the dictator. I agree with the dictator's note ,documented as a scribe. Any additional findings or plans will be noted.
--- NOTE | 2023-11-12 14:46 | P.PN ---
Subjective Progress Note Date: 11/12/23 This is a 75-year-old male patient was transferred to the intensive care unit for monitoring following his spine surgery. The patient underwent a lengthy surgery on his lumbar spine as the patient was experiencing low back pain and bilateral lower extremity numbness and tingling and weakness. CAT scan of the lumbar spine showed spondylosis L2-S1 along with collapse and disc height loss and facet arthrosis/osteophyte formation causing central canal and bilateral foraminal stenosis at each level. MRI of the lumbar spine done on 06/28/2023 showed similar findings with neuroma on stenosis worst at the level of L2-L3 and L5-S1. Based on that, the patient was taken to the operating room and underwent an L2 to pelvis decompression and fusion. The patient. Was difficult to arouse. He was ultimately weaned off the mechanical ventilator and the patient was extubated and brought into the intensive care unit for further monitoring. He has a radial arterial line and also has a triple-lumen catheter in his right IJ. He is awake and alert and communicating. White cell count is at 12 with a hemoglobin 9.6 and a platelet count of 170. The BUN is at 18 with a creatinine of 1.36 and a sodium level is at 135 with a potassium level of 4.9. He is awake and alert and communicating. He is on Dilaudid for pain control. He is also on Flexeril. He was given IV cefazolin for antibiotic prophylaxis. The patient has other comorbidities including peripheral vascular disease and the patient has undergone previous right femoral endarterectomy with patch angioplasty. Has hypertension, hyperlipidemia, bronchial asthma, hiatal hernia, gout, degenerative disc disease as mentioned above. He is currently hemodynamically stable. There is a Hemovac in his back with bloody output. Pulse ox 96% on 4 L of oxygen by nasal cannula. Cardiac rhythm is sinus. Able to move his lower extremities. Pain is under adequate control for now. On today's evaluation of 11/10/2023, the patient is being seen for a follow-up. Awake and alert and communicating. Denies having any specific complaints. He was on 4 L and he was weaned down to 2 L of O2 nasal cannula. He is complaining of back pain and the Hemovac is putting approximately 600 cc of bloody output and hemoglobin is being monitored at this point in time. Spine surgery is on the case. His hemoglobin has dropped down to 8.6 from 9.6 yesterday. Rest of the blood work shows also a component of acute kidney injury. BUN is up to 24 with a creatinine of 2.1 and a sodium levels at 134 with a potassium level of 5.5. The patient remains on normal saline at rate of 75 cc an hour. He is not taking any form of nephrotoxic agents at this point in time. Meanwhile, CT scan of the lumbar spine was done yesterday and it showed essentially postsurgical changes consistent with lumbar fusion. No other acute abnormalities was noted. The patient is taking Dilaudid for pain control is also on Flexeril and Lyrica. The rest of the outpatient medications have been all resumed. Renal function is being monitored. He denies having any numbness or tingling in his lower extremities. Motor function is adequate in lower extremities. The drain has been placed at half compression based on surgical recommendation. Using incentive spirometer. On today's evaluation of 11/11/2023, the patient continues to have some weakness in the left lower extremity. Note that yesterday, a code stroke was called as the patient noted weakness in his left upper and left lower extremity and he also complained of some numbness. His NIH score was 8. He was noted to have some slurred speech and facial droop and based on that, a CT angiogram of the brain was done and showed no evidence of any proximal large vessel occlusion in the intracranial arterial system. There was some scattered atherosclerotic disease intracranially with mild multifocal stenosis. There was 70% stenosis of the right proximal internal carotid artery. Moderate stenosis of the right vertebral artery origin and moderate to severe stenosis of the left vertebral artery origin. Patient was not given any thrombolytics. He was monitored neurologically. Today, I noticed that his left side and left wool spotter is slightly weak compared to the right. No facial asymmetry. Awake and alert and communicating and answering questions appropriately. Based on that, he scheduled to undergo an MRI of the brain. Meanwhile, his respiratory status is stable. Patient is currently on 3 L of oxygen by nasal cannula with a pulse ox of 98%. I checked the chest x-ray from today and shows no acute abnormalities. The patient has a right IJ thrombus on normal catheter in place. MRI of the bra in was completed and the patient has no evidence of any intracranial mass or any acute or subacute infarct. There are some nonspecific white matter changes along with chronic small vessel ischemic changes seen bilaterally. The carotid Doppler was also completed and the patient has no evidence of any hemodynamic stenosis in the left carotid system. The blood work from today shows improvement in creatinine the creatinine is down to 1.97 with a BUN of 23. Sodium is at 131. Potassium is 4.7. WBC count at 7.8 with a hemoglobin of 8.1 and a platelet count of 135. The patient is currently on aspirin 81 mg p.o. daily. He is also on Plavix 75 mg p.o. daily. [place] for pain control. He is also on Flexeril. He was started on Decadron by the surgical team at 6 mg IV every 6 hours. 2D echocardiogram was also ordered and completed and echocardiogram showed normal left ventricular ejection fraction of 6065%. No other significant abnormalities noted. On 11/12/2023, I am seeing the patient for a follow-up. The patient is sitting up in a chair and is calm and comfortable. He continues to have some numbness in his left lower extremity. Noted the patient has had chronic numbness in his legs. This has been an ongoing problem since his surgery and the patient was started on Decadron. He is also on Lyrica. He is taken [place] for pain control for now. No respiratory difficulties. No new onset focal neurological deficits. Adequate swallow. No facial asymmetry. No weakness in his left upper extremity. MRI of the brain was completed yesterday and showed no evidence of any stroke. Meanwhile, the patient is tolerating diet. His white cell count at 13.4 with a hemoglobin 8.2 and a platelet count of 150. Creatinine continues to improve and is currently down to 1.4 with a BUN of 22 and a sodium levels at 136. Procalcitonin level is at 0.21. He remains on normal saline at rate of 20 cc an hour. Rest of the medications and home medications have been all resumed. He is currently on oxygen at 2 L with a pulse ox of 97%. Using incentive spirometer. Hemovac was pulled accidentally today and I was told that the output has been essentially minimal prior to the drain coming out. Objective - Vital Signs Vital signs: Vital Signs Temp 98.2 F 11/12/23 08:00 Pulse 77 11/12/23 10:00 Resp 16 11/12/23 10:00 BP 151/52 11/12/23 10:00 Pulse Ox 96 11/12/23 10:00 FiO2 Intake & Output 11/11/23 11/12/23 11/12/23 18:59 06:59 18:59 Intake Total 1345 975 275 Output Total 3600 1950 0 Balance -2255 -975 275 Weight 141.8 kg Intake: IV 635 975 275 Sodium Chloride 0.9% 1, 635 975 225 000 ml @ 75 mls/hr IV . [id number] [facility] Rx#:[id number] ceFAZolin 3 gm In Sodium 50 Chloride 0.9% 100 ml @ 200 mls/hr IVPB Q8H [facility] Rx#:[id number] Intake, IV Titration 350 Amount Caffeine-Sodium Benzoate 100 500 mg In Sodium Chloride 0.9% 100 ml @ 204 mls/hr IVPB ONCE ONE Rx#: [id number] Dexamethasone Sod 50 Phosphate 20 mg In Dextrose 5% in Water 50 ml @ 100 mls/hr IV ONCE [facility] Rx#:[id number] ceFAZolin 3 gm In Sodium 200 Chloride 0.9% 100 ml @ 200 mls/hr IVPB Q8H [facility] Rx#:[id number] Oral 360 Output: Drainage 270 250 Back 270 250 Urine 3330 1700 0 Other: Voiding Method Indwelling Catheter Indwelling Catheter ABP, PAP, CO, CI - Last Documented Arterial Blood Pressure 114/34 - Exam General appearance the patient calm comfortable no acute distress currently on 2 L of oxygen by nasal cannula. Head exam was generally normal. There was no scleral icterus or corneal arcus. Mucous membranes were moist. Neck was supple and without jugular venous distension, thyromegaly, or carotid bruits. Carotids were easily palpable bilaterally. There was no adenopathy. The patient has a right IJ triple-lumen catheter in place Lungs were clear to auscultation and percussion, and with normal diaphragmatic excursion. No wheezes or rales were noted. Cardiac exam revealed the PMI to be normally situated and sized. The rhythm was regular and no extrasystoles were noted during several minutes of auscultation. The first and second heart sounds were normal and physiologic splitting of the second heart sound was noted. There were no murmurs, rubs, clicks, or gallops. Abdominal exam revealed normal bowel sounds. The abdomen was soft, non-tender, and without masses, organomegaly, or appreciable enlargement of the abdominal aorta. Extremities reveal diminished pulses bilaterally. No cyanosis or clubbing. Neurologically, the patient is awake and alert and moving all 4 extremities. There is no facial asymmetry. Awake and alert and communicating. No dysa rthria. No no facial asymmetry. Possibly some weakness in his left upper and left lower extremity more so on the left lower extremity Skin, surgical wound site is dry clean and intact and the patient is a Hemovac has been removed and the surgical wound site over the back is dry clean and intact. - Labs CBC & Chem 7: 11/12/23 04:24 11/12/23 04:20 Labs: Abnormal Lab Results - Last 24 Hours (Table) 11/11/23 11/12/23 11/12/23 Range/Units 16:19 04:20 04:24 WBC 13.4 H (3.8-10.6) k/uL RBC 2.62 L (4.30-5.90) m/uL Hgb 8.2 L (13.0-17.5) gm/dL Hct 25.2 L (39.0-53.0) % Neutrophils # 12.3 H (1.3-7.7) k/uL Lymphocytes # 0.6 L (1.0-4.8) k/uL Sodium 136 L (137-145) mmol/L Chloride 109 H (98-107) mmol/L Carbon Dioxide 20 L (22-30) mmol/L BUN 22 H (9-20) mg/dL Creatinine 1.47 H (0.66-1.25) mg/dL Glucose 139 H (74-99) mg/dL Calcium 7.9 L (8.4-10.2) mg/dL Procalcitonin 0.21 H (0.02-0.09) ng/mL Assessment and Plan Plan: L2 to pelvis decompression and fusion. The patient is currently postop day # 3.. Surgery was done for pain and weakness involving the lower extremities and the patient had evidence of severe spinal canal stenosis secondary to osteophyte and disc bulge with facet joint arthropathy. Patient also had neuroforaminal foraminal stenosis worse at the level of L2-L3 and L5-S1. The CAT scan of the lumbar spine showed postsurgical changes Acute hypoxic respiratory failure currently on 2 L of oxygen by nasal cannula. The patient had a prolonged surgery and the patient was able to wean off the mechanical ventilator and the patient is currently extubated and the patient is awake and alert and using the incentive spirometer. The chest x-ray remains clear of any pulmonary infiltrates and the patient has no signs of any respiratory distress. No signs of any respiratory distress and the patient continues to use his incentive spirometer. Acute onset of left sided weakness, leg more than the arm with reported initial NIH stroke scale of 6. At present patient only has deficits in the left lower extremity, with predominant left foot drop, and numbness of the left leg. No deficits noted in the upper extremities or cranial nerves region. Differential diagnosis is between CVA versus peripheral/radicular process from recent back surgery. CT of the brain was done CTA revealed no evidence of proximal large vessel occlusion in the intracranial arterial system. Scattered atherosclerotic disease intracranially creating up to mild multifocal stenosis. Scattered atherosclerotic disease in the bilateral cervical carotid arteries, creating up to 70% stenosis of the proximal right ICA. Moderate stenosis of the right vertebral artery origin with moderate to severe stenosis of the left vertebral artery origin. Vascular surgical consultation for right ICA stenosis, probably symptomatic. MRI of the brain shows no evidence of an acute or subacute stroke and was a negative study for acute CVA. On today's evaluation of 11/12/2023, no focal neurological deficit and the patient continues to have some numbness in the left lower extremity. The patient was started on Decadron. Right ICA stenosis 70% per CTA. Intracranial multivessel atherosclerotic disease, patient was seen by vascular surgery and no intervention has been recommended and this will be managed on outpatient basis. Postop anemia, expected outcome of surgery and the hemoglobin is dropped down to 8. 2. The Hemovac output has been low and it was pulled out accidentally. Acute kidney injury, rule out for surgical ATN and the creatinine is being monitored. Creatinine gradually improved and the patient remains on IV fluids and the creatinine continues to improve Back pain, currently on [place] for pain control Peripheral vascular disease with previous right femoral endarterectomy and patch angioplasty and the patient also has had bilateral iliac stents placement Hypertension Hyperlipidemia Bronchial asthma, mild intermittent Hypothyroidism Chronic back pain as mentioned above Osteoarthritis Chronic stage III kidney disease Plan The patient will have the FiO2 titrated and the patient is currently on 2 L. Provide incentive spirometer. [place] for pain control Continue aspirin and restart Plavix 75 mg p.o. daily creatinine is improving on today's evaluation IV fluids with normal saline at rate of 20 cc an hour and the creatinine continues to improve Continue Flexeril 5 mg p.o. 3 times daily on a as needed basis Monitor hemoglobin, currently stable at 8.2 Monitor renal function, continues to improve Vascular surgery consultation, appreciated and the carotids will be monitored outpatient basis. Echocardiogram was within normal limits MRI of the brain was noted and there is no evidence of any stroke Decadron was started at 6 mg IV every 6 hours for postsurgical edema and swelling Increase mobility Will continue to follow., The patient can be transferred out of the intensive care unit today.
--- NOTE | 2023-11-12 15:58 | P.PN ---
Subjective Progress Note Date: 11/12/23 Principal diagnosis: Status post L2-S1 posterior lateral decompression and fusion Patient was examined today at bedside, he is resting in his hospital chair. Patient does still remain in the ICU. Patient seems more awake when comparing previous progress notes. He states that the pain is a little bit better today. He did take a lower dose Shell today. Numbness and tingling in the left lower extremity and right lower extremity seem to be improving. He still remains weak in the left lower extremity. Upper extremity symptoms seem to have resolved. Currently denies any headaches, lightheadedness or chest pain Objective - Vital Signs Vital signs: Vital Signs Temp 98.0 F 11/12/23 12:00 Pulse 87 11/12/23 12:00 Resp 15 11/12/23 12:00 BP 135/72 11/12/23 12:00 Pulse Ox 97 11/12/23 12:00 FiO2 Intake & Output 11/11/23 11/12/23 11/12/23 18:59 06:59 18:59 Intake Total 1345 975 500 Output Total 3600 1950 500 Balance -2255 -975 0 Weight 141.8 kg Intake: IV 635 975 500 Sodium Chloride 0.9% 1, 635 975 450 000 ml @ 75 mls/hr IV . [id number] [facility] Rx#:[id number] ceFAZolin 3 gm In Sodium 50 Chloride 0.9% 100 ml @ 200 mls/hr IVPB Q8H [facility] Rx#:[id number] Intake, IV Titration 350 Amount Caffeine-Sodium Benzoate 100 500 mg In Sodium Chloride 0.9% 100 ml @ 204 mls/hr IVPB ONCE ONE Rx#: [id number] Dexamethasone Sod 50 Phosphate 20 mg In Dextrose 5% in Water 50 ml @ 100 mls/hr IV ONCE STA Rx#:[id number] ceFAZolin 3 gm In Sodium 200 Chloride 0.9% 100 ml @ 200 mls/hr IVPB Q8H [facility] Rx#:[id number] Oral 360 Output: Drainage 270 250 Back 270 250 Urine 3330 1700 500 Other: Voiding Method Indwelling Catheter Indwelling Catheter Indwelling Catheter ABP, PAP, CO, CI - Last Documented Arterial Blood Pressure 114/34 - Exam Gen: AOx3, NAD VSS stable at this time Integument: Postop bandages in good position and condition, the Hemovac drain did become dislodged today Palpation: Mild tenderness with palpation noted throughout the lumbar spine ROM: Full range of motion in all major muscle groups of the bilateral upper extremities Range of motion in the right lower extremity seems adequate at this time, left lower extremity still is diminished with dorsiflexion, knee extension and hip flexion Sensory Exam: Senory exam to light touch is intact C5-T1 Senosry exam to light touch is intact L2-S1 Motor: 4+/5 strength appreciated in the bilateral upper extremities with shoulder elevation, shoulder abduction, elbow extension, elbow flexion, wrist extension, wrist flexion, automatic hemmer 4+/5 strength appreciated in the right lower extremity with hip flexion, knee extension, knee flexion, plantarflexion, dorsiflexion, EHL, FHL 3/5 strength appreciated in the left lower extremity with hip flexion, 2/5 strength appreciated in the left lower extremity with EHL, dorsiflexion, knee extension 4/5 strength appreciated to left lower extremity with knee flexion, plantarflexion Reflexes: 2/4 in all UE and LE Negative Heaven's bilaterally, negative Babinski bilaterally, negative clonus bilaterally - Labs CBC & Chem 7: 11/12/23 04:24 11/12/23 04:20 Labs: Abnormal Lab Results - Last 24 Hours (Table) 11/11/23 11/12/23 11/12/23 Range/Units 16:19 04:20 04:24 WBC 13.4 H (3.8-10.6) k/uL RBC 2.62 L (4.30-5.90) m/uL Hgb 8.2 L (13.0-17.5) gm/dL Hct 25.2 L (39.0-53.0) % Neutrophils # 12.3 H (1.3-7.7) k/uL Lymphocytes # 0.6 L (1.0-4.8) k/uL Sodium 136 L (137-145) mmol/L Chloride 109 H (98-107) mmol/L Carbon Dioxide 20 L (22-30) mmol/L BUN 22 H (9-20) mg/dL Creatinine 1.47 H (0.66-1.25) mg/dL Glucose 139 H (74-99) mg/dL Calcium 7.9 L (8.4-10.2) mg/dL Procalcitonin 0.21 H (0.02-0.09) ng/mL Assessment and Plan Assessment: Postoperative day #3 status post [id number] decompression and fusion Acute blood loss anemia, expected surgical outcome Left lower extremity weakness Multiple medical comorbidities Plan: Pain control, patient's mental status seems much improved today. Continue the lower dose pain medication. Try to avoid IV narcotics. I did decrease the Decadron to 4 mg every 6 hours, we will continue to titrate down DVT prophylaxis, continue subcu medication Dressing changed today at bedside Patient will be provided with brace in the next 24-48 hours, explained to him this brace needs to be on when walking longer distance. Okay to not utilize when transferring and smaller distances Continue PT/OT Weight-bear as tolerated, utilize walker. No bending, lifting or twisting Urinary catheter was removed, nursing is monitoring for urinary retention Other medical specialty recommendations appreciated Will continue to follow patient during hospital stay Time with Patient: Less than 30
[2023-11-12] MEDS: DEXAMETHASONE SOD PHOSPHATE 4 MG/ML 1 ML VIAL IV SCH (17:56)
--- NOTE | 2023-11-13 10:05 | P.PN ---
Subjective Progress Note Date: 11/13/23 Principal diagnosis: Status post L2-S1 posterior lateral decompression and fusion, left foot drop Patient was examined today at bedside, he is resting in his hospital chair. Patient was transferred to the cardiac stepdown unit. Patient was able to get in the shower today with the assistance of the aids. He did have a small bowel movement yesterday. Patient continues to have difficulty with dorsiflexion of the left foot. No remaining weakness or numbness present in the left upper extremity. Currently denies any headaches, lightheadedness or chest pain Objective - Vital Signs Vital signs: Vital Signs Temp 97.5 F L 11/13/23 08:15 Pulse 75 11/13/23 08:15 Resp 16 11/13/23 08:15 BP 146/63 11/13/23 08:15 Pulse Ox 96 11/13/23 08:15 FiO2 Intake & Output 11/12/23 11/13/23 11/13/23 18:59 06:59 18:59 Intake Total 500 240 10 Output Total 775 1300 Balance -275 -1060 10 Intake: IV 500 10 Invasive Line 2 10 Sodium Chloride 0.9% 1, 450 000 ml @ 20 mls/hr IV . Q24H [facility] Rx#:[id number] ceFAZolin 3 gm In Sodium 50 Chloride 0.9% 100 ml @ 200 mls/hr IVPB Q8H [facility] Rx#:[id number] Oral 240 Output: Urine 775 1300 Other: Voiding Method Indwelling Catheter Indwelling Catheter Indwelling Catheter # Bowel Movements 1 ABP, PAP, CO, CI - Last Documented Arterial Blood Pressure 114/34 - Exam Gen: AOx3, NAD VSS stable at this time Integument: Postop dressing was removed today at bedside, ximena are all in good position and condition. Palpation: Mild tenderness with palpation noted throughout the lumbar spine ROM: Full range of motion in all major muscle groups of the bilateral upper extremities Range of motion in the right lower extremity seems adequate at this time, left lower extremity still is diminished with dorsiflexion, knee extension and hip flexion Sensory Exam: Senory exam to light touch is intact C5-T1 Senosry exam to light touch is intact L2-S1 Motor: 4+/5 strength appreciated in the bilateral upper extremities with shoulder elevation, shoulder abduction, elbow extension, elbow flexion, wrist extension, wrist flexion, senior director marketing 4+/5 strength appreciated in the right lower extremity with hip flexion, knee extension, knee flexion, plantarflexion, dorsiflexion, EHL, FHL 3+/5 strength appreciated in the left lower extremity with hip flexion, 2/5 strength appreciated in the left lower extremity with EHL, dorsiflexion, knee extension 4/5 strength appreciated to left lower extremity with knee flexion, plantarflexion Reflexes: 2/4 in all UE and LE Negative Heaven's bilaterally, negative Babinski bilaterally, negative clonus bilaterally - Labs CBC & Chem 7: 11/12/23 04:24 11/12/23 04:20 Assessment and Plan Assessment: Postoperative day #4 status post [id number] decompression and fusion Acute blood loss anemia, expected surgical outcome Left lower extremity weakness, left foot drop Multiple medical comorbidities Plan: Pain control, patient's mental status seems much improved today. Continue the l ower dose pain medication. Try to avoid IV narcotics. Decadron will be again decreased to 2 mg every 6 hours DVT prophylaxis, continue subcu medication Continue to monitor surgical dressing Patient will be provided with brace in the next 24-48 hours, explained to him this brace needs to be on when walking longer distance. Okay to not utilize when transferring and smaller distances Continue PT/OT Weight-bear as tolerated, utilize walker. No bending, lifting or twisting Urinary catheter was replaced due to retention, plan for consulting urology early next week for outpatient recommendations Other medical specialty recommendations appreciated Will continue to follow patient during hospital stay Time with Patient: Less than 30
[2023-11-13] MEDS: polyethylene glycoL 3350 17 GM POWD.PACK PO SCH (11:53)
[2023-11-13] MEDS: DEXAMETHASONE SOD PHOSPHATE 4 MG/ML 1 ML VIAL IV SCH (11:53)
[2023-11-13 11:55] LABS: African American GFR (CKD) 59 (>60 ml/min/1.73 sqM); Anion Gap 9 mmol/L; Blood Urea Nitrogen 31 mg/dL (9-20); Calcium 8.1 mg/dL (8.4-10.2); Carbon Dioxide 20 mmol/L (22-30); Chloride 109 mmol/L (98-107); Glucose 156 mg/dL (74-99); Non-African American GFR(CKD) 51 (>60 ml/min/1.73 sqM); Potassium 4.3 mmol/L (3.5-5.1); Sodium 138 mmol/L (137-145)
[2023-11-13 11:58] LABS: Basophils % (A) 0 %; Eosinophils % (A) 0 %; HCT 24.3 % (39.0-53.0); HGB 8.1 gm/dL (13.0-17.5); Lymphocytes # (A) 0.7 k/uL (1.0-4.8); Lymphocytes % (A) 5 %; MCH 32.1 pg (25.0-35.0); MCHC 33.2 g/dL (31.0-37.0); MCV 96.8 fL (80.0-100.0); Mean Platelet Volume 9.2; Monocytes # (A) 0.6 k/uL (0-1.0); Monocytes % (A) 4 %; Neutrophils # (A) 13.4 k/uL (1.3-7.7); Neutrophils % (A) 91 %; Platelet Count 195 k/uL (150-450); RBC 2.51 m/uL (4.30-5.90); RDW 13.8 % (11.5-15.5); WBC 14.7 k/uL (3.8-10.6)
--- NOTE | 2023-11-13 13:18 | P.PN ---
Subjective Progress Note Date: 11/13/23 Status post L2 to pelvis decompression and fusion 11/10/2023 this is a pleasant 77-year-old gentleman admitted with severe L2-S1 spondylosis with stenosis, bilateral lower extremity weakness and neurogenic claudication,status post L2 to pelvis decompression and fusion, postop day #1.Tmax 100.9, normal WBC. Telemetry sinus rhythm. Maintained on IV fluid hydration. Continues on aspirin with Plavix on hold. Hemovac with approximately 800 mL output per 24-hour I&O, hemoglobin 8.6, platelets 153 .renal function worsening with creatinine up to 2.12. Potassium 5.5 .denies chest pain, palpitations or shortness of breath. Maintaining O2 sats in the 90s on 2 L nasal cannula. Lumbar spine CT reported postsurgical changes consistent with lumbar fusion. Positive pain, denies numbness or tingling of bilateral lower extremities. 11/11/2023 yesterday, patient discovered to have flaccid left lower extremity, upon PTs initial visit postop. Code stroke was called. Patient was determined not to be a candidate for tPA related to recent back surgery and unknown well time. Evaluated by neurology with neurowork-up initiated .CTA recommended by Dr. Dwyer. Brain CT reported no acute findings. CTA of head and neck reported no evidence of proximal large vessel occlusion in the intracranial arterial system. Scattered atherosclerotic disease intracranially creating up to mild multifocal stenosis. Scattered atherosclerotic disease in the bilateral cervical carotid arteries, creating up to 70% stenosis of the proximal right ICA. Moderate stenosis of the right vertebral artery origin with moderate to severe stenosis of the left vertebral artery origin. Hemovac drainage lessening, 650ml over 24 hours. Hemoglobin 8.1, platelets 135. BUN 23, creatinine 1.97. Drowsy this morning, received Tylenol earlier this morning and [place] last night around 9 PM. Positive pain. Tmax 101.5, normal WBC. Chest x-ray reported no acute cardiopulmonary disease/process. Complains of headache. MRI pending. 11/12/2023 earlier this morning, around 0600 patient mistakenly pulled out Hemovac cord, thinking it was the call light. Hemovac drainage had been slowing down. Brain MRI yesterday reported negative. Left lower extremity strength improving, currently reporting numb left ivey with positive sensation in his toes and feet. Maintained on aspirin, Plavix and statin. Vascular workup in progress, carotid duplex canceled related to triple-lumen in right side of neck with further workup outpatient with vascular surgery. neurology following. Creatinine improving. Afebrile, WBC 13.4, procalcitonin 0.21. Currently maintained on IV dexamethasone ,cefazolin.Dual antiplatelet therapy of Plavix a nd aspirin. 11/12. Patient seen and examined. Sitting upright in the chair. Back pain has improved, still has weakness of left lower extremity. Patient had a bowel movement. REVIEW OF SYSTEMS: CONSTITUTIONAL: No fever, no malaise,. CARDIOVASCULAR: No chest pain, no palpitations, no syncope. PULMONARY: No shortness of breath, no cough, GASTROINTESTINAL: No diarrhea, no nausea, no vomiting, no abdominal pain. NEUROLOGICAL: No headaches, no weakness, PHYSICAL EXAMINATION: GENERAL: The patient is alert and oriented x3, not in any acute distress. Well developed, well nourished. HEENT: Pupils are round and equally reacting to light. EOMI. No scleral icterus. No conjunctival pallor. Normocephalic, atraumatic. No pharyngeal erythema. No thyromegaly. CARDIOVASCULAR: S1 and S2 present. No murmurs, rubs, or gallops. PULMONARY: Chest is clear to auscultation, no wheezing or crackles. ABDOMEN: Soft, nontender, nondistended, normoactive bowel sounds. No palpable organomegaly. MUSCULOSKELETAL: No joint swelling or deformity. EXTREMITIES: No cyanosis, clubbing, or pedal edema. NEUROLOGICAL: Muscle strength is 5 of 5 in all extremities except left lower extremity is 3 x 5, SKIN: Lumbar area surgical incision seen Assessment and plan Severe L2-S1 spondylosis with stenosis, bilateral lower extremity weakness and neurogenic claudication, status post L2 to pelvis decompression and fusion Acute hypoxic respiratory failure secondary to the above, status post mechanical ventilation Acute onset left-sided lower extremity weakness, suspect related to compression secondary to surgery Right ICA stenosis 70% per CTA Postop anemia, expected outcome Acute renal failure secondary to #1 Chronic renal failure, stage III chronic mild intermittent asthma Osteoarthritis Peripheral neuropathy Chronic back pain Hypertension Hyperlipidemia Hypothyroidism PVD with history of right femoral endarterectomy and patch angioplasty, bilateral iliac stents Monitor vital signs Monitor CBC Monitor CMP Continue telemetry monitoring Encourage use of incentive spirometer Aggressive bronchopulmonary hygiene Continue aspirin and Plavix. Continue IV fluids Continue pain management Vascular surgery consultation, appreciated and the carotids will be monitored outpatient basis. Echocardiogram was within normal limits MRI of the brain was noted and there is no evidence of any stroke Neurology following Orthopedic surgery following Labs and medication were reviewed.. Continue same treatment. Continue with symptomatic treatment. Resume home medication. Monitor labs and vitals. DVT and GI prophylaxis. Further recommendations as per clinical course of the patient Dictation was produced using [employer] dictation software. please excuse any grammatical, word or spelling errors. Objective - Vital Signs Vital signs: Vital Signs Temp 97.5 F L 11/13/23 08:15 Pulse 75 11/13/23 08:15 Resp 16 11/13/23 08:15 BP 146/63 11/13/23 08:15 Pulse Ox 96 11/13/23 08:15 FiO2 Intake & Output 11/12/23 11/13/23 11/13/23 18:59 06:59 18:59 Intake Total 500 240 10 Output Total 775 1300 Balance -275 -1060 10 Intake: IV 500 10 Invasive Line 2 10 Sodium Chloride 0.9% 1, 450 000 ml @ 20 mls/hr IV . Q24H [facility] Rx#:[id number] ceFAZolin 3 gm In Sodium 50 Chloride 0.9% 100 ml @ 200 mls/hr IVPB Q8H [facility] Rx#:[id number] Oral 240 Output: Urine 775 1300 Other: Voiding Method Indwelling Catheter Indwelling Catheter Indwelling Catheter # Bowel Movements 1 ABP, PAP, CO, CI - Last Documented Arterial Blood Pressure 114/34 - Labs CBC & Chem 7: 11/13/23 10:04 11/13/23 10:04
--- NOTE | 2023-11-13 13:22 | P.PN ---
Subjective Progress Note Date: 11/13/23 This is a 75-year-old male patient was transferred to the intensive care unit for monitoring following his spine surgery. The patient underwent a lengthy surgery on his lumbar spine as the patient was experiencing low back pain and bilateral lower extremity numbness and tingling and weakness. CAT scan of the lumbar spine showed spondylosis L2-S1 along with collapse and disc height loss and facet arthrosis/osteophyte formation causing central canal and bilateral foraminal stenosis at each level. MRI of the lumbar spine done on 06/28/2023 showed similar findings with neuroma on stenosis worst at the level of L2-L3 and L5-S1. Based on that, the patient was taken to the operating room and underwent an L2 to pelvis decompression and fusion. The patient. Was difficult to arouse. He was ultimately weaned off the mechanical ventilator and the patient was extubated and brought into the intensive care unit for further monitoring. He has a radial arterial line and also has a triple-lumen catheter in his right IJ. He is awake and alert and communicating. White cell count is at 12 with a hemoglobin 9.6 and a platelet count of 170. The BUN is at 18 with a creatinine of 1.36 and a sodium level is at 135 with a potassium level of 4.9. He is awake and alert and communicating. He is on Dilaudid for pain control. He is also on Flexeril. He was given IV cefazolin for antibiotic prophylaxis. The patient has other comorbidities including peripheral vascular disease and the patient has undergone previous right femoral endarterectomy with patch angioplasty. Has hypertension, hyperlipidemia, bronchial asthma, hiatal hernia, gout, degenerative disc disease as mentioned above. He is currently hemodynamically stable. There is a Hemovac in his back with bloody output. Pulse ox 96% on 4 L of oxygen by nasal cannula. Cardiac rhythm is sinus. Able to move his lower extremities. Pain is under adequate control for now. On today's evaluation of 11/10/2023, the patient is being seen for a follow-up. Awake and alert and communicating. Denies having any specific complaints. He was on 4 L and he was weaned down to 2 L of O2 nasal cannula. He is complaining of back pain and the Hemovac is putting approximately 600 cc of bloody output and hemoglobin is being monitored at this point in time. Spine surgery is on the case. His hemoglobin has dropped down to 8.6 from 9.6 yesterday. Rest of the blood work shows also a component of acute kidney injury. BUN is up to 24 with a creatinine of 2.1 and a sodium levels at 134 with a potassium level of 5.5. The patient remains on normal saline at rate of 75 cc an hour. He is not taking any form of nephrotoxic agents at this point in time. Meanwhile, CT scan of the lumbar spine was done yesterday and it showed essentially postsurgical changes consistent with lumbar fusion. No other acute abnormalities was noted. The patient is taking Dilaudid for pain control is also on Flexeril and Lyrica. The rest of the outpatient medications have been all resumed. Renal function is being monitored. He denies having any numbness or tingling in his lower extremities. Motor function is adequate in lower extremities. The drain has been placed at half compression based on surgical recommendation. Using incentive spirometer. On today's evaluation of 11/11/2023, the patient continues to have some weakness in the left lower extremity. Note that yesterday, a code stroke was called as the patient noted weakness in his left upper and left lower extremity and he also complained of some numbness. His NIH score was 8. He was noted to have some slurred speech and facial droop and based on that, a CT angiogram of the brain was done and showed no evidence of any proximal large vessel occlusion in the intracranial arterial system. There was some scattered atherosclerotic disease intracranially with mild multifocal stenosis. There was 70% stenosis of the right proximal internal carotid artery. Moderate stenosis of the right vertebral artery origin and moderate to severe stenosis of the left vertebral artery origin. Patient was not given any thrombolytics. He was monitored neurologically. Today, I noticed that his left side and left administrative professional is slightly weak compared to the right. No facial asymmetry. Awake and alert and communicating and answering questions appropriately. Based on that, he scheduled to undergo an MRI of the brain. Meanwhile, his respiratory status is stable. Patient is currently on 3 L of oxygen by nasal cannula with a pulse ox of 98%. I checked the chest x-ray from today and shows no acute abnormalities. The patient has a right IJ thrombus on normal catheter in place. MRI of the bra in was completed and the patient has no evidence of any intracranial mass or any acute or subacute infarct. There are some nonspecific white matter changes along with chronic small vessel ischemic changes seen bilaterally. The carotid Doppler was also completed and the patient has no evidence of any hemodynamic stenosis in the left carotid system. The blood work from today shows improvement in creatinine the creatinine is down to 1.97 with a BUN of 23. Sodium is at 131. Potassium is 4.7. WBC count at 7.8 with a hemoglobin of 8.1 and a platelet count of 135. The patient is currently on aspirin 81 mg p.o. daily. He is also on Plavix 75 mg p.o. daily. [place] for pain control. He is also on Flexeril. He was started on Decadron by the surgical team at 6 mg IV every 6 hours. 2D echocardiogram was also ordered and completed and echocardiogram showed normal left ventricular ejection fraction of 6065%. No other significant abnormalities noted. On 11/12/2023, I am seeing the patient for a follow-up. The patient is sitting up in a chair and is calm and comfortable. He continues to have some numbness in his left lower extremity. Noted the patient has had chronic numbness in his legs. This has been an ongoing problem since his surgery and the patient was started on Decadron. He is also on Lyrica. He is taken [place] for pain control for now. No respiratory difficulties. No new onset focal neurological deficits. Adequate swallow. No facial asymmetry. No weakness in his left upper extremity. MRI of the brain was completed yesterday and showed no evidence of any stroke. Meanwhile, the patient is tolerating diet. His white cell count at 13.4 with a hemoglobin 8.2 and a platelet count of 150. Creatinine continues to improve and is currently down to 1.4 with a BUN of 22 and a sodium levels at 136. Procalcitonin level is at 0.21. He remains on normal saline at rate of 20 cc an hour. Rest of the medications and home medications have been all resumed. He is currently on oxygen at 2 L with a pulse ox of 97%. Using incentive spirometer. Hemovac was pulled accidentally today and I was told that the output has been essentially minimal prior to the drain coming out. On today's evaluation of 11/13/2023, the patient is being seen for a follow-up. No new complaints for now. Sitting up in a chair. Continues to have some numbness in the left lower a extremity that started following his back surgery. Currently on Decadron. Currently on Lyrica. Respiratory status is stable. He is having some issues with constipation the patient will be given the appr opriate laxatives. BUN is at 31 with a creatinine of 1.3 and a WBC count of 14.7 with a hemoglobin of 8. While in the platelet count of 195. Patient has no other new complaints otherwise for now. He is ambulating with the help of a walker. No respiratory distress. He remains on oxygen at 2 L with a pulse ox of 94%. Objective - Vital Signs Vital signs: Vital Signs Temp 97.5 F L 11/13/23 08:15 Pulse 75 11/13/23 08:15 Resp 16 11/13/23 08:15 BP 146/63 11/13/23 08:15 Pulse Ox 96 11/13/23 08:15 FiO2 Intake & Output 11/12/23 11/13/23 11/13/23 18:59 06:59 18:59 Intake Total 500 240 10 Output Total 775 1300 Balance -275 -1060 10 Intake: IV 500 10 Invasive Line 2 10 Sodium Chloride 0.9% 1, 450 000 ml @ 20 mls/hr IV . Q24H [facility]IRAM Rx#:[id number] ceFAZolin 3 gm In Sodium 50 Chloride 0.9% 100 ml @ 200 mls/hr IVPB Q8H [facility] Rx#:[id number] Oral 240 Output: Urine 775 1300 Other: Voiding Method Indwelling Catheter Indwelling Catheter Indwelling Catheter # Bowel Movements 1 ABP, PAP, CO, CI - Last Documented Arterial Blood Pressure 114/34 - Exam General appearance the patient calm comfortable no acute distress currently on 2 L of oxygen by nasal cannula. Head exam was generally normal. There was no scleral icterus or corneal arcus. Mucous membranes were moist. Neck was supple and without jugular venous distension, thyromegaly, or carotid bruits. Carotids were easily palpable bilaterally. There was no adenopathy. The patient has a right IJ triple-lumen catheter in place Lungs were clear to auscultation and percussion, and with normal diaphragmatic excursion. No wheezes or rales were noted. Cardiac exam revealed the PMI to be normally situated and sized. The rhythm was regular and no extrasystoles were noted during several minutes of auscultation. The first and second heart sounds were normal and physiologic splitting of the second heart sound was noted. There were no murmurs, rubs, clicks, or gallops. Abdominal exam revealed normal bowel sounds. The abdomen was soft, non-tender, and without masses, organomegaly, or appreciable enlargement of the abdominal aorta. Extremities reveal diminished pulses bilaterally. No cyanosis or clubbing. Neurologically, the patient is awake and alert and moving all 4 extremities. There is no facial asymmetry. Awake and alert and communicating. No dysarthria. No no facial asymmetry. Possibly some weakness in his left upper and left lower extremity more so on the left lower extremity Skin, surgical wound site is dry clean and intact and the patient is a Hemovac has been removed and the surgical wound site over the back is dry clean and intact. - Labs CBC & Chem 7: 11/13/23 10:04 11/13/23 10:04 Assessment and Plan Plan: L2 to pelvis decompression and fusion. The patient is currently postop day # 4. Surgery was done for pain and weakness involving the lower extremities and the patient had evidence of severe spinal canal stenosis secondary to osteophyte and disc bulge with facet joint arthropathy. Patient also had neuroforaminal foraminal stenosis worse at the level of L2-L3 and L5-S1. The CAT scan of the lumbar spine showed postsurgical changes Acute hypoxic respiratory failure currently on 2 L of oxygen by nasal cannula. The patient had a prolonged surgery and the patient was able to wean off the mechanical ventilator and the patient is currently extubated and the patient is awake and alert and using the incentive spirometer. The chest x-ray remains clear of any pulmonary infiltrates and the patient has no signs of any respiratory distress. No signs of any respiratory distress and the patient continues to use his incentive spirometer. Acute onset of left sided weakness, leg more than the arm with reported initial NIH stroke scale of 6. At present patient only has deficits in the left lower extremity, with predominant left foot drop, and numbness of the left leg. No deficits noted in the upper extremities or cranial nerves region. Differential diagnosis is between CVA versus peripheral/radicular process from recent back surgery. CT of the brain was done CTA revealed no evidence of proximal large vessel occlusion in the intracranial arterial system. Scattered atherosclerotic disease intracranially creating up to mild multifocal stenosis. Scattered atherosclerotic disease in the bilateral cervical carotid arteries, creating up to 70% stenosis of the proximal right ICA. Moderate stenosis of the right vertebral artery origin with moderate to severe stenosis of the left vertebral artery origin. Vascular surgical consultation for right ICA stenosis, probably symptomatic. MRI of the brain shows no evidence of an acute or subacute stroke and was a negative study for acute CVA. On today's evaluation of 11/12/2023, no focal neurological deficit and the patient continues to have some numbness in the left lower extremity. The patient was started on Decadron. Right ICA stenosis 70% per CTA. Intracranial multivessel atherosclerotic disease, patient was seen by vascular surgery and no intervention has been recommended and this will be managed on outpatient basis. Postop anemia, expected outcome of surgery and the hemoglobin is stable at 8.1. The Hemovac output has been low and it was pulled out accidentally. Acute kidney injury, rule out for surgical ATN and the creatinine is being monitored. Creatinine gradually improved and the patient remains on IV fluids and the creatinine continues to improve Back pain, currently on [place] for pain control Peripheral vascular disease with previous right femoral endarterectomy and patch angioplasty and the patient also has had bilateral iliac stents placement Hypertension Hyperlipidemia Bronchial asthma, mild intermittent Hypothyroidism Chronic back pain as mentioned above Osteoarthritis Chronic stage III kidney disease Plan The patient is clinically stable and the patient was moved out of the intensive care unit The patient will have the FiO2 titrated and the patient is currently on 2 L. Pr ovide incentive spirometer. [place] for pain control Continue aspirin and restart Plavix 75 mg p.o. daily creatinine is improving on today's evaluation IV fluids with normal saline at rate of 20 cc an hour and the creatinine continues to improve Continue Flexeril 5 mg p.o. 3 times daily on a as needed basis Monitor hemoglobin, stable at 8.1 Monitor renal function, continues to improve Vascular surgery consultation, appreciated and the carotids will be monitored outpatient basis. Echocardiogram was within normal limits MRI of the brain was noted and there is no evidence of any stroke Decadron was started at 6 mg IV every 6 hours for postsurgical edema and swelling Increase mobility Provide appropriate laxatives regarding chronic constipation Will continue to follow
--- NOTE | 2023-11-14 11:53 | P.PN ---
Subjective Progress Note Date: 11/14/23 Principal diagnosis: Status post L2-S1 posterior lateral decompression and fusion, left foot drop Patient was examined today at bedside, he is resting in his hospital chair. Patient continues to have difficulty with hip flexion along with dorsiflexion of the left lower extremity. Pain is well-controlled at this time. Currently denies any headaches, lightheadedness or chest pain Objective - Vital Signs Vital signs: Vital Signs Temp 97.4 F L 11/14/23 08:45 Pulse 78 11/14/23 08:45 Resp 16 11/14/23 08:45 BP 150/87 11/14/23 08:45 Pulse Ox 96 11/14/23 08:45 FiO2 Intake & Output 11/13/23 11/14/23 11/14/23 18:59 06:59 18:59 Intake Total 1993 680 250 Output Total 625 1225 400 Balance 1369 -545 -150 Intake: IV 20 20 10 Invasive Line 2 20 20 10 Oral 1974 660 240 Output: Urine 625 1225 400 Other: Voiding Method Indwelling Catheter Indwelling Catheter Indwelling Catheter # Bowel Movements 1 ABP, PAP, CO, CI - Last Documented Arterial Blood Pressure 114/34 - Exam Gen: AOx3, NAD VSS stable at this time Integument: Postop dressing was removed today at bedside, ximena are all in good position and condition. Palpation: Mild tenderness with palpation noted throughout the lumbar spine ROM: Full range of motion in all major muscle groups of the bilateral upper extremities Range of motion in the right lower extremity seems adequate at this time, left lower extremity still is diminished with dorsiflexion, knee extension and hip flexion Sensory Exam: Senory exam to light touch is intact C5-T1 [place] exam to light touch is intact L2-S1 Motor: 4+/5 strength appreciated in the bilateral upper extremities with shoulder elevation, shoulder abduction, elbow extension, elbow flexion, wrist extension, wrist flexion, lease analyst 4+/5 strength appreciated in the right lower extremity with hip flexion, knee extension, knee flexion, plantarflexion, dorsiflexion, EHL, FHL 3+/5 strength appreciated in the left lower extremity with hip flexion, knee extension. 2/5 strength appreciated in the left lower extremity with EHL, dorsiflexion 4/5 strength appreciated to left lower extremity with knee flexion, plantarflexion Reflexes: 2/4 in all UE and LE Negative Heaven's bilaterally, negative Babinski bilaterally, negative clonus bilaterally - Labs CBC & Chem 7: 11/13/23 10:04 11/13/23 10:04 Labs: Abnormal Lab Results - Last 24 Hours (Table) 11/13/23 11/13/23 Range/Units 10:04 10:04 WBC 14.7 H (3.8-10.6) k/uL RBC 2.51 L (4.30-5.90) m/uL Hgb 8.1 L (13.0-17.5) gm/dL Hct 24.3 L (39.0-53.0) % Neutrophils # 13.4 H (1.3-7.7) k/uL Lymphocytes # 0.7 L (1.0-4.8) k/uL Chloride 109 H (98-107) mmol/L Carbon Dioxide 20 L (22-30) mmol/L BUN 31 H (9-20) mg/dL Creatinine 1.35 H (0.66-1.25) mg/dL Glucose 156 H (74-99) mg/dL Calcium 8.1 L (8.4-10.2) mg/dL Microbiology - Last 24 Hours (Table) 11/11/23 16:19 Blood Culture - Preliminary Blood Assessment and Plan Assessment: Postoperative day #5 status post A0iqerii decompression and fusion Acute blood loss anemia, expected surgical outcome Left lower extremity weakness, left foot drop Multiple medical comorbidities Plan: Pain control, continue with current medications DVT prophylaxis, continue subcu medication Continue to monitor surgical dressing Placement of the LSO brace was attempted today, patient is too large for the current brace Continue PT/OT Weight-bear as tolerated, utilize walker. No bending, lifting or twisting Urinary catheter was replaced due to retention, plan for consulting urology early next week for outpatient recommendations Will discuss with case management prescription for AFO brace to help with foot drop on the left lower extremity. Other medical specialty recommendations appreciated Will continue to follow patient during hospital stay Time with Patient: Less than 30
--- NOTE | 2023-11-14 12:09 | P.PN ---
Subjective Progress Note Date: 11/14/23 This is a 75-year-old male patient was transferred to the intensive care unit for monitoring following his spine surgery. The patient underwent a lengthy surgery on his lumbar spine as the patient was experiencing low back pain and bilateral lower extremity numbness and tingling and weakness. CAT scan of the lumbar spine showed spondylosis L2-S1 along with collapse and disc height loss and facet arthrosis/osteophyte formation causing central canal and bilateral foraminal stenosis at each level. MRI of the lumbar spine done on 06/28/2023 showed similar findings with neuroma on stenosis worst at the level of L2-L3 and L5-S1. Based on that, the patient was taken to the operating room and underwent an L2 to pelvis decompression and fusion. The patient. Was difficult to arouse. He was ultimately weaned off the mechanical ventilator and the patient was extubated and brought into the intensive care unit for further monitoring. He has a radial arterial line and also has a triple-lumen catheter in his right IJ. He is awake and alert and communicating. White cell count is at 12 with a hemoglobin 9.6 and a platelet count of 170. The BUN is at 18 with a creatinine of 1.36 and a sodium level is at 135 with a potassium level of 4.9. He is awake and alert and communicating. He is on Dilaudid for pain control. He is also on Flexeril. He was given IV cefazolin for antibiotic prophylaxis. The patient has other comorbidities including peripheral vascular disease and the patient has undergone previous right femoral endarterectomy with patch angioplasty. Has hypertension, hyperlipidemia, bronchial asthma, hiatal hernia, gout, degenerative disc disease as mentioned above. He is currently hemodynamically stable. There is a Hemovac in his back with bloody output. Pulse ox 96% on 4 L of oxygen by nasal cannula. Cardiac rhythm is sinus. Able to move his lower extremities. Pain is under adequate control for now. On today's evaluation of 11/10/2023, the patient is being seen for a follow-up. Awake and alert and communicating. Denies having any specific complaints. He was on 4 L and he was weaned down to 2 L of O2 nasal cannula. He is complaining of back pain and the Hemovac is putting approximately 600 cc of bloody output and hemoglobin is being monitored at this point in time. Spine surgery is on the case. His hemoglobin has dropped down to 8.6 from 9.6 yesterday. Rest of the blood work shows also a component of acute kidney injury. BUN is up to 24 with a creatinine of 2.1 and a sodium levels at 134 with a potassium level of 5.5. The patient remains on normal saline at rate of 75 cc an hour. He is not taking any form of nephrotoxic agents at this point in time. Meanwhile, CT scan of the lumbar spine was done yesterday and it showed essentially postsurgical changes consistent with lumbar fusion. No other acute abnormalities was noted. The patient is taking Dilaudid for pain control is also on Flexeril and Lyrica. The rest of the outpatient medications have been all resumed. Renal function is being monitored. He denies having any numbness or tingling in his lower extremities. Motor function is adequate in lower extremities. The drain has been placed at half compression based on surgical recommendation. Using incentive spirometer. On today's evaluation of 11/11/2023, the patient continues to have some weakness in the left lower extremity. Note that yesterday, a code stroke was called as the patient noted weakness in his left upper and left lower extremity and he also complained of some numbness. His NIH score was 8. He was noted to have some slurred speech and facial droop and based on that, a CT angiogram of the brain was done and showed no evidence of any proximal large vessel occlusion in the intracranial arterial system. There was some scattered atherosclerotic disease intracranially with mild multifocal stenosis. There was 70% stenosis of the right proximal internal carotid artery. Moderate stenosis of the right vertebral artery origin and moderate to severe stenosis of the left vertebral artery origin. Patient was not given any thrombolytics. He was monitored neurologically. Today, I noticed that his left side and left slide attendant is slightly weak compared to the right. No facial asymmetry. Awake and alert and communicating and answering questions appropriately. Based on that, he scheduled to undergo an MRI of the brain. Meanwhile, his respiratory status is stable. Patient is currently on 3 L of oxygen by nasal cannula with a pulse ox of 98%. I checked the chest x-ray from today and shows no acute abnormalities. The patient has a right IJ thrombus on normal catheter in place. MRI of the bra in was completed and the patient has no evidence of any intracranial mass or any acute or subacute infarct. There are some nonspecific white matter changes along with chronic small vessel ischemic changes seen bilaterally. The carotid Doppler was also completed and the patient has no evidence of any hemodynamic stenosis in the left carotid system. The blood work from today shows improvement in creatinine the creatinine is down to 1.97 with a BUN of 23. Sodium is at 131. Potassium is 4.7. WBC count at 7.8 with a hemoglobin of 8.1 and a platelet count of 135. The patient is currently on aspirin 81 mg p.o. daily. He is also on Plavix 75 mg p.o. daily. Tabiona for pain control. He is also on Flexeril. He was started on Decadron by the surgical team at 6 mg IV every 6 hours. 2D echocardiogram was also ordered and completed and echocardiogram showed normal left ventricular ejection fraction of 6065%. No other significant abnormalities noted. On 11/12/2023, I am seeing the patient for a follow-up. The patient is sitting up in a chair and is calm and comfortable. He continues to have some numbness in his left lower extremity. Noted the patient has had chronic numbness in his legs. This has been an ongoing problem since his surgery and the patient was started on Decadron. He is also on Lyrica. He is taken Tabiona for pain control for now. No respiratory difficulties. No new onset focal neurological deficits. Adequate swallow. No facial asymmetry. No weakness in his left upper extremity. MRI of the brain was completed yesterday and showed no evidence of any stroke. Meanwhile, the patient is tolerating diet. His white cell count at 13.4 with a hemoglobin 8.2 and a platelet count of 150. Creatinine continues to improve and is currently down to 1.4 with a BUN of 22 and a sodium levels at 136. Procalcitonin level is at 0.21. He remains on normal saline at rate of 20 cc an hour. Rest of the medications and home medications have been all resumed. He is currently on oxygen at 2 L with a pulse ox of 97%. Using incentive spirometer. Hemovac was pulled accidentally today and I was told that the output has been essentially minimal prior to the drain coming out. On today's evaluation of 11/13/2023, the patient is being seen for a follow-up. No new complaints for now. Sitting up in a chair. Continues to have some numbness in the left lower a extremity that started following his back surgery. Currently on Decadron. Currently on Lyrica. Respiratory status is stable. He is having some issues with constipation the patient will be given the appr opriate laxatives. BUN is at 31 with a creatinine of 1.3 and a WBC count of 14.7 with a hemoglobin of 8. While in the platelet count of 195. Patient has no other new complaints otherwise for now. He is ambulating with the help of a walker. No respiratory distress. He remains on oxygen at 2 L with a pulse ox of 94%. On today's evaluation of 11/14/2023, the patient continues to have some diffi culties with hip flexion and numbness. The patient has no other new complaints. No chest pain. No shortness of breath. White cell count is 14.7 from yesterday with a hemoglobin of 8.4. No repeat labs elevated from today. Creatinine was also stable at 1.35. Using incentive spirometer. Still on Decadron and dose has been modified to 2 mg every 6 hours. Orthopedic surgery is on the case. The patient is postop day #5. Pain is under better control and the patient will need an LSO brace and mobility with the help of a walker. Objective - Vital Signs Vital signs: Vital Signs Temp 97.4 F L 11/14/23 08:45 Pulse 78 11/14/23 08:45 Resp 16 11/14/23 08:45 BP 150/87 11/14/23 08:45 Pulse Ox 96 11/14/23 08:45 FiO2 Intake & Output 11/13/23 11/14/23 11/14/23 18:59 06:59 18:59 Intake Total 1993 680 250 Output Total 625 1225 400 Balance 1369 -545 -150 Intake: IV 20 20 10 Invasive Line 2 20 20 10 Oral 1973 660 240 Output: Urine 625 1225 400 Other: Voiding Method Indwelling Catheter Indwelling Catheter Indwelling Catheter # Bowel Movements 1 ABP, PAP, CO, CI - Last Documented Arterial Blood Pressure 114/34 - Exam General appearance the patient calm comfortable no acute distress currently on 2 L of oxygen by nasal cannula. Head exam was generally normal. There was no scleral icterus or corneal arcus. Mucous membranes were moist. Neck was supple and without jugular venous distension, thyromegaly, or carotid bruits. Carotids were easily palpable bilaterally. There was no adenopathy. The patient has a right IJ triple-lumen catheter in place Lungs were clear to auscultation and percussion, and with normal diaphragmatic excursion. No wheezes or rales were noted. Cardiac exam revealed the PMI to be normally situated and sized. The rhythm was regular and no extrasystoles were noted during several minutes of auscultation. The first and second heart sounds were normal and physiologic splitting of the second heart sound was noted. There were no murmurs, rubs, clicks, or gallops. Abdominal exam revealed normal bowel sounds. The abdomen was soft, non-tender, and without masses, organomegaly, or appreciable enlargement of the abdominal aorta. Extremities reveal diminished pulses bilaterally. No cyanosis or clubbing. Neurologically, the patient is awake and alert and moving all 4 extremities. There is no facial asymmetry. Awake and alert and communicating. No dysarthria. No no facial asymmetry. Possibly some weakness in his left upper and left lower extremity more so on the left lower extremity Skin, surgical wound site is dry clean and intact and the patient is a Hemovac has been removed and the surgical wound site over the back is dry clean and intact. - Labs CBC & Chem 7: 11/13/23 10:04 11/13/23 10:04 Labs: Microbiology - Last 24 Hours (Table) 11/11/23 16:19 Blood Culture - Preliminary Blood Assessment and Plan Plan: L2 to pelvis decompression and fusion. The patient is currently postop day # 4. Surgery was done for pain and weakness involving the lower extremities and the patient had evidence of severe spinal canal stenosis secondary to osteophyte and disc bulge with facet joint arthropathy. Patient also had neuroforaminal foraminal stenosis worse at the level of L2-L3 and L5-S1. The CAT scan of the lumbar spine showed postsurgical changes Acute hypoxic respiratory failure currently on 2 L of oxygen by nasal cannula. The patient had a prolonged surgery and the patient was able to wean off the mechanical ventilator and the patient is currently extubated and the patient is awake and alert and using the incentive spirometer. The chest x-ray remains clear of any pulmonary infiltrates and the patient has no signs of any respiratory distress. No signs of any respiratory distress and the patient continues to use his incentive spirometer. Acute onset of left sided weakness, leg more than the arm with reported initial NIH stroke scale of 6. At present patient only has deficits in the left lower extremity, with predominant left foot drop, and numbness of the left leg. No deficits noted in the upper extremities or cranial nerves region. Differential diagnosis is between CVA versus peripheral/radicular process from recent back surgery. CT of the brain was done CTA revealed no evidence of proximal large vessel occlusion in the intracranial arterial system. Scattered atherosclerotic disease intracranially creating up to mild multifocal stenosis. Scattered atherosclerotic disease in the bilateral cervical carotid arteries, creating up to 70% stenosis of the proximal right ICA. Moderate stenosis of the right vertebral artery origin with moderate to severe stenosis of the left vertebral artery origin. Vascular surgical consultation for right ICA stenosis, probably symptomatic. MRI of the brain shows no evidence of an acute or subacute stroke and was a negative study for acute CVA. On today's evaluation of 11/12/2023, no focal neurological deficit and the patient continues to have some numbness in the left lower extremity. The patient was started on Decadron. Right ICA stenosis 70% per CTA. Intracranial multivessel atherosclerotic disease, patient was seen by vascular surgery and no intervention has been recommended and this will be managed on outpatient basis. Postop anemia, expected outcome of surgery and the hemoglobin is stable at 8.1. The Hemovac output has been low and it was pulled out accidentally. Acute kidney injury, rule out for surgical ATN and the creatinine is being monitored. Creatinine gradually improved and the patient remains on IV fluids and the creatinine continues to improve Back pain, currently on Tabiona for pain control Peripheral vascular disease with previous right femoral endarterectomy and patch angioplasty and the patient also has had bilateral iliac stents placement Hypertension Hyperlipidemia Bronchial asthma, mild intermittent Hypothyroidism Chronic back pain as mentioned above Osteoarthritis Chronic stage III kidney disease Plan The patient is clinically stable and the patient was moved out of the intensive care unit The patient will have the FiO2 titrated and the patient is currently on room air oxygen Tabiona for pain control Continue aspirin and restart Plavix 75 mg p.o. daily creatinine is improving on today's evaluation IV fluids with normal saline at rate of 20 cc an hour and the creatinine continues to improve Continue Flexeril 5 mg p.o. 3 times daily on a as needed basis Monitor hemoglobin, stable at 8.1 Monitor renal function, continues to improve Vascular surgery consultation, appreciated and the carotids will be monitored outpatient basis. Echocardiogram was within normal limits MRI of the brain was noted and there is no evidence of any stroke Decadron was started by orthopedic surgeon dose has been modified to 2 mg IV every 6 hours Increase mobility Provide appropriate laxatives regarding chronic constipation
--- NOTE | 2023-11-14 13:38 | P.PN ---
Subjective Progress Note Date: 11/14/23 Status post L2 to pelvis decompression and fusion 11/10/2023 this is a pleasant 77-year-old gentleman admitted with severe L2-S1 spondylosis with stenosis, bilateral lower extremity weakness and neurogenic claudication,status post L2 to pelvis decompression and fusion, postop day #1.Tmax 100.9, normal WBC. Telemetry sinus rhythm. Maintained on IV fluid hydration. Continues on aspirin with Plavix on hold. Hemovac with approximately 800 mL output per 24-hour I&O, hemoglobin 8.6, platelets 153 .renal function worsening with creatinine up to 2.12. Potassium 5.5 .denies chest pain, palpitations or shortness of breath. Maintaining O2 sats in the 90s on 2 L nasal cannula. Lumbar spine CT reported postsurgical changes consistent with lumbar fusion. Positive pain, denies numbness or tingling of bilateral lower extremities. 11/11/2023 yesterday, patient discovered to have flaccid left lower extremity, upon PTs initial visit postop. Code stroke was called. Patient was determined not to be a candidate for tPA related to recent back surgery and unknown well time. Evaluated by neurology with neurowork-up initiated .CTA recommended by Dr. Dwyer. Brain CT reported no acute findings. CTA of head and neck reported no evidence of proximal large vessel occlusion in the intracranial arterial system. Scattered atherosclerotic disease intracranially creating up to mild multifocal stenosis. Scattered atherosclerotic disease in the bilateral cervical carotid arteries, creating up to 70% stenosis of the proximal right ICA. Moderate stenosis of the right vertebral artery origin with moderate to severe stenosis of the left vertebral artery origin. Hemovac drainage lessening, 650ml over 24 hours. Hemoglobin 8.1, platelets 135. BUN 23, creatinine 1.97. Drowsy this morning, received Tylenol earlier this morning and Parkman last night around 9 PM. Positive pain. Tmax 101.5, normal WBC. Chest x-ray reported no acute cardiopulmonary disease/process. Complains of headache. MRI pending. 11/12/2023 earlier this morning, around 0600 patient mistakenly pulled out Hemovac cord, thinking it was the call light. Hemovac drainage had been slowing down. Brain MRI yesterday reported negative. Left lower extremity strength improving, currently reporting numb left ivey with positive sensation in his toes and feet. Maintained on aspirin, Plavix and statin. Vascular workup in progress, carotid duplex canceled related to triple-lumen in right side of neck with further workup outpatient with vascular surgery. neurology following. Creatinine improving. Afebrile, WBC 13.4, procalcitonin 0.21. Currently maintained on IV dexamethasone ,cefazolin.Dual antiplatelet therapy of Plavix a nd aspirin. 11/12. Patient seen and examined. Sitting upright in the chair. Back pain has improved, still has weakness of left lower extremity. Patient had a bowel movement. 11/13. Patient seen and examined. Temperature 97.4, heart rate 78, respirations 16, blood pressure 150/87. No acute issue overnight REVIEW OF SYSTEMS: CONSTITUTIONAL: No fever, no malaise,. CARDIOVASCULAR: No chest pain, no palpitations, no syncope. PULMONARY: No shortness of breath, no cough, GASTROINTESTINAL: No diarrhea, no nausea, no vomiting, no abdominal pain. NEUROLOGICAL: No headaches, no weakness, PHYSICAL EXAMINATION: GENERAL: The patient is alert and oriented x3, not in any acute distress. Well developed, well nourished. HEENT: Pupils are round and equally reacting to light. EOMI. No scleral icterus. No conjunctival pallor. Normocephalic, atraumatic. No pharyngeal erythema. No thyromegaly. CARDIOVASCULAR: S1 and S2 present. No murmurs, rubs, or gallops. PULMONARY: Chest is clear to auscultation, no wheezing or crackles. ABDOMEN: Soft, nontender, nondistended, normoactive bowel sounds. No palpable organomegaly. MUSCULOSKELETAL: No joint swelling or deformity. EXTREMITIES: No cyanosis, clubbing, or pedal edema. NEUROLOGICAL: Muscle strength is 5 of 5 in all extremities except left lower extremity is 3 x 5, SKIN: Lumbar area surgical incision seen Assessment and plan Severe L2-S1 spondylosis with stenosis, bilateral lower extremity weakness and neurogenic claudication, status post L2 to pelvis decompression and fusion Acute hypoxic respiratory failure secondary to the above, status post mechanical ventilation Acute onset left-sided lower extremity weakness, suspect related to compression secondary to surgery Right ICA stenosis 70% per CTA Postop anemia, expected outcome Acute renal failure secondary to #1 Chronic renal failure, stage III chronic mild intermittent asthma Osteoarthritis Peripheral neuropathy Chronic back pain Hypertension Hyperlipidemia Hypothyroidism PVD with history of right femoral endarterectomy and patch angioplasty, bilateral iliac stents Monitor vital signs Monitor CBC Monitor CMP Continue telemetry monitoring Encourage use of incentive spirometer Aggressive bronchopulmonary hygiene Continue aspirin and Plavix. Continue IV fluids Continue pain management Vascular surgery consultation, appreciated and the carotids will be monitored outpatient basis. Echocardiogram was within normal limits MRI of the brain was noted and there is no evidence of any stroke Neurology following Orthopedic surgery following Labs and medication were reviewed.. Continue same treatment. Continue with symptomatic treatment. Resume home medication. Monitor labs and vitals. DVT and GI prophylaxis. Further recommendations as per clinical course of the patient Dictation was produced using [employer] dictation software. please excuse any grammatical, word or spelling errors. Objective - Vital Signs Vital signs: Vital Signs Temp 97.4 F L 11/14/23 08:45 Pulse 78 11/14/23 08:45 Resp 16 11/14/23 08:45 BP 150/87 11/14/23 08:45 Pulse Ox 96 11/14/23 08:45 FiO2 Intake & Output 11/13/23 11/14/23 11/14/23 18:59 06:59 18:59 Intake Total 1993 680 250 Output Total 625 1225 Balance 1369 -545 250 Intake: IV 20 20 10 Invasive Line 2 20 20 10 Oral 1974 660 240 Output: Urine 625 1225 Other: Voiding Method Indwelling Catheter Indwelling Catheter Indwelling Catheter # Bowel Movements 1 ABP, PAP, CO, CI - Last Documented Arterial Blood Pressure 114/34 - Labs CBC & Chem 7: 11/13/23 10:04 11/13/23 10:04 Labs: Abnormal Lab Results - Last 24 Hours (Table) 11/13/23 11/13/23 Range/Units 10:04 10:04 WBC 14.7 H (3.8-10.6) k/uL RBC 2.51 L (4.30-5.90) m/uL Hgb 8.1 L (13.0-17.5) gm/dL Hct 24.3 L (39.0-53.0) % Neutrophils # 13.4 H (1.3-7.7) k/uL Lymphocytes # 0.7 L (1.0-4.8) k/uL Chloride 109 H (98-107) mmol/L Carbon Dioxide 20 L (22-30) mmol/L BUN 31 H (9-20) mg/dL Creatinine 1.35 H (0.66-1.25) mg/dL Glucose 156 H (74-99) mg/dL Calcium 8.1 L (8.4-10.2) mg/dL Microbiology - Last 24 Hours (Table) 11/11/23 16:19 Blood Culture - Preliminary Blood
--- NOTE | 2023-11-15 00:53 | P.PN ---
Subjective Progress Note Date: 11/14/23 Patient was seen for a follow-up. Patient is sitting comfortably in the recliner. He is doing much better. Continues to have numbness of the left anterior thigh region. Still has left foot weakness. Objective - Vital Signs Vital signs: Vital Signs Temp 97.4 F L 11/14/23 08:45 Pulse 85 11/14/23 12:14 Resp 18 11/14/23 12:14 BP 145/64 11/14/23 12:14 Pulse Ox 97 11/14/23 12:14 FiO2 Intake & Output 11/13/23 11/14/23 11/14/23 18:59 06:59 18:59 Intake Total 1993 680 795 Output Total 625 1225 400 Balance 1369 -545 395 Intake: IV 20 20 10 Invasive Line 2 20 20 10 Oral 1974 660 785 Output: Urine 625 1225 400 Other: Voiding Method Indwelling Catheter Indwelling Catheter Indwelling Catheter # Bowel Movements 1 1 ABP, PAP, CO, CI - Last Documented Arterial Blood Pressure 114/34 - Exam Patient is alert and awake. Mental status is normal. Cranial nerves II through XII are normal. Visual sweeney are full. Face is symmetric. Tongue protrudes to the midline. On muscle strength testing, there is no pronator drift and the strength is normal in the arms distally and proximally. In the lower limbs (right/left) hip flexion 5/1-2, adduction 5/4+, M adduction 5/5, knee extension 5/5, ankle dorsiflexion 5/1-2. Sensations decreased in the left anterior thigh region, but equal in the lower legs. No ataxia for [id number] testing bilaterally. - Labs CBC & Chem 7: 11/13/23 10:04 11/13/23 10:04 Labs: Microbiology - Last 24 Hours (Table) 11/11/23 16:19 Blood Culture - Preliminary Blood Assessment and Plan Assessment: * Acute onset of left sided weakness, with predominant left foot drop, and numbness of the left leg. No deficits noted in the upper extremities or cranial nerves region. CVA ruled out. Likely cause peripheral/radicular process from recent back surgery. * Right ICA stenosis 70% per CTA. Intracranial multivessel atherosclerotic disease. * Status post elective L2 to pelvis decompression and fusion 11/09/2023 * History of L2-S1 spondylosis with stenosis, bilateral lower extremity weakness and neurogenic claudication. * Metabolic encephalopathy, much improved * Acute kidney injury, much improved * Anemia * Obesity * Hypertension * Hyperlipidemia * Osteoarthritis * Peripheral vascular disease * Peripheral neuropathy Plan: * MRI of the brain without contrast revealed no evidence of intracranial mass or acute/subacute infarct. Nonspecific white matter changes, likely secondary to small vessel ischemic disease. I personally reviewed MRI agree with the findings. * Patient's left leg weakness/foot drop is likely radicular from recent back surgery. * 2D echo revealed left ventricular EF 60 to 65%. No obvious regional wall motion abnormalities. Normal right ventricular size and function. No significant valvular dysfunction. Left atrium not well-visualized. * CTA revealed no evidence of proximal large vessel occlusion in the intracranial arterial system. Scattered atherosclerotic disease intracranially creating up to mild multifocal stenosis. Scattered atherosclerotic disease in the bilateral cervical carotid arteries, creating up to 70% stenosis of the proximal right ICA. Moderate stenosis of the right vertebral artery origin with moderate to severe stenosis of the left vertebral artery origin. * Carotid Doppler revealed no diagnostic evidence of hemodynamic significant stenosis of the left carotid system. Note is made that the distal margin of the left ICA could not be identified due to limitation. Antegrade flow in the left vertebral artery. Right side could not be scanned because of IJ. * Vascular surgical input appreciated. Recommending continue aspirin, Plavix and statin. * Right ICA stenosis at this time is asymptomatic, as there is no acute stroke noted on the MRI, and the left leg weakness is likely radicular in nature. * Resume Plavix, which has been held from prior to surgery. Continue aspirin 81 mg daily. * Fasting lipid panel with cholesterol 78, LDL 33, HDL 23 and triglycerides 102, continue Lipitor 40 mg. * Hemoglobin A1c 5.6, B12, folate * PT OT, speech therapy * Other medical management as per IM and other specialties. * DVT prophylaxis: Patient on heparin 5000 units subcu every 12 hour. * Neurologically, no further workup indicated. We will sign off. Please reconsult if any concerns.
--- NOTE | 2023-11-15 07:59 | P.PN ---
Subjective Progress Note Date: 11/15/23 Principal diagnosis: 1. L2-S1 spondylosis wit stenosis, severe 2. Bilateral lower extremity weakness 3. Neurogenic claudication Patient seen and examined this morning. Patient is sitting up in chair at bedside. He does report that his pain is managed at this time. LSO brace with gun repair clerk has been fitted, patient states he notices extra support and feels more secure. Patient continues with left lower extremity weakness, more prominent of decreased dorsiflexion. He does report he notices some improvement with his extension of the left lower extremity. Patient is looking forward to working with rehab for further progress and recovery. Consult has been placed for IPR. Virk catheter remains intact, will do a trial void later this morning. Initiating Flomax this morning. Patient is progressing well towards discharge. Objective - Vital Signs Vital signs: Vital Signs Temp 97.5 F L 11/15/23 04:00 Pulse 62 11/15/23 04:00 Resp 16 11/15/23 04:00 BP 150/68 11/15/23 04:00 Pulse Ox 96 11/15/23 04:00 FiO2 Intake & Output 11/14/23 11/15/23 11/15/23 18:59 06:59 18:59 Intake Total 925 420 Output Total 1000 1800 Balance -75 -1380 Intake: IV 20 20 Invasive Line 2 20 20 Oral 905 400 Output: Urine 1000 1800 Other: Voiding Method Indwelling Catheter Indwelling Catheter # Bowel Movements 1 ABP, PAP, CO, CI - Last Documented Arterial Blood Pressure 114/34 - Exam Physical Examination General: The patient is awake and alert, in no acute distress Skin: Skin is warm and dry with no obvious rashes or lesions. Surgical incision to the lumbar spine, dressing is clean dry and intact. Eye: Pupils are equal, round and reactive to light, extra-ocular movements are intact; there is normal conjunctiva bilaterally. Neck: The neck is supple, there is no tenderness and ROM intact. Cardiovascular: There is a regular rate and rhythm. No murmur, rub or gallop is appreciated. Respiratory: Lungs are clear to auscultation, respirations are non-labored, breath sounds are equal. Gastrointestinal: Soft, non-distended, non-tender abdomen. Back: There is no tenderness to palpation in the midline, paralumbar, parathoracic or buttocks region. There is no obvious deformity . Musculoskeletal: ROM limited secondary to pain and stiffness from surgical procedure. Muscle strength in all major muscle groups of bilateral upper extremities 4+/5, bilateral lower extremities 4/5, 2/5 Left EHL and dorsiflexi on. Neurological: CN 2-12 intact. There are no obvious motor or sensory deficits. Movement and coordination equal and intact. Sensory exam to light touch intact C5-T1 and intact from L2-S1. Reflexes 2/4 in bilateral upper and lower extremities. Negative Hoffmans, babinski, and clonus signs. Psychiatric: Cooperative, appropriate mood & affect, normal judgment. - Labs CBC & Chem 7: 11/13/23 10:04 11/13/23 10:04 Labs: Microbiology - Last 24 Hours (Table) 11/11/23 16:19 Blood Culture - Preliminary Blood Assessment and Plan Assessment: Postop day 6 : L2 to pelvis decompression and fusion 1. L2-S1 spondylosis wit stenosis, severe 2. Bilateral lower extremity weakness 3. Neurogenic claudication Plan: -Appreciate senior staff consultant and team management. -Consult placed for IPR. -Initiate Flomax 0.4mg -Discontinue virk catheter and perform trial void later this morning. If patient continues with retention replace virk cath and have patient follow up with Urology outpatient. -Activity: Ambulate QID, OOB all meals, up and about, limit lifting bending twisting to less than 5 lbs. Use walker or cane if needed for stability. -Daily PT/OT, increase ambulation strength and balance. -Brace when up and about, not needed in bed or chair -Pain control: Adequate at this time -Meds: reviewed -GI ppx: senna, Miralax -DVT PPX: Heparin -Hygiene: Shower today. Maintain dressing clean and dry. Meticulous cleaning after BMs away from the incision site -Encourage IS 10x/hr -Dispo: Clincally pending *I reviewed and discussed this case with my attending Dr. Gonzalez, whom has reviewed this chart and films and is in agreement with assessment and plan of c are as outlined above. I have personally seen and examined the patient, performed the documentation and the assessment and plan as written. Number of minutes spent on the visit: 20m.
[2023-11-15] MEDS: TAMSULOSIN 0.4 MG CAP.ER.24H PO SCH (08:56)
--- NOTE | 2023-11-15 10:13 | P.CONS ---
History of Present Illness - Reason for Consult Consult date: 11/15/23 rehab recommendations - Chief Complaint lumbar stenosis - History of Present Illness Mr Mayer is a 77 y/o male , right -handed, male who lives with his in a SS home, 1+2 JACKIE with single railing. Prior to admission, patient was mostly independent with mobility and ADLs, occasionally needing help with dressing due to low back pain. 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 He has support from his and jehovah's witness members; he has 2 sons who live in [facility], but not nearby. Patient was admitted to [facility] for elective L2-pelvis back surgery due to lumbar spondylosis with stenosis, bilateral lower extremity, neurogenic claudication with Dr Gonzalez on 11/09/23. He underwent surgery, did have some post operative complications from a respiratory standpoint. Pulmonology consulted for acute hypoxic respiratory failure. He was also noted to have some left sided weakness/numbness with left foot drop, concern for CVA, MRI brain negative, but does have right ICA stenosis. He was started on flomax for urinary retention and plan for trial of void today. PM&R consulted for rehab recommendations. Patient was mod to max assist with ADLs and toileting,on 11/13/23 patient ambulated 104 ft supervision with rolling walker. He notes did get out of bed to chair with walker by self today. He has some SOB with activity, but biggest issue is still left leg numbness and weakness with foot drop. Low back pain tolerable with tylenol. Denies HAIR, CP, abdominal pain. Last BM yesterday. Review of Systems reviewed, negative unless stated in subjective Past Medical History Past Medical History: Asthma, Chest Pain / Angina, GERD/Reflux, Hyperlipidemia, Hypertension, Musculoskeletal Disorder, Osteoarthritis (OA), Thyroid Disorder, Vascular Disorder Additional Past Medical History / Comment(s): Peripheral vascular disease, neuropathy, asthma as child, hiatal hernia, gout, degenerative discs, one episode of chest pain yrs ago.(nuclear stress test ok) recent URI tx with Abx and steroids. hx of blockage to femoral artery rt leg. History of Any Multi-Drug Resistant Organisms: None Reported Past Surgical History: Appendectomy, Heart Catheterization, Orthopedic Surgery Additional Past Surgical History / Comment(s): PTBA with bilateral iliac stents X3( 2 left, 1 right), PARTIAL THYROIDECTOMY, left shoulder rotator cuff repair, COLONOSCOPY, PAIN CLINIC PROCEDURE, bilateral knee arthroscopy. rt femoral endartectomy. Past Anesthesia/Blood Transfusion Reactions: No Reported Reaction Additional Past Anesthesia/Blood Transfusion Reaction / Comm: Pt has never had b lood. Smoking Status: Former smoker - Past Family History Mother Brother(s) Family Medical History: Cancer Sister(s) Family Medical History: Cancer Additional Family Medical History / Comment(s): brain cancer Mother Family Medical History: Cancer Brother(s) Family Medical History: CVA/TIA Medications and Allergies Home Medications Medication Instructions Recorded Confirmed Type Atorvastatin [Lipitor] 40 mg PO HS 04/02/17 11/09/23 History Multivit-Min/FA/Lycopen/Lutein 1 each PO DAILY 04/02/17 11/09/23 History [Centrum Silver Tablet] Primidone [Mysoline] 150 mg PO DAILY 04/02/17 11/09/23 History rOPINIRole HCL [Requip] 0.5 mg PO HS 04/19/19 11/09/23 History Amitriptyline HCl 25 mg PO HS 06/19/19 11/09/23 History Furosemide [Lasix] 20 mg PO QAM 09/04/19 11/09/23 History Potassium Chloride [Klor-Con M10] 10 meq PO BID 05/21/20 11/09/23 History Clopidogrel [Plavix] 75 mg PO QAM 03/03/23 11/09/23 History Venlafaxine HCl [Effexor] 37.5 mg PO QAM 03/03/23 11/09/23 History allopurinoL 300 mg PO QAM 03/03/23 11/09/23 History Aspirin 81 mg PO DAILY 11/03/23 11/09/23 History Benazepril HCl 20 mg PO DAILY 11/03/23 11/09/23 History Famotidine 40 mg PO HS 11/03/23 11/09/23 History Levothyroxine Sodium 88 mcg PO HS 11/03/23 11/09/23 History Meloxicam 7.5 mg PO DAILY 11/03/23 11/09/23 History Pregabalin 150 mg PO BID 11/03/23 11/09/23 History Terazosin [Hytrin] 2 mg PO HS 11/03/23 11/09/23 History Unk Prevagen 1 tab PO DAILY 11/03/23 11/09/23 History Allergies Allergy/AdvReac Type Severity Reaction Status Date / Time No Known Allergies Allergy Verified 11/09/23 07:15 Physical Exam Vitals: Vital Signs Temp Pulse Resp BP Pulse Ox 11/15/23 08:10 98 F 72 16 152/68 97 11/15/23 04:00 97.5 F L 62 16 150/68 96 11/15/23 01:14 177/81 11/15/23 00:00 64 16 190/80 96 11/14/23 21:10 97.9 F 61 16 160/63 93 L 11/14/23 16:51 80 16 150/79 96 11/14/23 12:14 85 18 145/64 97 Intake and Output 11/14/23 11/15/23 11/15/23 22:59 06:59 14:59 Intake Total 530 10 180 Output Total 600 1800 Balance -70 -1790 180 Intake: IV 10 10 Invasive Line 2 10 10 Oral 520 180 Output: Urine 600 1800 Other: Voiding Method Indwelling Catheter Indwelling Catheter Indwelling Catheter General: WDWN, male, NAD Head: Normocephalic, atraumatic. Eyes: Symmetric Ears: Symmetric. Hearing within normal limits. Mouth: Clear. Neck: Supple. Cardiac: Regular rate and rhythm. Calves supple, non tender, trace LE edema Lungs: Breathing comfortably on RA. Chest symmetric. Abdomen: Soft, nontender. Extremities: Arthritic changes consistent with age. Neurological: Alert and oriented x 4 Speech is clear and fluent without paraphasic errors Cranial nerves: CN II-XII: intact. Sensation: Intact and symmetrical limbs EXCEPT decreased light touch diffusely left lower extremity. Musculoskeletal: ROM WFL EXCEPT: decreased left HF/DF. MMT UE Sh Abd EE EF FABD WE HG Right 5 5 5 5 5 5 Left 5 5 5 5 5 5 MMT LE HF KE DF EHL Right 5 5 5 5 Left <3 >3 0 0 Reflexes Biceps Triceps Brachioradialis Patella Achilles Babinski Hoffmans Right 2 2 2 dec dec Left 2 2 2 dec dec Skin: Skin intact where visible to head, neck, and bilateral upper and lower ex tremities EXCEPT: lumbar incision with dressing in place. Psych: Calm, cooperative Results CBC & Chem 7: 11/15/23 09:36 11/13/23 10:04 Labs: Microbiology - Last 24 Hours (Table) 11/11/23 16:19 Blood Culture - Preliminary Blood Assessment and Plan Assessment: # Lumbar spondylosis with neurogenic claudication s/p L2-pelvis decompression and fusion -Back precautions -PT/OT -LSO brace # Post operative AHRF -wean o2 as tolerated # Post operative urinary retention -flomax, TOV today # Pain secondary to above -medications per MAR # Left leg weakness/numbness with foot drop post-op -per records will be getting AFO # Right ICA stenosis # DVT Prophylaxis -per MAR/ surgery # Comorbidities: Diabetes mellitus, h/o tobacco and alcohol use, HLD, HTN, thyroid disease, asthma # Your medical dx and management Dispo: Patient does not meet criteria for IPR as he only has functional needs with OT, ambulating 100 plus feet with walker already, independent with transfers per his report today. If unable to go home with [facility] and family/friend support when medically stable, may benefit from short [facility] stay, if insurance approves Patient seen and examined by Dr Chaudhari, note remotely prepped by Anne Reese PA-C
[2023-11-15 10:31] LABS: HCT 25.6 % (39.0-53.0); HGB 8.3 gm/dL (13.0-17.5); MCH 31.7 pg (25.0-35.0); MCHC 32.4 g/dL (31.0-37.0); MCV 97.8 fL (80.0-100.0); Platelet Count 217 k/uL (150-450); RBC 2.62 m/uL (4.30-5.90); WBC 10.6 k/uL (3.8-10.6)
--- NOTE | 2023-11-15 11:27 | P.PN ---
Subjective Progress Note Date: 11/15/23 Status post L2 to pelvis decompression and fusion 11/10/2023 this is a pleasant 77-year-old gentleman admitted with severe L2-S1 spondylosis with stenosis, bilateral lower extremity weakness and neurogenic claudication,status post L2 to pelvis decompression and fusion, postop day #1.Tmax 100.9, normal WBC. Telemetry sinus rhythm. Maintained on IV fluid hydration. Continues on aspirin with Plavix on hold. Hemovac with approximately 800 mL output per 24-hour I&O, hemoglobin 8.6, platelets 153 .renal function worsening with creatinine up to 2.12. Potassium 5.5 .denies chest pain, palpitations or shortness of breath. Maintaining O2 sats in the 90s on 2 L nasal cannula. Lumbar spine CT reported postsurgical changes consistent with lumbar fusion. Positive pain, denies numbness or tingling of bilateral lower extremities. 11/11/2023 yesterday, patient discovered to have flaccid left lower extremity, upon PTs initial visit postop. Code stroke was called. Patient was determined not to be a candidate for tPA related to recent back surgery and unknown well time. Evaluated by neurology with neurowork-up initiated .CTA recommended by Dr. Dwyer. Brain CT reported no acute findings. CTA of head and neck reported no evidence of proximal large vessel occlusion in the intracranial arterial system. Scattered atherosclerotic disease intracranially creating up to mild multifocal stenosis. Scattered atherosclerotic disease in the bilateral cervical carotid arteries, creating up to 70% stenosis of the proximal right ICA. Moderate stenosis of the right vertebral artery origin with moderate to severe stenosis of the left vertebral artery origin. Hemovac drainage lessening, 650ml over 24 hours. Hemoglobin 8.1, platelets 135. BUN 23, creatinine 1.97. Drowsy this morning, received Tylenol earlier this morning and [place] last night around 9 PM. Positive pain. Tmax 101.5, normal WBC. Chest x-ray reported no acute cardiopulmonary disease/process. Complains of headache. MRI pending. 11/12/2023 earlier this morning, around 0600 patient mistakenly pulled out Hemovac cord, thinking it was the call light. Hemovac drainage had been slowing down. Brain MRI yesterday reported negative. Left lower extremity strength improving, currently reporting numb left ivey with positive sensation in his toes and feet. Maintained on aspirin, Plavix and statin. Vascular workup in progress, carotid duplex canceled related to triple-lumen in right side of neck with further workup outpatient with vascular surgery. neurology following. Creatinine improving. Afebrile, WBC 13.4, procalcitonin 0.21. Currently maintained on IV dexamethasone ,cefazolin.Dual antiplatelet therapy of Plavix a nd aspirin. 11/15/2023 significant clinical improvement. Sitting up in chair, denies chest pain, palpitations or shortness of breath. Reports ambulated with walker down the [place], tolerated exertion well. Denies lightheadedness, dizziness or focal deficits. Left lower extremity weakness improving, currently reports left thigh numbness. LSO brace at bedside. Consult for inpatient rehab in place with recommendations pending. Afebrile, WBCs normalized, 10.6. Preliminary blood cultures reporting no growth after 48 hours. hemoglobin 8.3, platelets 217, BMP pending. Sandhu catheter to be discontinued this morning, Flomax added to med regimen, spontaneous voiding trial pending. Objective - Vital Signs Vital signs: Vital Signs Temp 98 F 11/15/23 08:10 Pulse 72 11/15/23 08:10 Resp 16 11/15/23 08:10 BP 152/68 11/15/23 08:10 Pulse Ox 97 11/15/23 08:10 FiO2 Intake & Output 11/14/23 11/15/23 11/15/23 18:59 06:59 18:59 Intake Total 925 420 180 Output Total 1000 1800 Balance -75 -1380 180 Intake: IV 20 20 Invasive Line 2 20 20 Oral 905 400 180 Output: Urine 1000 1800 Other: Voiding Method Indwelling Catheter Indwelling Catheter Indwelling Catheter # Bowel Movements 1 ABP, PAP, CO, CI - Last Documented Arterial Blood Pressure 114/34 - Exam PHYSICAL EXAM: VITAL SIGNS: [As above] GENERAL: Alert and oriented x 3, sitting up in chair, no acute distress HEENT: Normocephalic, conjunctivae normal. eyes normal. NECK: Supple, no JVD. CARDIOVASCULAR: S1, S2 regular. No murmur. RESPIRATION: Unlabored, equal air entry ,breath sounds diminished in the bases. ABDOMEN: Soft, nontender. No guarding. no masses palpable. Positive bowel sounds LEGS: No edema. no swelling NERVOUS SYSTEM: Cranial nerves II through XII grossly intact. [place], strength and sensation grossly intact. Skin: Warm and dry, no rash - Labs CBC & Chem 7: 11/15/23 09:36 11/13/23 10:04 Labs: Abnormal Lab Results - Last 24 Hours (Table) 11/15/23 Range/Units 09:36 RBC 2.62 L (4.30-5.90) m/uL Hgb 8.3 L (13.0-17.5) gm/dL Hct 25.6 L (39.0-53.0) % Microbiology - Last 24 Hours (Table) 11/11/23 16:19 Blood Culture - Preliminary Blood Assessment and Plan Assessment: Severe L2-S1 spondylosis with stenosis, bilateral lower extremity weakness and neurogenic claudication, status post L2 to pelvis decompression and fusion Acute hypoxic respiratory failure secondary to the above, status post mechanical ventilation Acute onset left-sided lower extremity weakness, suspect related to compression secondary to surgery, CVA ruled out as per neurology workup. Right ICA stenosis 70% per CTA Postop anemia, expected outcome Acute renal failure secondary to #1 Chronic renal failure, stage III Chronic mild intermittent asthma Osteoarthritis Peripheral neuropathy Chronic back pain Hypertension Hyperlipidemia Hypothyroidism PVD with history of right femoral endarterectomy and patch angioplasty, bilateral iliac stents Urinary retention Plan: Continue on current medication regime, monitoring and symptomatic treatment. Spontaneous voiding trial pending. DVT prophylaxis. Aggressive pulmonary toileting with incentive spirometer reinforced. PT. discharge planning in progress-inpatient versus subacute rehab at [place]. Medically cleared for discharge. Follow-up with PCP in 1 week after DC from rehab. The impression and plan of care has been dictated as directed. : I performed a history and examination of this patient, discussed the same with the dictator. I agree with the dictator's note ,documented as a scribe. Any additional findings or plans will be noted.
[2023-11-15] MEDS: DEXAMETHASONE SOD PHOSPHATE 4 MG/ML 1 ML VIAL IV SCH (12:25)
[2023-11-15 12:35] LABS: African American GFR (CKD) 65 (>60 ml/min/1.73 sqM); Anion Gap 7 mmol/L; Blood Urea Nitrogen 33 mg/dL (9-20); Carbon Dioxide 21 mmol/L (22-30); Chloride 107 mmol/L (98-107); Glucose 143 mg/dL (74-99); Non-African American GFR(CKD) 56 (>60 ml/min/1.73 sqM); Potassium 4.4 mmol/L (3.5-5.1); Sodium 135 mmol/L (137-145)
--- NOTE | 2023-11-15 15:21 | P.PN ---
Subjective Progress Note Date: 11/15/23 Principal diagnosis: L2 to pelvis decompression and fusion. This is a 75-year-old male patient was transferred to the intensive care unit for monitoring following his spine surgery. The patient underwent a lengthy surgery on his lumbar spine as the patient was experiencing low back pain and bilateral lower extremity numbness and tingling and weakness. CAT scan of the lumbar spine showed spondylosis L2-S1 along with collapse and disc height loss and facet arthrosis/osteophyte formation causing central canal and bilateral foraminal stenosis at each level. MRI of the lumbar spine done on 06/28/2023 showed similar findings with neuroma on stenosis worst at the level of L2-L3 and L5-S1. Based on that, the patient was taken to the operating room and underwent an L2 to pelvis decompression and fusion. The patient. Was difficult to arouse. He was ultimately weaned off the mechanical ventilator and the patient was extubated and brought into the intensive care unit for further monitoring. He has a radial arterial line and also has a triple-lumen catheter in his right IJ. He is awake and alert and communicating. White cell count is at 12 with a hemoglobin 9.6 and a platelet count of 170. The BUN is at 18 with a creatinine of 1.36 and a sodium level is at 135 with a potassium level of 4.9. He is awake and alert and communicating. He is on Dilaudid for pain control. He is also on Flexeril. He was given IV cefazolin for antibiotic prophylaxis. The patient has other comorbidities including peripheral vascular disease and the patient has undergone previous right femoral endarterectomy with patch angioplasty. Has hypertension, hyperlipidemia, bronchial asthma, hiatal hernia, gout, degenerative disc disease as mentioned above. He is currently hemodynamically stable. There is a Hemovac in his back with bloody output. Pulse ox 96% on 4 L of oxygen by nasal cannula. Cardiac rhythm is sinus. Able to move his lower extremities. Pain is under adequate control for now. On today's evaluation of 11/10/2023, the patient is being seen for a follow-up. Awake and alert and communicating. Denies having any specific complaints. He was on 4 L and he was weaned down to 2 L of O2 nasal cannula. He is complaining of back pain and the Hemovac is putting approximately 600 cc of bloody output and hemoglobin is being monitored at this point in time. Spine surgery is on the case. His hemoglobin has dropped down to 8.6 from 9.6 yesterday. Rest of the blood work shows also a component of acute kidney injury. BUN is up to 24 with a creatinine of 2.1 and a sodium levels at 134 with a potassium level of 5.5. The patient remains on normal saline at rate of 75 cc an hour. He is not taking any form of nephrotoxic agents at this point in time. Meanwhile, CT scan of the lumbar spine was done yesterday and it showed essentially postsurgical ch anges consistent with lumbar fusion. No other acute abnormalities was noted. The patient is taking Dilaudid for pain control is also on Flexeril and Lyrica. The rest of the outpatient medications have been all resumed. Renal function is being monitored. He denies having any numbness or tingling in his lower extremities. Motor function is adequate in lower extremities. The drain has been placed at half compression based on surgical recommendation. Using incentive spirometer. On today's evaluation of 11/11/2023, the patient continues to have some weakness in the left lower extremity. Note that yesterday, a code stroke was called as the patient noted weakness in his left upper and left lower extremity and he also complained of some numbness. His NIH score was 8. He was noted to have some slurred speech and facial droop and based on that, a CT angiogram of the brain was done and showed no evidence of any proximal large vessel occlusion in the intracranial arterial system. There was some scattered atherosclerotic disease intracranially with mild multifocal stenosis. There was 70% stenosis of the right proximal internal carotid artery. Moderate stenosis of the right vertebral artery origin and moderate to severe stenosis of the left vertebral artery origin. Patient was not given any thrombolytics. He was monitored neurologically. Today, I noticed that his left side and left claims consultant is slightly weak compared to the right. No facial asymmetry. Awake and alert and comm unicating and answering questions appropriately. Based on that, he scheduled to undergo an MRI of the brain. Meanwhile, his respiratory status is stable. Patient is currently on 3 L of oxygen by nasal cannula with a pulse ox of 98%. I checked the chest x-ray from today and shows no acute abnormalities. The patient has a right IJ thrombus on normal catheter in place. MRI of the brain was completed and the patient has no evidence of any intracranial mass or any acute or subacute infarct. There are some nonspecific white matter changes along with chronic small vessel ischemic changes seen bilaterally. The carotid Doppler was also completed and the patient has no evidence of any hemodynamic stenosis in the left carotid system. The blood work from today shows improvement in creatinine the creatinine is down to 1.97 with a BUN of 23. Sodium is at 131. Potassium is 4.7. WBC count at 7.8 with a hemoglobin of 8.1 and a platelet count of 135. The patient is currently on aspirin 81 mg p.o. daily. He is also on Plavix 75 mg p.o. daily. [place] for pain control. He is also on Flexeril. He was started on Decadron by the surgical team at 6 mg IV every 6 hours. 2D echocardiogram was also ordered and completed and echocardiogram showed normal left ventricular ejection fraction of 6065%. No other significant abnormalities noted. On 11/12/2023, I am seeing the patient for a follow-up. The patient is sitting up in a chair and is calm and comfortable. He continues to have some numbness in his left lower extremity. Noted the patient has had chronic numbness in his legs. This has been an ongoing problem since his surgery and the patient was started on Decadron. He is also on Lyrica. He is taken [place] for pain control for now. No respiratory difficulties. No new onset focal neurological deficits. Adequate swallow. No facial asymmetry. No weakness in his left upper extremity. MRI of the brain was completed yesterday and showed no evidence of any stroke. Meanwhile, the patient is tolerating diet. His white cell count at 13.4 with a hemoglobin 8.2 and a platelet count of 150. Creatinine continues to improve and is currently down to 1.4 with a BUN of 22 and a sodium levels at 136. Procalcitonin level is at 0.21. He remains on normal saline at rate of 20 cc an hour. Rest of the medications and home medications have been all resumed. He is currently on oxygen at 2 L with a pulse ox of 97%. Using incentive spirometer. Hemovac was pulled accidentally today and I was told that the output has been essentially minimal prior to the drain coming out. On today's evaluation of 11/13/2023, the patient is being seen for a follow-up. No new complaints for now. Sitting up in a chair. Continues to have some numbness in the left lower a extremity that started following his back surgery. Currently on Decadron. Currently on Lyrica. Respiratory status is stable. He is having some issues with constipation the patient will be given the appropriate laxatives. BUN is at 31 with a creatinine of 1.3 and a WBC count of 14.7 with a hemoglobin of 8. While in the platelet count of 195. Patient has no other new complaints otherwise for now. He is ambulating with the help of a walker. No respiratory distress. He remains on oxygen at 2 L with a pulse ox of 94%. On today's evaluation of 11/14/2023, the patient continues to have some difficulties with hip flexion and numbness. The patient has no other new complaints. No chest pain. No shortness of breath. White cell count is 14.7 from yesterday with a hemoglobin of 8.4. No repeat labs elevated from today. Creatinine was also stable at 1.35. Using incentive spirometer. Still on Decadron and dose has been modified to 2 mg every 6 hours. Orthopedic surgery is on the case. The patient is postop day #5. Pain is under better control and the patient will need an LSO brace and mobility with the help of a walker. Reevaluate today on 11/15/2023, patient is doing well, no active pulmonary issues, no cough no wheezing no shortness of breath, remains on Decadron, he is on 2 mg every 6 hours, being followed by orthopedics, patient is now postoperative day #6. Being considered for discharge planning or possibly rehab this is in progress. Patient denies any active pulmonary symptoms. Labs today were reviewed he had a relatively normal basic metabolic profile, renal profile is improving creatinine down to 1.25 from 1.47 few days ago. Objective - Vital Signs Vital signs: Vital Signs Temp 97.7 F 11/15/23 11:30 Pulse 70 11/15/23 14:19 Resp 16 11/15/23 11:30 BP 159/68 11/15/23 14:19 Pulse Ox 97 11/15/23 11:30 FiO2 Intake & Output 11/14/23 11/15/23 11/15/23 18:59 06:59 18:59 Intake Total 925 420 360 Output Total 1000 1800 1300 Balance -75 -1380 -940 Intake: IV 20 20 Invasive Line 2 20 20 Oral 905 400 360 Output: Urine 1000 1800 1300 Uretheral (Sandhu) 1300 Other: Voiding Method Indwelling Catheter Indwelling Catheter Indwelling Catheter # Voids 1 # Bowel Movements 1 ABP, PAP, CO, CI - Last Documented Arterial Blood Pressure 114/34 - Exam General: Reveals 77-year-old white male in no distress, on room air. Head: Atraumatic normocephalic. HEENT: PERRLA, EOMI, nonicteric no neck masses no JVD Lungs: Clear bilaterally no crackles rhonchi or wheezes Cardiac exam r: Normal S1-S2 no S3 gallop, no murmur. Abdominal obese, soft nontender no megaly no rebound no guarding. Extremities reveal diminished pulses bilaterally. No cyanosis or clubbing. Neurologically, alert and oriented x 3. Awake, communicating. No dysarthria. No no facial asymmetry. Possibly some weakness in his left upper and left lower extremity more so on the left lower extremity Skin, surgical wound site is dry clean and intact and the patient is a Hemovac has been removed and the surgical wound site over the back is dry clean and intact. - Labs CBC & Chem 7: 11/15/23 09:36 11/15/23 10:54 Labs: Abnormal Lab Results - Last 24 Hours (Table) 11/15/23 11/15/23 Range/Units 09:36 10:54 RBC 2.62 L (4.30-5.90) m/uL Hgb 8.3 L (13.0-17.5) gm/dL Hct 25.6 L (39.0-53.0) % Sodium 135 L (137-145) mmol/L Carbon Dioxide 21 L (22-30) mmol/L BUN 33 H (9-20) mg/dL Glucose 143 H (74-99) mg/dL Calcium 8.0 L (8.4-10.2) mg/dL Microbiology - Last 24 Hours (Table) 11/11/23 16:19 Blood Culture - Preliminary Blood Assessment and Plan Assessment: Impression: L2 to pelvis decompression and fusion. Acute onset of left sided weakness, leg more than the arm with reported initial NIH stroke scale of 6. At present patient only has deficits in the left lower extremity, with predominant left foot drop, and numbness of the left leg. No deficits noted in the upper extremities or cranial nerves region. Differential diagnosis is between CVA versus peripheral/radicular process from recent back surgery. CT of the brain was done CTA revealed no evidence of proximal large vessel occlusion in the intracranial arterial system. Scattered atherosclerotic disease intracranially creating up to mild multifocal stenosis. Scattered atherosclerotic disease in the bilateral cervical carotid arteries, creating up to 70% stenosis of the proximal right ICA. Moderate stenosis of the right vertebral artery origin with moderate to severe stenosis of the left vertebral artery origin. Vascular surgical consultation for right ICA stenosis, probably symptomatic. MRI of the brain shows no evidence of an acute or subacute stroke and was a negative study for acute CVA. On today's evaluation of 11/12/2023, no focal neurological deficit and the patient continues to have some numbness in the left lower extremity. The patient was started on Decadron. Right ICA stenosis 70% per CTA. Intracranial multivessel atherosclerotic d isease, patient was seen by vascular surgery and no intervention has been recommended and this will be managed on outpatient basis. Acute kidney injury, rule out for surgical ATN and the creatinine is being monitored. Improving steadily. Peripheral vascular disease with previous right femoral endarterectomy and patch angioplasty and the patient also has had bilateral iliac stents placement Hypertension Hyperlipidemia Bronchial asthma, mild intermittent Hypothyroidism Chronic back pain as mentioned above Osteoarthritis Chronic stage III kidney disease Recommendation: Continue present supportive care measures Continue incentive spirometry Continue pain control management Continue aspirin and Plavix Continue Flexeril Continue to monitor labs including hemoglobin stable Decadron as per orthopedics on the case Increase mobility May require placement/rehab Time with Patient: Less than 30
[2023-11-15] MEDS: CYCLOBENZAPRINE 5 MG TAB PO PRN (17:32)
--- NOTE | 2023-11-15 17:32 | CT ---
EXAMINATION TYPE: CT lumbar spine wo con DATE OF EXAM: 11/15/2023 4:49 PM COMPARISON: 11/09/2023 HISTORY: post-op CT DLP: 2489.6 mGycm Automated exposure control for dose reduction was used. Unenhanced CT of the lumbar spine was performed. Bone and soft tissue window settings are submitted as well as coronal and sagittal reconstructions. Findings: There are postsurgical changes of intradisc and posterior metallic fusion and laminectomy from L2 thr ough S1. The lumbar vertebral segments are normal in height and alignment and there is no acute fracture or boswell bluxation. There is mild degenerative disease at the L1-2 level where there is mild vacuum phenomenon and spondylosis. There are skin ximena in the posterior midline indicating recent lumbar surgery. The sacrum and SI joints are normal. There is been no interval change compared to the prior study. IMPRESSION: Extensive postsurgical changes of interdisc and posterior metallic fusion and laminectomy from L2 thr ough S1. There is been no significant interval change. No evidence of acute trauma.
[2023-11-15] MEDS: HYDROmorphone 0.5 MG/0.5 ML SYRINGE IVP PRN (21:20)
[2023-11-16 01:21] VITALS: RESP 18
[2023-11-16 06:53] VITALS: PULSE 68
--- NOTE | 2023-11-16 07:18 | P.PN ---
Subjective Progress Note Date: 11/16/23 Principal diagnosis: 1. L2-S1 spondylosis wit stenosis, severe 2. Bilateral lower extremity weakness 3. Neurogenic claudication Patient seen and examined this morning. Patient is sitting up in chair at bedside. He does report that his pain is managed at this time. LSO brace at bedside. Surgical dressing to the thoracolumbar is CDI, Nursing staff changed dressing this morning. It is documented that patient did not qualify for IPR. Patient would like to discharge home with homecare. Sandhu cath was discontinued yesterday and patient is urinating without any difficulty. No acute concerns. Objective - Vital Signs Vital signs: Vital Signs Temp 97.9 F 11/16/23 04:00 Pulse 68 11/16/23 04:00 Resp 18 11/16/23 04:00 BP 129/70 11/16/23 04:00 Pulse Ox 96 11/16/23 04:00 FiO2 Intake & Output 11/15/23 11/16/23 11/16/23 18:59 06:59 18:59 Intake Total 1080 10 Output Total 1300 1450 Balance -220 -1440 Weight 141.8 kg Intake: IV 10 Invasive Line 2 10 Oral 1080 Output: Urine 1300 1450 Uretheral (Sandhu) 1300 Other: Voiding Method Indwelling Catheter Urinal # Voids 1 1 ABP, PAP, CO, CI - Last Documented Arterial Blood Pressure 114/34 - Exam Physical Examination General: The patient is awake and alert, in no acute distress Skin: Skin is warm and dry with no obvious rashes or lesions. Surgical incision to the lumbar spine, dressing is clean dry and intact. Eye: Pupils are equal, round and reactive to light, extra-ocular movements are intact; there is normal conjunctiva bilaterally. Neck: The neck is supple, there is no tenderness and ROM intact. Cardiovascular: There is a regular rate and rhythm. No murmur, rub or gallop is appreciated. Respiratory: Lungs are clear to auscultation, respirations are non-labored, breath sounds are equal. Gastrointestinal: Soft, non-distended, non-tender abdomen. Back: There is no tenderness to palpation in the midline, paralumbar, para thoracic or buttocks region. There is no obvious deformity . Musculoskeletal: ROM limited secondary to pain and stiffness from surgical procedure. Muscle strength in all major muscle groups of bilateral upper extremities 4+/5, bilateral lower extremities 4/5, 2/5 Left EHL and dorsiflexion. Neurological: CN 2-12 intact. There are no obvious motor or sensory deficits. Movement and coordination equal and intact. Sensory exam to light touch intact C5-T1 and intact from L2-S1. Reflexes 2/4 in bilateral upper and lower extremities. Negative Hoffmans, babinski, and clonus signs. Psychiatric: Cooperative, appropriate mood & affect, normal judgment. - Labs CBC & Chem 7: 11/15/23 09:36 11/15/23 10:54 Labs: Abnormal Lab Results - Last 24 Hours (Table) 11/15/23 11/15/23 Range/Units 09:36 10:54 RBC 2.62 L (4.30-5.90) m/uL Hgb 8.3 L (13.0-17.5) gm/dL Hct 25.6 L (39.0-53.0) % Sodium 135 L (137-145) mmol/L Carbon Dioxide 21 L (22-30) mmol/L BUN 33 H (9-20) mg/dL Glucose 143 H (74-99) mg/dL Calcium 8.0 L (8.4-10.2) mg/dL Microbiology - Last 24 Hours (Table) 11/11/23 16:19 Blood Culture - Preliminary Blood Assessment and Plan Assessment: Postop day 7 : L2 to pelvis decompression and fusion 1. L2-S1 spondylosis wit stenosis, severe 2. Bilateral lower extremity weakness 3. Neurogenic claudication Plan: -Appreciate strategy consultant and team management. -Activity: Ambulate QID, OOB all meals, up and about, limit lifting bending twisting to less than 5 lbs. Use walker or cane if needed for stability. -Daily PT/OT, increase ambulation strength and balance. -Brace when up and about, not needed in bed or chair -Awaiting delivery of AFO brace. -Pain control: Adequate at this time -Meds: reviewed -GI ppx: senna, Miralax -DVT PPX: Heparin -Hygiene: Shower today. Maintain dressing clean and dry. Meticulous cleaning after BMs away from the incision site -Encourage IS 10x/hr -Dispo: Anticipate discharge home later today with homecare. *I reviewed and discussed this case with my attending Dr. Gonzalez, whom has reviewed this chart and films and is in agreement with assessment and plan of care as outlined above. I have personally seen and examined the patient, performed the documentation and the assessment and plan as written. Number of minutes spent on the visit: 20m.
--- NOTE | 2023-11-16 07:27 | P.DS ---
Providers Date of admission: 11/09/23 06:46 Expected date of discharge: 11/16/23 Attending physician: You Gonzalez DO Consults: 11/09/23 15:43 Consult Physician Routine Consulting Provider: Ye Schreiber Consult Reason/Comments: medical management s/p L2-pelvis decompr fusion Do you want consulting provider notified?: Yes 11/09/23 17:16 Consult Physician Routine Consulting Provider: Lakeshia Gramajo Consult Reason/Comments: icu management Do you want consulting provider notified?: Already Contacted 11/10/23 15:06 Consult Physician Routine Consulting Provider: Lacy Marvin Consult Reason/Comments: left sided weakness and numbness Do you want consulting provider notified?: Yes 11/11/23 09:18 Consult Physician Routine Consulting Provider: Efrain Sosa Consult Reason/Comments: Right ICA stenosis, 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 They underwent appropriate preoperative care and were willing to undergo the intended procedure. They underwent a successful [id number] decompression and fusion, were recovered appropriately and sent to the floor. While on the floor they worked with physical therapy, occupational therapy and nursing to enhance their recovery experience. Their pain was well controlled through their stay and they were started on appropriate medications, DVT ppx modalities, activity and dietary needs. Daily labs were monitored closely, and transfusions were only used when necessary. Medicine as well as other consulting services have made their input and have helped with our team approach and multidisciplinary care. PT milestones have been met and passed and they have made the recommendation of home with home care for this patient and treating providers agree with this care path. The patient will be discharged home with appropriate medications, instructions and follow-up information and in stable condition. Plan - Discharge Summary Discharge Rx Participant: Yes New Discharge Prescriptions: New HYDROcodone/APAP 7.5-325MG [[employer] 7.5] 1 each PO Q4-6H PRN #42 tab PRN Reason: Pain cefaDROXiL [Duricef] 500 mg PO Q12HR #10 cap Cyclobenzaprine [Flexeril] 5 mg PO TID PRN #30 tablet PRN Reason: Muscle Spasm Tamsulosin [Flomax] 0.4 mg PO DAILY #14 cap Sennosides/Docusate Sodium [Senna Plus 8.6-50 mg Tablet] 1 each PO DAILY PRN #20 tablet PRN Reason: Constipation Pregabalin [Lyrica] 150 mg PO BID #60 cap No Action Atorvastatin [Lipitor] 40 mg PO HS Primidone [Mysoline] 150 mg PO DAILY Multivit-Min/FA/Lycopen/Lutein [Centrum Silver Tablet] 1 each PO DAILY rOPINIRole HCL [Requip] 0.5 mg PO HS Amitriptyline HCl 25 mg PO HS Furosemide [Lasix] 20 mg PO QAM Potassium Chloride [Klor-Con M10] 10 meq PO BID allopurinoL 300 mg PO QAM Clopidogrel [Plavix] 75 mg PO QAM Terazosin [Hytrin] 2 mg PO HS Benazepril HCl 20 mg PO DAILY Aspirin 81 mg PO DAILY Unk Prevagen 1 tab PO DAILY Venlafaxine HCl [Effexor] 37.5 mg PO QAM Meloxicam 7.5 mg PO DAILY Pregabalin 150 mg PO BID Famotidine 40 mg PO HS Levothyroxine Sodium 88 mcg PO HS Discharge Medication List Atorvastatin [Lipitor] 40 mg PO HS 04/02/17 [History] Multivit-Min/FA/Lycopen/Lutein [Centrum Silver Tablet] 1 each PO DAILY 04/02/17 [History] Primidone [Mysoline] 150 mg PO DAILY 04/02/17 [History] rOPINIRole HCL [Requip] 0.5 mg PO HS 04/19/19 [History] Amitriptyline HCl 25 mg PO HS 06/19/19 [History] Furosemide [Lasix] 20 mg PO QAM 09/04/19 [History] Potassium Chloride [Klor-Con M10] 10 meq PO BID 05/21/20 [History] Clopidogrel [Plavix] 75 mg PO QAM 03/03/23 [History] Venlafaxine HCl [Effexor] 37.5 mg PO QAM 03/03/23 [History] allopurinoL 300 mg PO QAM 03/03/23 [History] Aspirin 81 mg PO DAILY 11/03/23 [History] Benazepril HCl 20 mg PO DAILY 11/03/23 [History] Famotidine 40 mg PO HS 11/03/23 [History] Levothyroxine Sodium 88 mcg PO HS 11/03/23 [History] Meloxicam 7.5 mg PO DAILY 11/03/23 [History] Pregabalin 150 mg PO BID 11/03/23 [History] Terazosin [Hytrin] 2 mg PO HS 11/03/23 [History] Unk Prevagen 1 tab PO DAILY 11/03/23 [History] Cyclobenzaprine [Flexeril] 5 mg PO TID PRN #30 tablet 11/16/23 [Rx] HYDROcodone/APAP 7.5-325MG [[employer] 7.5] 1 each PO Q4-6H PRN #42 tab 11/16/23 [Rx] Pregabalin [Lyrica] 150 mg PO BID #60 cap 11/16/23 [Rx] Sennosides/Docusate Sodium [Senna Plus 8.6-50 mg Tablet] 1 each PO DAILY PRN #20 tablet 11/16/23 [Rx] Tamsulosin [Flomax] 0.4 mg PO DAILY #14 cap 11/16/23 [Rx] cefaDROXiL [Duricef] 500 mg PO Q12HR #10 cap 11/16/23 [Rx] Follow up Appointment(s)/Referral(s): Ye Schreiber MD [Primary Care Provider] - 1 Week [facility] Visiting Nurse, [NON-STAFF] - You Gonzalez DO [Doctor of Osteopathic Medicine] - 10 Days Activity/Diet/Wound Care/Special Instructions: Spine Discharge and Recovery Instructions Diagnosis: Lumbar spondylosis Procedure: [id number] decompression and fusion Medications: See medication list All medication refills should be obtained through your primary care doctor or your clinic spine surgeon. Please discuss prescription refills at your follow up appointment. Do not call the hospital for medication refills. Activity: Encourage ambulation with assist of walker, Up and about 6-8x daily PT/OT daily work on balance, strength and mobility Up in chair with all meals Shower daily Brace: Use brace when up and about, do not wear in bed or shower Dressing: Leave your dressing in place for a total of 3 days post operatively. Then you may remove your dressing and leave open to air. Keep the area clean and if not able to keep area clean, then cover with sterile gauze and tape. Showering: You may shower 3 days after your procedure allowing soap and water to run over incision. Do not scrub. Do not soak. Blot dry. Follow up: Please confirm a follow up appointment with your surgeon 2 weeks post operatively. Please make an appointment to follow up with your PCP in 1-2 weeks after surgery for evaluation 3 phase, 3-week plan POST OP WEEKS 1-3 1. Lifting/carrying/pushing/pulling limited to less than 5 pounds. 2. Do not sit for longer than 15 minutes at one time. Get up and walk around. Prolonged sitting is NOT advised. If you lay down, see if you can tolerate laying down on you front (belly side) 3. Walk for periods of 15 minutes = 1 mile but no longer; do it multiple times times each day. 4. Ice your low back after activity. POST OP WEEKS 3-6 1. Lifting limited to less than 20 pounds. 2. Do not sit for longer than 30 minutes at a time. Frequently change positions. Use a sit-to stand workstation or take frequent breaks from sitting if you have returned to work. 3. Walk for 30 minutes each day. If possible, do these three or more times a day POST OP WEEKS 6+ At your 6-week appointment we will give you a physical therapy referral to focus on a core stabilization and strengthening program. You should also work on leg & buttock strengthening, hamstring & quadriceps stretching, and continue a low impact aerobic activity program such as swimming, walking, or riding a stationary bicycle. During the initial 6 weeks after your surgery, you are at the highest risk of re-injuring your spine. You should generally avoid BLTs (bending, lifting and twisting combination motions) and follow the above guidelines to reduce the chance of reinjury. You can anticipate post op appointments in our office at approximately 3 weeks and 6 weeks after your surgery. INCISION CARE: If your incision is not draining you do NOT need to cover it with a dressing. Keep your incision clean, dry and intact. In most cases, we apply skin glue, ximena or sutures to the incision at the time of surgery. This will be like a crust or have the appearance of a scab and will fall off in time on its own. The stitches or ximena need to be removed at 3 weeks post op appointment. You may begin to shower 3 days after surgery (this allows the glue to whittaker well). However, please avoid scrubbing the incision site or peeling off any of the skin glue. This will ensure optimal healing of your incision. Also, during this time avoid soaking the incision area in water - this includes swimming pools, hot tubs or baths. No ointments, lotions or oils on the incision until your surgeon allows. Leave ximena, sutures or glue in place. Neurological dysfunction that comes on suddenly can also be a sign of a stroke. Below some common symptoms of a stroke are listed: B - balance difficulty such as sudden onset walking or leaning to one side - NEW E - eye problem such as sudden double vision or trouble seeing on one side - NEW F - Facial weakness or numbness on one side - NEW A - Arm or leg weakness or numbness on one side - NEW S - Slurred speech or difficulty with word finding - NEW T - Time is BRAIN! Call 911 as soon as you recognize these symptoms Diet: Consume a regular diet rich in vegetables and lean protein such as chicken or fish. You should consume in a ratio of approximately 20% fats|40% carbohydrates|40%protein. Vegetables, sweet potatoes, brown rice or quinoa are examples of good carbohydrates. Chips, white bread, cookies and sweets/sugar are examples of bad carbohydrates. Limit your bad carbs, go wild with good carbs. "Life's Simple 7" Guidelines as per [place] [employer] These will help you reclaim your life after surgery and helper metal hanging in your recovery, keeping in mind your restrictions. (1) Get Active. Physical activity can help people lose weight, control high blood pressure and cholesterol, feel emotionally better, and sleep better. (2) Control Cholesterol. Avoid a diet high in saturated fat, trans fat, & cholesterol. Limit whole milk & cream, ice cream, butter, egg yolks, processed meats (like sausage and hot dogs), and fatty meats. Choose healthy foods that are low in saturated fat, trans fat and cholesterol which include: Fruits and vegetables, fiber rich grain products (like whole grain pasta and brown rice), lean meat such as chicken, fish, nuts, seeds, and legumes. (3) Eat Better. Eat small portions. Shop at the grocery with a list and do not stray from it. Tips for a healthy diet include: Limit sodium intake to less than 1500mg daily, avoid prepackaged, processed, and fast foods, choose a d iet rich in fruits, vegetables, and whole grain, high fiber foods, and limit saturated & cholesterol in your diet. (4) Manage Blood Pressure. If you have high blood pressure, you should have a cuff at home so that you can check your blood pressure regularly. Be sure you have a good cuff. An arm one is generally better than a wrist one. Bring the cuff to a doctor's appointment to validate that the measurements that your cuff are taking are accurate. Take your blood pressure twice daily when you are sitting down and relaxing. Record the numbers in a log and bring this log with you to your doctors' appointments. (5) Lose Weight if your BMI is above 25. A healthy BMI is between 19-25. To calculate Your BMI, you may use a Standard BMI Calculator on the NIH BMI website: <www.nhlbi.nih.gov/guidelines/obesity/BMI/bmicalc.htm>. Weigh oneself daily. If you are overweight, set a goal to lose weight. A pound a week loss if needed is a good target. (6) Reduce Blood Sugar. Limit foods and liquids with "added sugars." (Added sugars include sucrose, fructose, glucose, maltose, dextrose, high fructose corn syrup, corn syrup, concentrated fruit juice and honey). (7) Stop Smoking. If you smoke, quitting smoking is one of the best things that you can do for your health. Smoking increases your risk of heart attack, stroke, and peripheral vascular disease, which is a build-up of plaque in your arteries. Please discard all the cigarettes and lighters in your house. Have a plan for what you will do when you have the urge to smoke. Direct and second- hand smoke shortens your life as well as the lives of your family, friends and others around you. For your health and the health of those around you, please consider quitting! Proper Bending Body Mechanics: Maintain a wide stance with one foot slightly in front of the other. Keep your back straight. Bend utilizing the strength in your hips and knees. Do not bend at the waist. Maintain the lifted object at your waist-level close to your body. Avoid lifting weight that causes immediately pain or pain anywhere in the body afterwards. Smoking/Nicotine If there was ever one thing that you could do to increase your overall health, decrease your risk of cardiovascular problems by about 39% the second you make the choice, it is to STOP SMOKING. Your body's most instant gratification is the second you stop smoking. We have all heard the studies, read the articles but it is true, smoking is extremely bad for your overall health, and moreover it is detrimental to your bone health. Nicotine, IN ANY FORM, kills bone cells, prevents your body from healing fractures, and significantly prolongs healing after surgery. In spine surgery specifically, it increases your risk of not healing your bones to create a fusion and increases your risk of having a revision surgery due to this up to 60%. I know it is hard. I know it feels impossible. But there are ways. Take control of your life. We are here to help you through it. And when you are ready, ask us and we can direct you to help if you desire. Use the START Plan to Quit Smoking (please visit the Helpguide.org website listed below for more information): S = Set a quit date. Choose a date within the next 2 weeks, so you have enough time to prepare without losing your motivation to quit. If you mainly smoke at work, quit on the weekend, so you have a few days to adjust to the change. T = Tell family, friends, and co-workers that you plan to quit. Let your friends and family in on your plan to quit smoking and tell them you need their support and encouragement to stop. Look for a quit leeanne who wants to stop smoking as well. You can help each other get through the rough times. A = Anticipate and plan for the challenges you'll face while quitting. Most people who begin smoking again do so within the first 3 months. You can help yourself make it through by preparing ahead for common challenges, such as nicotine withdrawal and cigarette cravings. R = Remove cigarettes and other tobacco products from your home, car, and work. Throw away all your cigarettes (no emergency pack!), lighters, ashtrays, and matches. Wash your clothes and freshen up anything that smells like smoke. S hampoo your car, clean your drapes and carpet, and steam your furniture. T = Talk to your doctor about getting help to quit. Your doctor can prescribe medication to help with withdrawal and suggest other alternatives. If you can't see a doctor, you can get many products over the counter at your local pharmacy or grocery store, including the nicotine patch, nicotine lozenges, and nicotine gum. Resources for Quitting Smoking: <https://www.[place].gov/documents/[facility]/Quit_Tobacco_Resources_for_patients_313 480_7.pdf> Supplementation: Take recommended dosages of Vitamin D and Calcium to help fortify your bones and help them to heal. See your health maintenance packet for dosages and recommended levels. DVT/VTE prophylaxis: You will be given compression stockings from the hospital. Wear these daily for the first two weeks after surgery. You may take them off at night. You may be prescribed a medication to help thin your blood. Take this as directed. If you are not prescribed this medication, early and frequent ambulation has been shown to be the best prophylaxis to deep vein thrombosis and sequelae related to this event. CBC, BMP in 3 days Discharge Disposition: HOME WITH HOME HEALTH SERVICES
[2023-11-16 07:31] VITALS: BMI 42.4
--- NOTE | 2023-11-16 07:49 | CDI ---
Documentation Clarification Form Date: 11/16/2023 07:01:54 AM From: Jazz Pyle RN CCDS Phone: [phone] Admit Date: 11/09/2023 06:46:00 AM Patient Name: Justice Mayer Visit Number: [id number] Discharge Date: ATTENTION: The Clinical Documentation Specialists (CDI) and [facility] Coding Staff appreciate your assistance in clarifying documentation. Please respond to the clarification below the line at the bottom and electronically sign. The CDI & [facility] Coding staff will review the response and follow-up if needed. Please note: Queries are made part of the Legal Health Record. If you have any questions, please contact the author of this message via ITS. Dr. You Gonzalez Postoperative urine retention is documented 11/14, Physical Medicine Rehab consult and patient had Interbody fusion with laminectomy, facetectomy and foraminotomy, 11/08. Additional clarification is requested regarding the relationship, if any, that exists between the diagnosis and the procedure. Patients Admitting Diagnosis: L2-S1 severe spondylosis with stenosis, Neurogenic claudication. Post-Operative Diagnosis: L2-S1 severe spondylosis with stenosis, Neurogenic claudication. Procedure performed: Posteriolateral and Interbody Fusion. Intradiscal Osteotomy, Laminectomy, Faetectomy, Foramninotomy. History/Risk Factors: 77-year-old male presented to [facility] for elective Spinal surgery. Medical History: Asthma, Hyperlipidemia, GERD, HTN, OA, Thyroid disorder, PVD and Neuropathy. 11/08, H&P. Clinical Indicators: 11/08 11/11 Indwelling virk catheter 11/11 08:00 Urinal 11/11 13:49 - 11/14 08:01 Indwelling virk catheter 11/14 13:00 One void Urinal Treatment: 11/08 11/14 Virk catheter, 11/14 Flomax 0.4mg Q6HR, spontaneous voiding trial What relationship, if any, exists between the diagnosis of postoperative urine retention and the procedure: [ ] Urine retention is a complication of surgical procedure [ ] Urine retention is an expected outcome of the surgical procedure [ ] Urine retention is related to patients co-morbid condition(s) of [insert co-morbid dxs] & not a complication of the procedure [ ] Other please specify ____ [ ] Unable to determine (Template Last Revised: October 2020) Urine retention is related to patients co-morbid condition(s) of advanced age, HTN, Thyroid disorder, PVD, Neuropathy, BPH & not a complication of the MTDD
--- NOTE | 2023-11-16 10:46 | P.PN ---
Subjective Progress Note Date: 11/16/23 Status post L2 to pelvis decompression and fusion 11/10/2023 this is a pleasant 77-year-old gentleman admitted with severe L2-S1 spondylosis with stenosis, bilateral lower extremity weakness and neurogenic claudication,status post L2 to pelvis decompression and fusion, postop day #1.Tmax 100.9, normal WBC. Telemetry sinus rhythm. Maintained on IV fluid hydration. Continues on aspirin with Plavix on hold. Hemovac with approximately 800 mL output per 24-hour I&O, hemoglobin 8.6, platelets 153 .renal function worsening with creatinine up to 2.12. Potassium 5.5 .denies chest pain, palpitations or shortness of breath. Maintaining O2 sats in the 90s on 2 L nasal cannula. Lumbar spine CT reported postsurgical changes consistent with lumbar fusion. Positive pain, denies numbness or tingling of bilateral lower extremities. 11/11/2023 yesterday, patient discovered to have flaccid left lower extremity, upon PTs initial visit postop. Code stroke was called. Patient was determined not to be a candidate for tPA related to recent back surgery and unknown well time. Evaluated by neurology with neurowork-up initiated .CTA recommended by Dr. Dwyer. Brain CT reported no acute findings. CTA of head and neck reported no evidence of proximal large vessel occlusion in the intracranial arterial system. Scattered atherosclerotic disease intracranially creating up to mild multifocal stenosis. Scattered atherosclerotic disease in the bilateral cervical carotid arteries, creating up to 70% stenosis of the proximal right ICA. Moderate stenosis of the right vertebral artery origin with moderate to severe stenosis of the left vertebral artery origin. Hemovac drainage lessening, 650ml over 24 hours. Hemoglobin 8.1, platelets 135. BUN 23, creatinine 1.97. Drowsy this morning, received Tylenol earlier this morning and [place] last night around 9 PM. Positive pain. Tmax 101.5, normal WBC. Chest x-ray reported no acute cardiopulmonary disease/process. Complains of headache. MRI pending. 11/12/2023 earlier this morning, around 0600 patient mistakenly pulled out Hemovac cord, thinking it was the call light. Hemovac drainage had been slowing down. Brain MRI yesterday reported negative. Left lower extremity strength improving, currently reporting numb left ivey with positive sensation in his toes and feet. Maintained on aspirin, Plavix and statin. Vascular workup in progress, carotid duplex canceled related to triple-lumen in right side of neck with further workup outpatient with vascular surgery. neurology following. Creatinine improving. Afebrile, WBC 13.4, procalcitonin 0.21. Currently maintained on IV dexamethasone ,cefazolin.Dual antiplatelet therapy of Plavix a nd aspirin. 11/15/2023 significant clinical improvement. Sitting up in chair, denies chest pain, palpitations or shortness of breath. Reports ambulated with walker down the [place], tolerated exertion well. Denies lightheadedness, dizziness or focal deficits. Left lower extremity weakness improving, currently reports left thigh numbness. LSO brace at bedside. Consult for inpatient rehab in place with recommendations pending. Afebrile, WBCs normalized, 10.6. Preliminary blood cultures reporting no growth after 48 hours. hemoglobin 8.3, platelets 217, BMP pending. Sandhu catheter to be discontinued this morning, Flomax added to med regimen, spontaneous voiding trial pending. 11/16/2023 significant clinical improvement. Reports voiding well on Flomax. Maintained on IV dexamethasone as per orthopedic spine surgery, blood sugars controlled. Increased pain with standing, improving. Decreased thigh numbness reported. denies chest pain, palpitations or shortness of breath, maintaining O2 sats in the mid to high 90s on room air. Incentive spirometer up to 2500. Renal function improving with creatinine down to 1.25 yesterday. Afebrile. Objective - Vital Signs Vital signs: Vital Signs Temp 97.9 F 11/16/23 04:00 Pulse 68 11/16/23 04:00 Resp 18 11/16/23 04:00 BP 129/70 11/16/23 04:00 Pulse Ox 96 11/16/23 04:00 FiO2 Intake & Output 11/15/23 11/16/23 11/16/23 18:59 06:59 18:59 Intake Total 1080 10 118 Output Total 1300 1450 Balance -220 -1440 118 Weight 141.8 kg Intake: IV 10 Invasive Line 2 10 Oral 1080 118 Output: Urine 1300 1450 Uretheral (Sandhu) 1300 Other: Voiding Method Indwelling Catheter Urinal # Voids 1 1 ABP, PAP, CO, CI - Last Documented Arterial Blood Pressure 114/34 - Exam PHYSICAL EXAM: VITAL SIGNS: [As above] GENERAL: Alert and oriented x 3, sitting up in chair, no acute distress HEENT: Normocephalic, conjunctivae normal. eyes normal. NECK: Supple, no JVD. CARDIOVASCULAR: S1, S2 regular. No murmur. RESPIRATION: Unlabored, equal air entry ,breath sounds diminished in the bases. ABDOMEN: Soft, nontender. No guarding. no masses palpable. Positive bowel dewayne nds LEGS: No edema. no swelling NERVOUS SYSTEM: Cranial nerves II through XII grossly intact. [place], strength and sensation grossly intact. Skin: Scant shadowing on surgical dressing, warm and dry, no rash - Labs CBC & Chem 7: 11/15/23 09:36 11/15/23 10:54 Labs: Abnormal Lab Results - Last 24 Hours (Table) 11/15/23 11/15/23 Range/Units 09:36 10:54 RBC 2.62 L (4.30-5.90) m/uL Hgb 8.3 L (13.0-17.5) gm/dL Hct 25.6 L (39.0-53.0) % Sodium 135 L (137-145) mmol/L Carbon Dioxide 21 L (22-30) mmol/L BUN 33 H (9-20) mg/dL Glucose 143 H (74-99) mg/dL Calcium 8.0 L (8.4-10.2) mg/dL Microbiology - Last 24 Hours (Table) 11/11/23 16:19 Blood Culture - Preliminary Blood Assessment and Plan Assessment: Severe L2-S1 spondylosis with stenosis, bilateral lower extremity weakness and neurogenic claudication, status post L2 to pelvis decompression and fusion Acute hypoxic respiratory failure secondary to the above, status post mechanical ventilation Acute onset left-sided lower extremity weakness, suspect related to compression secondary to surgery, CVA ruled out as per neurology workup. Right ICA stenosis 70% per CTA, evaluated by vascular surgery, no intervention at this time recommended, further management outpatient. Postop anemia, expected outcome Acute renal failure secondary to #1 Chronic renal failure, stage III Chronic mild intermittent asthma Osteoarthritis Peripheral neuropathy Chronic back pain Hypertension Hyperlipidemia Hypothyroidism PVD with history of right femoral endarterectomy and patch angioplasty, bilateral iliac stents Urinary retention Plan: Continue on current medication regime, monitoring and symptomatic treatment. Discharge planning in progress as per primary. Maintain aggressive pulmonary toileting with incentive spirometer reinforced. PT. Medically cleared for discharge. Follow-up with PCP in 1 week. The impression and plan of care has been dictated as directed. : I performed a history and examination of this patient, discussed the same with the dictator. I agree with the dictator's note ,documented as a scribe. Any additional findings or plans will be noted.
[2023-11-16 11:14] VITALS: BP 145/68; TEMP 98.2
--- NOTE | 2023-11-16 14:17 | P.PN ---
Subjective Progress Note Date: 11/16/23 Principal diagnosis: L2 to pelvis decompression and fusion. This is a 75-year-old male patient was transferred to the intensive care unit for monitoring following his spine surgery. The patient underwent a lengthy surgery on his lumbar spine as the patient was experiencing low back pain and bilateral lower extremity numbness and tingling and weakness. CAT scan of the lumbar spine showed spondylosis L2-S1 along with collapse and disc height loss and facet arthrosis/osteophyte formation causing central canal and bilateral foraminal stenosis at each level. MRI of the lumbar spine done on 06/28/2023 showed similar findings with neuroma on stenosis worst at the level of L2-L3 and L5-S1. Based on that, the patient was taken to the operating room and underwent an L2 to pelvis decompression and fusion. The patient. Was difficult to arouse. He was ultimately weaned off the mechanical ventilator and the patient was extubated and brought into the intensive care unit for further monitoring. He has a radial arterial line and also has a triple-lumen catheter in his right IJ. He is awake and alert and communicating. White cell count is at 12 with a hemoglobin 9.6 and a platelet count of 170. The BUN is at 18 with a creatinine of 1.36 and a sodium level is at 135 with a potassium level of 4.9. He is awake and alert and communicating. He is on Dilaudid for pain control. He is also on Flexeril. He was given IV cefazolin for antibiotic prophylaxis. The patient has other comorbidities including peripheral vascular disease and the patient has undergone previous right femoral endarterectomy with patch angioplasty. Has hypertension, hyperlipidemia, bronchial asthma, hiatal hernia, gout, degenerative disc disease as mentioned above. He is currently hemodynamically stable. There is a Hemovac in his back with bloody output. Pulse ox 96% on 4 L of oxygen by nasal cannula. Cardiac rhythm is sinus. Able to move his lower extremities. Pain is under adequate control for now. On today's evaluation of 11/10/2023, the patient is being seen for a follow-up. Awake and alert and communicating. Denies having any specific complaints. He was on 4 L and he was weaned down to 2 L of O2 nasal cannula. He is complaining of back pain and the Hemovac is putting approximately 600 cc of bloody output and hemoglobin is being monitored at this point in time. Spine surgery is on the case. His hemoglobin has dropped down to 8.6 from 9.6 yesterday. Rest of the blood work shows also a component of acute kidney injury. BUN is up to 24 with a creatinine of 2.1 and a sodium levels at 134 with a potassium level of 5.5. The patient remains on normal saline at rate of 75 cc an hour. He is not taking any form of nephrotoxic agents at this point in time. Meanwhile, CT scan of the lumbar spine was done yesterday and it showed essentially postsurgical ch anges consistent with lumbar fusion. No other acute abnormalities was noted. The patient is taking Dilaudid for pain control is also on Flexeril and Lyrica. The rest of the outpatient medications have been all resumed. Renal function is being monitored. He denies having any numbness or tingling in his lower extremities. Motor function is adequate in lower extremities. The drain has been placed at half compression based on surgical recommendation. Using incentive spirometer. On today's evaluation of 11/11/2023, the patient continues to have some weakness in the left lower extremity. Note that yesterday, a code stroke was called as the patient noted weakness in his left upper and left lower extremity and he also complained of some numbness. His NIH score was 8. He was noted to have some slurred speech and facial droop and based on that, a CT angiogram of the brain was done and showed no evidence of any proximal large vessel occlusion in the intracranial arterial system. There was some scattered atherosclerotic disease intracranially with mild multifocal stenosis. There was 70% stenosis of the right proximal internal carotid artery. Moderate stenosis of the right vertebral artery origin and moderate to severe stenosis of the left vertebral artery origin. Patient was not given any thrombolytics. He was monitored neurologically. 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 No facial asymmetry. Awake and alert and comm unicating and answering questions appropriately. Based on that, he scheduled to undergo an MRI of the brain. Meanwhile, his respiratory status is stable. Patient is currently on 3 L of oxygen by nasal cannula with a pulse ox of 98%. I checked the chest x-ray from today and shows no acute abnormalities. The patient has a right IJ thrombus on normal catheter in place. MRI of the brain was completed and the patient has no evidence of any intracranial mass or any acute or subacute infarct. There are some nonspecific white matter changes along with chronic small vessel ischemic changes seen bilaterally. The carotid Doppler was also completed and the patient has no evidence of any hemodynamic stenosis in the left carotid system. The blood work from today shows improvement in creatinine the creatinine is down to 1.97 with a BUN of 23. Sodium is at 131. Potassium is 4.7. WBC count at 7.8 with a hemoglobin of 8.1 and a platelet count of 135. The patient is currently on aspirin 81 mg p.o. daily. He is also on Plavix 75 mg p.o. daily. [place] for pain control. He is also on Flexeril. He was started on Decadron by the surgical team at 6 mg IV every 6 hours. 2D echocardiogram was also ordered and completed and echocardiogram showed normal left ventricular ejection fraction of 6065%. No other significant abnormalities noted. On 11/12/2023, I am seeing the patient for a follow-up. The patient is sitting up in a chair and is calm and comfortable. He continues to have some numbness in his left lower extremity. Noted the patient has had chronic numbness in his legs. This has been an ongoing problem since his surgery and the patient was started on Decadron. He is also on Lyrica. He is taken [place] for pain control for now. No respiratory difficulties. No new onset focal neurological deficits. Adequate swallow. No facial asymmetry. No weakness in his left upper extremity. MRI of the brain was completed yesterday and showed no evidence of any stroke. Meanwhile, the patient is tolerating diet. His white cell count at 13.4 with a hemoglobin 8.2 and a platelet count of 150. Creatinine continues to improve and is currently down to 1.4 with a BUN of 22 and a sodium levels at 136. Procalcitonin level is at 0.21. He remains on normal saline at rate of 20 cc an hour. Rest of the medications and home medications have been all resumed. He is currently on oxygen at 2 L with a pulse ox of 97%. Using incentive spirometer. Hemovac was pulled accidentally today and I was told that the output has been essentially minimal prior to the drain coming out. On today's evaluation of 11/13/2023, the patient is being seen for a follow-up. No new complaints for now. Sitting up in a chair. Continues to have some numbness in the left lower a extremity that started following his back surgery. Currently on Decadron. Currently on Lyrica. Respiratory status is stable. He is having some issues with constipation the patient will be given the appropriate laxatives. BUN is at 31 with a creatinine of 1.3 and a WBC count of 14.7 with a hemoglobin of 8. While in the platelet count of 195. Patient has no other new complaints otherwise for now. He is ambulating with the help of a walker. No respiratory distress. He remains on oxygen at 2 L with a pulse ox of 94%. On today's evaluation of 11/14/2023, the patient continues to have some difficulties with hip flexion and numbness. The patient has no other new complaints. No chest pain. No shortness of breath. White cell count is 14.7 from yesterday with a hemoglobin of 8.4. No repeat labs elevated from today. Creatinine was also stable at 1.35. Using incentive spirometer. Still on Decadron and dose has been modified to 2 mg every 6 hours. Orthopedic surgery is on the case. The patient is postop day #5. Pain is under better control and the patient will need an LSO brace and mobility with the help of a walker. Reevaluate today on 11/15/2023, patient is doing well, no active pulmonary issues, no cough no wheezing no shortness of breath, remains on Decadron, he is on 2 mg every 6 hours, being followed by orthopedics, patient is now postoperative day #6. Being considered for discharge planning or possibly rehab this is in progress. Patient denies any active pulmonary symptoms. Labs today were reviewed he had a relatively normal basic metabolic profile, renal profile is improving creatinine down to 1.25 from 1.47 few days ago. Patient was reevaluated today on 11/16/2023, doing well, continues to have numbness and weakness in the left lower extremity, however the patient has no active pulmonary issues. Patient is being considered for discharge home today, and I will clear the patient from the pulmonary perspective. No active pulmonary issues at present. Objective - Vital Signs Vital signs: Vital Signs Temp 98.2 F 11/16/23 09:55 Pulse 68 11/16/23 09:55 Resp 18 11/16/23 09:55 BP 145/68 11/16/23 09:55 Pulse Ox 97 03/26/24 09:55 FiO2 Intake & Output 11/15/23 11/16/23 11/16/23 18:59 06:59 18:59 Intake Total 1080 10 236 Output Total 1300 1450 Balance -220 -1440 236 Weight 141.8 kg Intake: IV 10 Invasive Line 2 10 Oral 1080 236 Output: Urine 1300 1450 Uretheral (Sandhu) 1300 Other: Voiding Method Indwelling Catheter Urinal Urinal # Voids 1 1 ABP, PAP, CO, CI - Last Documented Arterial Blood Pressure 114/34 - Exam General: Reveals 77-year-old white male in no distress, on room air. Head: Atraumatic normocephalic. HEENT: PERRLA, EOMI, nonicteric no neck masses no JVD Lungs: Clear bilaterally no crackles rhonchi or wheezes Cardiac exam r: Normal S1-S2 no S3 gallop, no murmur. Abdominal obese, soft nontender no megaly no rebound no guarding. Extremities reveal diminished pulses bilaterally. No cyanosis or clubbing. Neurologically, alert and oriented x 3. Awake, communicating. No dysarthria. No no facial asymmetry. Possibly some weakness in his left upper and left lower extremity more so on the left lower extremity Skin, surgical wound site is dry clean and intact and the patient is a Hemovac has been removed and the surgical wound site over the back is dry clean and intact. - Labs CBC & Chem 7: 11/15/23 09:36 11/15/23 10:54 Labs: Microbiology - Last 24 Hours (Table) 11/11/23 16:19 Blood Culture - Preliminary Blood Assessment and Plan Assessment: Impression: L2 to pelvis decompression and fusion. Acute onset of left sided weakness, leg more than the arm with reported initial NIH stroke scale of 6. At present patient only has deficits in the left lower extremity, with predominant left foot drop, and numbness of the left leg. No deficits noted in the upper extremities or cranial nerves region. Differential diagnosis is between CVA versus peripheral/radicular process from recent back surgery. CT of the brain was done CTA revealed no evidence of proximal large vessel occlusion in the intracranial arterial system. Scattered atherosclerotic disease intracranially creating up to mild multifocal stenosis. Scattered a therosclerotic disease in the bilateral cervical carotid arteries, creating up to 70% stenosis of the proximal right ICA. Moderate stenosis of the right vertebral artery origin with moderate to severe stenosis of the left vertebral artery origin. Vascular surgical consultation for right ICA stenosis, probably symptomatic. MRI of the brain shows no evidence of an acute or subacute stroke and was a negative study for acute CVA. On today's evaluation of 11/12/2023, no focal neurological deficit and the patient continues to have some numbness in the left lower extremity. The patient was started on Decadron. Right ICA stenosis 70% per CTA. Intracranial multivessel atherosclerotic disease, patient was seen by vascular surgery and no intervention has been recommended and this will be managed on outpatient basis. Acute kidney injury, rule out for surgical ATN and the creatinine is being miguel tored. Improving steadily. Peripheral vascular disease with previous right femoral endarterectomy and patch angioplasty and the patient also has had bilateral iliac stents placement Hypertension Hyperlipidemia Bronchial asthma, mild intermittent Hypothyroidism Chronic back pain as mentioned above Osteoarthritis Chronic stage III kidney disease Recommendation: Agree with discharge planning Continue incentive spirometry Continue pain control management Continue aspirin and Plavix Continue Flexeril Increase mobility Will follow as needed Time with Patient: Less than 30
== END 2023-11-16 13:54 | disposition home health service (06) | DRG 453 ==
LOC: 2ORMAIN 06:46 → 2SICU 16:22 → 3SCARD 11-12 17:48
PROVIDERS: ADMIT Orthopaedic Surgery; ATTEND Orthopaedic Surgery
PROC: 0SG10AJ Fusion of 2 or more Lumbar Vertebral Joints with Interbody Fusion Device, Posterior Approach, Anterior Column, Open Approach (ICD-10-PCS; 2023-11-09)
PROC: 0SH804Z Insertion of Internal Fixation Device into Left Sacroiliac Joint, Open Approach (ICD-10-PCS; 2023-11-09)
PROC: 0SH704Z Insertion of Internal Fixation Device into Right Sacroiliac Joint, Open Approach (ICD-10-PCS; 2023-11-09)
PROC: 0SG1071 Fusion of 2 or more Lumbar Vertebral Joints with Autologous Tissue Substitute, Posterior Approach, Posterior Column, Open Approach (ICD-10-PCS; 2023-11-09)
PROC: 00NY0ZZ Release Lumbar Spinal Cord, Open Approach (ICD-10-PCS; 2023-11-09)
PROC: 01NB0ZZ Release Lumbar Nerve, Open Approach (ICD-10-PCS; 2023-11-09)
PROC: 0SG30AJ Fusion of Lumbosacral Joint with Interbody Fusion Device, Posterior Approach, Anterior Column, Open Approach (ICD-10-PCS; 2023-11-09)
PROC: 0SB20ZZ Excision of Lumbar Vertebral Disc, Open Approach (ICD-10-PCS; 2023-11-09)
PROC: 0SB40ZZ Excision of Lumbosacral Disc, Open Approach (ICD-10-PCS; 2023-11-09)
PROC: 4A11X4G Monitoring of Peripheral Nervous Electrical Activity, Intraoperative, External Approach (ICD-10-PCS; 2023-11-09)
PROC: 30233N1 Transfusion of Nonautologous Red Blood Cells into Peripheral Vein, Percutaneous Approach (ICD-10-PCS; 2023-11-09)
PROC: 4A133B1 Monitoring of Arterial Pressure, Peripheral, Percutaneous Approach (ICD-10-PCS; 2023-11-09)
PROC: 4A133J1 Monitoring of Arterial Pulse, Peripheral, Percutaneous Approach (ICD-10-PCS; 2023-11-09)
PROC: 03HY32Z Insertion of Monitoring Device into Upper Artery, Percutaneous Approach (ICD-10-PCS; 2023-11-09)
PROC: 02HV33Z Insertion of Infusion Device into Superior Vena Cava, Percutaneous Approach (ICD-10-PCS; 2023-11-09)
PROC: 0SG3071 Fusion of Lumbosacral Joint with Autologous Tissue Substitute, Posterior Approach, Posterior Column, Open Approach (ICD-10-PCS; principal; 2023-11-09 08:35)
DX: M47.897 Other spondylosis, lumbosacral region (principal); G93.41 Metabolic encephalopathy; I63.9 Cerebral infarction, unspecified; J96.01 Acute respiratory failure with hypoxia; N17.9 Acute kidney failure, unspecified; D62 Acute posthemorrhagic anemia; I82.C11 Acute embolism and thrombosis of right internal jugular vein; R53.1 Weakness; Z68.37 Body mass index [BMI] 37.0-37.9, adult; D64.9 Anemia, unspecified; N18.30 Chronic kidney disease, stage 3 unspecified; I12.9 Hypertensive chronic kidney disease with stage 1 through stage 4 chronic kidney disease, or unspecified chronic kidney disease; J45.20 Mild intermittent asthma, uncomplicated; E03.9 Hypothyroidism, unspecified; I73.9 Peripheral vascular disease, unspecified; E78.5 Hyperlipidemia, unspecified; E11.22 Type 2 diabetes mellitus with diabetic chronic kidney disease; I65.21 Occlusion and stenosis of right carotid artery; Z79.890 Hormone replacement therapy; E11.42 Type 2 diabetes mellitus with diabetic polyneuropathy; E11.51 Type 2 diabetes mellitus with diabetic peripheral angiopathy without gangrene; E66.9 Obesity, unspecified; G89.29 Other chronic pain; I25.10 Atherosclerotic heart disease of native coronary artery without angina pectoris; I44.0 Atrioventricular block, first degree; R00.0 Tachycardia, unspecified; I65.03 Occlusion and stenosis of bilateral vertebral arteries; J32.0 Chronic maxillary sinusitis; K44.9 Diaphragmatic hernia without obstruction or gangrene; K59.00 Constipation, unspecified; M10.9 Gout, unspecified; M16.0 Bilateral primary osteoarthritis of hip; M21.372 Foot drop, left foot; M43.17 Spondylolisthesis, lumbosacral region; M47.817 Spondylosis without myelopathy or radiculopathy, lumbosacral region; M48.07 Spinal stenosis, lumbosacral region; R29.706 NIHSS score 6; R29.810 Facial weakness; R29.708 NIHSS score 8; Z79.02 Long term (current) use of antithrombotics/antiplatelets; Z79.1 Long term (current) use of non-steroidal anti-inflammatories (NSAID); Z79.82 Long term (current) use of aspirin; Z79.899 Other long term (current) drug therapy; Z86.73 Personal history of transient ischemic attack (TIA), and cerebral infarction without residual deficits
CPT/HCPCS: 36415; 36430; 70450; 70496; 70498; 70551; 71045; 72100; 72131; 80048; 80061; 82140; 82607; 82746; 82805; 83036; 84145; 85025; 85027; 85610; 86850; 86891; 86900; 86901; 86920; 87040; 93306; 94760

== ENCOUNTER 2023-11-17 10:41 | Inpatient (IN) | payer MEDICARE ==
[2023-11-17] MEDS: SODIUM CHLORIDE 0.9% 500 ML 500 ML IV STA (11:10)
[2023-11-17 11:48] LABS: Basophils % (A) 0 %; Eosinophils # (A) 0.4 k/uL (0-0.7); Eosinophils % (A) 2 %; HCT 26.7 % (39.0-53.0); HGB 9.2 gm/dL (13.0-17.5); Lymphocytes % (A) 13 %; MCH 33.2 pg (25.0-35.0); MCHC 34.3 g/dL (31.0-37.0); MCV 96.7 fL (80.0-100.0); Mean Platelet Volume 8.5; Monocytes # (A) 0.7 k/uL (0-1.0); Monocytes % (A) 5 %; Neutrophils # (A) 11.7 k/uL (1.3-7.7); Neutrophils % (A) 78 %; Platelet Count 221 k/uL (150-450); RBC 2.76 m/uL (4.30-5.90); RDW 14.7 % (11.5-15.5); WBC 14.9 k/uL (3.8-10.6)
[2023-11-17 11:56] LABS: Partial Thromboplastin Time 23.7 sec (22.0-30.0)
[2023-11-17 12:11] LABS: ALT 10 U/L (4-49); AST 45 U/L (17-59); African American GFR (CKD) 58 (>60 ml/min/1.73 sqM); Albumin 2.8 g/dL (3.5-5.0); Alkaline Phosphatase 61 U/L (38-126); Anion Gap 6 mmol/L; Blood Urea Nitrogen 29 mg/dL (9-20); Carbon Dioxide 24 mmol/L (22-30); Chloride 107 mmol/L (98-107); Glucose 97 mg/dL (74-99); Magnesium 1.9 mg/dL (1.6-2.3); Non-African American GFR(CKD) 50 (>60 ml/min/1.73 sqM); Sodium 137 mmol/L (137-145); Total Bilirubin 0.6 mg/dL (0.2-1.3); Total Protein 5.1 g/dL (6.3-8.2)
[2023-11-17 12:38] LABS: Potassium 4.8 mmol/L (3.5-5.1)
[2023-11-17] MEDS: IPRATROPIUM-ALBUTEROL 3 ML NEB INHALATION STA (12:52)
--- NOTE | 2023-11-17 13:01 | US ---
EXAMINATION TYPE: US venous doppler duplex LE BI DATE OF EXAM: 11/17/2023 11:05 AM COMPARISON: NONE CLINICAL INDICATION: Male, 77 years old with history of leg pain, eval for dvt; Hx DVT right leg, tra nsient leg pain SIDE PERFORMED: Bilateral TECHNIQUE: The lower extremity deep venous system is examined utilizing real time linear array sonog marylu with graded compression, doppler sonography and color-flow sonography. VESSELS IMAGED: Common Femoral Vein Deep Femoral Vein Greater Saphenous Vein * Femoral Vein Popliteal Vein Right Leg: Negative for DVT Left Leg: Negative for DVT exam limited by patient body habitus, edema, limited mobility, and shaking IMPRESSION: Limited exam demonstrates no diagnostic evidence of DVT bilaterally within the above visu alized veins.
--- NOTE | 2023-11-17 13:24 | CT ---
EXAMINATION TYPE: CT lumbar spine wo con CT DLP: 2763.9 mGycm, Automated exposure control for dose reduction was used. DATE OF EXAM: 11/17/2023 11:59 AM COMPARISON: . CLINICAL INDICATION:Male, 77 years old with history of leg pain, eval for dvt; PHH, pain, post op TECHNIQUE: Unenhanced CT of the lumbar spine was performed. Bone and soft tissue window settings are submitted as well as coronal and sagittal reconstructions. Contrast used: mL of , (None, if empty). Oral contrast used: (None, if empty). FINDINGS: There are postsurgical changes of intradiscal and posterior metallic fusion and laminectomy from L2 t hrough S1. The lumbar vertebral segments are normal in height and alignment and there is no acute fracture or boswell bluxation. There is mild degenerative disease at the L1-2 level where there is mild vacuum phenomenon and spondylosis. There are skin ximena in the posterior midline indicating recent lumbar surgery. The sacrum and SI joints are normal. There is been no interval change compared to the prior study. Other: None IMPRESSION: 1. No evidence for spinal fracture. 2. No noticeable change from prior study.
--- NOTE | 2023-11-17 13:45 | CT ---
EXAMINATION TYPE: CT angio tho/abd W Run Off CT DLP: 5310.4 mGycm, Automated exposure control for dose reduction was used. DATE OF EXAM: 11/17/2023 12:13 PM COMPARISON: . CLINICAL INDICATION:Male, 77 years old with history of recent surgery, concern for cold, reduced leg puls; PHH, recent surgery, concern for cold, reduced leg puls TECHNIQUE: Dissection protocol: Multiple axial CT images of the chest, abdomen, and pelvis were obtai geneva prior and to the administration of IV contrast. 3-D reformats and maximum intensity projection fo rmat were performed on a separate workstation. Contrast used:100 ml mL of Isovue 370 without and with IV Contrast, Oral contrast used: FINDINGS: ARTERIAL VASCULATURE: Study is heavily compromised by poor contrast bolus timing and inability to obt ain delayed images due to technical problems. Ascending thoracic aorta and descending thoracic aorta are within normal limits for size. There is no evidence for intramural hematoma within the aorta on noncontrast imaging. There is scattered moderately pronounced atherosclerotic plaque throughout the a rterial vasculature. Postcontrast imaging demonstrates no evidence for dissection, though study is li mited as stated above. He major vessels of the aortic arch are patent. The major vessels of the abdom inal aorta are not well opacified with contrast. Furthermore there is dense metal streak artifact leonides nating from the lumbar spine hardware that further limits visibility of the distal abdominal aorta an d common iliac arteries. The aorta is normal in course and caliber. There is no evidence of aortic di ssection, aneurysm or acute aortic injury. Great arch vessels patent and normal in course and caliber . Possibility of distal aortic occluding thrombus cannot be assessed on this exam. Possibility of occ lusion of bilateral lower extremity arterial system cannot be evaluated on this exam. PULMONARY ARTERIAL VASCULATURE: Normal caliber. No evidence of filling defect to suggest pulmonary em bolus. VENOUS SYSTEM: Unremarkable. As seen. Not well-defined by contrast. Lungs/pleura: Airspace consolidation is seen in the right lower lobe posteriorly. Trace right pleural effusion Heart: Moderately severe calcific coronary artery disease is present.. Mediastinum: No gross evidence of adenopathy. Lower Neck: No significant findings. Abdomen: Liver: Unremarkable. Gallbladder and Bile ducts: Unremarkable. Pancreas: Unremarkable. Spleen: Unremarkable. Adrenal glands: Unremarkable. Kidneys and Ureters: Unremarkable. No hydronephrosis. Bladder: Unremarkable. Reproductive: Unremarkable. Stomach and Bowel: Stomach and duodenum are unremarkable. No evidence of bowel obstruction. Peritoneum: No evidence of pneumoperitoneum, free fluid, or adenopathy. Musculoskeletal: The osseous structures appear intact. Lymph nodes: No evidence of lymphadenopathy. Abdominal wall/soft tissues: Unremarkable. IMPRESSION: 1. No evidence for thoracic aortic dissection. 2. Possibility of distal aortic occluding thrombus cannot be assessed on this exam. Possibility of o cclusion of bilateral lower extremity arterial system cannot be evaluated on this exam, due to limita tions of the exam in terms of contrast bolus timing and metallic streak artifact. Consider repeat CT A or conventional angiography
[2023-11-17] MEDS ORDERED: NALOXONE 0.4 MG/ML 1 ML VIAL IV PRN (14:22)
--- NOTE | 2023-11-17 14:24 | ED ---
General Adult HPI - General Chief complaint: Recheck/Abnormal Lab/Rx Stated complaint: DVT Time Seen by Provider: 11/17/23 10:45 Source: patient, EMS, RN notes reviewed, old records reviewed Mode of arrival: EMS Limitations: no limitations - History of Present Illness Initial comments: Patient is a 77-year-old male who presents emergency department complaining of multiple complaints. Patient has had left leg numbness since his lumbar spine surgery. Had a spinal fusion and is currently postop day 7. Surgeon was Dr. Gonzalez. Is also complaining of worsening lower extremity pain. Also feels like his feet are colder than normal. EMS arrived and stated leg patient's left leg seem colder than his right leg. Patient was concerned. They present for further evaluation. Denies chest pain or shortness of breath. Denies fevers, chills, cough. Denies abdominal pain, nausea, vomiting. No other acute complaints at this time. Is complaining of intermittent back pain which is chronic since the surgery for the patient. Also as stated above, patient's left lower extremity numbness and decreased sensation is chronic for the patient since the surgery. Presents for further evaluation. States he is not on blood thinners. Is typically not requiring oxygen. Has a history of hypertension, asthma, cardiac disease. - Related Data Home Medications Medication Instructions Recorded Confirmed Multivit-Min/FA/Lycopen/Lutein 1 tab PO DAILY 04/02/17 11/17/23 [Centrum Silver Tablet] Primidone [Mysoline] 150 mg PO DAILY 04/02/17 11/17/23 rOPINIRole HCL [Requip] 0.5 mg PO HS 04/19/19 11/17/23 Potassium Chloride [Klor-Con M10] 10 meq PO BID 05/21/20 11/17/23 Clopidogrel [Plavix] 75 mg PO DAILY 03/03/23 11/17/23 allopurinoL 300 mg PO DAILY 03/03/23 11/17/23 Aspirin 81 mg PO DAILY 11/03/23 11/17/23 Benazepril HCl 20 mg PO DAILY 11/03/23 11/17/23 Famotidine 40 mg PO HS 11/03/23 11/17/23 Levothyroxine Sodium 88 mcg PO HS 11/03/23 11/17/23 Terazosin [Hytrin] 2 mg PO HS 11/03/23 11/17/23 Amitriptyline HCl [Elavil] 25 mg PO HS 11/17/23 11/17/23 Atorvastatin [Lipitor] 40 mg PO HS 11/17/23 11/17/23 Furosemide [Lasix] 40 mg PO DAILY 11/17/23 11/17/23 HYDROcodone/APAP 7.5-325MG [Malone 1 tab PO Q4-6H PRN 11/17/23 11/17/23 7.5] Prevagen 1 cap PO DAILY 11/17/23 11/17/23 Sennosides/Docusate Sodium [Senna 1 tab PO DAILY PRN 11/17/23 11/17/23 Plus 8.6-50 mg Tablet] Venlafaxine HCl ER [Effexor Xr] 37.5 mg PO DAILY 11/17/23 11/17/23 Previous Rx's Medication Instructions Recorded Cyclobenzaprine [Flexeril] 5 mg PO TID PRN #30 tablet 11/16/23 Pregabalin [Lyrica] 150 mg PO BID #60 cap 11/16/23 Tamsulosin [Flomax] 0.4 mg PO DAILY #14 cap 11/16/23 cefaDROXiL [Duricef] 500 mg PO Q12HR #10 cap 11/16/23 Allergies Allergy/AdvReac Type Severity Reaction Status Date / Time No Known Allergies Allergy Verified 11/17/23 14:23 Review of Systems ROS Statement: Those systems with pertinent positive or pertinent negative responses have been documented in the HPI. Review of Systems: CONST: Denies fever EYES: Denies blurry vision ENT: Denies nasal congestion C/V: Denies Chest pain RESP: Denies shortness of breath GI: Denies abdominal pain : Denies dysuria SKIN: Denies rash. MSK: Endorses leg pain NEURO: Denies headache ROS Other: All systems not noted in ROS Statement are negative. Past Medical History Past Medical History: Asthma, Chest Pain / Angina, GERD/Reflux, Hyperlipidemia, Hypertension, Musculoskeletal Disorder, Osteoarthritis (OA), Thyroid Disorder, Vascular Disorder Additional Past Medical History / Comment(s): Peripheral vascular disease, neuropathy, asthma as child, hiatal hernia, gout, degenerative discs, one episode of chest pain yrs ago.(nuclear stress test ok) recent URI tx with Abx and steroids. hx of blockage to femoral artery rt leg History of Any Multi-Drug Resistant Organisms: None Reported Past Surgical History: Appendectomy, Heart Catheterization, Orthopedic Surgery Additional Past Surgical History / Comment(s): PTBA with bilateral iliac stents X3( 2 left, 1 right), PARTIAL THYROIDECTOMY, left shoulder rotator cuff repair, COLONOSCOPY, PAIN CLINIC PROCEDURE, bilateral knee arthroscopy. rt femoral endartectomy, Spinal Fusion (October 2023) Past Anesthesia/Blood Transfusion Reactions: No Reported Reaction Additional Past Anesthesia/Blood Transfusion Reaction / Comment(s): Pt has never had blood. Past Psychological History: No Psychological Hx Reported Smoking Status: Former smoker Past Alcohol Use History: None Reported - Past Family History Mother Brother(s) Family Medical History: Cancer Sister(s) Family Medical History: Cancer Additional Family Medical History / Comment(s): brain cancer Mother Family Medical History: Cancer Brother(s) Family Medical History: CVA/TIA General Exam - General Exam Comments Initial Comments: General: Appears in no acute distress. HEAD: Normal with no signs of head trauma. EYES: PERRLA, EOMI, conjunctiva normal, no discharge. ENT: Hearing grossly intact, normal oropharynx. RESPIRATORY: Clear breath sounds bilaterally. No wheezes, rales, or rhonchi. Mild hypoxia on room air to upper 80% to 90%. Improves with minimal nasal cannula oxygen. No respiratory distress. C/V: Regular rate and rhythm. S1 and S2 auscultated, patient has large lower extremities. Difficult to palpate pulses bilaterally. ABD: Abd is soft, nontender, nondistended EXT: Normal range of motion, no obvious deformity SKIN: No rashes or lesions observed on exposed skin. No surrounding erythema in the spine. Dried blood on the patient's postop dressings. NEURO: Alert and oriented x 4. No obvious focal deficits at this time. Able to move both lower extremities. Limitations: no limitations Course Vital Signs 11/17/23 11/17/23 11/17/23 10:43 12:53 12:55 Temperature 97.7 F Pulse Rate 85 88 Respiratory 22 Rate Blood Pressure 112/52 O2 Sat by Pulse 88 L 94 L Oximetry 11/17/23 11/17/23 13:01 13:40 Temperature Pulse Rate 86 92 Respiratory 20 Rate Blood Pressure 137/89 O2 Sat by Pulse 95 Oximetry Medical Decision Making - Medical Decision Making Was pt. sent in by a medical professional or institution (, PA, INTERNAL CORROSION SPECIALIST, urgent care, hospital, or jail...) When possible be specific @ -No Did you speak to anyone other than the patient for history (EMS, parent, family, police, friend...)? What history was obtained from this source @ -No Did you review nursing and triage notes (agree or disagree)? Why? @ -I reviewed and agree with nursing and triage notes Were old charts reviewed (outside hosp., previous admission, EMS record, old EKG, old radiological studies, urgent care reports/EKG's, jail records)? Report findings @ -Old charts reviewed Differential Diagnosis (chest pain, altered mental status, abdominal pain women, abdominal pain men, vaginal bleeding, weakness, fever, dyspnea, syncope, headache, dizziness, GI bleed, back pain, seizure, CVA, palpatations, mental health, musculoskeletal)? @ -Postop pain, vascular occlusion, DVT, infection, this list is not all inclusive. EKG interpreted by me (3pts min.). @ -As above X-rays interpreted by me (1pt min.). @ -None done CT interpreted by me (1pt min.). @ -CT imaging of the chest abdomen pelvis aorta with runoff revealed no obvious acute dissection of the thoracic aorta. Inconclusive evaluation of the distal abdominal aorta or legs. CT lumbar spine shows no obvious acute change from belinda or study. U/S interpreted by me (1pt. min.). @ -Ultrasound negative for DVT What testing was considered but not performed or refused? (CT, X-rays, U/S, labs)? Why? @ -None What meds were considered but not given or refused? Why? @ -None Did you discuss the management of the patient with other professionals (professionals i.e. , PA, INTERNAL CORROSION SPECIALIST, lab, RT, psych nurse, manager social responsibility, design maker, teacher, weapons electrical engineering officer, case monitor)? Give summary @ -Discussed case with Dr. Schreiber who was in agreement with the plan. Was smoking cessation discussed for >3mins.? @ -No Was critical care preformed (if so, how long)? @ -No Were there social determinants of health that impacted care today? How? (Homeles sness, low income, unemployed, alcoholism, drug addiction, transportation, low edu. Level, literacy, decrease access to med. care, [facility], rehab)? @ -No Was there de-escalation of care discussed even if they declined (Discuss DNR or withdrawal of care, Hospice)? DNR status @ -No What co-morbidities impacted this encounter? (DM, HTN, Smoking, COPD, CAD, Cancer, CVA, ARF, Chemo, Hep., AIDS, mental health diagnosis, sleep apnea, morbid obesity)? @ -Recent lumbar spine fusion Was patient admitted / discharged? Hospital course, mention meds given and route, prescriptions, significant lab abnormalities, going to OR and other pertinent info. @ -Patient presents with concern for possible vascular abnormality versus postop pain of the lower extremities. EMS states that the patient's left lower extremity was colder than the right lower extremity upon arrival at his house. Both extremities appear to be the same temperature at this time. Patient has bilateral larger legs and it is difficult to palpate pulses. However bedside ultrasound does see bilateral DP and PT pulses on color flow. Patient is mildly hypoxic that improves on 2 L nasal cannula which is due to unknown reason. We will obtain imaging to evaluate the arteries of the legs as well as basic labs. Patient will receive a breathing treatment as well as a small fluid bolus. Patient was in agreement this plan. Postop check of the wound appears within acceptable limits. No obvious purulent drainage or signs of infection. Patient's imaging inconclusive for lower extremity blockages however no obvious thoracic injury. Venous duplex negative for DVT. Lumbar spine CT no obvious changes. Labs remarkable for mild leukocytosis 14.9 which could be reactive to pain. Also reactive to recent surgery. BNP is 944 which is within acceptable limits for his age. EKG shows no signs of acute ischemia. On reevaluation, patient is feeling improved. Intermittently is still mildly hypoxic but it does improve on 2 L nasal cannula oxygen. We will admit him for observation of this. I did discuss with him that I was able to bedside Doppler the patient's bilateral lower extremity arteries as well as negative DVT, as well as unremarkable workup I believe it is unlikely he has any blockage of his veins or arteries. He was in agreement this assessment. We will admit him and have Dr. Kellogg since team evaluate him. He was in agreement this plan. I spoke with Dr. Schreiber who accepted the admission was in agreement this plan. I did order ultrasounds of the distal lower extremity arteries just to evaluate for any evidence of blockage on formal ultrasound. We both agree, Dr. Schreiber, not to involve vascular surgery at this time as there is no clear reason for it. Patient's left lower extremity numbness has been chronic since the surgery. Undiagnosed new problem with uncertain prognosis? @ -No Drug Therapy requiring intensive monitoring for toxicity (Heparin, Nitro, Insulin, Cardizem)? @ -No Were any procedures done? @ -No Diagnosis/symptom? @ -Postop pain, hypoxia of unknown etiology Acute, or Chronic, or Acute on Chronic? @ -Acute Uncomplicated (without systemic symptoms) or Complicated (systemic symptoms)? @ -Complicated Side effects of treatment? @ -No Exacerbation, Progression, or Severe Exacerbation? @ -No Poses a threat to life or bodily function? How? (Chest pain, [place], [place], pneumonia, PE, COPD, DKA, ARF, appy, cholecystitis, CVA, Diverticulitis, Homicidal, Suicidal, threat to staff... and all critical care pts) @ -Yes - Lab Data Result diagrams: 11/17/23 11:06 11/17/23 11:06 Lab Results 11/17/23 11/17/23 11/17/23 Range/Units 11:06 11:06 11:06 WBC 14.9 H (3.8-10.6) k/uL RBC 2.76 L (4.30-5.90) m/uL Hgb 9.2 L (13.0-17.5) gm/dL Hct 26.7 L (39.0-53.0) % MCV 96.7 (80.0-100.0) fL MCH 33.2 (25.0-35.0) pg MCHC 34.3 (31.0-37.0) g/dL RDW 14.7 (11.5-15.5) % Plt Count 221 (150-450) k/uL MPV 8.5 Neutrophils % 78 % Lymphocytes % 13 % Monocytes % 5 % Eosinophils % 2 % Basophils % 0 % Neutrophils # 11.7 H (1.3-7.7) k/uL Lymphocytes # 2.0 (1.0-4.8) k/uL Monocytes # 0.7 (0-1.0) k/uL Eosinophils # 0.4 (0-0.7) k/uL Basophils # 0.0 (0-0.2) k/uL PT 11.0 (10.0-12.5) sec INR 1.0 (<1.2) APTT 23.7 (22.0-30.0) sec Sodium 137 (137-145) mmol/L Potassium 4.8 (3.5-5.1) mmol/L Chloride 107 (98-107) mmol/L Carbon Dioxide 24 (22-30) mmol/L Anion Gap 6 mmol/L BUN 29 H (9-20) mg/dL Creatinine 1.36 H (0.66-1.25) mg/dL Est GFR (CKD-EPI)AfAm 58 (>60 ml/min/1.73 sqM) Est GFR (CKD-EPI)NonAf 50 (>60 ml/min/1.73 sqM) Glucose 97 (74-99) mg/dL Plasma Lactic Acid Silvio (0.7-2.0) mmol/L Calcium 8.0 L (8.4-10.2) mg/dL Magnesium 1.9 (1.6-2.3) mg/dL Total Bilirubin 0.6 (0.2-1.3) mg/dL AST 45 (17-59) U/L ALT 10 (4-49) U/L Alkaline Phosphatase 61 (38-126) U/L NT-Pro-B Natriuret Pep pg/mL Total Protein 5.1 L (6.3-8.2) g/dL Albumin 2.8 L (3.5-5.0) g/dL 11/17/23 11/17/23 Range/Units 11:06 13:00 WBC (3.8-10.6) k/uL RBC (4.30-5.90) m/uL Hgb (13.0-17.5) gm/dL Hct (39.0-53.0) % MCV (80.0-100.0) fL MCH (25.0-35.0) pg MCHC (31.0-37.0) g/dL RDW (11.5-15.5) % Plt Count (150-450) k/uL MPV Neutrophils % % Lymphocytes % % Monocytes % % Eosinophils % % Basophils % % Neutrophils # (1.3-7.7) k/uL Lymphocytes # (1.0-4.8) k/uL Monocytes # (0-1.0) k/uL Eosinophils # (0-0.7) k/uL Basophils # (0-0.2) k/uL PT (10.0-12.5) sec INR (<1.2) APTT (22.0-30.0) sec Sodium (137-145) mmol/L Potassium (3.5-5.1) mmol/L Chloride (98-107) mmol/L Carbon Dioxide (22-30) mmol/L Anion Gap mmol/L BUN (9-20) mg/dL Creatinine (0.66-1.25) mg/dL Est GFR (CKD-EPI)AfAm (>60 ml/min/1.73 sqM) Est GFR (CKD-EPI)NonAf (>60 ml/min/1.73 sqM) Glucose (74-99) mg/dL Plasma Lactic Acid Silvio 1.2 (0.7-2.0) mmol/L Calcium (8.4-10.2) mg/dL Magnesium (1.6-2.3) mg/dL Total Bilirubin (0.2-1.3) mg/dL AST (17-59) U/L ALT (4-49) U/L Alkaline Phosphatase (38-126) U/L NT-Pro-B Natriuret Pep 944 pg/mL Total Protein (6.3-8.2) g/dL Albumin (3.5-5.0) g/dL - EKG Data -: EKG Interpreted by Me EKG Comments: 12-lead Electrocardiogram Interpretation Note EKG was reviewed and interpreted by myself. 12-lead ECG performed at 1126 is i nterpreted by me as revealing normal sinus rhythm at a rate of 78 beats per minute. [place] is normal. [place] interval is 165 ms, QRS duration is 85 ms, QTc is 392 ms.. There were no ST or T wave abnormalities to suggest myocardial ischemia or injury. R wave progression across the precordium was satisfactory. By my interpretation this EKG is non-diagnostic for acute ischemia. Disposition Clinical Impression: Post-op pain, Hypoxia Disposition: ADMITTED IP TO THIS [facility] Condition: Stable Time of Disposition: 14:18
--- NOTE | 2023-11-17 15:56 | US ---
EXAMINATION TYPE: US arterial LE single level DATE OF EXAM: 11/17/2023 3:28 PM CLINICAL INDICATION: Male, 77 years old with history of eval for any obvious occlusion; eval for puls es/ possible bilat occlusion on CTA History of: Smoker: stopped 2000 Hypertension: on meds Diabetic: no Hyperlipidemia: on meds TIA/CVA: no Previous Vascular Surgery: patient has bilat stents CAD: no NH: no Vascular Ulcers: no Claudication: right Gangrene: no Doppler Waveforms: Right: Multiphasic Left: Multiphasic Right Brachial Pressure: 152 Left Brachial Pressure: deferred due to IV Ankle-Brachial Indices: Right: 0.82 Left: 0.70 (Vessel hardening > 1.4; Normal 0.9 - 1.4, Moderate 0.7 - 0.9, Severe 0.5-0.7) moderate Toe Brachial Indices: Right: could not obtain due to patient movement Left: 0.3 single level only per Dr. Thomas, Needed to confirm patency of bilat RETAIL SELLING SPECIALIST and DPA IMPRESSION: 1. TOMY suggestive of mild bilateral peripheral arterial disease. 2. No flow documented in the right toe. Abnormal left TBI
[2023-11-17] MEDS: HYDROmorphone 1 MG/ML 1 ML SYRINGE IVP STA (16:22)
[2023-11-17] MEDS: ACETAMINOPHEN TAB 325 MG TAB PO STA (16:58)
[2023-11-17 17:20] LABS: Appearance,Urine Clear (Clear); Bilirubin,Urine Negative (Negative); Blood,Urine Negative (Negative); Color,Urine Colorless; Glucose,Urine (UA) Negative (Negative); Ketones,Urine Negative (Negative); Leukocyte Esterase,Urine Negative (Negative); Nitrite,Urine Negative (Negative); Protein,Urine Negative (Negative); Specific Gravity,Urine 1.036 (1.001-1.035); Urobilinogen,Urine <2.0 mg/dL (<2.0)
[2023-11-17] MEDS ORDERED: NON FORMULARY DRUG (Cefadroxil [Duricef] 500 MG Capsule) PO SCH (21:00)
[2023-11-17] MEDS: ATORVASTATIN 40 MG TAB PO SCH (21:21)
[2023-11-17] MEDS: DOXAZOSIN 2 MG TAB PO SCH (21:21)
[2023-11-17] MEDS: SENNOSIDES-DOCUSATE SODIUM 1 EACH TAB PO SCH (21:21)
[2023-11-17] MEDS: AMITRIPTYLINE HCL 25 MG TAB PO SCH (21:21)
[2023-11-17] MEDS: PREGABALIN 75 MG CAP PO SCH (21:22)
[2023-11-17] MEDS: FAMOTIDINE 20 MG TAB PO SCH (21:22)
[2023-11-17] MEDS: LEVOTHYROXINE 88 MCG TAB PO SCH (21:22)
[2023-11-17] MEDS: SODIUM CHLORIDE 0.9% 1,000 ML IV SCH (21:37)
[2023-11-17] MEDS: PIPERACILLIN-TAZOBACTAM 3.375 GM in SODIUM CHLORIDE 0.9% 100 ML IVPB SCH (21:37)
[2023-11-17] MEDS: CYCLOBENZAPRINE 5 MG TAB PO PRN (21:38)
--- NOTE | 2023-11-18 08:10 | XR ---
EXAMINATION TYPE: XR chest 1V portable DATE OF EXAM: 11/18/2023 COMPARISON: 11/11/2023 HISTORY: Shortness of breath TECHNIQUE: Single frontal view of the chest is obtained. FINDINGS: Heart size enlarged as underlying emphysema. Patchy right lower lobe infiltrate. Interstit ium is coarsened. No sizable pleural effusion or pneumothorax. Osseous structures stable. Atheroscler otic change aorta. IMPRESSION: 1. COPD with right lower lobe infiltrate. Mild interstitial pneumonitis or venous congestion in the d ifferential diagnosis.
[2023-11-18] MEDS: TAMSULOSIN 0.4 MG CAP.ER.24H PO SCH (08:40)
[2023-11-18] MEDS: ASPIRIN 81 MG PO SCH (08:40)
[2023-11-18] MEDS: FUROSEMIDE 40 MG TAB PO SCH (08:40)
[2023-11-18] MEDS: CLOPIDOGREL 75 MG TAB PO SCH (08:40)
[2023-11-18] MEDS: VENLAFAXINE HCL ER 37.5 MG CAP PO SCH (08:41)
[2023-11-18] MEDS: PRIMIDONE 50 MG TAB PO SCH (08:41)
[2023-11-18] MEDS: HYDROcodone/APAP 10-325MG 1 EACH TAB PO PRN (08:41)
[2023-11-18] MEDS: allopurinoL 300 MG TAB PO SCH (08:41)
[2023-11-18] MEDS: lisinopriL 20 MG TAB PO SCH (08:41)
[2023-11-18] MEDS: POTASSIUM CHLORIDE ER 10 MEQ TAB.ER.PRT PO SCH (08:41)
[2023-11-18 11:55] LABS: BUN/Creat Ratio 17.69 Ratio (12.00-20.00); Blood Urea Nitrogen 28.3 mg/dL (9.0-27.0); Carbon Dioxide 23.4 mmol/L (21.6-31.8); Chloride 103 mmol/L (96-109); Glucose 91 mg/dL (70-110); Potassium 4.9 mmol/L (3.5-5.5); Sodium 135 mmol/L (135-145)
[2023-11-18 12:12] LABS: Basophils # (A) 0.02 X 10*3/uL (0.00-0.10); Basophils % (A) 0.1 %; Eosinophils # (A) 0.34 X 10*3/uL (0.04-0.35); Eosinophils % (A) 2.2 %; HCT 23.4 % (39.6-50.0); HGB 7.5 g/dL (13.0-17.0); Lymphocytes # (A) 2.06 X 10*3/uL (0.90-5.00); Lymphocytes % (A) 13.6 %; MCH 31.6 pg (27.0-32.0); MCHC 32.1 g/dL (32.0-37.0); MCV 98.7 FL (80.0-97.0); Mean Platelet Volume 11.1 FL (9.5-12.2); Monocytes # (A) 1.24 X 10*3/uL (0.20-1.00); Monocytes % (A) 8.2 %; NRBC Per 100 WBC 0 X 10*3/uL (0.00-0.01); Neutrophils # (A) 11.19 X 10*3/uL (1.80-7.70); Platelet Count 214 X 10*3/uL (140-440); RBC 2.37 X 10*6/uL (4.40-5.60); RDW 14.7 % (11.5-14.5); WBC 15.13 X 10*3/uL (4.50-10.00)
--- NOTE | 2023-11-18 12:51 | P.CNOR ---
History of Present Illness - [facility] Consult date: 11/18/23 Consult reason: other (Recent lumbar surgery) History of present illness: Patient is a 77-year-old male who presented to [facility] on 11/17/2023 with regards to difficulty with ADLs, worsening low back pain. Patient is a status post [id number] decompression and fusion by Dr. Gonzalez on 11/09/2023. Patient was recently discharged home on 11/16/2023. Patient states that once at home he had a very difficult time with getting around, he was having a lot of worsening pain in the lower extremities in the low back. He was also running a fever on occasion. Patient was admitted to [facility] under internal medicine for further evaluation. Multiple consults have been placed, this to include infectious disease, pulmonology and cardiology. There was concern for a TIA after his first surgery, he developed significant left upper extremity and left lower extremity weakness. During the initial hospital stay patient's left upper extremity symptoms resolved. He has continued to have difficulty with dorsiflexion and hip flexion on the left lower extremity. Patient was placed on Plavix during the hospital stay, he has remained on this. Patient was also started on Lovenox and aspirin since being back in the hospital. On exam today, patient is resting in his hospital bed. He states that the low back pain is pretty consistent since being admitted. He is on [place] 10 mg / 325 mg every 4 hours. The dressing has become quite saturated on a few occasions, nursing has continued to reinforce the dressing. Currently patient has no headaches, lightheadedness, chest pain or shortness of breath. Patient has been urinating with no difficulties. Patient denies any weakness in the right lower extremity at this time. He states that the weakness in the left lower extremity is about the same as it has been since postop day 2. Patient denies any upper extremity symptoms at this time. Review of Systems Constitutional: Reports as per HPI Past Medical History Past Medical History: Asthma, Chest Pain / Angina, GERD/Reflux, Hyperlipidemia, Hypertension, Musculoskeletal Disorder, Osteoarthritis (OA), Thyroid Disorder, Vascular Disorder Additional Past Medical History / Comment(s): Peripheral vascular disease, neuropathy, asthma as child, hiatal hernia, gout, degenerative discs, one episode of chest pain yrs ago.(nuclear stress test ok) recent URI tx with Abx and steroids. hx of blockage to femoral artery rt leg History of Any Multi-Drug Resistant Organisms: None Reported Past Surgical History: Appendectomy, Heart Catheterization, Orthopedic Surgery Additional Past Surgical History / Comment(s): PTBA with bilateral iliac stents X3( 2 left, 1 right), PARTIAL THYROIDECTOMY, left shoulder rotator cuff repair, COLONOSCOPY, PAIN CLINIC PROCEDURE, bilateral knee arthroscopy. rt femoral endartectomy, Spinal Fusion (October 2023) Past Anesthesia/Blood Transfusion Reactions: No Reported Reaction Additional Past Anesthesia/Blood Transfusion Reaction / Comm: Pt has never had blood. Past Psychological History: No Psychological Hx Reported Additional Psychological History / Comment(s): Pt resides with spouse. Smoking Status: Former smoker Past Alcohol Use History: None Reported Additional Past Alcohol Use History / Comment(s): Smoked from age 19 to 55, approx 2 to 2 1/2ppd, quit in 2000. Past Drug Use History: None Reported - Past Family History Mother Brother(s) Family Medical History: Cancer Sister(s) Family Medical History: Cancer Additional Family Medical History / Comment(s): brain cancer Mother Family Medical History: Cancer Brother(s) Family Medical History: CVA/TIA Medications and Allergies Home Medications Medication Instructions Recorded Confirmed Type Multivit-Min/FA/Lycopen/Lutein 1 tab PO DAILY 04/02/17 11/17/23 History [Centrum Silver Tablet] Primidone [Mysoline] 150 mg PO DAILY 04/02/17 11/17/23 History rOPINIRole HCL [Requip] 0.5 mg PO HS 04/19/19 11/17/23 History Potassium Chloride [Klor-Con M10] 10 meq PO BID 05/21/20 11/17/23 History Clopidogrel [Plavix] 75 mg PO DAILY 03/03/23 11/17/23 History allopurinoL 300 mg PO DAILY 03/03/23 11/17/23 History Aspirin 81 mg PO DAILY 11/03/23 11/17/23 History Benazepril HCl 20 mg PO DAILY 11/03/23 11/17/23 History Famotidine 40 mg PO HS 11/03/23 11/17/23 History Levothyroxine Sodium 88 mcg PO HS 11/03/23 11/17/23 History Terazosin [Hytrin] 2 mg PO HS 11/03/23 11/17/23 History Cyclobenzaprine [Flexeril] 5 mg PO TID PRN #30 tablet 11/16/23 11/17/23 Rx Pregabalin [Lyrica] 150 mg PO BID #60 cap 11/16/23 11/17/23 Rx Tamsulosin [Flomax] 0.4 mg PO DAILY #14 cap 11/16/23 11/17/23 Rx cefaDROXiL [Duricef] 500 mg PO Q12HR #10 cap 11/16/23 11/17/23 Rx Amitriptyline HCl [Elavil] 25 mg PO HS 11/17/23 11/17/23 History Atorvastatin [Lipitor] 40 mg PO HS 11/17/23 11/17/23 History Furosemide [Lasix] 40 mg PO DAILY 11/17/23 11/17/23 History HYDROcodone/APAP 7.5-325MG [[place] 1 tab PO Q4-6H PRN 11/17/23 11/17/23 History 7.5] Prevagen 1 cap PO DAILY 11/17/23 11/17/23 History Sennosides/Docusate Sodium [Senna 1 tab PO DAILY PRN 11/17/23 11/17/23 History Plus 8.6-50 mg Tablet] Venlafaxine HCl ER [Effexor Xr] 37.5 mg PO DAILY 11/17/23 11/17/23 History Allergies Allergy/AdvReac Type Severity Reaction Status Date / Time No Known Allergies Allergy Verified 11/17/23 14:23 Physical Examination Gen: AOx3, NAD VSS stable at this time Integument: Dressing was removed today at bedside, no active drainage is visualized. Juan are all in good position and condition. There is notable swelling present involving the proximal third of the incision, likely representing a seroma Palpation: Mild tenderness with palpation noted throughout the lumbar spine ROM: Full range of motion in all major muscle groups of the bilateral upper extremities Range of motion in the right lower extremity seems adequate at this time, left lower extremity still is diminished with dorsiflexion, knee extension and hip flexion Sensory Exam: Senory exam to light touch is intact C5-T1 [place] exam to light touch is intact L2-S1 Motor: 4+/5 strength appreciated in the bilateral upper extremities with shoulder elevation, shoulder abduction, elbow extension, elbow flexion, wrist extension, wrist flexion, 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 2/5 strength appreciated in the left lower extremity with EHL, dorsiflexion 4/5 strength appreciated to left lower extremity with knee flexion, plantarflexion Reflexes: 2/4 in all UE and LE Negative Heaven's bilaterally, negative Babinski bilaterally, negative clonus bilaterally Results - Labs Labs: Abnormal Lab Results - Last 24 Hours (Table) 11/17/23 11/17/23 11/18/23 Range/Units 11:06 11:06 05:46 WBC 15.13 H (4.50-10.00) X 10*3/uL RBC 2.37 L (4.40-5.60) X 10*6/uL Hgb 7.5 L (13.0-17.0) g/dL Hct 23.4 L (39.6-50.0) % MCV 98.7 H (80.0-97.0) FL RDW 14.7 H (11.5-14.5) % Immature Gran # 0.28 H (0.00-0.04) X 10*3/uL Neutrophils # 11.19 H (1.80-7.70) X 10*3/uL Monocytes # 1.24 H (0.20-1.00) X 10*3/uL D-Dimer (<0.60) mg/L FEU BUN 29 H (9-20) mg/dL Creatinine 1.36 H (0.66-1.25) mg/dL Est GFR (CKD-EPI) (>=60) Calcium 8.0 L (8.4-10.2) mg/dL Total Protein 5.1 L (6.3-8.2) g/dL Albumin 2.8 L (3.5-5.0) g/dL Procalcitonin (0.02-0.09) ng/mL Ur Specific [place] 1.036 H (1.001-1.035) 11/18/23 11/18/23 11/18/23 Range/Units 05:46 08:01 08:01 WBC (4.50-10.00) X 10*3/uL RBC (4.40-5.60) X 10*6/uL Hgb (13.0-17.0) g/dL Hct (39.6-50.0) % MCV (80.0-97.0) FL RDW (11.5-14.5) % Immature Gran # (0.00-0.04) X 10*3/uL Neutrophils # (1.80-7.70) X 10*3/uL Monocytes # (0.20-1.00) X 10*3/uL D-Dimer 3.66 H (<0.60) mg/L FEU BUN 28.3 H (9-20) mg/dL Creatinine 1.6 H (0.66-1.25) mg/dL Est GFR (CKD-EPI) 44 L (>=60) Calcium 8.0 L (8.4-10.2) mg/dL Total Protein (6.3-8.2) g/dL Albumin (3.5-5.0) g/dL Procalcitonin 0.27 H (0.02-0.09) ng/mL Ur Specific [place] (1.001-1.035) H & H 11/17/23 11/18/23 Range/Units 11:06 05:46 Hgb 9.2 L 7.5 L (13.0-17.5) gm/dL Hct 26.7 L 23.4 L (39.0-53.0) % Coagulation 11/17/23 Range/Units 11:06 INR 1.0 (<1.2) Result Diagrams: 11/18/23 05:46 11/18/23 05:46 - Diagnostic results CT Scan - lumbar: report reviewed, image reviewed (CT scan both report and images were reviewed. No acute fractures or dislocations present. No significant change compared to postoperative CT scan) Assessment and Plan Assessment: Postoperative day #9 status post [id number] decompression and fusion Postoperative lumbar seroma/hematoma Low back pain Left lower extremity weakness Leukocytosis Anemia Plan: I was able to discuss the case, this to include both physical exam findings and imaging studies my attending Dr. Gonzalez Recommending conservative measures at this time, appreciate all other medical specialty recommendations. Patient's overall baseline with lower extremity range of motion and strength has not changed since surgery. Patient is continue to urinate with no difficulties. Patient demonstrated no acute neuropathic signs at this time. 1 unit of packed RBCs has been ordered for anemia Due to seroma/hematoma hold anticoagulants at this time, this to include Plavix and Lovenox. Okay to utilize aspirin at this time Weight-bear as tolerated, utilize LSO brace for longer distances PT/OT evaluation Will continue to monitor surgical dressing, considering Prevena wound VAC if drainage continues Further recommendations to follow Time with Patient: Less than 30
[2023-11-18] MEDS: ENOXAPARIN 40 MG/0.4 ML SYRINGE SQ SCH (13:00)
--- NOTE | 2023-11-18 13:25 | P.CRDCN ---
History of Present Illness History of present illness: HISTORY OF PRESENT ILLNESS: This is a 77-year-old male with a past medical history significant for peripheral arterial disease with prior stenting of the left common iliac and left external iliac artery and subsequent right femoral endarterectomy as well as thoracic aortic dilation and, hypertension, hyperlipidemia, carotid stenosis, and TIA. Patient follows in the office with Dr. Zhang. We have been asked to see the patient in consultation for recommendations regarding anticoagulation. Patient examined at the bedside. Patient is status post back surgery with Dr. Gonzalez on 11/09/2023. He underwent [id number] decompression and fusion. Patient presented to the hospital due to increasing weakness of his left lower extremity. He states his left leg feels numb and he is unable to have full mobility. He also reports back pain. The patient does have ximena to his back and has been having ongoing mild bleeding from his ximena. He is currently on aspirin and Plavix. DIAGNOSTICS: - EKG reveals sinus mechanism with no signs of acute ischemia. - Laboratory data: WBC 14.9. Hemoglobin 9.2. Platelet count 221. D-dimer 3.66. Sodium 137. Potassium 4.8. BUN 29. Creatinine 1.3. Magnesium 1.9. proBNP 944. - Current home cardiac medications include Plavix 75 mg daily, Lasix 40 mg daily, aspirin 81 mg daily, Benzepril 20 mg daily, and Lipitor 40 mg at night - Most recent echocardiogram obtained on 11/10/2023 revealed ejection fraction 60-65%, no obvious regional wall motion abnormalities, and no significant valvular dysfunction -Patient underwent CT angio yesterday which was negative for thoracic aortic dissection. Possibility of distal aortic occluding thrombus cannot be assessed on this exam. Possibility of occlusion of bilateral lower extremity arterial s ystem cannot be evaluated on this exam. - Cardiac catheterization history: 2017 with minimal CAD REVIEW OF SYSTEMS: At the time of my exam: CONSTITUTIONAL: Denies fever or chills. HEENT: Denies blurred vision, vision changes, or eye pain. Denies hemoptysis CARDIOVASCULAR: Denies chest pain. Denies orthopnea. Denies PND. Denies palpitations RESPIRATORY: Denies shortness of breath. GASTROINTESTINAL: Denies abdominal pain. Denies nausea or vomiting. HEMATOLOGIC: Denies bleeding disorders. GENITOURINARY: Denies any blood in urine. SKIN: Denies pruitis. Denies rash. PHYSICAL EXAM: VITAL SIGNS: Reviewed. GENERAL: Well-developed in no acute distress. HEENT: Head is normocephalic. Pupils are equal, round. Sclerae anicteric. Mucous membranes of the mouth are moist. Neck supple. No JVD or thyromegaly LUNGS: Respirations even and unlabored. Lungs essentially clear to auscultation bilaterally. HEART: Regular rate and rhythm. S1 and S2 heard. ABDOMEN: Soft. Nondistended. Nontender. EXTREMITIES: Normal range of motion. No clubbing or cyanosis. Peripheral pulses intact. No lower extremity edema NEUROLOGIC: Awake and alert. Oriented x 3. ASSESSMENT: Left lower extremity weakness Status post [id number] decompression and fusion Postoperative lumbar seroma/hematoma Peripheral arterial disease with previous lower extremity intervention Hypertension Hyperlipidemia Carotid stenosis History of TIA Elevated D-dimer, rule out PE PLAN: Continue current cardiac medications Due to patient's lumbar seroma/hematoma and continued bleeding from his ximena, we will hold Plavix for 5 days. Plavix may be resumed on November 24, 2023. Continue aspirin at this time There is no indication for anticoagulation from a cardiac standpoint Patient is stable from a cardiac standpoint with no further inpatient recommendations We will sign off. Please reconsult if needed. Nurse practitioner note has been reviewed by physician. Signing provider agrees with the documented findings, assessment, and plan of care documented by FLORAL MERCHANDISER as a scribe. Past Medical History Past Medical History: Asthma, Chest Pain / Angina, GERD/Reflux, Hyperlipidemia, Hypertension, Musculoskeletal Disorder, Osteoarthritis (OA), Thyroid Disorder, Vascular Disorder Additional Past Medical History / Comment(s): Peripheral vascular disease, neuropathy, asthma as child, hiatal hernia, gout, degenerative discs, one episode of chest pain yrs ago.(nuclear stress test ok) recent URI tx with Abx and steroids. hx of blockage to femoral artery rt leg History of Any Multi-Drug Resistant Organisms: None Reported Past Surgical History: Appendectomy, Heart Catheterization, Orthopedic Surgery Additional Past Surgical History / Comment(s): PTBA with bilateral iliac stents X3( 2 left, 1 right), PARTIAL THYROIDECTOMY, left shoulder rotator cuff repair, COLONOSCOPY, PAIN CLINIC PROCEDURE, bilateral knee arthroscopy. rt femoral endartectomy, Spinal Fusion (October 2023) Past Anesthesia/Blood Transfusion Reactions: No Reported Reaction Additional Past Anesthesia/Blood Transfusion Reaction / Comment(s): Pt has never had blood. Past Psychological History: No Psychological Hx Reported Additional Psychological History / Comment(s): Pt resides with spouse. Smoking Status: Former smoker Past Alcohol Use History: None Reported Additional Past Alcohol Use History / Comment(s): Smoked from age 19 to 55, approx 2 to 2 1/2ppd, quit in 2000. Past Drug Use History: None Reported - Past Family History Mother Brother(s) Family Medical History: Cancer Sister(s) Family Medical History: Cancer Additional Family Medical History / Comment(s): brain cancer Mother Family Medical History: Cancer Brother(s) Family Medical History: CVA/TIA Medications and Allergies Home Medications Medication Instructions Recorded Confirmed Type Multivit-Min/FA/Lycopen/Lutein 1 tab PO DAILY 04/02/17 11/17/23 History [Centrum Silver Tablet] Primidone [Mysoline] 150 mg PO DAILY 04/02/17 11/17/23 History rOPINIRole HCL [Requip] 0.5 mg PO HS 04/19/19 11/17/23 History Potassium Chloride [Klor-Con M10] 10 meq PO BID 05/21/20 11/17/23 History Clopidogrel [Plavix] 75 mg PO DAILY 03/03/23 11/17/23 History allopurinoL 300 mg PO DAILY 03/03/23 11/17/23 History Aspirin 81 mg PO DAILY 11/03/23 11/17/23 History Benazepril HCl 20 mg PO DAILY 11/03/23 11/17/23 History Famotidine 40 mg PO HS 11/03/23 11/17/23 History Levothyroxine Sodium 88 mcg PO HS 11/03/23 11/17/23 History Terazosin [Hytrin] 2 mg PO HS 11/03/23 11/17/23 History Cyclobenzaprine [Flexeril] 5 mg PO TID PRN #30 tablet 11/16/23 11/17/23 Rx Pregabalin [Lyrica] 150 mg PO BID #60 cap 11/16/23 11/17/23 Rx Tamsulosin [Flomax] 0.4 mg PO DAILY #14 cap 11/16/23 11/17/23 Rx cefaDROXiL [Duricef] 500 mg PO Q12HR #10 cap 11/16/23 11/17/23 Rx Amitriptyline HCl [Elavil] 25 mg PO HS 11/17/23 11/17/23 History Atorvastatin [Lipitor] 40 mg PO HS 11/17/23 11/17/23 History Furosemide [Lasix] 40 mg PO DAILY 11/17/23 11/17/23 History HYDROcodone/APAP 7.5-325MG [[place] 1 tab PO Q4-6H PRN 11/17/23 11/17/23 History 7.5] Prevagen 1 cap PO DAILY 11/17/23 11/17/23 History Sennosides/Docusate Sodium [Senna 1 tab PO DAILY PRN 11/17/23 11/17/23 History Plus 8.6-50 mg Tablet] Venlafaxine HCl ER [Effexor Xr] 37.5 mg PO DAILY 11/17/23 11/17/23 History Allergies Allergy/AdvReac Type Severity Reaction Status Date / Time No Known Allergies Allergy Verified 11/17/23 14:23 Physical Exam Vitals: Vital Signs Temp Pulse Pulse Pulse Resp BP BP 11/18/23 08:05 11/18/23 07:12 100.4 F H 84 17 136/66 11/18/23 02:05 18 11/18/23 02:00 99.3 F 84 18 111/45 11/17/23 20:00 99.0 F 85 16 122/49 11/17/23 17:47 98.5 F 91 17 117/61 11/17/23 16:51 101.5 F H 11/17/23 16:00 89 20 114/46 11/17/23 15:30 98 20 152/42 11/17/23 15:00 91 12 109/51 11/17/23 14:00 94 12 128/69 11/17/23 13:40 92 20 137/89 11/17/23 13:01 86 11/17/23 12:55 11/17/23 12:53 88 Pulse Ox 11/18/23 08:05 97 11/18/23 07:12 94 L 11/18/23 02:05 93 L 11/18/23 02:00 83 L 11/17/23 20:00 100 11/17/23 17:47 90 L 11/17/23 16:51 11/17/23 16:00 96 11/17/23 15:30 94 L 11/17/23 15:00 94 L 11/17/23 14:00 94 L 11/17/23 13:40 95 11/17/23 13:01 11/17/23 12:55 94 L 11/17/23 12:53 Intake and Output 11/17/23 11/18/23 11/18/23 22:59 06:59 14:59 Intake Total 100 Balance 100 Intake: IV 100 0.9 100 Other: Voiding Method Toilet Toilet Toilet Urinal Urinal Urinal # Voids 1 1 # Bowel Movements 1 Weight 127.006 kg Results 11/18/23 05:46 11/18/23 05:46 Cardiac Enzymes 11/17/23 Range/Units 11:06 AST 45 (17-59) U/L Coagulation 11/17/23 Range/Units 11:06 PT 11.0 (10.0-12.5) sec APTT 23.7 (22.0-30.0) sec CBC 11/17/23 Range/Units 11:06 WBC 14.9 H (3.8-10.6) k/uL RBC 2.76 L (4.30-5.90) m/uL Hgb 9.2 L (13.0-17.5) gm/dL Hct 26.7 L (39.0-53.0) % Plt Count 221 (150-450) k/uL Comprehensive Metabolic Panel 11/17/23 Range/Units 11:06 Sodium 137 (137-145) mmol/L Potassium 4.8 (3.5-5.1) mmol/L Chloride 107 (98-107) mmol/L Carbon Dioxide 24 (22-30) mmol/L BUN 29 H (9-20) mg/dL Creatinine 1.36 H (0.66-1.25) mg/dL Glucose 97 (74-99) mg/dL Calcium 8.0 L (8.4-10.2) mg/dL AST 45 (17-59) U/L ALT 10 (4-49) U/L Alkaline Phosphatase 61 (38-126) U/L Total Protein 5.1 L (6.3-8.2) g/dL Albumin 2.8 L (3.5-5.0) g/dL Current Medications Generic Name Dose Route Start Last Admin Trade Name Freq PRN Reason Stop Dose Admin Acetaminophen 1,000 mg 11/18/23 06:57 Acetaminophen Tab 500 Mg Tab PO Q6HR PRN Pain Hydrocodone Bitart/Acetaminophen 1 each 11/17/23 19:35 11/18/23 08:41 Hydrocodone/Apap 10-325mg 1 Each Tab PO 1 each Q4HR PRN Administration Pain Allopurinol 300 mg 11/18/23 09:00 11/18/23 08:41 Allopurinol 300 Mg Tab PO 300 mg DAILY HIRAM Administration Amitriptyline HCl 25 mg 11/17/23 21:00 11/17/23 21:21 Amitriptyline Hcl 25 Mg Tab PO 25 mg HS HIRAM Administration Aspirin 81 mg 11/18/23 09:00 11/18/23 08:40 Aspirin 81 Mg PO 81 mg DAILY HIRAM Administration Atorvastatin Calcium 40 mg 11/17/23 21:00 11/17/23 21:21 Atorvastatin 40 Mg Tab PO 40 mg HS HIRAM Administration Clopidogrel Bisulfate 75 mg 11/18/23 09:00 11/18/23 08:40 Clopidogrel 75 Mg Tab PO 75 mg DAILY HIRAM Administration Cyclobenzaprine HCl 5 mg 11/17/23 19:36 11/17/23 21:38 Cyclobenzaprine 5 Mg Tab PO 5 mg TID PRN Administration Muscle Spasm Doxazosin Mesylate 2 mg 11/17/23 21:00 11/17/23 21:21 Doxazosin 2 Mg Tab PO 2 mg HS HIRAM Administration Enoxaparin Sodium 40 mg 11/18/23 11:15 Enoxaparin 40 Mg/0.4 Ml Syringe SQ DAILY HIRAM Famotidine 40 mg 11/17/23 21:00 11/17/23 21:22 Famotidine 20 Mg Tab PO 40 mg HS HIRAM Administration Furosemide 40 mg 11/18/23 09:00 11/18/23 08:40 Furosemide 40 Mg Tab PO 40 mg DAILY HIRAM Administration Piperacillin Sod/Tazobactam 100 mls @ 25 mls/hr 11/17/23 20:00 11/18/23 04:09 Sod 3.375 gm/ Sodium Chloride IVPB 25 mls/hr Q8H HIRAM Administration Protocol Sodium Chloride 1,000 mls @ 100 mls/hr 11/17/23 20:30 11/18/23 04:11 Saline 0.9% IV 100 mls/hr .Q10H HIRAM Administration Levothyroxine Sodium 88 mcg 11/17/23 21:00 11/17/23 21:22 Levothyroxine 88 Mcg Tab PO 88 mcg HS HIRAM Administration Lisinopril 20 mg 11/18/23 09:00 11/18/23 08:41 Lisinopril 20 Mg Tab PO 20 mg DAILY HIRAM Administration Naloxone HCl 0.2 mg 11/17/23 14:22 Naloxone 0.4 Mg/Ml 1 Ml Vial IV Q2M PRN Opioid Reversal Potassium Chloride 10 meq 11/18/23 09:00 11/18/23 08:41 Potassium Chloride Er 10 Meq Tab.Er.Prt PO 10 meq BID HIRAM Administration Pregabalin 150 mg 11/17/23 21:00 11/18/23 08:40 Pregabalin 75 Mg Cap PO 150 mg BID HIRAM Administration Primidone 150 mg 11/18/23 09:00 11/18/23 08:41 Primidone 50 Mg Tab PO 150 mg DAILY HIRAM Administration Ropinirole HCl 0.5 mg 11/17/23 21:00 11/17/23 21:20 Ropinirole Hcl 0.25 Mg Tab PO 0.5 mg HS HIRAM Administration Senna/Docusate Sodium 1 each 11/17/23 19:45 11/18/23 08:40 Sennosides-Docusate Sodium 1 Each Tab PO 1 each DAILY HIRAM Administration Tamsulosin HCl 0.4 mg 11/18/23 09:00 11/18/23 08:40 Tamsulosin 0.4 Mg Cap.Er.24h PO 0.4 mg DAILY HIRAM Administration Venlafaxine HCl 37.5 mg 11/18/23 09:00 11/18/23 08:41 Venlafaxine Hcl Er 37.5 Mg Cap PO 37.5 mg DAILY HIRAM Administration Intake and Output 11/17/23 11/18/23 11/18/23 22:59 06:59 14:59 Intake Total 100 Balance 100 Intake: IV 100 0.9 100 Other: Voiding Method Toilet Toilet Toilet Urinal Urinal Urinal # Voids 1 1 # Bowel Movements 1 Weight 127.006 kg 11/17/23 11:06 11/17/23 11:06
--- NOTE | 2023-11-18 13:32 | P.CNPUL ---
History of Present Illness Consult date: 11/18/23 Requesting physician: Ye Schreiber Reason for consult: dyspnea Chief complaint: Shortness of breath, back pain, lower extremity pain History of present illness: This is a 77-year-old male patient who was recently discharged from here following a L2 to pelvis decompression and fusion surgery on November 09, 2023. He had an extended time on the mechanical ventilator due to the prolonged surgery. He subsequently recovered and was discharged home on November 16, 2023. At that time he was doing fairly well. However he developed increased low back pain and lower extremity weakness. He also had developed a fever back to the emergency room yesterday November 17, 2019 y. He is seen today in consultation on the regular medical floor. He is currently laying flat in bed. Awake and alert in no acute distress. He is maintaining O2 saturations in the 90s on 3 L/min per nasal cannula. He did drop into the low 80s on room air. Temperature 100.4. Blood pressure stable. Nursing staff states his surgical dressing had been saturated and had been reinforced. He is being followed by orthopedics today. White count 15.1. Hemoglobin 7.5. Platelets 214. D-dimer 3.66. Sodium 135. Potassium 4.9. Bicarb 23. BUN 28. Creatinine 1.6. Procalcitonin 0.27. Chest x-ray reveals evidence of COPD with a right lower lobe infiltrate. Dopplers of the lower extremities were negative for DVT. CT scan of the lumbar spine revealed no evidence of spinal fracture. No noticeable change from previous study. He has been initiated on Zosyn. Review of Systems REVIEW OF SYSTEMS: CONSTITUTIONAL: Denies any recent significant weight loss or weight gain. EYES: Denies change in vision. EARS, NOSE, MOUTH, THROAT: Denies headaches, denies sore throat. CARDIOVASCULAR: Denies chest pain, palpitations or syncopal episodes. RESPIRATORY: Positive for shortness of breath, cough, congestion no hemoptysis. GASTROINTESTINAL: Denies change in appetite, denies abdominal pain GENITOURINARY: Denies hematuria, denies infections. MUSKULOSKELETAL: Positive for back pain and lower extremity weakness. INTEGUMENTARY: Denies rash, denies eczema. NEUROLOGICAL: Denies recent memory loss, no recent seizure activity. PSYCHIATRIC: Denies anxiety, denies depression. HEMATOLOGIC/LYMPHATIC: Denies anemia, denies enlarged lymph nodes. Past Medical History Past Medical History: Asthma, Chest Pain / Angina, GERD/Reflux, Hyperlipidemia, Hypertension, Musculoskeletal Disorder, Osteoarthritis (OA), Thyroid Disorder, Vascular Disorder Additional Past Medical History / Comment(s): Peripheral vascular disease, neuropathy, asthma as child, hiatal hernia, gout, degenerative discs, one episode of chest pain yrs ago.(nuclear stress test ok) recent URI tx with Abx and steroids. hx of blockage to femoral artery rt leg History of Any Multi-Drug Resistant Organisms: None Reported Past Surgical History: Appendectomy, Heart Catheterization, Orthopedic Surgery Additional Past Surgical History / Comment(s): PTBA with bilateral iliac stents X3( 2 left, 1 right), PARTIAL THYROIDECTOMY, left shoulder rotator cuff repair, COLONOSCOPY, PAIN CLINIC PROCEDURE, bilateral knee arthroscopy. rt femoral endartectomy, Spinal Fusion (October 2023) Past Anesthesia/Blood Transfusion Reactions: No Reported Reaction Additional Past Anesthesia/Blood Transfusion Reaction / Comment(s): Pt has never had blood. Past Psychological History: No Psychological Hx Reported Additional Psychological History / Comment(s): Pt resides with spouse. Smoking Status: Former smoker Past Alcohol Use History: None Reported Additional Past Alcohol Use History / Comment(s): Smoked from age 19 to 55, approx 2 to 2 1/2ppd, quit in 2000. Past Drug Use History: None Reported - Past Family History Mother Brother(s) Family Medical History: Cancer Sister(s) Family Medical History: Cancer Additional Family Medical History / Comment(s): brain cancer Mother Family Medical History: Cancer Brother(s) Family Medical History: CVA/TIA Medications and Allergies Home Medications Medication Instructions Recorded Confirmed Type Multivit-Min/FA/Lycopen/Lutein 1 tab PO DAILY 04/02/17 11/17/23 History [Centrum Silver Tablet] Primidone [Mysoline] 150 mg PO DAILY 04/02/17 11/17/23 History rOPINIRole HCL [Requip] 0.5 mg PO HS 04/19/19 11/17/23 History Potassium Chloride [Klor-Con M10] 10 meq PO BID 05/21/20 11/17/23 History Clopidogrel [Plavix] 75 mg PO DAILY 03/03/23 11/17/23 History allopurinoL 300 mg PO DAILY 03/03/23 11/17/23 History Aspirin 81 mg PO DAILY 11/03/23 11/17/23 History Benazepril HCl 20 mg PO DAILY 11/03/23 11/17/23 History Famotidine 40 mg PO HS 11/03/23 11/17/23 History Levothyroxine Sodium 88 mcg PO HS 11/03/23 11/17/23 History Terazosin [Hytrin] 2 mg PO HS 11/03/23 11/17/23 History Cyclobenzaprine [Flexeril] 5 mg PO TID PRN #30 tablet 11/16/23 11/17/23 Rx Pregabalin [Lyrica] 150 mg PO BID #60 cap 11/16/23 11/17/23 Rx Tamsulosin [Flomax] 0.4 mg PO DAILY #14 cap 11/16/23 11/17/23 Rx cefaDROXiL [Duricef] 500 mg PO Q12HR #10 cap 11/16/23 11/17/23 Rx Amitriptyline HCl [Elavil] 25 mg PO HS 11/17/23 11/17/23 History Atorvastatin [Lipitor] 40 mg PO HS 11/17/23 11/17/23 History Furosemide [Lasix] 40 mg PO DAILY 11/17/23 11/17/23 History HYDROcodone/APAP 7.5-325MG [[place] 1 tab PO Q4-6H PRN 11/17/23 11/17/23 History 7.5] Prevagen 1 cap PO DAILY 11/17/23 11/17/23 History Sennosides/Docusate Sodium [Senna 1 tab PO DAILY PRN 11/17/23 11/17/23 History Plus 8.6-50 mg Tablet] Venlafaxine HCl ER [Effexor Xr] 37.5 mg PO DAILY 11/17/23 11/17/23 History Allergies Allergy/AdvReac Type Severity Reaction Status Date / Time No Known Allergies Allergy Verified 11/17/23 14:23 Physical Exam Vitals: Vital Signs Temp Pulse Pulse Pulse Resp BP BP 11/18/23 08:05 11/18/23 07:12 100.4 F H 84 17 136/66 11/18/23 02:05 18 11/18/23 02:00 99.3 F 84 18 111/45 11/17/23 20:00 99.0 F 85 16 122/49 11/17/23 17:47 98.5 F 91 17 117/61 11/17/23 16:51 101.5 F H 11/17/23 16:00 89 20 114/46 11/17/23 15:30 98 20 152/42 11/17/23 15:00 91 12 109/51 11/17/23 14:00 94 12 128/69 11/17/23 13:40 92 20 137/89 Pulse Ox 11/18/23 08:05 97 11/18/23 07:12 94 L 11/18/23 02:05 93 L 11/18/23 02:00 83 L 11/17/23 20:00 100 11/17/23 17:47 90 L 11/17/23 16:51 11/17/23 16:00 96 11/17/23 15:30 94 L 11/17/23 15:00 94 L 11/17/23 14:00 94 L 11/17/23 13:40 95 Intake and Output 11/17/23 11/18/23 11/18/23 22:59 06:59 14:59 Intake Total 100 Balance 100 Intake: IV 100 0.9 100 Other: Voiding Method Toilet Toilet Toilet Urinal Urinal Urinal # Voids 1 1 # Bowel Movements 1 Weight 127.006 kg GENERAL EXAM: Alert, weak, pleasant 77-year-old male, on 3 L nasal cannula, comfortable in no apparent distress. HEAD: Normocephalic. EYES: Normal reaction of pupils, equal size. NOSE: Clear with pink turbinates. THROAT: No erythema or exudates. NECK: No masses, no JVD. CHEST: No chest wall deformity. LUNGS: Equal air entry with faint crackle in the right lung base. CVS: S1 and S2 normal with no audible murmur, regular rhythm. ABDOMEN: No hepatosplenomegaly, normal bowel sounds, no guarding or rigidity. SPINE: Current dressing dry and intact. Sutures were intact. Possible seroma at the distal end. SKIN: No rashes CENTRAL NERVOUS SYSTEM: No focal deficits, tone is normal in all 4 extremities. EXTREMITIES: Weakness of the bilateral lower extremities. There is 1+ peripheral edema. No clubbing, no cyanosis. Peripheral pulses are intact. Results - Laboratory Findings CBC and BMP: 11/18/23 05:46 11/18/23 05:46 PT/INR, D-dimer PT 11.0 sec (10.0-12.5) 11/17/23 11:06 INR 1.0 (<1.2) 11/17/23 11:06 D-Dimer 3.66 mg/L FEU (<0.60) H 11/18/23 08:01 Abnormal lab findings: Abnormal Labs 11/17/23 11/17/23 11/17/23 11:06 11:06 11:06 WBC 14.9 H RBC 2.76 L Hgb 9.2 L Hct 26.7 L MCV RDW Immature Gran # Neutrophils # 11.7 H Monocytes # D-Dimer BUN 29 H Creatinine 1.36 H Est GFR (CKD-EPI) Calcium 8.0 L Total Protein 5.1 L Albumin 2.8 L Procalcitonin Ur Specific [place] 1.036 H 11/18/23 11/18/23 11/18/23 05:46 05:46 08:01 WBC 15.13 H RBC 2.37 L Hgb 7.5 L Hct 23.4 L MCV 98.7 H RDW 14.7 H Immature Gran # 0.28 H Neutrophils # 11.19 H Monocytes # 1.24 H D-Dimer 3.66 H BUN 28.3 H Creatinine 1.6 H Est GFR (CKD-EPI) 44 L Calcium 8.0 L Total Protein Albumin Procalcitonin Ur Specific [place] 11/18/23 08:01 WBC RBC Hgb Hct MCV RDW Immature Gran # Neutrophils # Monocytes # D-Dimer BUN Creatinine Est GFR (CKD-EPI) Calcium Total Protein Albumin Procalcitonin 0.27 H Ur Specific [place] - Diagnostic Findings Chest x-ray: image reviewed Assessment and Plan Assessment: Acute hypoxemic respiratory failure secondary to hypoventilation due to back pain, possible early right lower lobe pneumonia, hospital-acquired, possible pulmonary embolism Febrile illness secondary to above Ongoing back pain in a patient with a recent L2 to pelvis decompression and fusion surgery on 11/09/2023 Postoperative lumbar seroma/hematoma Chronic and lower extremity weakness secondary to above Leukocytosis Anemia requiring 1 unit of packed red blood cells Peripheral vascular disease with previous right femoral endarterectomy and patch angioplasty, bilateral iliac stents placement Hypertension Hyperlipidemia Bronchial asthma, mild intermittent Hypothyroidism Chronic back pain as mentioned above Osteoarthritis Chronic stage III kidney disease Plan: The patient was seen and evaluated CT scans, Dopplers, chest x-ray, labs and medications reviewed Elevated D-dimer Obtain a VQ scan Receiving 1 unit of packed red blood cells Continue Zosyn Titrate the FiO2 as tolerated Encourage increased use of the incentive spirometer Continue to monitor drainage from surgical site Increase his activity as tolerated May need subacute rehabilitation at discharge We will continue to follow and make further recommendations based on his clinical status I have personally seen and examined the patient, performed the documentation and the assessment and plan as written. Number of minutes spent on the visit: 20.
--- NOTE | 2023-11-18 14:14 | NM ---
EXAMINATION TYPE: NM pulmonary vent and perfuse DATE OF EXAM: 11/18/2023 CLINICAL INDICATION: Male, 77 years old with history of Elevated d dimer, hypoxemia; COMPARISON: NONE TECHNIQUE: Utilizing inhalation of 64.6 mCi Tc 99m DTPA aerosol and intravenous injection of 4.87 mC i of Tc 99m MAA, ventilation and perfusion images are acquired post injection in multiple projections . FINDINGS: Normal radiotracer distribution is noted in the lungs. There is no evidence of mismatched defects. IMPRESSION: Very low probability for PE. Normal perfusion.
--- NOTE | 2023-11-18 15:44 | P.HPIM ---
History of Present Illness H&P Date: 11/18/23 This is a 77-year-old gentleman, status post recent L2 to pelvis decompression and fusion secondary to severe L2-S1 spondylosis with stenosis, bilateral lower extremity weakness and neurogenic claudication, discharged on 11/16/2023. Postop patient developed acute onset left-sided lower extremity weakness.Evaluated by Neurology suspect related to compression secondary to surgery, CVA ruled out as per neurology workup, placed on dual antiplatelet therapy with aspirin and Plavix-discharged on the same. Right ICA stenosis 70% per CTA discovered during his neurowork-up, evaluated by vascular surgery, no intervention recommended at that time with further follow-up/management outpatient recommended. Return to the ER with complaints of increased postoperative back pain limiting his mobility, ongoing left lower extremity weakness/numbness, fevers. Tmax 101.5, WBC 15.13, Procalcitonin 0.27. Blood cultures ordered, Zosyn initiated. Hemoglobin 7.5, platelets 214. D-dimer elevated 3.66, VQ scan pending. Dopplers of bilateral lower extremities reported negative for DVT. Lumbar spine reported no evidence for spinal fracture, no nosebleed change from prior study CT angio reported negative for thoracic aortic dissection. Possibility of distal aortic occluding thrombus cannot be assessed on this exam. Possibility of occlusion of bilateral lower extremity arterial system cannot be evaluated on this exam. Lower extremity ultrasound of left extremity reported TOMY suggestive of mild bilateral peripheral arterial disease, no flow documented in the right toe, abnormal left TBI. Bicarb 23.4, BUN 28.3, creatinine 1.6. Electrolytes within normal limits. UA negative, viral studies negative. 83-89% on room air, currently maintaining O2 sats in the 90s on 3 L nasal cannula. Chest x-ray re ported COPD with right lower lobe infiltrate. patient reports his back dressing was saturated, orthopedics changed his dressing. Review of Systems ROS Statement: Those systems with pertinent positive or pertinent negative responses have been documented in the HPI. ROS Other: All systems not noted in ROS Statement are negative. Past Medical History Past Medical History: Asthma, Chest Pain / Angina, GERD/Reflux, Hyperlipidemia, Hypertension, Musculoskeletal Disorder, Osteoarthritis (OA), Thyroid Disorder, Vascular Disorder Additional Past Medical History / Comment(s): Peripheral vascular disease, neuropathy, asthma as child, hiatal hernia, gout, degenerative discs, one episode of chest pain yrs ago.(nuclear stress test ok) recent URI tx with Abx and steroids. hx of blockage to femoral artery rt leg History of Any Multi-Drug Resistant Organisms: None Reported Past Surgical History: Appendectomy, Heart Catheterization, Orthopedic Surgery Additional Past Surgical History / Comment(s): PTBA with bilateral iliac stents X3( 2 left, 1 right), PARTIAL THYROIDECTOMY, left shoulder rotator cuff repair, COLONOSCOPY, PAIN CLINIC PROCEDURE, bilateral knee arthroscopy. rt femoral endartectomy, Spinal Fusion (October 2023) Past Anesthesia/Blood Transfusion Reactions: No Reported Reaction Additional Past Anesthesia/Blood Transfusion Reaction / Comment(s): Pt has never had blood. Past Psychological History: No Psychological Hx Reported Additional Psychological History / Comment(s): Pt resides with spouse. Smoking Status: Former smoker Past Alcohol Use History: None Reported Additional Past Alcohol Use History / Comment(s): Smoked from age 19 to 55, approx 2 to 2 1/2ppd, quit in 2000. Past Drug Use History: None Reported - Past Family History Mother Brother(s) Family Medical History: Cancer Sister(s) Family Medical History: Cancer Additional Family Medical History / Comment(s): brain cancer Mother Family Medical History: Cancer Brother(s) Family Medical History: CVA/TIA Medications and Allergies Home Medications Medication Instructions Recorded Confirmed Type Multivit-Min/FA/Lycopen/Lutein 1 tab PO DAILY 04/02/17 11/17/23 History [Centrum Silver Tablet] Primidone [Mysoline] 150 mg PO DAILY 04/02/17 11/17/23 History rOPINIRole HCL [Requip] 0.5 mg PO HS 04/19/19 11/17/23 History Potassium Chloride [Klor-Con M10] 10 meq PO BID 05/21/20 11/17/23 History Clopidogrel [Plavix] 75 mg PO DAILY 03/03/23 11/17/23 History allopurinoL 300 mg PO DAILY 03/03/23 11/17/23 History Aspirin 81 mg PO DAILY 11/03/23 11/17/23 History Benazepril HCl 20 mg PO DAILY 11/03/23 11/17/23 History Famotidine 40 mg PO HS 11/03/23 11/17/23 History Levothyroxine Sodium 88 mcg PO HS 11/03/23 11/17/23 History Terazosin [Hytrin] 2 mg PO HS 11/03/23 11/17/23 History Cyclobenzaprine [Flexeril] 5 mg PO TID PRN #30 tablet 11/16/23 11/17/23 Rx Pregabalin [Lyrica] 150 mg PO BID #60 cap 11/16/23 11/17/23 Rx Tamsulosin [Flomax] 0.4 mg PO DAILY #14 cap 11/16/23 11/17/23 Rx cefaDROXiL [Duricef] 500 mg PO Q12HR #10 cap 11/16/23 11/17/23 Rx Amitriptyline HCl [Elavil] 25 mg PO HS 11/17/23 11/17/23 History Atorvastatin [Lipitor] 40 mg PO HS 11/17/23 11/17/23 History Furosemide [Lasix] 40 mg PO DAILY 11/17/23 11/17/23 History HYDROcodone/APAP 7.5-325MG [[place] 1 tab PO Q4-6H PRN 11/17/23 11/17/23 History 7.5] Prevagen 1 cap PO DAILY 11/17/23 11/17/23 History Sennosides/Docusate Sodium [Senna 1 tab PO DAILY PRN 11/17/23 11/17/23 History Plus 8.6-50 mg Tablet] Venlafaxine HCl ER [Effexor Xr] 37.5 mg PO DAILY 11/17/23 11/17/23 History Allergies Allergy/AdvReac Type Severity Reaction Status Date / Time No Known Allergies Allergy Verified 11/17/23 14:23 Physical Exam Vitals: Vital Signs Temp Pulse Pulse Pulse Resp BP BP 11/18/23 08:05 11/18/23 07:12 100.4 F H 84 17 136/66 11/18/23 02:05 18 11/18/23 02:00 99.3 F 84 18 111/45 11/17/23 20:00 99.0 F 85 16 122/49 11/17/23 17:47 98.5 F 91 17 117/61 11/17/23 16:51 101.5 F H 11/17/23 16:00 89 20 114/46 11/17/23 15:30 98 20 152/42 11/17/23 15:00 91 12 109/51 Pulse Ox 11/18/23 08:05 97 11/18/23 07:12 94 L 11/18/23 02:05 93 L 11/18/23 02:00 83 L 11/17/23 20:00 100 11/17/23 17:47 90 L 11/17/23 16:51 11/17/23 16:00 96 11/17/23 15:30 94 L 11/17/23 15:00 94 L Intake and Output 11/17/23 11/18/23 11/18/23 22:59 06:59 14:59 Intake Total 100 Balance 100 Intake: IV 100 0.9 100 Other: Voiding Method Toilet Toilet Toilet Urinal Urinal Urinal # Voids 1 1 # Bowel Movements 1 Weight 127.006 kg - Exam PHYSICAL EXAM: VITAL SIGNS: [As above] GENERAL: Alert and oriented x 3, lying in bed on his left side, no acute d istress HEENT: Normocephalic, conjunctivae normal. eyes normal. NECK: Supple, no JVD. CARDIOVASCULAR: S1, S2 regular. No murmur. RESPIRATION: Unlabored, equal air entry , fine right basilar crackles with bilateral bases diminished. ABDOMEN: Soft, nontender. No guarding. no masses palpable. Positive bowel sounds LEGS: Mild lower extremity edema, no clubbing, no cyanosis positive DP pulses. NERVOUS SYSTEM: Cranial nerves II through XII grossly intact. [place], strength and sensation grossly intact. Skin: Warm and dry, no rash. Large surgical dressing recently replaced by orthopedic spine surgery, clean dry and intact Results CBC & Chem 7: 11/18/23 05:46 11/18/23 05:46 Labs: Abnormal Lab Results - Last 24 Hours (Table) 11/17/23 11/18/23 11/18/23 Range/Units 11:06 05:46 05:46 WBC 15.13 H (4.50-10.00) X 10*3/uL RBC 2.37 L (4.40-5.60) X 10*6/uL Hgb 7.5 L (13.0-17.0) g/dL Hct 23.4 L (39.6-50.0) % MCV 98.7 H (80.0-97.0) [place] RDW 14.7 H (11.5-14.5) % Immature Gran # 0.28 H (0.00-0.04) X 10*3/uL Neutrophils # 11.19 H (1.80-7.70) X 10*3/uL Monocytes # 1.24 H (0.20-1.00) X 10*3/uL D-Dimer (<0.60) mg/L FEU BUN 28.3 H (9.0-27.0) mg/dL Creatinine 1.6 H (0.6-1.5) mg/dL Est GFR (CKD-EPI) 44 L (>=60) Calcium 8.0 L (8.7-10.3) mg/dL Procalcitonin (0.02-0.09) ng/mL Ur Specific [place] 1.036 H (1.001-1.035) 11/18/23 11/18/23 Range/Units 08:01 08:01 WBC (4.50-10.00) X 10*3/uL RBC (4.40-5.60) X 10*6/uL Hgb (13.0-17.0) g/dL Hct (39.6-50.0) % MCV (80.0-97.0) FL RDW (11.5-14.5) % Immature Gran # (0.00-0.04) X 10*3/uL Neutrophils # (1.80-7.70) X 10*3/uL Monocytes # (0.20-1.00) X 10*3/uL D-Dimer 3.66 H (<0.60) mg/L FEU BUN (9.0-27.0) mg/dL Creatinine (0.6-1.5) mg/dL Est GFR (CKD-EPI) (>=60) Calcium (8.7-10.3) mg/dL Procalcitonin 0.27 H (0.02-0.09) ng/mL Ur Specific [place] (1.001-1.035) Thrombosis Risk Factor Assmnt - Choose All That Apply Any of the Below Risk Factors Present?: No Each Factor Represents 1 point: Obesity (BMI >25) Other Risk Factors: Yes Each Risk Factor Represents 3 Points: Age 75 years or older Other congenital or acquired thrombophilia - If yes, enter type in comment: No Thrombosis Risk Factor Assessment Total Risk Factor Score: 4 Thrombosis Risk Factor Assessment Level: Moderate Risk Assessment and Plan Assessment: Hypoxic respiratory failure secondary to possible hospital-acquired right lower lobe pneumonia, hypoventilation secondary to back pain, possible PE, elevated D- dimer, VQ scan pending Recent L2 to pelvis decompression and fusion secondary to severe L2-S1 spondylosis with stenosis, bilateral lower extremity weakness and neurogenic claudication, discharged on 11/16/2023. Postoperative lumbar seroma/ hematoma Leukocytosis Ongoing postoperative pain Ongoing Postop left-sided lower extremity weakness, related to compression secondary to surgery, CVA ruled out as per prior neurology workup on last admission. Recently diagnosed right ICA stenosis 70% per CTA, follow-up with vascular surgery outpatient Anemia, 1 unit packed RBCs ordered Chronic renal failure, stage III Osteoarthritis Peripheral neuropathy Hypertension Hyperlipidemia Hypothyroidism PVD with history of right femoral endarterectomy and patch angioplasty, bilateral iliac stents Plan: Continue on current medication regimen ,monitoring and symptomatic treatment. Elevated D-dimer, VQ scan pending .cardiology consult consulted for anticoagulation recommendations. Currently Lovenox placed on hold as well as Plavix per orthopedic surgery secondary to seroma/hematoma; continues on aspirin. PT OT with possible subacute rehab at discharge. orthopedic spine surgery, pulmonary and infectious disease consults in place with recommendations noted and appreciated. Antibiotics as per infectious disease. The impression and plan of care has been dictated as directed. : I performed a history and examination of this patient, discussed the same with the dictator. I agree with the dictator's note ,documented as a scribe. Any additional findings or plans will be noted.
[2023-11-18] MEDS: FAMOTIDINE 20 MG TAB PO SCH (20:28)
[2023-11-18] MEDS: ACETAMINOPHEN TAB 500 MG TAB PO PRN (21:06)
--- NOTE | 2023-11-18 21:16 | P.CONS ---
History of Present Illness - Reason for Consult Consult date: 11/18/23 Postop fever Requesting physician: Ye Schreiber - Chief Complaint Worsening back pain x days - History of Present Illness Patient is a 77-year-old male with a past medical history significant for hypertension hyperlipidemia asthma in this patient who recently did have [id number] decompression and fusion by Dr. Gonzalez on 11/09/2023 and the patient was just discharged home patient now presenting back to the hospital for evaluation of worsening lower extremity pain and was concerned that the feet are colder than normal patient denies having any headache or URI symptoms denies having any chest pain shortness of breath minimal cough no nausea vomiting no a bdominal pain no diarrhea has been complaining of pain to the lumbar area mostly dull aching mild to moderate intensity without radiation and did have some drainage from the incision site with the symptoms the patient presented to hospital on arrival to the patient did have a fever of 101.5 F and did have a temperature 100.4 F this morning patient was not tachycardic hypotensive or hypoxic patient did have white count of 14.9 which is up to 15.13 today with a left shift creatinine is mildly elevated urine has been negative influenza RSV COVID testing is negative patient did have a aorta with runoff CTA no evidence for thoracic aortic dissection possibility of distal aortic occlusion thrombus cannot be assessed and there was airspace consolidation seen in the right lower lobe posteriorly patient was started on Zosyn and admitted to hospital infectious disease was consulted for further management of antibiotic therapy Review of Systems Positive point and negatives has been mentioned in the HPI, complete review of systems was performed and all other systems are negative Past Medical History Past Medical History: Asthma, Chest Pain / Angina, GERD/Reflux, Hyperlipidemia, Hypertension, Musculoskeletal Disorder, Osteoarthritis (OA), Thyroid Disorder, Vascular Disorder Additional Past Medical History / Comment(s): Peripheral vascular disease, neuropathy, asthma as child, hiatal hernia, gout, degenerative discs, one episode of chest pain yrs ago.(nuclear stress test ok) recent URI tx with Abx and steroids. hx of blockage to femoral artery rt leg History of Any Multi-Drug Resistant Organisms: None Reported Past Surgical History: Appendectomy, Heart Catheterization, Orthopedic Surgery Additional Past Surgical History / Comment(s): PTBA with bilateral iliac stents X3( 2 left, 1 right), PARTIAL THYROIDECTOMY, left shoulder rotator cuff repair, COLONOSCOPY, PAIN CLINIC PROCEDURE, bilateral knee arthroscopy. rt femoral endartectomy, Spinal Fusion (October 2023) Past Anesthesia/Blood Transfusion Reactions: No Reported Reaction Additional Past Anesthesia/Blood Transfusion Reaction / Comm: Pt has never had blood. Past Psychological History: No Psychological Hx Reported Additional Psychological History / Comment(s): Pt resides with spouse. Smoking Status: Former smoker Past Alcohol Use History: None Reported Additional Past Alcohol Use History / Comment(s): Smoked from age 19 to 55, approx 2 to 2 1/2ppd, quit in 2000. Past Drug Use History: None Reported - Past Family History Mother Brother(s) Family Medical History: Cancer Sister(s) Family Medical History: Cancer Additional Family Medical History / Comment(s): brain cancer Mother Family Medical History: Cancer Brother(s) Family Medical History: CVA/TIA Medications and Allergies Home Medications Medication Instructions Recorded Confirmed Type Multivit-Min/FA/Lycopen/Lutein 1 tab PO DAILY 04/02/17 11/17/23 History [Centrum Silver Tablet] Primidone [Mysoline] 150 mg PO DAILY 04/02/17 11/17/23 History rOPINIRole HCL [Requip] 0.5 mg PO HS 04/19/19 11/17/23 History Potassium Chloride [Klor-Con M10] 10 meq PO BID 05/21/20 11/17/23 History Clopidogrel [Plavix] 75 mg PO DAILY 03/03/23 11/17/23 History allopurinoL 300 mg PO DAILY 03/03/23 11/17/23 History Aspirin 81 mg PO DAILY 11/03/23 11/17/23 History Benazepril HCl 20 mg PO DAILY 11/03/23 11/17/23 History Famotidine 40 mg PO HS 11/03/23 11/17/23 History Levothyroxine Sodium 88 mcg PO HS 11/03/23 11/17/23 History Terazosin [Hytrin] 2 mg PO HS 11/03/23 11/17/23 History Cyclobenzaprine [Flexeril] 5 mg PO TID PRN #30 tablet 11/16/23 11/17/23 Rx Pregabalin [Lyrica] 150 mg PO BID #60 cap 11/16/23 11/17/23 Rx Tamsulosin [Flomax] 0.4 mg PO DAILY #14 cap 11/16/23 11/17/23 Rx cefaDROXiL [Duricef] 500 mg PO Q12HR #10 cap 11/16/23 11/17/23 Rx Amitriptyline HCl [Elavil] 25 mg PO HS 11/17/23 11/17/23 History Atorvastatin [Lipitor] 40 mg PO HS 11/17/23 11/17/23 History Furosemide [Lasix] 40 mg PO DAILY 11/17/23 11/17/23 History HYDROcodone/APAP 7.5-325MG [[place] 1 tab PO Q4-6H PRN 11/17/23 11/17/23 History 7.5] Prevagen 1 cap PO DAILY 11/17/23 11/17/23 History Sennosides/Docusate Sodium [Senna 1 tab PO DAILY PRN 11/17/23 11/17/23 History Plus 8.6-50 mg Tablet] Venlafaxine HCl ER [Effexor Xr] 37.5 mg PO DAILY 11/17/23 11/17/23 History Allergies Allergy/AdvReac Type Severity Reaction Status Date / Time No Known Allergies Allergy Verified 11/17/23 14:23 Physical Exam Vitals: Vital Signs Temp Pulse Pulse Pulse Resp BP BP 11/18/23 08:05 11/18/23 07:12 100.4 F H 84 17 136/66 11/18/23 02:05 18 11/18/23 02:00 99.3 F 84 18 111/45 11/17/23 20:00 99.0 F 85 16 122/49 11/17/23 17:47 98.5 F 91 17 117/61 11/17/23 16:51 101.5 F H 11/17/23 16:00 89 20 114/46 11/17/23 15:30 98 20 152/42 11/17/23 15:00 91 12 109/51 11/17/23 14:00 94 12 128/69 11/17/23 13:40 92 20 137/89 11/17/23 13:01 86 11/17/23 12:55 11/17/23 12:53 88 Pulse Ox 11/18/23 08:05 97 11/18/23 07:12 94 L 11/18/23 02:05 93 L 11/18/23 02:00 83 L 11/17/23 20:00 100 11/17/23 17:47 90 L 11/17/23 16:51 11/17/23 16:00 96 11/17/23 15:30 94 L 11/17/23 15:00 94 L 11/17/23 14:00 94 L 11/17/23 13:40 95 11/17/23 13:01 11/17/23 12:55 94 L 11/17/23 12:53 Intake and Output 11/17/23 11/18/23 11/18/23 22:59 06:59 14:59 Intake Total 100 Balance 100 Intake: IV 100 0.9 100 Other: Voiding Method Toilet Toilet Toilet Urinal Urinal Urinal # Voids 1 1 # Bowel Movements 1 Weight 127.006 kg GENERAL DESCRIPTION: Elderly male lying in bed, no distress. No tachypnea or accessory muscle of respiration use. HEENT: Shows Pallor , no scleral icterus. Oral mucous membrane is dry. NECK: Trachea central, no thyromegaly. LUNGS: Unlabored breathing. Decreased breath sound the base HEART: S1, S2, regular rate and rhythm. No loud murmur ABDOMEN: Soft, no tenderness , EXTREMITIES: No edema of feet. SKIN: Posterior back incision is currently dressed there is some drainage bloodstained NEUROLOGICAL: The patient is awake, alert, oriented x3, mood and affect normal. Results CBC & Chem 7: 11/19/23 10:43 11/19/23 10:43 Labs: Abnormal Lab Results - Last 24 Hours (Table) 11/17/23 11/17/23 11/18/23 Range/Units 11:06 11:06 08:01 D-Dimer 3.66 H (<0.60) mg/L FEU BUN 29 H (9-20) mg/dL Creatinine 1.36 H (0.66-1.25) mg/dL Calcium 8.0 L (8.4-10.2) mg/dL Total Protein 5.1 L (6.3-8.2) g/dL Albumin 2.8 L (3.5-5.0) g/dL Ur Specific [place] 1.036 H (1.001-1.035) Assessment and Plan (1) Leukocytosis Status: Acute Code(s): D72.829 - ELEVATED WHITE BLOOD CELL COUNT, UNSPECIFIED SNOMED Code(s): 655591721 (2) Sepsis Status: Acute Code(s): A41.9 - SEPSIS, UNSPECIFIED ORGANISM SNOMED Code(s): 39240143 (3) Surgical site infection Status: Acute Code(s): T81.49XA - INFECTION FOLLOWING A PROCEDURE, OTHER SURGICAL SITE, INIT SNOMED Code(s): 73594020 Plan: 1patient presented hospital with sepsis in this patient who did have a fever elevated white count with a recent extensive L2 to pelvis spine decompression and fusion has been complaining of more pain to the lumbosacral spine area and did have some drainage with concern for possible surgical site infection versus left lobe pneumonia seen on the CT, will need to cover for both gram-positive as well as gram-negative pathogen 2-we will try to obtain a sputum for Gram stain culture check a CRP and a procalcitonin and a sed rate 3-patient to continue with Zosyn however keep in mind his borderline kidney function high risk of nephrotoxicity from vancomycin we will add daptomycin to cover for the gram-positive We will follow on clinical condition and cultures to further adjust medication if needed Thank you for this consultation we will follow the patient along with you Dictation was produced using [employer] dictation software. please excuse any grammatical, word or spelling errors. Time with Patient: Greater than 30
--- NOTE | 2023-11-19 10:42 | P.PN ---
Subjective Progress Note Date: 11/19/23 Principal diagnosis: History of recent [id number] posterior lateral decompression and fusion, lumbar hematoma/seroma, leukocytosis, postoperative pain Patient was examined today at bedside, his was also present. Patient was examined ambulating with both physical therapy/Occupational Therapy. Patient was utilizing a walker. Patient seemed quite shaky on his feet but was able to ambulate into the [place] and back to the edge of the bed. Patient states that the pain in the lower back seems a little worse than yesterday. Discussed with nursing prior to seeing patient, they did change dressing today it was extremely saturated with bloody serosanguineous fluid. Patient feels that the strength in the bilateral lower extremities has remained about the same. Patient denies any loss of bowel or bladder function at this time, he continues to urinate with no difficulty. Patient is being followed by multiple medical specialties at this time, this to include cardiology, pulmonology, infectious disease, and internal medicine. waiting on morning labs, this to include sed rate, CRP and CBC. Patient was transfused with 1 unit of packed RBCs yesterday. Oral and subcu anticoagulants have been held, cardiology is recommending beginning Plavix on 11/24/2023. Objective - Vital Signs Vital signs: Vital Signs Temp 97.6 F 11/19/23 07:00 Pulse 73 11/19/23 07:00 Resp 16 11/19/23 07:00 BP 173/61 11/19/23 07:00 Pulse Ox 99 11/19/23 07:00 FiO2 Intake & Output 11/18/23 11/19/23 11/19/23 18:59 06:59 18:59 Intake Total 0 280 Output Total 600 Balance 0 -320 Intake: Blood Product 0 280 Rc Pheresis As-3 Unit 0 280 [id number] Output: Urine 600 Other: Voiding Method Toilet Toilet Urinal Urinal # Voids 1 - Exam Gen: AOx3, NAD VSS stable at this time Integument: Dressing that was applied yesterday was visualized, it was severely saturated with bloody serosanguineous fluid. Exam of the incision today, there is bloody serosanguineous noted on exam. Juan are all in good position and condition. Swelling that was present in the proximal third of the incision seems to have increased, and is also involving more of the midline of the incision. Palpation: increase in tenderness is appreciated on exam in the areas of soft tissue swelling near the proximal third and midline of the incision. 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 2/5 strength appreciated in the left lower extremity with EHL, dorsiflexion 4/5 strength appreciated to left lower extremity with knee flexion, plantarflexion Reflexes: 2/4 in all UE and LE Negative Heaven's bilaterally, negative Babinski bilaterally, negative clonus bilaterally - Labs CBC & Chem 7: 11/18/23 05:46 11/18/23 05:46 Labs: Abnormal Lab Results - Last 24 Hours (Table) 11/18/23 11/18/23 11/18/23 Range/Units 05:46 05:46 08:01 WBC 15.13 H (4.50-10.00) X 10*3/uL RBC 2.37 L (4.40-5.60) X 10*6/uL Hgb 7.5 L (13.0-17.0) g/dL Hct 23.4 L (39.6-50.0) % MCV 98.7 H (80.0-97.0) FL RDW 14.7 H (11.5-14.5) % Immature Gran # 0.28 H (0.00-0.04) X 10*3/uL Neutrophils # 11.19 H (1.80-7.70) X 10*3/uL Monocytes # 1.24 H (0.20-1.00) X 10*3/uL BUN 28.3 H (9.0-27.0) mg/dL Creatinine 1.6 H (0.6-1.5) mg/dL Est GFR (CKD-EPI) 44 L (>=60) Calcium 8.0 L (8.7-10.3) mg/dL Procalcitonin 0.27 H (0.02-0.09) ng/mL Crossmatch 11/18/23 Range/Units 15:11 WBC (4.50-10.00) X 10*3/uL RBC (4.40-5.60) X 10*6/uL Hgb (13.0-17.0) g/dL Hct (39.6-50.0) % MCV (80.0-97.0) FL RDW (11.5-14.5) % Immature Gran # (0.00-0.04) X 10*3/uL Neutrophils # (1.80-7.70) X 10*3/uL Monocytes # (0.20-1.00) X 10*3/uL BUN (9.0-27.0) mg/dL Creatinine (0.6-1.5) mg/dL Est GFR (CKD-EPI) (>=60) Calcium (8.7-10.3) mg/dL Procalcitonin (0.02-0.09) ng/mL Crossmatch See Detail Microbiology - Last 24 Hours (Table) 11/17/23 20:23 Blood Culture - Preliminary Blood 11/17/23 20:05 Blood Culture - Preliminary Blood Assessment and Plan Assessment: Postoperative day #10 status post [id number] decompression and fusion Postoperative lumbar seroma/hematoma Low back pain Left lower extremity weakness Leukocytosis Anemia Right lower lobe infiltrate, possible pneumonia Plan: After review of the patient, this to include current labs and his current physical exam findings I was able to discuss the case with my attending Dr. Gonzalez. I do feel that the seroma/hematoma has worsened Which is led to his increase in low back symptoms. Dr. Kellogg's and has been in contact with Dr. Espana orthopedic spine surgeon out of [facility] regarding this case. Dr. Gonzalez is currently not available for surgical management. At this time we are recommending transfer to [facility] for evaluation and likely surgical intervention by Dr. Espana. I was able to discuss this with the patient and today at bedside. We discussed the likelihood of the incision with irrigation and seroma/hematoma debridement. This will also allow for exam of the deeper tissues, this to include the fascial layer. Patient will remain n.p.o. at this time Continue to hold heparin and Plavix at this time Recommend continuation of IV abx Pain control, continue current medications Wound care, new bandage was applied today at bedside Other medical specialty recommendations appreciated Will discuss with case management transfer instructions Time with Patient: Less than 30
--- NOTE | 2023-11-19 10:53 | P.PN ---
Subjective Progress Note Date: 11/19/23 H&P Date: 11/18/23 This is a 77-year-old gentleman, status post recent L2 to pelvis decompression and fusion secondary to severe L2-S1 spondylosis with stenosis, bilateral lower extremity weakness and neurogenic claudication, discharged on 11/16/2023. Postop patient developed acute onset left-sided lower extremity weakness.Evaluated by Neurology suspect related to compression secondary to surgery, CVA ruled out as per neurology workup, placed on dual antiplatelet therapy with aspirin and Plavix-discharged on the same. Right ICA stenosis 70% per CTA discovered during his neurowork-up, evaluated by vascular surgery, no intervention recommended at that time with further follow-up/management outpatient recommended. Return to the ER with complaints of increased postoperative back pain limiting his mobility, ongoing left lower extremity weakness/numbness, fevers. Tmax 101.5, WBC 15.13, Procalcitonin 0.27. Blood cultures ordered, Zosyn initiated. Hemoglobin 7.5, platelets 214. D-dimer elevated 3.66, VQ scan pending. Dopplers of bilateral lower extremities reported negative for DVT. Lumbar spine reported no evidence for spinal fracture, no nosebleed change from prior study CT angio reported negative for thoracic aortic dissection. Possibility of distal aortic occluding thrombus cannot be assessed on this exam. Possibility of occlusion of bilateral lower extremity arterial system cannot be evaluated on this exam. Lower extremity ultrasound of left extremity reported TOMY suggestive of mild bilateral peripheral arterial disease, no flow documented in the right toe, abnormal left TBI. Bicarb 23.4, BUN 28.3, creatinine 1.6. Electrolytes within normal limits. UA negative, viral studies negative. 83-89% on room air, currently maintaining O2 sats in the 90s on 3 L nasal cannula. Chest x-ray reported COPD with right lower lobe infiltrate. patient reports his back dressing was saturated, orthopedics changed his dressing. 11/19/2023 sitting up at side of bed, reports positive back pain ,unchanged. Continues to have significant serosanguineous drainage from back surgical site. Ongoing left lower leg numbness/weakness. Preliminary blood cultures reporting no growth at 24 hours, Tmax 100.7, Maintained on daptomycin and Zosyn.VQ reported very low probability for PE,normal perfusion. Denies chest pain, palpitations or shortness of breath. Maintaining O2 sats in the high 90s on 2 L nasal cannula. Transfuse 1 unit packed RBCs yesterday, repeat hemoglobin/labs pending. Objective - Vital Signs Vital signs: Vital Signs Temp 97.6 F 11/19/23 07:00 Pulse 73 11/19/23 07:00 Resp 16 11/19/23 07:00 BP 173/61 11/19/23 07:00 Pulse Ox 99 11/19/23 07:00 FiO2 Intake & Output 11/18/23 11/19/23 11/19/23 18:59 06:59 18:59 Intake Total 0 280 Output Total 600 Balance 0 -320 Intake: Blood Product 0 280 Rc Pheresis As-3 Unit 0 280 [id number] Output: Urine 600 Other: Voiding Method Toilet Toilet Urinal Urinal # Voids 1 - Exam - Exam PHYSICAL EXAM: VITAL SIGNS: [As above] GENERAL: Alert and oriented x 3, sitting up at side of bed, no acute distress HEENT: Normocephalic, conjunctivae normal. eyes normal. NECK: Supple, no JVD. CARDIOVASCULAR: S1, S2 regular. No murmur. RESPIRATION: Unlabored, equal air entry , fine right basilar crackles with bilateral bases diminished. ABDOMEN: Soft, nontender. No guarding. no masses palpable. Positive bowel sounds LEGS: Mild lower extremity edema, no clubbing, no cyanosis positive DP pulses. Moving left leg to approximately 75 degrees. NERVOUS SYSTEM: Cranial nerves II through XII grossly intact. JOHNSTON, strength and sensation grossly intact. Skin: Warm and dry, no rash. Large surgical dressing recently replaced by orthopedic spine surgery, clean dry and intact - Labs CBC & Chem 7: 11/18/23 05:46 11/18/23 05:46 Labs: Abnormal Lab Results - Last 24 Hours (Table) 11/18/23 11/18/23 11/18/23 Range/Units 05:46 05:46 08:01 WBC 15.13 H (4.50-10.00) X 10*3/uL RBC 2.37 L (4.40-5.60) X 10*6/uL Hgb 7.5 L (13.0-17.0) g/dL Hct 23.4 L (39.6-50.0) % MCV 98.7 H (80.0-97.0) FL RDW 14.7 H (11.5-14.5) % Immature Gran # 0.28 H (0.00-0.04) X 10*3/uL Neutrophils # 11.19 H (1.80-7.70) X 10*3/uL Monocytes # 1.24 H (0.20-1.00) X 10*3/uL BUN 28.3 H (9.0-27.0) mg/dL Creatinine 1.6 H (0.6-1.5) mg/dL Est GFR (CKD-EPI) 44 L (>=60) Calcium 8.0 L (8.7-10.3) mg/dL Procalcitonin 0.27 H (0.02-0.09) ng/mL Crossmatch 11/18/23 Range/Units 15:11 WBC (4.50-10.00) X 10*3/uL RBC (4.40-5.60) X 10*6/uL Hgb (13.0-17.0) g/dL Hct (39.6-50.0) % MCV (80.0-97.0) FL RDW (11.5-14.5) % Immature Gran # (0.00-0.04) X 10*3/uL Neutrophils # (1.80-7.70) X 10*3/uL Monocytes # (0.20-1.00) X 10*3/uL BUN (9.0-27.0) mg/dL Creatinine (0.6-1.5) mg/dL Est GFR (CKD-EPI) (>=60) Calcium (8.7-10.3) mg/dL Procalcitonin (0.02-0.09) ng/mL Crossmatch See Detail Microbiology - Last 24 Hours (Table) 11/17/23 20:23 Blood Culture - Preliminary Blood 11/17/23 20:05 Blood Culture - Preliminary Blood Assessment and Plan Assessment: Hypoxic respiratory failure secondary to possible hospital-acquired right lower lobe pneumonia, hypoventilation secondary to back pain, possible PE, elevated D- dimer, VQ scan reported negative for PE Recent L2 to pelvis decompression and fusion secondary to severe L2-S1 spondylosis with stenosis, bilateral lower extremity weakness and neurogenic claudication, discharged on 11/16/2023. Postoperative lumbar seroma/ hematoma Leukocytosis Ongoing postoperative pain Ongoing Postop left-sided lower extremity weakness, related to compression secondary to surgery, CVA ruled out as per prior neurology workup on last admission. Recently diagnosed right ICA stenosis 70% per CTA, follow-up with vascular surgery outpatient Anemia, 1 unit packed RBCs ordered Chronic renal failure, stage III Osteoarthritis Peripheral neuropathy Hypertension Hyperlipidemia Hypothyroidism PVD with history of right femoral endarterectomy and patch angioplasty, bilateral iliac stents Plan: Continue on current medication regimen ,monitoring and symptomatic treatment. Labs pending .antibiotics as per infectious disease. Orthopedic s pine discussing transferring patient to [facility] to facilitate further evaluation by orthopedic spine surgeon, Dr. Espana ,secondary to lumbar seroma/hematoma with significant drainage. Transfer will be managed as per orthopedic spine. The impression and plan of care has been dictated as directed. : I performed a history and examination of this patient, discussed the same with the dictator. I agree with the dictator's note ,documented as a scribe. Any additional findings or plans will be noted.
[2023-11-19 10:54] LABS: Basophils % (A) 0 %; Eosinophils # (A) 0.6 k/uL (0-0.7); Eosinophils % (A) 4 %; HCT 28.3 % (39.0-53.0); Lymphocytes # (A) 1.7 k/uL (1.0-4.8); Lymphocytes % (A) 11 %; MCH 31.2 pg (25.0-35.0); MCHC 31.6 g/dL (31.0-37.0); MCV 98.7 fL (80.0-100.0); Macrocytosis Slight; Mean Platelet Volume 8.4; Monocytes # (A) 0.7 k/uL (0-1.0); Monocytes % (A) 5 %; Neutrophils # (A) 11.6 k/uL (1.3-7.7); Neutrophils % (A) 79 %; Platelet Count 247 k/uL (150-450); RBC 2.87 m/uL (4.30-5.90); RDW 15.2 % (11.5-15.5); WBC 14.8 k/uL (3.8-10.6)
[2023-11-19 11:23] LABS: Basophils # (A) 0.02 X 10*3/uL (0.00-0.10); Basophils % (A) 0.1 %; Eosinophils # (A) 0.58 X 10*3/uL (0.04-0.35); Eosinophils % (A) 4.2 %; HCT 24.7 % (39.6-50.0); Lymphocytes # (A) 1.87 X 10*3/uL (0.90-5.00); Lymphocytes % (A) 13.5 %; MCH 31.9 pg (27.0-32.0); MCHC 32.4 g/dL (32.0-37.0); MCV 98.4 FL (80.0-97.0); Monocytes # (A) 1.26 X 10*3/uL (0.20-1.00); Monocytes % (A) 9.1 %; NRBC Per 100 WBC 0 X 10*3/uL (0.00-0.01); Neutrophils % (A) 71.2 %; Platelet Count 203 X 10*3/uL (140-440); RBC 2.51 X 10*6/uL (4.40-5.60); RDW 15.8 % (11.5-14.5); WBC 13.89 X 10*3/uL (4.50-10.00)
[2023-11-19 11:27] LABS: ALT 15 U/L (4-49); AST 47 U/L (17-59); African American GFR (CKD) 47 (>60 ml/min/1.73 sqM); Albumin 2.8 g/dL (3.5-5.0); Albumin/Globulin Ratio 1.1; Alkaline Phosphatase 71 U/L (38-126); Anion Gap 8 mmol/L; Blood Urea Nitrogen 32 mg/dL (9-20); Calcium 7.8 mg/dL (8.4-10.2); Carbon Dioxide 22 mmol/L (22-30); Chloride 103 mmol/L (98-107); Globulin 2.5 g/dL; Glucose 95 mg/dL (74-99); Non-African American GFR(CKD) 41 (>60 ml/min/1.73 sqM); Potassium 4.7 mmol/L (3.5-5.1); Sodium 133 mmol/L (137-145); Total Bilirubin 0.7 mg/dL (0.2-1.3); Total Protein 5.3 g/dL (6.3-8.2)
[2023-11-19 11:28] LABS: ALT 22 U/L (10-49); AST 44 U/L (14-35); Albumin 2.9 g/dL (3.8-4.9); Albumin/Globulin Ratio 1.61 Ratio (1.60-3.17); Alkaline Phosphatase 63 U/L (41-126); BUN/Creat Ratio 17.71 Ratio (12.00-20.00); Blood Urea Nitrogen 30.1 mg/dL (9.0-27.0); Calcium 7.6 mg/dL (8.7-10.3); Carbon Dioxide 22.4 mmol/L (21.6-31.8); Chloride 103 mmol/L (96-109); Globulin 1.8 g/dL (1.6-3.3); Glucose 96 mg/dL (70-110); Sodium 134 mmol/L (135-145); Total Bilirubin 0.5 mg/dL (0.3-1.2); Total Protein 4.7 g/dL (6.2-8.2)
[2023-11-19 11:50] LABS: Erythrocyte Sedimentation Rate 47 mm/Hr (0-20)
--- NOTE | 2023-11-19 13:47 | P.PN ---
Subjective Progress Note Date: 11/19/23 This is a 77-year-old male patient who was recently discharged from here following a L2 to pelvis decompression and fusion surgery on November 09, 2023. He had an extended time on the mechanical ventilator due to the prolonged surgery. He subsequently recovered and was discharged home on November 16, 2023. At that time he was doing fairly well. However he developed increased low back pain and lower extremity weakness. He also had developed a fever back to the emergency room yesterday November 17, 2019 y. He is seen today in consultation on the regular medical floor. He is currently laying flat in bed. Awake and alert in no acute distress. He is maintaining O2 saturations in the 90s on 3 L/min per nasal cannula. He did drop into the low 80s on room air. Temperature 100.4. Blood pressure stable. Nursing staff states his surgical dressing had been saturated and had been reinforced. He is being followed by orthopedics today. White count 15.1. Hemoglobin 7.5. Platelets 214. D-dimer 3.66. Sodium 135. Potassium 4.9. Bicarb 23. BUN 28. Creatinine 1.6. Procalcitonin 0.27. Chest x-ray reveals evidence of COPD with a right lower lobe infiltrate. Dopplers of the lower extremities were negative for DVT. CT scan of the lumbar spine revealed no evidence of spinal fracture. No noticeable change from previous study. He has been initiated on Zosyn. The patient is seen today November 19, 2023 in follow-up on the regular medical floor. He is currently sitting up at the bedside. Awake and alert in no acute distress. He is maintaining good O2 saturations in the 90s on 3 L/min per nasal cannula. No worsening cough or congestion. Working with the incentive spirometer. VQ scan ruled out pulmonary embolism. Normal perfusion. He is status post 1 unit of packed red blood cells. Current hemoglobin 9.0. Platelets 247. White count 14.8. Sodium 133. Potassium 4.7. Bicarb 22. BUN 32. Creatinine 1.62. Glucose 95. Procalcitonin 0.27. Blood cultures are pending. The seroma/hematoma of his incision site on his back is still oozing and increasing, he is continued on daptomycin and Zosyn. Objective - Vital Signs Vital signs: Vital Signs Temp 97.6 F 11/19/23 07:00 Pulse 73 03/29/24 07:00 Resp 16 11/19/23 08:00 BP 125/66 11/19/23 12:38 Pulse Ox 99 11/19/23 07:00 FiO2 Intake & Output 11/18/23 11/19/23 11/19/23 18:59 06:59 18:59 Intake Total 0 280 Output Total 600 Balance 0 -320 Intake: Blood Product 0 280 Rc Pheresis As-3 Unit 0 280 [id number] Output: Urine 600 Other: Voiding Method Toilet Toilet Toilet Urinal Urinal Urinal # Voids 1 - Exam GENERAL EXAM: Alert, pleasant 77-year-old male, on 2 L nasal cannula, in no apparent distress. HEAD: Normocephalic. EYES: Normal reaction of pupils, equal size. NOSE: Clear with pink turbinates. THROAT: No erythema or exudates. NECK: No masses, no JVD. CHEST: No chest wall deformity. LUNGS: Equal air entry with faint crackle in the right lung base. CVS: S1 and S2 normal with no audible murmur, regular rhythm. ABDOMEN: No hepatosplenomegaly, normal bowel sounds, no guarding or rigidity. SPINE: Current dressing dry and intact. Sutures are intact. Hematoma/seroma at the mid and distal end. SKIN: No rashes CENTRAL NERVOUS SYSTEM: No focal deficits, tone is normal in all 4 extremities. EXTREMITIES: Weakness of the bilateral lower extremities. There is 1+ peripheral edema. No clubbing, no cyanosis. Peripheral pulses are intact. - Labs CBC & Chem 7: 11/19/23 10:43 11/19/23 10:43 Labs: Abnormal Lab Results - Last 24 Hours (Table) 11/18/23 11/19/23 11/19/23 Range/Units 15:11 06:48 06:48 WBC 13.89 H (4.50-10.00) X 10*3/uL RBC 2.51 L (4.40-5.60) X 10*6/uL Hgb 8.0 L (13.0-17.0) g/dL Hct 24.7 L (39.6-50.0) % MCV 98.4 H (80.0-97.0) FL RDW 15.8 H (11.5-14.5) % Immature Gran # 0.26 H (0.00-0.04) X 10*3/uL Neutrophils # 9.90 H (1.80-7.70) X 10*3/uL Monocytes # 1.26 H (0.20-1.00) X 10*3/uL Eosinophils # 0.58 H (0.04-0.35) X 10*3/uL ESR 47 H (0-20) mm/Hr Sodium 134 L (135-145) mmol/L BUN 30.1 H (9.0-27.0) mg/dL Creatinine 1.7 H (0.6-1.5) mg/dL Est GFR (CKD-EPI) 41 L (>=60) Calcium 7.6 L (8.7-10.3) mg/dL AST 44 H (14-35) U/L C-Reactive Protein 18.20 H (0.00-0.80) mg/dL Total Protein 4.7 L (6.2-8.2) g/dL Albumin 2.9 L (3.8-4.9) g/dL Crossmatch See Detail 11/19/23 11/19/23 Range/Units 10:43 10:43 WBC 14.8 H (4.50-10.00) X 10*3/uL RBC 2.87 L (4.40-5.60) X 10*6/uL Hgb 9.0 L (13.0-17.0) g/dL Hct 28.3 L (39.6-50.0) % MCV (80.0-97.0) FL RDW (11.5-14.5) % Immature Gran # (0.00-0.04) X 10*3/uL Neutrophils # 11.6 H (1.80-7.70) X 10*3/uL Monocytes # (0.20-1.00) X 10*3/uL Eosinophils # (0.04-0.35) X 10*3/uL ESR (0-20) mm/Hr Sodium 133 L (135-145) mmol/L BUN 32 H (9.0-27.0) mg/dL Creatinine 1.62 H (0.6-1.5) mg/dL Est GFR (CKD-EPI) (>=60) Calcium 7.8 L (8.7-10.3) mg/dL AST (14-35) U/L C-Reactive Protein (0.00-0.80) mg/dL Total Protein 5.3 L (6.2-8.2) g/dL Albumin 2.8 L (3.8-4.9) g/dL Crossmatch Microbiology - Last 24 Hours (Table) 11/17/23 20:23 Blood Culture - Preliminary Blood 11/17/23 20:05 Blood Culture - Preliminary Blood Assessment and Plan Assessment: Acute hypoxemic respiratory failure secondary to hypoventilation due to back pain, possible early right lower lobe pneumonia, hospital-acquired. Pulmonary embolism ruled out on VQ scan Febrile illness secondary to above Ongoing back pain in a patient with a recent L2 to pelvis decompression and fusion surgery on 11/09/2023 Postoperative lumbar seroma/hematoma at the mid and distal end of incision Chronic and lower extremity weakness secondary to above Leukocytosis Anemia requiring 1 unit of packed red blood cells Peripheral vascular disease with previous right femoral endarterectomy and patch angioplasty, bilateral iliac stents placement Hypertension Hyperlipidemia Bronchial asthma, mild intermittent Hypothyroidism Chronic back pain as mentioned above Osteoarthritis Chronic stage III kidney disease Plan: The patient was seen and evaluated VQ scan, labs and medications reviewed No evidence of pulmonary embolism Continue daptomycin and Zosyn Orthopedics considering transfer to [facility] Titrate the FiO2 as tolerated Encourage increased use the incentive spirometer Will continue to follow I have personally seen and examined the patient, performed the documentation and the assessment and plan as written. Number of minutes spent on the visit: 10.
--- NOTE | 2023-11-19 15:41 | P.PN ---
Subjective Progress Note Date: 11/19/23 Principal diagnosis: Reason for follow-up is fever possible surgical site infection/pneumonia Patient is a 77-year-old male with a past medical history significant for hypertension hyperlipidemia asthma in this patient who recently did have [id number] decompression and fusion by Dr. Gonzalez on 11/09/2023, presenting back to the hospital for evaluation of fever chills increasing pain to the lower back and drainage CTA concerning for possible airspace consolidation right lower lobe. On today's visit that is 11/19/2023, patient did have improvement in his fever pattern last temperature 100.7 last night is afebrile this morning patient is breathing comfortably on room air patient denies having any chest pain or shortness with occasional cough still complaining of pain to the lower back and drainage. Patient white count is 14.8 is 1.62 blood cultures currently pending Objective - Vital Signs Vital signs: Vital Signs Temp 97.6 F 11/19/23 07:00 Pulse 73 11/19/23 07:00 Resp 16 11/19/23 08:00 BP 173/61 11/19/23 07:00 Pulse Ox 99 11/19/23 07:00 FiO2 Intake & Output 11/18/23 11/19/23 11/19/23 18:59 06:59 18:59 Intake Total 0 280 Output Total 600 Balance 0 -320 Intake: Blood Product 0 280 Rc Pheresis As-3 Unit 0 280 [id number] Output: Urine 600 Other: Voiding Method Toilet Toilet Toilet Urinal Urinal Urinal # Voids 1 - Exam GENERAL DESCRIPTION: An elderly male lying in bed in no distress RESPIRATORY SYSTEM: Unlabored breathing , decreased breath sounds at bases HEART: S1 S2 regular rate and rhythm , ABDOMEN: Soft , no tenderness EXTREMITIES: No edema feet - Labs CBC & Chem 7: 11/19/23 10:43 11/19/23 10:43 Labs: Abnormal Lab Results - Last 24 Hours (Table) 11/18/23 11/18/23 11/18/23 Range/Units 05:46 05:46 08:01 WBC 15.13 H (4.50-10.00) X 10*3/uL RBC 2.37 L (4.40-5.60) X 10*6/uL Hgb 7.5 L (13.0-17.0) g/dL Hct 23.4 L (39.6-50.0) % MCV 98.7 H (80.0-97.0) FL RDW 14.7 H (11.5-14.5) % Immature Gran # 0.28 H (0.00-0.04) X 10*3/uL Neutrophils # 11.19 H (1.80-7.70) X 10*3/uL Monocytes # 1.24 H (0.20-1.00) X 10*3/uL Eosinophils # (0.04-0.35) X 10*3/uL Sodium (135-145) mmol/L BUN 28.3 H (9.0-27.0) mg/dL Creatinine 1.6 H (0.6-1.5) mg/dL Est GFR (CKD-EPI) 44 L (>=60) Calcium 8.0 L (8.7-10.3) mg/dL AST (14-35) U/L C-Reactive Protein (0.00-0.80) mg/dL Total Protein (6.2-8.2) g/dL Albumin (3.8-4.9) g/dL Procalcitonin 0.27 H (0.02-0.09) ng/mL Crossmatch 11/18/23 11/19/23 11/19/23 Range/Units 15:11 06:48 06:48 WBC 13.89 H (4.50-10.00) X 10*3/uL RBC 2.51 L (4.40-5.60) X 10*6/uL Hgb 8.0 L (13.0-17.0) g/dL Hct 24.7 L (39.6-50.0) % MCV 98.4 H (80.0-97.0) FL RDW 15.8 H (11.5-14.5) % Immature Gran # 0.26 H (0.00-0.04) X 10*3/uL Neutrophils # 9.90 H (1.80-7.70) X 10*3/uL Monocytes # 1.26 H (0.20-1.00) X 10*3/uL Eosinophils # 0.58 H (0.04-0.35) X 10*3/uL Sodium 134 L (135-145) mmol/L BUN 30.1 H (9.0-27.0) mg/dL Creatinine 1.7 H (0.6-1.5) mg/dL Est GFR (CKD-EPI) 41 L (>=60) Calcium 7.6 L (8.7-10.3) mg/dL AST 44 H (14-35) U/L C-Reactive Protein 18.20 H (0.00-0.80) mg/dL Total Protein 4.7 L (6.2-8.2) g/dL Albumin 2.9 L (3.8-4.9) g/dL Procalcitonin (0.02-0.09) ng/mL Crossmatch See Detail 11/19/23 11/19/23 Range/Units 10:43 10:43 WBC 14.8 H (4.50-10.00) X 10*3/uL RBC 2.87 L (4.40-5.60) X 10*6/uL Hgb 9.0 L (13.0-17.0) g/dL Hct 28.3 L (39.6-50.0) % MCV (80.0-97.0) FL RDW (11.5-14.5) % Immature Gran # (0.00-0.04) X 10*3/uL Neutrophils # 11.6 H (1.80-7.70) X 10*3/uL Monocytes # (0.20-1.00) X 10*3/uL Eosinophils # (0.04-0.35) X 10*3/uL Sodium 133 L (135-145) mmol/L BUN 32 H (9.0-27.0) mg/dL Creatinine 1.62 H (0.6-1.5) mg/dL Est GFR (CKD-EPI) (>=60) Calcium 7.8 L (8.7-10.3) mg/dL AST (14-35) U/L C-Reactive Protein (0.00-0.80) mg/dL Total Protein 5.3 L (6.2-8.2) g/dL Albumin 2.8 L (3.8-4.9) g/dL Procalcitonin (0.02-0.09) ng/mL Crossmatch Microbiology - Last 24 Hours (Table) 11/17/23 20:23 Blood Culture - Preliminary Blood 11/17/23 20:05 Blood Culture - Preliminary Blood Assessment and Plan (1) Fever Current Visit: Yes Status: Acute Code(s): R50.9 - FEVER, UNSPECIFIED SNOMED Code(s): 941381123 (2) Surgical site infection Current Visit: Yes Status: Acute Code(s): T81.49XA - INFECTION FOLLOWING A PROCEDURE, OTHER SURGICAL SITE, INIT SNOMED Code(s): 61777879 (3) Pneumonia Current Visit: Yes Status: Acute Code(s): J18.9 - PNEUMONIA, UNSPECIFIED ORGANISM SNOMED Code(s): 230998322 (4) Leukocytosis Current Visit: Yes Status: Acute Code(s): D72.829 - ELEVATED WHITE BLOOD CELL COUNT, UNSPECIFIED SNOMED Code(s): 961048070 Plan: 1patient presented hospital with sepsis in this patient who did have a fever elevated white count with a recent extensive L2 to pelvis spine decompression and fusion has been complaining of more pain to the lumbosacral spine area and did have some drainage with concern for possible surgical site infection versus left lobe pneumonia seen on the CT, will need to cover for both gram-positive as well as gram-negative pathogen 2-we will try to obtain a sputum for Gram stain culture CRP is mildly elevated sed rate is pending 3-patient to continue with Zosyn along with daptomycin currently waiting for surgical debridement and deep culture Dictation was produced using [employer] dictation software. please excuse any grammatical, word or spelling errors. Time with Patient: Less than 30
[2023-11-19 20:19] VITALS: BP 129/61; PULSE 81; TEMP 99.2
[2023-11-19 23:16] VITALS: RESP 18
--- NOTE | 2023-11-23 08:13 | CDI ---
Documentation Clarification Form Date: 11/23/23 From: Laurie Caba Admit Date: 11/17/2023 02:24:00 PM Patient Name: Justice Mayer Visit Number: [id number] Discharge Date: 11/20/2023 01:25:00 AM ATTENTION: The Clinical Documentation Specialists (CDI) and [facility] Coding Staff appreciate your assistance in clarifying documentation. Please respond to the clarification below the line at the bottom and electronically sign. The CDI & [facility] Coding staff will review the response and follow-up if needed. Please note: Queries are made part of the Legal Health Record. If you have any questions, please contact the author of this message via ITS. Dr. Ye Schreiber, Sepsis is documented in Dr. Crow consult and progress notes, but is not noted in subsequent documentation. Clarification is requested. History/Risk Factors: s/p L2 to pelvis decompression and fusion, COPD, hypothyroidism, HTN w CKD III, PVD, mild intermittent asthma, peripheral neuropathy Clinical Indicators: Surgical site hematoma / infection. WBC 14.9, Neutrophils 11.7, Lactic Acid 1.2, Procalcitonin 0.27, CRP 18.20 11/16: T 101.5, P 91, R 20, BP 114/46, O2 SAT 90 Treatment: IV Zoysn Please clarify if the [insert diagnosis] is: [ X ] Postop Sepsis, POA [ ] Postop Sepsis, not POA [ ] Sepsis, POA [ ] Sepsis ruled out [ ] Other condition, please specify [ ] Unable to determine MTDD
[2023-11-24] MEDS ORDERED: CLOPIDOGREL 75 MG TAB PO SCH (09:00)
== END 2023-11-20 01:25 | disposition short-term general hospital (02) | DRG 919 ==
LOC: EC 10:41 → 6NMEDSUR 14:23 → OBSVTOIN 14:24 → 6NMEDSUR 16:28 → 4SSUR 11-19 15:04
PROVIDERS: ADMIT Family Medicine; ATTEND Family Medicine
PROC: 30233N1 Transfusion of Nonautologous Red Blood Cells into Peripheral Vein, Percutaneous Approach (ICD-10-PCS; principal; 2023-11-18)
DX: M96.842 Postprocedural seroma of a musculoskeletal structure following a musculoskeletal system procedure (principal); A41.9 Sepsis, unspecified organism; J96.01 Acute respiratory failure with hypoxia; J18.9 Pneumonia, unspecified organism; T81.44XA Sepsis following a procedure, initial encounter; T81.41XA Infection following a procedure, superficial incisional surgical site, initial encounter; J44.0 Chronic obstructive pulmonary disease with (acute) lower respiratory infection; N18.30 Chronic kidney disease, stage 3 unspecified; I73.9 Peripheral vascular disease, unspecified; D64.9 Anemia, unspecified; E03.9 Hypothyroidism, unspecified; I12.9 Hypertensive chronic kidney disease with stage 1 through stage 4 chronic kidney disease, or unspecified chronic kidney disease; J45.20 Mild intermittent asthma, uncomplicated; I65.21 Occlusion and stenosis of right carotid artery; G62.9 Polyneuropathy, unspecified; E78.5 Hyperlipidemia, unspecified; G89.29 Other chronic pain; Y95 Nosocomial condition; M54.50 Low back pain, unspecified; K21.9 Gastro-esophageal reflux disease without esophagitis; K44.9 Diaphragmatic hernia without obstruction or gangrene; M19.90 Unspecified osteoarthritis, unspecified site; M10.9 Gout, unspecified; Z79.82 Long term (current) use of aspirin; Z79.02 Long term (current) use of antithrombotics/antiplatelets; Z79.890 Hormone replacement therapy; Z79.899 Other long term (current) drug therapy; Z87.891 Personal history of nicotine dependence; Z86.73 Personal history of transient ischemic attack (TIA), and cerebral infarction without residual deficits; Z98.1 Arthrodesis status; Z95.828 Presence of other vascular implants and grafts; Z95.820 Peripheral vascular angioplasty status with implants and grafts
CPT/HCPCS: 36415; 71045; 71275; 72131; 75635; 78582; 80048; 80053; 81003; 83605; 83735; 83880; 84145; 85025; 85379; 85610; 85652; 85730; 86140; 86850; 86900; 86901; 86920; 87040; 87636; 93005; 93922; 93970; 94640; 94760; 96361; 96374; 99285